=== PATIENT | female | born 1980 | race Caucasian/White ===

== ENCOUNTER 2023-02-06 20:19 | Emergency (ER) | payer MEDICAID, SELFPAY ==
[2023-02-06 20:34] VITALS: BP 132/88; PULSE 78; RESP 18; TEMP 36.8; O2SAT 100; BMI 31.8
[2023-02-06 21:02] LABS: Appearance Urine Clear (Clear); Bilirubin Urine Negative (Negative); Blood Urine Negative (Negative); Color Urine Yellow (Yellow); Glucose Urine Negative (Negative); Ketones Urine Negative (Negative); Leukocyte Esterase Urine Negative (Negative); Nitrite Urine Negative (Negative); Protein Urine Negative (Negative); Specific Gravity Urine >= 1.030 (1.000-1.030); Urobilinogen Urine 0.2 (0.2-1.0)
[2023-02-06] MEDS: KETOROLAC 30 MG/ML inj IVP (21:07)
[2023-02-06] MEDS: 0.9 % SODIUM CHLORIDE 1000 ml 1,000 ML IV (21:07)
[2023-02-06 21:22] LABS: Basophils Absolute Auto 0.02 K/uL (0.00-0.30); Basophils Percent Auto 0.3 % (0.0-3.0); Eosinophils Absolute Auto 0.07 K/uL (0.00-0.50); Hematocrit 40.2 % (33.0-51.0); Hemoglobin* 13.5 gm/dL (12.0-16.0); Immature Granulocytes Abs Auto 0.01 K/uL (0.00-0.30); Immature Granulocytes Pct Auto 0.1 %; Lymphocytes Absolute Auto 2.87 K/uL (0.90-2.90); Lymphocytes Percent Auto 42.6 % (20-44); Mean Corpuscular HGB Conc 34 gm/dL (32-36); Mean Corpuscular Hemoglobin 28 pg (26-34); Mean Corpuscular Volume 84 fL (80-100); Monocytes Percent Auto 6.8 % (0.0-11.0); Neutrophils Percent Auto 49.2 % (42.0-72.0); Platelet Count* 225 K/uL (140-440); RDW Coefficient of Variation % 12.6 % (11.5-15.5); Red Blood Count 4.78 m/uL (4.00-5.20); White Blood Count* 6.73 K/uL (4.50-11.00)
[2023-02-06 21:34] LABS: RBC Urine 0-2 (0-2); WBC Urine 0-2 (0-5)
[2023-02-06 21:37] LABS: Slide Review Reflex No
[2023-02-06 21:41] LABS: Albumin* 4.9 g/dL (3.3-5.0); Chloride* 104 mmol/L (96-114)
[2023-02-06 21:42] LABS: Potassium* 3.9 mmol/L (3.6-5.1); Sodium* 139 mmol/L (135-149)
[2023-02-06 21:44] LABS: Aspartate Amino Transferase* 22 U/L (12-35); Bilirubin Direct* 0.2 mg/dL (0.0-0.5); Bilirubin Total* 0.7 mg/dL (0.1-1.5); Carbon Dioxide* 26 mmol/L (20-32); Creatinine* 0.7 mg/dL (0.5-1.5); Est. Creatinine Clearance* 107.77; Estimated Glomerular Filt Rate 112 ml/min
[2023-02-06 21:45] LABS: Alanine Aminotransferase* 21 U/L (4-35); Alkaline Phosphatase* 46 U/L (40-150); Blood Urea Nitrogen* 17 mg/dL (5-24); Calcium* 9.6 mg/dL (8.4-10.6); Glucose* 91 mg/dL (60-115); Lipase* 204 U/L (23-300)
[2023-02-06 22:01] LABS: PCR FLU A Negative PCR FLU A (Negative); PCR FLU B Negative PCR FLU B (Negative)
[2023-02-06 22:13] LABS: C Reactive Protein* < 0.5 mg/dL (0.5-1.0)
[2023-02-06 22:15] LABS: SARS PCR* Negative SARS-CoV-2 (Negative)
--- NOTE | 2023-02-06 22:31 | ED.HA ---
HPI - Headache General Chief Complaint: Headache/Migraine Stated Complaint: Nausea, vomiting, Headache post CT scan Time Seen by Provider: 02/06/23 20:24 History of Present Illness HPI Narrative: 42-year-old woman presenting to the emergency department with complaint of mid forehead pain over the course of the day. No neck pain. No fever. Later endorses nausea that she thinks is more related to the degree of pain she was having. Contrasted chest CT exam last week and since has felt more bloated and some intermittent right abdominal pain. Headache started today. Recently took a dose of Victoza for insulin resistance she says. 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 She does have a history of nephrolithiasis including rather large stone retrieval it sounds like at one point at [place]. She notes also some gallbladder polyps. Does not typically get headaches. Is experiencing photophobia. She does have a history of ?cold sores? and later noted a an antiviral prescription is available. Few days ago though had eruption of lesion on her right lower lip. Ultimately she did [place] it of clear fluid. Did not have tingling prodrome or since consistent with typical cold sores. Has been experiencing pain radiating up through her right cheek area toward her ear. Denies TMJ pain or grinding her teeth. No sore throat. Related Data Home Medications Medication Instructions Recorded Confirmed liraglutide 0.6 mg/0.1 mL (18 mg/3 0.6 mg subcut DAILY 02/06/23 02/06/23 mL) subcutaneous pen injector (Victoza 2-Thomas) Allergies Allergy/AdvReac Type Severity Reaction Status Date / Time morphine Allergy Mild Rash Verified 02/06/23 20:39 Review of Systems Status of ROS: Reports: 10 or more systems reviewed and unremarkable except as noted in History and below [facility] Social History Smoking Status: Never smoker Do you use any of these nicotine containing products: None How often do you have a drink containing alcohol: never AUDIT-C Alcohol total score: 0 Non-prescribed substance use: denies use service: No Exam Narrative: Exam Narrative: Pleasant. Seems a little uncomfortable. More comfortable as I darken the room. Head looks to be atraumatic. No facial swelling or erythema. There is a 0.5 cm whitish plaque moist consistent with resolving blister like lesion without erythematous base on the right side lower lip. No surrounding inflammatory change of the lip otherwise. Neck is supple nontender. Speaking easily. No cervical lymphadenopathy. Does not have appear to have tenderness discretely over the parotids. Bilateral TMJ does shift with further opening of her mouth. Appears to be nontender. Cranial nerves 2-12 look to be intact. Pupils are equal and reactive to light accommodation. Heart is in regular rate. Is breathing easily. Abdomen is soft with mild discomfort to palpation in the right upper quadrant generally. No significant flank tenderness. Extremities are without edema. Const: Vital Signs, click to edit/add: Vital Signs - 24 hr 02/06/23 20:34 Temperature 98.3 F Pulse Rate [Right Pulse Oximeter] 78 Respiratory Rate 18 Blood Pressure [Ri ght Upper Arm] 132/88 Pulse Oximetry 100 Oxygen Delivery Me thod Room Air Documenting provider has reviewed patient's vital signs: yes Course Vital Signs Vital signs: Initial Vital Signs Temperature 98.3 F 02/06/23 20:34 Temperature Source Temporal Artery Scan 02/06/23 20:34 Pulse Rate 78 02/06/23 20:34 Respiratory Rate 18 02/06/23 20:34 Blood Pressure 132/88 02/06/23 20:34 Blood Pressure Mean 102 02/06/23 20:34 Blood Pressure Position Sitting 02/06/23 20:34 Pulse Oximetry 100 02/06/23 20:34 Oxygen Delivery Method 02/06/23 20:34 Vital Signs Temperature 98.3 F 02/06/23 20:34 Pulse Rate 78 02/06/23 20:34 Respiratory Rate 18 02/06/23 20:34 Blood Pressure 132/88 02/06/23 20:34 Pulse Oximetry 100 02/06/23 20:34 Oxygen Delivery Method 02/06/23 20:34 Temperature 98.3 F 02/06/23 20:34 Pulse Rate 78 02/06/23 20:34 Respiratory Rate 18 02/06/23 20:34 Blood Pressure 132/88 02/06/23 20:34 Pulse Oximetry 100 02/06/23 20:34 Oxygen Delivery Method 02/06/23 20:34 MDM - Headache MDM Narrative Medical decision making narrative: I wonder if this aphthous ulcer/cold sore/lesion in the right lip has cause some regional pain contributing to this headache. No lesions further on face/head/neck consistent with shingles or [place]. Offering treatment for headache resolution. Can certainly evaluate also renal function and urinalysis given her concern. Perhaps is indeed intolerant of Victoza. IV was established. Received a L of normal saline and ketorolac. Appears to be significantly more comfortable; notes that treatment is taken the edge off. Nausea has also improved. Laboratory evaluation is unremarkable with normal CRP and creatinine of 0.7 See patient discharge plan. Lab Data Attestation: I reviewed the patient's lab results. Labs: Lab Results 02/06/23 02/06/23 02/06/23 Range/Units 20:50 21:05 21:05 WBC 6.73 (4.50-11.00) K/uL RBC 4.78 (4.00-5.20) m/uL Hgb 13.5 (12.0-16.0) gm/dL Hct 40.2 (33.0-51.0) % MCV 84 (80-100) fL MCH 28 (26-34) pg MCHC 34 (32-36) gm/dL RDW Coeff of Epifanio 12.6 (11.5-15.5) % Plt Count 225 (140-440) K/uL Neut % (Auto) 49.2 (42.0-72.0) % Lymph % (Auto) 42.6 (20-44) % [place] % (Auto) 6.8 (0.0-11.0) % Eos % (Auto) 1.0 (0.0-7.0) % Baso % (Auto) 0.3 (0.0-3.0) % Neut # (Auto) 3.30 (1.7-7.0) K/uL Lymph # (Auto) 2.87 (0.90-2.90) K/uL [place] # (Auto) 0.50 (0.00-0.90) K/UL Eos # (Auto) 0.07 (0.00-0.50) K/uL Baso # (Auto) 0.02 (0.00-0.30) K/uL Sodium 139 (135-149) mmol/L Potassium 3.9 (3.6-5.1) mmol/L Chloride 104 (96-114) mmol/L Carbon Dioxide 26 (20-32) mmol/L BUN 17 (5-24) mg/dL Creatinine 0.7 (0.5-1.5) mg/dL Estimated Creat Clear 107.77 Estimated GFR 112 ml/min Glucose 91 (60-115) mg/dL Calcium 9.6 (8.4-10.6) mg/dL Total Bilirubin 0.7 (0.1-1.5) mg/dL Direct Bilirubin 0.2 (0.0-0.5) mg/dL AST 22 (12-35) U/L ALT 21 (4-35) U/L Alkaline Phosphatase 46 (40-150) U/L C-Reactive Protein < 0.5 L (0.5-1.0) mg/dL Total Protein 8.0 (6.0-8.3) g/dL Albumin 4.9 (3.3-5.0) g/dL Lipase 204 (23-300) U/L Urine Color Yellow (Yellow) Urine Appearance Clear (Clear) Urine pH 6.0 (5.0-8.5) Ur Specific [place] >= 1.030 (1.000-1.030) Urine Protein Negative (Negative) Urine Glucose (UA) Negative (Negative) Urine Ketones Negative (Negative) Urine Blood Negative (Negative) Urine Nitrite Negative (Negative) Urine Bilirubin Negative (Negative) Urine Urobilinogen 0.2 (0.2-1.0) Ur Leukocyte Esterase Negative (Negative) Urine RBC 0-2 (0-2) Urine WBC 0-2 (0-5) Ur Squamous Epith Cells None (None-Few) Urine Bacteria None (None) SARS-CoV-2 (PCR) (Negative) Influenza Type A (PCR) (Negative) Influenza Type B (PCR) (Negative) 02/06/23 02/06/23 Range/Units 21:05 21:05 WBC (4.50-11.00) K/uL RBC (4.00-5.20) m/uL Hgb (12.0-16.0) gm/dL Hct (33.0-51.0) % MCV (80-100) fL MCH (26-34) pg MCHC (32-36) gm/dL RDW Coeff of Epifanio (11.5-15.5) % Plt Count (140-440) K/uL Neut % (Auto) (42.0-72.0) % Lymph % (Auto) (20-44) % [place] % (Auto) (0.0-11.0) % Eos % (Auto) (0.0-7.0) % Baso % (Auto) (0.0-3.0) % Neut # (Auto) (1.7-7.0) K/uL Lymph # (Auto) (0.90-2.90) K/uL [place] # (Auto) (0.00-0.90) K/UL Eos # (Auto) (0.00-0.50) K/uL Baso # (Auto) (0.00-0.30) K/uL Sodium (135-149) mmol/L Potassium (3.6-5.1) mmol/L Chloride (96-114) mmol/L Carbon Dioxide (20-32) mmol/L BUN (5-24) mg/dL Creatinine (0.5-1.5) mg/dL Estimated Creat Clear Estimated GFR ml/min Glucose (60-115) mg/dL Calcium (8.4-10.6) mg/dL Total Bilirubin (0.1-1.5) mg/dL Direct Bilirubin (0.0-0.5) mg/dL AST (12-35) U/L ALT (4-35) U/L Alkaline Phosphatase (40-150) U/L C-Reactive Protein (0.5-1.0) mg/dL Total Protein (6.0-8.3) g/dL Albumin (3.3-5.0) g/dL Lipase Cancelled (23-300) U/L Urine Color (Yellow) Urine Appearance (Clear) Urine pH (5.0-8.5) Ur Specific [place] (1.000-1.030) Urine Protein (Negative) Urine Glucose (UA) (Negative) Urine Ketones (Negative) Urine Blood (Negative) Urine Nitrite (Negative) Urine Bilirubin (Negative) Urine Urobilinogen (0.2-1.0) Ur Leukocyte Esterase (Negative) Urine RBC (0-2) Urine WBC (0-5) Ur Squamous Epith Cells (None-Few) Urine Bacteria (None) SARS-CoV-2 (PCR) Negative SARS-CoV-2 (Negative) Influenza Type A (PCR) Negative PCR FLU A (Negative) Influenza Type B (PCR) Negative PCR FLU B (Negative) Discharge Plan Discharge Clinical Impression: Cold sore, Headache Patient Disposition: Home, Self-Care Condition: Improved Additional Instructions: Continue to focus on hydration with water. Rest. Return/be seen for recurrence of headache, marked increase in pain, repeated/intractable vomiting, fever particularly if associated with swelling redness on your face, outbreak of very other blistering or eroded skin. Prescriptions: No Action Victoza 2-Thomas 0.6 mg/0.1 mL (18 mg/3 mL) pen injector 0.6 mg subcut DAILY Follow Up/Referrals: Radha Cowan MD [Primary Care Provider] - Stand Alone Forms: [facility] Info Instructions
== END 2023-02-06 22:47 | disposition home or self-care (01) ==
PROVIDERS: Emergency Provider Family Medicine; PCP Family Medicine
DX: B00.1 Herpesviral vesicular dermatitis (principal); R51.9 Headache, unspecified
CPT/HCPCS: 36415; 80048; 80076; 81001; 83690; 85025; 86140; 87631; 96361; 96374; 99284; J1885; J7030

== ENCOUNTER 2024-07-19 18:49 | Emergency (ER) | payer BC, SELFPAY ==
[2024-07-19 18:51] VITALS: BP 131/78; PULSE 78; RESP 16; TEMP 36.8; O2SAT 99; BMI 30.9
--- NOTE | 2024-07-19 19:02 | ED_ITS ---
HPI - Abdominal Pain General Time Seen by Provider: 19:11 Date Seen: 07/19/24 Chief Complaint: Abdominal Pain Stated Complaint: Right side abdominal pain Time Seen by Provider: 07/19/24 19:02 Source: patient Mode of arrival: ambulatory Limitations: no limitations History of Present Illness HPI narrative: 44-year-old female who comes in today with right-sided abdominal pain. Pain started this afternoon, accompanied by nausea but no vomiting. No urinary symptoms, no diarrhea. Has a history of kidney stones but says this feels different. No prior abdominal surgeries. Took ibuprofen earlier. Related Data Home Medications ?Medication ?Instructions ?Recorded ?Confirmed tirzepatide 5 mg/0.5 mL 5 mg subcut QWEEK 07/19/24 07/19/24 subcutaneous pen injector (Mounjaro) Previous Rx's ?Medication ?Instructions ?Recorded tamsulosin 0.4 mg capsule (Flomax) 0.4 mg PO DAILY #7 caps 07/19/24 Allergies Allergy/AdvReac Type Severity Reaction Status Date / Time morphine Allergy Mild Rash Verified 07/19/24 19:40 [facility] Social History Smoking Status: Never smoker Do you use any of these nicotine containing products: None How often do you have a drink containing alcohol: never AUDIT-C Alcohol total score: 0 Non-prescribed substance use: denies use service: No Exam Narrative: Exam Narrative: General: Well-developed and well-nourished, no acute distress Head: Atraumatic and normocephalic Eyes: Pupils are equal reactive, extraocular motions intact, conjunctiva clear ENT: External nose and ears are normal, posterior pharynx without erythema or exudate Neck: No midline cervical tenderness, full spontaneous range of motion the neck, trachea midline, no adenopathy Heart: Regular rate and rhythm no murmurs or thrills Lungs: Clear to auscultation bilaterally without wheezes or crackles Abdomen: Soft, right lateral abdominal tenderness, no right lower quadrant or right upper quadrant tenderness, nondistended with active bowel sounds Musculoskeletal: No tenderness, deformity, or edema Neurologic: Awake, alert, and oriented x3, no gross focal neurologic deficits, cranial nerves intact as tested Psych: Mood and affect are appropriate Skin: No rashes Const: Vital Signs, click to edit/add: Vital Signs - 24 hr 07/19/24 18:51 Temperature 98.3 F Pulse Rate [Pulse Oximeter] 78 Respiratory Rate 16 Blood Pressure [Ri ght Upper Arm] 131/78 Pulse Oximetry 99 Oxygen Delivery Me thod Room Air Course Course ED Course: Reviewed prior primary care office visit from October 03 when patient was seen for follow-up of flank pain and concern for kidney stone. Patient was referred to the emergency department at that time but it does not appear she was seen in [place]. Patient seen in presents with right-sided abdominal pain. Vitally stable, no prior abdominal surgeries. Lateral abdominal tenderness, no right lower quadrant tenderness to suggest adnexal pathology or appendicitis, no right upper quadrant tenderness. This could represent a retrocecal appendicitis, also consider kidney stone. Labs ordered along with CT scan abdomen pelvis. Dilaudid and Zofran for symptom management. Reevaluation(s) Time of Reevaluation #1: 20:02 Reevaluation #1: CT abdomen and pelvis independently interpreted by me with decompressed gallbladder and no evidence for stones or iliac thickening, right-sided hydronephrosis with a 3 mm mid ureteral stone, no evidence for acute appendicitis. Plan for discharge with symptom management for stone and follow- up with urology. Time of Reevaluation #2: 20:31 Reevaluation #2: Urinalysis with blood but no evidence for infection, reviewed radiology interpretation of CT scan which agrees with my initial interpretation. Vital Signs Vital signs: Initial Vital Signs Temperature 98.3 F 07/19/24 18:51 Temperature Source Temporal Artery Scan 07/19/24 18:51 Pulse Rate 78 07/19/24 18:51 Respiratory Rate 16 07/19/24 18:51 Blood Pressure 131/78 07/19/24 18:51 Blood Pressure Mean 95 07/19/24 18:51 Blood Pressure Position Sitting 07/19/24 18:51 Pulse Oximetry 99 07/19/24 18:51 Oxygen Delivery Method Room Air 07/19/24 18:51 Vital Signs Temperature 98.3 F 07/19/24 18:51 Pulse Rate 78 07/19/24 18:51 Respiratory Rate 16 07/19/24 18:51 Blood Pressure 131/78 07/19/24 18:51 Pulse Oximetry 99 07/19/24 18:51 Oxygen Delivery Method Room Air 07/19/24 18:51 Temperature 98.3 F 07/19/24 18:51 Pulse Rate 78 07/19/24 18:51 Respiratory Rate 16 07/19/24 18:51 Blood Pressure 131/78 07/19/24 18:51 Pulse Oximetry 99 07/19/24 18:51 Oxygen Delivery Method Room Air 07/19/24 18:51 Medications Administered Medications: Discontinued Medications Generic Name Dose Route Start Last Admin Trade Name Freq PRN Reason Stop Dose Admin Ketorolac Tromethamine 15 mg 07/19/24 20:03 07/19/24 20:09 Ketorolac 15 Mg/Ml Inj IVP 07/19/24 20:04 15 mg ONCE ONE Administration Ondansetron HCl 4 mg 07/19/24 19:22 07/19/24 19:37 Ondansetron 2 Mg/Ml Inj IVP 07/19/24 19:23 4 mg ONCE ONE Administration MDM - Abdominal Pain Lab Data Labs: Lab Results 07/19/24 07/19/24 Range/Units 19:30 19:44 WBC 7.11 (4.50-11.00) K/uL RBC 4.36 (4.00-5.20) m/uL Hgb 12.2 (12.0-16.0) gm/dL Hct 36.4 (33.0-51.0) % MCV 84 (80-100) fL MCH 28 (26-34) pg MCHC 34 (32-36) gm/dL RDW Coeff of Epifanio 13.0 (11.5-15.5) % Plt Count 191 (140-440) K/uL Neut % (Auto) 48.9 (42.0-72.0) % Lymph % (Auto) 43.5 (20-44) % [place] % (Auto) 6.0 (0.0-11.0) % Eos % (Auto) 1.3 (0.0-7.0) % Baso % (Auto) 0.3 (0.0-3.0) % Neut # (Auto) 3.48 (1.7-7.0) K/uL Lymph # (Auto) 3.09 H (0.90-2.90) K/uL [place] # (Auto) 0.40 (0.00-0.90) K/UL Eos # (Auto) 0.09 (0.00-0.50) K/uL Baso # (Auto) 0.02 (0.00-0.30) K/uL Abs Immat Gran (auto) 0.00 (0.00-0.30) K/uL Imm/Tot Granulo (auto) 0.0 % Sodium 139 (135-149) mmol/L Potassium 4.2 (3.6-5.1) mmol/L Chloride 108 (96-114) mmol/L Carbon Dioxide 24 (20-32) mmol/L Anion Gap 7 (7-15) mEq/L BUN 18 (5-24) mg/dL Creatinine 1.0 (0.5-1.5) mg/dL Estimated Creat Clear 73.93 Estimated GFR 72 ml/min Glucose 89 (60-115) mg/dL Calcium 9.3 (8.4-10.6) mg/dL Total Bilirubin 0.6 (0.1-1.5) mg/dL Direct Bilirubin 0.2 (0.0-0.5) mg/dL AST 20 (12-35) U/L ALT 17 (4-35) U/L Alkaline Phosphatase 47 (40-150) U/L Total Protein 7.4 (6.0-8.3) g/dL Albumin 4.8 (3.3-5.0) g/dL Lipase 298 (23-300) U/L Urine Color Yellow (Yellow) Urine Appearance Cloudy A (Clear) Urine pH 6.5 (5.0-8.5) Ur Specific [place] 1.025 (1.000-1.030) Urine Protein 1+ A (Negative) Urine Glucose (UA) Negative (Negative) Urine Ketones Negative (Negative) Urine Blood 3+ A (Negative) Urine Nitrite Negative (Negative) Urine Bilirubin Negative (Negative) Urine Urobilinogen 0.2 (0.2-1.0) Ur Leukocyte Esterase Negative (Negative) Urine RBC >100 A (0-2) Urine WBC 0-2 (0-5) Ur Squamous Epith Cells Few (None-Few) Urine Bacteria Few A (None) Discharge Plan Discharge Clinical Impression: Right ureteral calculus Patient Disposition: Home, Self-Care Condition: Stable Instructions: Ureteral Stones (ED) Additional Instructions: Take Tylenol every 6 hours alternating with ibuprofen every 6 hours Call [facility] to see if you can get sooner follow-up for acute kidney stone Activity Level: Activity as Tolerated Discharge Diet: Regular Prescriptions: New tamsulosin [Flomax] 0.4 mg capsule 0.4 mg PO DAILY Qty: 7 0RF No Action Mounjaro 5 mg/0.5 mL pen injector 5 mg subcut QWEEK Follow Up/Referrals: Radha Cowan MD [Primary Care Provider] - Stand Alone Forms: [facility] Info Instructions
--- NOTE | 2024-07-19 19:22 | CRLHL7_ITS ---
For Patients: As a result of the Century Cures Act, medical imaging exams and procedure reports are released immediately into your electronic medical record. You may view this report before your referring provider. If you have questions, please contact your health care provider. Indication: Right-sided abdominal pain Technique: CT through the abdomen and pelvis following 99 mL Isovue 370 IV contrast Comparison: None Findings: Lower chest: No acute abnormality appreciated. Hepatobiliary: No significant parenchymal abnormality is appreciated. Spleen: Unremarkable. Pancreas: No acute abnormality appreciated. Adrenal glands: No acute abnormality appreciated. Kidneys: There is a 3 millimeter proximal right ureteral stone with mild hydronephrosis and delayed nephrogram ureter additional bilateral nonobstructing stones present. Bowel: No obstruction. No focal perienteric or pericolonic stranding is appreciated. The appendix is visualized and appears unremarkable. Vascular: No acute abnormality appreciated. Lymph nodes: No gross lymphadenopathy. Peritoneum: No free air. No free fluid. : No acute abnormality appreciated. Soft tissues: No acute abnormality appreciated. Bones: No acute fracture. No lytic or blastic lesion. Impression: 1. Obstructing 3 millimeter proximal right ureteral stone with mild hydronephrosis. 2. Additional bilateral nonobstructing stones present. Please note that all CT scans at this facility use dose modulation, iterative reconstruction, and/or weight-based dosing when appropriate to reduce radiation dose to as low as reasonably achievable. Dictated by Raudel Severino MD @ 07/19/2024 8:25:15 PM (Electronically Signed)
[2024-07-19 19:37] LABS: Basophils Absolute Auto 0.02 K/uL (0.00-0.30); Basophils Percent Auto 0.3 % (0.0-3.0); Eosinophils Absolute Auto 0.09 K/uL (0.00-0.50); Eosinophils Percent Auto 1.3 % (0.0-7.0); Hematocrit 36.4 % (33.0-51.0); Hemoglobin* 12.2 gm/dL (12.0-16.0); Lymphocytes Absolute Auto 3.09 K/uL (0.90-2.90); Lymphocytes Percent Auto 43.5 % (20-44); Mean Corpuscular HGB Conc 34 gm/dL (32-36); Mean Corpuscular Hemoglobin 28 pg (26-34); Mean Corpuscular Volume 84 fL (80-100); Neutrophils Absolute Auto 3.48 K/uL (1.7-7.0); Neutrophils Percent Auto 48.9 % (42.0-72.0); Platelet Count* 191 K/uL (140-440); Red Blood Count 4.36 m/uL (4.00-5.20); White Blood Count* 7.11 K/uL (4.50-11.00)
[2024-07-19] MEDS: ONDANSETRON 2 MG/ML inj 4 MG IVP (19:37)
[2024-07-19 19:38] LABS: Slide Review Reflex No
--- OUTSIDE RECORDS SUMMARY | 2024-07-19 19:57 | XMS_ITS | Clinical Summary ---
Author Organization [facility] Address [place], [place] [address] Care Team Providers Care Closing Manager Name Role Phone Yareli Oviedo MD Unavailable [phone] Radha Cowan MD Primary Care Provider Mira Coelho MD Unavailable Unavailable Juan Torres MD Unavailable [phone] Allergies Active Allergy Reactions Criticality Noted Date Comments Morphine Rash 04/19/2018 Medications Medication Sig Dispensed Refills Start Date End Date Status lisdexamfetamine (Vyvanse) 10 mg capsuleIndications :ADHD (attention deficit hyperactivity disorder), combined type Take 1 Capsule (10 mg) by mouth once daily. 30 Capsule 07/03/2024 4 Active lisdexamfetamine (Vyvanse) 10 mg capsuleIndications :ADHD (attention deficit hyperactivity disorder), combined type Take 1 Capsule (10 mg) by mouth once daily. 30 Capsule 08/02/2024 4 Active lisdexamfetamine (Vyvanse) 10 mg capsuleIndications :ADHD (attention deficit hyperactivity disorder), combined type Take 1 Capsule (10 mg) by mouth once daily. 30 Capsule 09/01/2024 Active semaglutide, weight loss, (Wegovy) 2.4 mg/0.75 mL penIndications:PCO S (polycystic ovarian syndrome),Insulin resistance,Obesity (BMI 30.0-34.9) Inject 2.4 mg subcutaneous once weekly. 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 02/14/2022 Encounters Date Type Department Care Team Description 07/03/2024 2:20 PM CDT Office Visit [facility] [address] [place] [address] Radha Cowan MD Medication Management (Switching medications) 07/03/2024 Travel 05/29/2024 Refill [facility] [address] [place] [address] Radha Cowan MD Refill Request; VALACYCLOVIR 05/01/2024 Refill [facility] [address] [place] [address] Radha Cowan MD Refill Request (Valtrex) from Last 3 Months Immunizations Name Administration Dates Next Due DTP 10/26/1987,12/28/1983,03/30/1983 ,1982 Influenza, IIV3 (Age 6-35 mos) 12/24/2012 Influenza, IIV4 12/24/2013 Influenza,CCIIV4 PRESERV FREE 08/27/2018 MMR 10/17/1983 Oral Polio Vaccine 10/26/1987,03/30/1983, 983 Tdap 12/24/2012 Family History Medical History Relation Name Comments Stroke Other ICH as complica tion of coumadin, per pt report Cancer-breast No Family History Cancer-colon No Family History Cancer-ovarian No Family History Cancer-pancreatic No Family History Cancer-prostate No Family History Melanoma No Family History Relation Name Status Comments Other Social History Tobacco Use Types Packs/Day Years Used Date Smoking Tobacco: Never Smokeless Tobacco: Never Tobacco Cessation:Counseling Given: Yes Alcohol Use Standard Drinks/Week Comments No 0 (1 standard drink = 0.6 oz pur e alcohol) PHQ-2 Answer Date Recorded PHQ-2 TOTAL SCORE 1 11/22/2023 Social Connections Answer Date Recorded Frequency of Communication with Friends and Fami ly 0 11/22/2023 Financial Resource Strain Answer Date R ecorded Difficulty of Paying Living Expenses 3 11/22/2023 Difficulty of Paying Living Expenses Not on file 11/22/2023 Food Insecurity Answer Date Recorded Worried About Running Out of Food in the Last Ye ar 1 11/22/2023 Transportation Needs Answer Date Record ed Lack of Transportation (Medical) 1 11/22/2023 Housing Stability Answer Date Recorded Unable to Pay for Housing in the Last Year 1 11/22/2023 Sex and Gender Information Value Date Recorded Sex Assigned at Not on file Gender Identity Not on file Sexual Orientation Not on file Obstetrics History Para Term AB IAB SAB Ectopic Multiple Livin g Live Births 5 4 0 0 1 0 1 0 Date Outcome GA Total Labor Labor/2nd/3rd Weight Sex Type Anes PTL Fatou A1 A5 Name Clin Para Para Para Para SAB Last Filed Vital Signs Vital Sign Reading Time Taken Comments Blood Pressure 104/73 07/03/2024 2:35 PM CDT Pulse 75 07/03/2024 2:35 PM CDT Temperature 36.9 ??C (98.5 ??F) 07/03/2024 2:35 PM CD T Respiratory Rate 16 11/01/2023 8:33 AM RUBBER MOLD MAKER Oxygen Saturation 97% 07/03/2024 2:35 PM CDT Inhaled Oxygen Concentration - - Weight 93.1 kg (205 lb 3.2 oz) 07/03/2024 2:35 P M CDT Height 171.5 cm (5' 7.5) 09/26/2023 11:02 AM CS T Body Mass Index 31.66 09/26/2023 11:02 AM RUBBER MOLD MAKER Plan of Treatment Health Maintenance Due Date Last Done Comments HIV for age 15-65 1997 Hepatitis C screening for age 18-79 2000 Pap test for age 21-65 2003 Tetanus booster 12/24/2022 12/24/2012, 02/2013 (Completed outside of [facility]) COVID-19 vaccine series (24 season) 2023 Influenza for age 9-49 07/21/2024 08/27/2018, 2013 BMI (ht and wt on same day) for age 18+ 09/21/2024 09/21/2023, 03/22/2023, 01/30/2023, Additional history exists Depression screening for age 12+ 11/22/2024 11/22/2023, 02/14/2022, 08/12/2021, Additional history exists Tdap Completed 12/24/2012, 02/2013 (Completed outside of [facility]) Pneumococcal series for age 6-64 Aged Out No longer eligible based on patient's age to complete this topic Medical Devices Implanted Type Area Repairer Device Identifier Shelf Expiration Date Model / Serial / Lot [id number] Boris Gray Md Perforated Implanted:Qty: 1 on 10/28/2020 by Juan Torres MD at [facility] Explanted:at [facility] (Quantity not on file) Left: Breast Acel[employer] LP Inc 06/19/2022 [id number] / [id number] / [id number] Boris Gray Md Perforated Implanted:Qty: 1 on 10/28/2020 by Juan Torres MD at [facility] Explanted:at [facility] (Quantity not on file) Right: Breast [employer]el[employer] Inc 06/19/2022 [id number] / [id number] / Breast 745cc Natrelle Inspira Soft Touch Ssf - [id number] Implanted:Qty: 1 on 11/08/2021 by Misbah Coelho MD at [facility] Right: Breast [employer] - [place] 09/08/2025 SSF-745 / [id number] / [id number] Breast 745cc Natrelle Inspira Soft Touch Ssf - [id number] Implanted:Qty: 1 on 11/08/2021 by Misbah Coelho MD at [facility] Breast [employer] - [employer] 06/23/2025 SSF-745 / [id number] / [id number] Explanted Type Area Repairer Device Identifier Shelf Expiration Date Model / Serial / Lot [id number] breastimplanttal [id number] 50cc Implanted:Qty: 1 on 10/28/2020 by Juan Torres MD at [facility] Explanted:at [facility] (Quantity not on file) Explanted:Qty: 1 on 11/08/2021 by Misbah Coelho MD at [facility] Left: Breast [employer] 06/20/2023 [id number] / [id number] Description:BREAST IMPLANT T ALL HEIGHT TE SMOOTH 450CC Explanted prior to encounter 11/09/21 [id number] breastimplanttal [id number] 50cc Implanted:Qty: 1 on 10/28/2020 by Juan Torres MD at [facility] Explanted:at [facility] (Quantity not on file) Explanted:Qty: 1 on 11/08/2021 by Misbah Coelho MD at [facility] Right: Breast [employer] 01/22/2024 [id number] / [id number] Description:BREAST IMPLANT T ALL HEIGHT TE SMOOTH 450CC Explanted prior to encounter 11/09/21 [place] [employer] Hpx 700 Cc Explanted:Qty: 2 on 11/08/2021 at [facility] Bilateral: Breast [employer]PLANT[employer] / [id number] / Additional Health Concerns Infection Onset Date Last Indicated COVID History Comment:COVID+ test result dates: 08/10/21 (90 days clearance ends 11/08/21) and 11/04/21 via PCR from [facility]. Patient met COVID clearance criteria on 08/20/21. For evaluation of subsequent COVID+ results, refer to the algorithm on the AKN: Isolation Precaution Recommendations for Patients with History of COVID-19 Infection. 11/05/2021 11/05/2021 Advance Directives * Full Code (Latest Code Status on File) Date Activated Date Inactivated Comments 09/26/2023 10:59 AM 09/26/2023 5:24 PM Question Answer Comments Code Status Discussion: Reviewed Preferences * Full Code Date Activated Date Inactivated Comments 11/08/2021 11:51 AM 11/08/2021 9:39 PM Question Answer Comments Code Status Discussion: Reviewed Preferences * Full Code Date Activated Date Inactivated Comments 10/28/2020 1:34 PM 10/30/2020 3:33 PM Question Answer Comments Code Status Discussion: Not Discussed * Full Code Date Activated Date Inactivated Comments 10/28/2020 1:34 PM 10/28/2020 1:34 PM Question Answer Comments Code Status Discussion: Not Discussed * Full Code Date Activated Date Inactivated Comments 04/07/2015 7:12 AM 04/07/2015 1:44 PM Care Teams Closing Manager Relationship Specialty Start Date End Date Radha Cowan MD [address] [place] [address] PCP - General Family Practice 10/03/19 Yareli Oviedo MD [address] [place] [id number] Obstetrics and Gynecology 04/19/18 Mira Coelho MD [address] [place] [address] Surgery - General 10/13/20 Juan Torres MD [address] [address] Plastic and Reconstructive Surgery 10/26/20
[2024-07-19 20:00] LABS: Albumin* 4.8 g/dL (3.3-5.0); Chloride* 108 mmol/L (96-114); Potassium* 4.2 mmol/L (3.6-5.1); Sodium* 139 mmol/L (135-149)
[2024-07-19 20:03] LABS: Alkaline Phosphatase* 47 U/L (40-150); Anion Gap 7 mEq/L (7-15); Aspartate Amino Transferase* 20 U/L (12-35); Bilirubin Direct* 0.2 mg/dL (0.0-0.5); Bilirubin Total* 0.6 mg/dL (0.1-1.5); Blood Urea Nitrogen* 18 mg/dL (5-24); Calcium* 9.3 mg/dL (8.4-10.6); Carbon Dioxide* 24 mmol/L (20-32); Est. Creatinine Clearance* 73.93; Estimated Glomerular Filt Rate 72 ml/min; Glucose* 89 mg/dL (60-115); Lipase* 298 U/L (23-300); Total Protein* 7.4 g/dL (6.0-8.3)
[2024-07-19 20:04] LABS: Alanine Aminotransferase* 17 U/L (4-35)
[2024-07-19 20:07] LABS: Appearance Urine Cloudy (Clear); Bilirubin Urine Negative (Negative); Blood Urine 3+ (Negative); Color Urine Yellow (Yellow); Glucose Urine Negative (Negative); Ketones Urine Negative (Negative); Leukocyte Esterase Urine Negative (Negative); Nitrite Urine Negative (Negative); Protein Urine 1+ (Negative); Specific Gravity Urine 1.025 (1.000-1.030); Urobilinogen Urine 0.2 (0.2-1.0); pH Urine 6.5 (5.0-8.5)
[2024-07-19] MEDS: KETOROLAC 15 MG/ML inj IVP (20:09)
[2024-07-19 20:22] LABS: RBC Urine >100 (0-2); WBC Urine 0-2 (0-5)
[2024-07-19 20:23] LABS: Bacteria Urine Few; Squamous Epithelial Cell Urine Few (None-Few)
[2024-07-19 20:38] VITALS: BP 124/71; PULSE 71; RESP 16
== END 2024-07-19 20:39 | disposition home or self-care (01) ==
PROVIDERS: Emergency Provider Family Medicine; PCP Family Medicine
DX: N20.1 Calculus of ureter (principal)
CPT/HCPCS: 36415; 74177; 80048; 80076; 81001; 83690; 85025; 87086; 96374; 96375; 99284; 99285; J1885; J2405; Q9967

== ENCOUNTER 2024-07-20 18:31 | Emergency (ER) | payer BC, SELFPAY ==
[2024-07-20 18:39] VITALS: BP 148/79; PULSE 96; RESP 20; TEMP 37.1; O2SAT 100
--- NOTE | 2024-07-20 18:42 | ED.ABDPAIN ---
HPI - Abdominal Pain General Time Seen by Provider: 18:42 Date Seen: 07/20/24 Chief Complaint: Abdominal Pain Stated Complaint: kidney stones;meds not working Time Seen by Provider: 07/20/24 18:40 Source: patient and RN notes reviewed Mode of arrival: ambulatory Limitations: no limitations History of Present Illness HPI narrative: Atiya is a 44-year-old female with history of kidney stones coming with known obstructive right kidney stone and pain uncontrolled. She has had no fevers. Toradol seemed to be working. She started having increasing pain this morning. 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 She did try going to a [facility] ER where she could be seen by Urology. They stated urology would not even look at her because her stone was so small. She was evaluated overnight here in our ER on found have a 3 mm proximal obstructing stone in the right ureter. There was mild hydronephrosis. There were additional bilateral nonobstructing stones. She notes no fevers. Her pain is just severe. She has had a rash with IV morphine. She states she does not tolerate oxycodone very well. She is not sure she has ever tried tramadol. Toradol typically will work with her. She did not get the tamsulosin, has stopped at the pharmacy 4 times today and they do not have a ready. Reviewed with her that we will give her a dose here today. She is having severe right flank pain which radiates and wraps around down her abdomen. There are no fevers. She has had an infected kidney stone before and understands the importance of this, she is not feeling like that. MD elicited complaint: abdominal pain and flank pain Pertinent past history: kidney stones Related Data Home Medications ?Medication ?Instructions ?Recorded ?Confirmed tirzepatide 5 mg/0.5 mL 5 mg subcut QWEEK 07/19/24 07/19/24 subcutaneous pen injector (Mounjaro) Previous Rx's ?Medication ?Instructions ?Recorded tamsulosin 0.4 mg capsule (Flomax) 0.4 mg PO DAILY #7 caps 07/19/24 Allergies Allergy/AdvReac Type Severity Reaction Status Date / Time morphine Allergy Mild Rash Verified 07/19/24 19:40 Review of Systems Status of ROS Reports: 6 or more systems reviewed and unremarkable except as noted in History and below [facility] Social History Smoking Status: Never smoker Do you use any of these nicotine containing products: None How often do you have a drink containing alcohol: never AUDIT-C Alcohol total score: 0 Non-prescribed substance use: denies use service: No Exam Const: Vital Signs, click to edit/add: Vital Signs - 24 hr 07/20/24 18:39 Temperature 98.8 F Pulse Rate [Pulse Oximeter] 96 Respiratory Rate 20 Blood Pressure [Ri ght Upper Arm] 148/79 H Pulse Oximetry 100 Oxygen Delivery Me thod Room Air Atiya is alert, interactive, lying on her right side on the ER bed in room 5, hanging onto an emesis bag. She is alert certainly but seems very uncomfortable. Sclera clear, conjugate gaze, able to speak in complete sentences. Lungs are clear, good air entry, no wheezing crackles. CV regular rate and rhythm, no murmur, normal S1-S2, no S3-S4. Abdomen is soft, nontender, nondistended, do not appreciate any masses. Patient was ambulatory into the ED of her own accord. Documenting provider has reviewed patient's vital signs: yes Course Course ED Course: Patient with known small 3 mm right kidney stone diagnosed about [address] an IV, checked some basic labs on her, give her L of lactated Ringer's, 4 mg IV Zofran, 15 mg IV Toradol, 25 mcg IV fentanyl. Will get her an oral dose of tamsulosin 0.4 mg. We will see how she response a medicines. Could potentially try tramadol to see if she tolerates that better than other oral narcotics. Reevaluation(s) Time of Reevaluation #1: 20:18 Reevaluation #1: Patient is improved. She is requesting injectable Toradol at home. She feels that she will be able to give this to herself. It is the only thing that is been working. She started Mounjaro and feels that this is significantly slowing her GI motility. She notes that 1 night she took a THC gummy for sleep, did not kick in for 12 hours. She suspects that she is not absorbing the oral medicines. She is not tolerating the oxycodone, will send her with some tramadol from [facility]. She will be given a prescription for Toradol injectable, understands that she cannot use both oral and injectable forms, it will be 1 or the other. She denies any history of seizures. The tramadol will be 50 mg, 1 tablet every 6 hours as needed, 15 prescribed. The prescription for Toradol was hand written, 30 mg vials, 1 injected every 8 hours as needed, 6 prescribed with no refills. Vital Signs Vital signs: Initial Vital Signs Temperature 98.8 F 07/20/24 18:39 Temperature Source Temporal Artery Scan 07/20/24 18:39 Pulse Rate 96 07/20/24 18:39 Respiratory Rate 20 07/20/24 18:39 Blood Pressure 148/79 H 07/20/24 18:39 Blood Pressure Mean 102 07/20/24 18:39 Blood Pressure Position Sitting 07/20/24 18:39 Pulse Oximetry 100 07/20/24 18:39 Oxygen Delivery Method Room Air 07/20/24 18:39 Vital Signs Temperature 98.8 F 07/20/24 18:39 Pulse Rate 96 07/20/24 18:39 Respiratory Rate 20 07/20/24 18:39 Blood Pressure 148/79 H 07/20/24 18:39 Pulse Oximetry 100 07/20/24 18:39 Oxygen Delivery Method Room Air 07/20/24 18:39 Temperature 98.8 F 07/20/24 18:39 Pulse Rate 96 07/20/24 18:39 Respiratory Rate 20 07/20/24 18:39 Blood Pressure 148/79 H 07/20/24 18:39 Pulse Oximetry 100 07/20/24 18:39 Oxygen Delivery Method Room Air 07/20/24 18:39 Medications Administered Medications: Generic Name Dose Route Start Last Admin Trade Name Freq PRN Reason Stop Dose Admin Lactated Ringer's 1,000 mls @ 1,000 mls/hr 07/20/24 19:35 07/20/24 19:50 Lactated Ringers 1000 Ml IV 07/20/24 20:34 1,000 mls/hr .Q1H ONE Administration Tamsulosin HCl 0.4 mg 07/20/24 18:51 07/20/24 19:20 Tamsulosin Hcl 0.4 Mg Capsule PO 0.4 mg DAILY KERI Administration Discontinued Medications Generic Name Dose Route Start Last Admin Trade Name Grace PRN Reason Stop Dose Admin Fentanyl 25 mcg 07/20/24 18:50 07/20/24 19:16 Fentanyl 100 Mcg/2 Ml Inj IVP 07/20/24 18:51 25 mcg ONCE ONE Administration Lactated Ringer's 1,000 mls @ 1,000 mls/hr 07/20/24 18:50 07/20/24 19:50 Lactated Ringers 1000 Ml IV 07/20/24 19:49 Infused .Q1H ONE Infusion Ketorolac Tromethamine 15 mg 07/20/24 18:50 07/20/24 19:13 Ketorolac 15 Mg/Ml Inj IVP 07/20/24 18:51 15 mg ONCE ONE Administration Ondansetron HCl 4 mg 07/20/24 18:50 07/20/24 19:13 Ondansetron 2 Mg/Ml Inj IVP 07/20/24 18:51 4 mg ONCE ONE Administration MDM - Abdominal Pain Lab Data Attestation: I reviewed the patient's lab results. Lab results narrative: White blood count stable lactate normal. Labs: Lab Results 07/20/24 Range/Units 18:55 WBC 8.06 (4.50-11.00) K/uL RBC 4.54 (4.00-5.20) m/uL Hgb 12.8 (12.0-16.0) gm/dL Hct 37.4 (33.0-51.0) % MCV 82 (80-100) fL MCH 28 (26-34) pg MCHC 34 (32-36) gm/dL RDW Coeff of Epifanio 12.6 (11.5-15.5) % Plt Count 190 (140-440) K/uL Neut % (Auto) 85.1 H (42.0-72.0) % Lymph % (Auto) 11.2 L (20-44) % [place] % (Auto) 3.5 (0.0-11.0) % Eos % (Auto) 0.0 (0.0-7.0) % Baso % (Auto) 0.0 (0.0-3.0) % Neut # (Auto) 6.90 (1.7-7.0) K/uL Lymph # (Auto) 0.90 (0.90-2.90) K/uL [place] # (Auto) 0.30 (0.00-0.90) K/UL Eos # (Auto) 0.00 (0.00-0.50) K/uL Baso # (Auto) 0.00 (0.00-0.30) K/uL Abs Immat Gran (auto) 0.02 (0.00-0.30) K/uL Imm/Tot Granulo (auto) 0.2 % Sodium 138 (135-149) mmol/L Potassium 4.5 (3.6-5.1) mmol/L Chloride 108 (96-114) mmol/L Carbon Dioxide 20 (20-32) mmol/L Anion Gap 10 (7-15) mEq/L BUN 23 (5-24) mg/dL Creatinine 1.4 (0.5-1.5) mg/dL Estimated GFR 48 ml/min Glucose 152 H (60-115) mg/dL Lactate 1.6 (0.5-1.9) mmol/L Calcium 9.9 (8.4-10.6) mg/dL Discharge Plan Discharge Clinical Impression: Right ureteral calculus Patient Disposition: Home, Self-Care Condition: Stable Instructions: Kidney Stones (ED), Renal Colic (ED) Additional Instructions: Try to get the Flomax from the pharmacy tomorrow, need to continue to take that daily until the stone passes. Baseline take Tylenol 1000 mg 3 times a day. Can use oral Toradol for less severe pain per prescription or if pain is severe use the injectable form instead. Do not take both the oral and the injectable at the same time. Have also written for tramadol for pain management as well. Use the Zofran that you have already been prescribed if needed for nausea control. If you develop fever, if this regimen is not treating your pain, need to be re-evaluated. Would recommend having kidney function rechecked within 3-5 days to ensure that it is not worsening from renal obstruction; specially recommend this if the stone is not passing. Activity Level: Activity as Tolerated Prescriptions: No Action Mounjaro 5 mg/0.5 mL pen injector 5 mg subcut QWEEK tamsulosin [Flomax] 0.4 mg capsule 0.4 mg PO DAILY Qty: 7 0RF Follow Up/Referrals: Radha Cowan MD [Primary Care Provider] - Stand Alone Forms: [employer] Info Instructions
[2024-07-20 19:04] LABS: Lactate* 1.6 mmol/L (0.5-1.9)
[2024-07-20 19:07] LABS: Hematocrit 37.4 % (33.0-51.0); Hemoglobin* 12.8 gm/dL (12.0-16.0); Immature Granulocytes Abs Auto 0.02 K/uL (0.00-0.30); Immature Granulocytes Pct Auto 0.2 %; Lymphocytes Percent Auto 11.2 % (20-44); Mean Corpuscular HGB Conc 34 gm/dL (32-36); Mean Corpuscular Hemoglobin 28 pg (26-34); Mean Corpuscular Volume 82 fL (80-100); Monocytes Percent Auto 3.5 % (0.0-11.0); Neutrophils Percent Auto 85.1 % (42.0-72.0); Platelet Count* 190 K/uL (140-440); RDW Coefficient of Variation % 12.6 % (11.5-15.5); Red Blood Count 4.54 m/uL (4.00-5.20); White Blood Count* 8.06 K/uL (4.50-11.00)
--- OUTSIDE RECORDS SUMMARY | 2024-07-20 19:07 | XMS_ITS | Clinical Summary ---
Author Organization [facility] Address [place], [place] [address] Care Team Providers Care Animal Care Technician Name Role Phone Yareli Oviedo MD Unavailable [phone] Radha Cowan MD Primary Care Provider Mira Coelho MD Unavailable Unavailable Juan Torres MD Unavailable [phone] Allergies Active Allergy Reactions Criticality Noted Date [...] Cancer Staging:Clinical:Stage IB(cT2, cN0, cM0, G2, ER+, PA+, HER2-) - Signed by Mira Coelho MD on 10/13/2020 Pathologic:Stage IA(pT2, pN0, cM0, G2, ER+, PA+, HER2-) - Signed by Mira Coelho MD on 10/29/2020 Kidney stones 04/19/2018 PCOS (polycystic ovarian syndrome) 04/19/2018 Resolved Problems Problem Noted Date Diagnosed Date Resolved Date 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 02/14/2022 Encounters Date Type Department Care Team Description 07/03/2024 2:20 PM CDT Office Visit [facility] [address] [place] [address] Radha Cowan MD Medication Management (Switching medications) 07/03/2024 Travel 05/29/2024 Refill [facility] [address] [place] [address] Radha Cowan MD Refill Request; VALACYCLOVIR 05/01/2024 Refill [facility] [address] [place] [address] Radha Cowan MD Refill Request (Valtrex) from [...] T Respiratory Rate 16 11/01/2023 8:33 AM PUBLIC POLICY ASSOCIATE Oxygen Saturation 97% 07/03/2024 2:35 PM CDT Inhaled Oxygen Concentration - - Weight 93.1 kg (205 lb 3.2 oz) 07/03/2024 2:35 P M CDT Height 171.5 cm (5' 7.5) 09/26/2023 11:02 AM CS T Body Mass Index 31.66 09/26/2023 11:02 AM PUBLIC POLICY ASSOCIATE Plan of Treatment Health Maintenance Due Date Last Done Comments HIV for age 15-65 1997 Hepatitis C screening for age 18-79 2000 Pap test for age 21-65 2003 Tetanus booster 12/24/2022 12/24/2012, 02/2013 (Completed outside of [facility]) COVID-19 vaccine series (24 season) 2023 Influenza for age 9-49 07/21/2024 08/27/2018, 2013 BMI (ht and wt on same day) for age 18+ 09/21/2024 09/21/2023, 03/22/2023, 01/30/2023, Additional history exists Depression screening for age 12+ 11/22/2024 11/22/2023, 02/14/2022, 08/12/2021, Additional history exists Tdap Completed 12/24/2012, 02/2013 (Completed outside of [facility]) Pneumococcal series for age 6-64 Aged Out No longer eligible based on patient's age to complete this topic Medical Devices Implanted Type Area Electronic Prepress Technician Device Identifier Shelf Expiration Date Model / Serial / Lot [id number] Boris Gray Md Perforated Implanted:Qty: 1 on 10/28/2020 by Juan Torres MD at [facility] Explanted:at [facility] (Quantity not on file) Left: Breast [employer] 06/19/2022 [id number] / [id number] / [id number] Boris Gray Md Perforated Implanted:Qty: 1 on 10/28/2020 by Juan Torres MD at [facility] Explanted:at [facility] (Quantity not on file) Right: Breast [employer] 06/19/2022 [id number] / [id number] / Breast 745cc Natrelle Inspira Soft Touch Ssf - [id number] Implanted:Qty: 1 on 11/08/2021 by Misbah Coelho MD at [facility] Right: Breast [employer] 09/08/2025 SSF-745 / [id number] / [id number] Breast 745cc Natrelle Inspira Soft Touch Ssf - [id number] Implanted:Qty: 1 on 11/08/2021 by Misbah Coelho MD at [facility] Breast [employer] - [employer] 06/23/2025 SSF-745 / [id number] / [id number] Explanted Type Area Electronic Prepress Technician Device Identifier Shelf Expiration Date Model / Serial / Lot [id number] breastimplanttal [id number] 50cc Implanted:Qty: 1 on 10/28/2020 by Juan Torres MD at [facility] Explanted:at [facility] (Quantity not on file) Explanted:Qty: 1 on 11/08/2021 by Misbah Coelho MD at [facility] Left: Breast [employer] 06/20/2023 [id number] / [id number] Description:BREAST IMPLANT T ALL HEIGHT TE SMOOTH 450CC Explanted prior to encounter 11/09/21 [id number] breastimplanttal [id number] 50cc Implanted:Qty: 1 on 10/28/2020 by Juan Torres MD at [facility] Explanted:at [facility] (Quantity not on file) Explanted:Qty: 1 on 11/08/2021 by Misbah Coelho MD at [facility] Right: Breast [employer] 01/22/2024 [id number] / [id number] Description:BREAST IMPLANT T ALL HEIGHT TE SMOOTH 450CC Explanted prior to encounter 11/09/21 [place] [employer] Hpx 700 Cc Explanted:Qty: 2 on 11/08/2021 at [facility] Bilateral: Breast [employer] / [id number] / Additional Health Concerns Infection Onset Date Last Indicated COVID History Comment:COVID+ test result dates: 08/10/21 (90 days clearance ends 11/08/21) and 11/04/21 via PCR from [facility]. Patient met COVID clearance criteria on 08/20/21. [...] 7:12 AM 04/07/2015 1:44 PM Care Teams Animal Care Technician Relationship Specialty Start Date End Date Radha Cowan MD [address] [place] [address] PCP - General Family Practice 10/03/19 Yareli Oviedo MD [address] [place] [id number] Obstetrics and Gynecology 04/19/18 Mira Coelho MD [address] [place] [address] Surgery - General 10/13/20 Juan Torres MD [address] [address] Plastic and Reconstructive Surgery 10/26/20
--- OUTSIDE RECORDS SUMMARY | 2024-07-20 19:07 | XMS_ITS | Clinical Summary ---
Author Organization [facility] Address [address] [place] [address] Care Team Providers Care Clasp Machine Operator Name Role Phone Radha Cowan MD Primary Care Provider [phone]- [phone] Allergies No known active allergies Medications Medication Sig Dispensed Refills Start Date End Date Status ketorolac (TORADOL) 10 MG tablet Take 1 tablet (10 mg) by mouth every 6 hours as needed for moderate pain. 20 tablet 07/20/2024 Active Encounters Date Type Department Care Team Description 07/20/2024 10:59 AM CDT - 07/20/2024 12:01 PM CDT Emergency [facility] Emergency Dept [address] [place] [phone] Sridhar Franz MD Ureteral colic Discharge Disposition: Home or Self Care 07/20/2024 Travel from Last 3 Months Social History Tobacco Use Types Packs/Day Years Used Date Smoking Tobacco: Never Assessed Sex and Gender Information Value Date Recorded Sex Assigned at Not on file Gender Identity Not on file Sexual Orientation Not on file Last Filed Vital Signs Vital Sign Reading Time Taken Comments Blood Pressure 116/74 07/20/2024 10:55 AM CDT Pulse 74 07/20/2024 10:55 AM CDT Temperature 36.6 ??C (97.9 ??F) 07/20/2024 10:55 AM C DT Respiratory Rate 18 07/20/2024 10:55 AM CDT Oxygen Saturation 99% 07/20/2024 10:55 AM CDT Inhaled Oxygen Concentration - - Weight 94 kg (207 lb 3.7 oz) 07/20/2024 10:55 AM CDT Height 172.7 cm (5' 8) 07/20/2024 10:55 AM CDT Body Mass Index 31.51 07/20/2024 10:55 AM CDT Plan of Treatment Health Maintenance Due Date Last Done Comments ADVANCE CARE PLANNING 1982 ANNUAL REVIEW OF HM ORDERS 1982 GLUCOSE 1982 YEARLY PREVENTIVE VISIT 1982 HIV SCREENING 1997 HEPATITIS C SCREENING 2000 HEPATITIS B IMMUNIZATION (1 of 3 - 19+ 3-dose series) 2001 PAP 2003 DTAP/TDAP/TD IMMUNIZATION (1 - Tdap) 2007 LIPID 2022 MAMMO SCREENING 09/10/2022 09/10/2020 COVID-19 Vaccine ( - 2022-2 4 season) 2023 PHQ-2 (once per calendar year) 2023 INFLUENZA VACCINE (#1) 2024 HPV IMMUNIZATION Aged Out No longer e ligible based on patient's age to complete this topic MENINGITIS IMMUNIZATION Aged Out No l onger eligible based on patient's age to complete this topic Pneumococcal Vaccine: Pediat rics (0 to 5 Years) and At-Risk Patients (6 to 64 Years) Aged Out No longer eligi ble based on patient's age to complete this topic RSV MONOCLONAL ANTIBODY Aged Out No l onger eligible based on patient's age to complete this topic Procedures Procedure Name Priority Date/Time Associated Diagnosis Comments ROUTINE UA WITH MICROSCOPIC REFLEX TO CULTURE STAT 07/20/2024 11:04 AM CDT from Last 3 Months Results * (ABNORMAL) UA with Microscopic reflex to Culture (07/20/2024 11:04 AM CDT) Color Urine Light Yellow Colorless, Straw, Light Yellow, Yellow 07/20/2024 11:50 AM CDT [facility] Appearance Urine Clear Clear 07/20/20 24 11:50 AM CDT [facility] Glucose Urine Negative Negative mg/dL 07/20/2024 11:50 AM CDT [facility] Bilirubin Urine Negative Negative 4 11:50 AM CDT [facility] Ketones Urine Negative Negative mg/dL 07/20/2024 11:50 AM CDT [facility] Specific [place] Urine 1.013 1.003 - 1.035 07/20/2024 11:50 AM CDT [facility] Blood Urine Moderate(A) Negative 07/20/2024 11:50 AM CDT [facility] pH Urine 7.0 5.0 - 7.0 07/20/2024 11:50 AM CDT [facility] Protein Albumin Urine Negative Negative mg/dL 07/20/2024 11:50 AM CDT [facility] Urobilinogen Urine Normal Normal, 2.0 mg/dL 07/20/2024 11:50 AM CDT [facility] Nitrite Urine Negative Negative 07/20/2024 11:50 AM CDT [facility] Leukocyte Esterase Urine Negative Negative 07/20/2024 11:50 AM CDT [facility] Mucus Urine Present(A) None Seen /LPF 07/20/2024 11:50 AM CDT [facility] RBC Urine 38(H) <=2 /HPF 07/20/2024 11:50 AM CDT [facility] WBC Urine 1 <=5 /HPF 07/20/2024 11:50 AM CDT [facility] Urine URINE SPECIMEN OBTAINED BY CLEAN CATCH PROCEDURE / Unknown Non-blood Collection / Unknown 07/20/2024 11:04 AM CDT 07/20/2024 11:17 AM CDT Narrative [facility] - 07/20/2024 11:50 AM CDT Urine Culture not indicated Sridhar Franz MD LAB - URINE ORDERABL ES LABORATORY [facility] Acute Care Lab [address] [facility] Lab (1st floor, no room number) [place] [address], [facility] from Last 3 Months Care Teams Clasp Machine Operator Relationship Specialty Start Date End Date Radha Cowan MD [address] [place], [place] [id number] PCP - General Family Medicine 07/20/24
--- OUTSIDE RECORDS SUMMARY | 2024-07-20 19:07 | XMS_ITS | Encounter Summary ---
Author Organization [facility] Address [address] [place] [address] Care Team Providers Care Microsoft Dynamics Ax Consultant Name Role Phone Radha Cowan MD Primary Care Provider [phone]- [phone] Reason for Visit * Reason Comments Flank Pain Encounter Details Date Type Department Care Team (Late st Contact Info) Description 07/20/2024 10:59 AM CDT - 07/20/2024 12:01 PM CDT Emergency [facility] Emergency Dept [address] [place] [phone] Sridhar Franz MD EMERGENCY PHYSICIAN PA [address] [facility] [address] [id number] Ureteral colic Discharge Disposition: Home or Self Care Social History Tobacco Use Types Packs/Day Years Used Date Smoking Tobacco: Never Assessed Sex and Gender Information Value Date Recorded Sex Assigned at Not on file Gender Identity Not on file Sexual Orientation Not on file documented as of this encounter Last Filed Vital Signs Vital Sign Reading [...] Mass Index 31.51 07/20/2024 10:55 AM CDT documented in this encounter Discharge Instructions * Attachments The following attachments cannot be sent through Care Everywhere. * Kidney Stone (French) documented in this encounter Medications at Time of Discharge Medication Sig Dispensed Refills Start Date End Date ketorolac (TORADOL) 10 MG tablet Take 1 tablet (10 mg) by mouth every 6 hours as needed for moderate pain. 20 tablet 07/20/2024 documented as of this encounter ED Notes * Sridhar Franz MD - 07/20/2024 11:09 AM CDT Emergency Department Note History of Present Illness Chief Complaint Flank Pain HPI Atiya Maria is a 44 year old female with a history of kidney stones and breast cancer who presents to the ER for right flank pain. Patient reports having a 3mm kidney stone in her right ureter that is stuck and is causing her intense pain starting 3 days ago. She was seen at the [facility] and had a CT scan. She states that she gets kidney stones often but has not had pain likethis previously. She recalls getting IV Toradol and Zofran that helped a lot and being prescribed oxycodone that has not been helping at all. Atiya endorses vomiting and blood in her urine but deniesother medical issues. History of 2 blocked stones that caused hydronephrosis and she was admitted. She works at a [employer] and the HOTEL OPERATION MANAGER there gave the patient 2 L of IV fluids and a dose of Toradol prior to arrival here this morning. Independent Historian None Review of External Notes None Past Medical History Medical History and Problem List Kidney stones Malignant neoplasm of right breast PCOS ADHD TBI Medications The patient is not currently taking any regular medications. Surgical History Cystoscopy Lithotripsy Uretal stents [place] teeth extraction Bilateral breast reconstruction Physical Exam Patient Vitals for the past 24 hrs: BP Temp Temp src Pulse Resp SpO2 Height Weight 07/20/24 1055 116/74 97.9 ??F (36.6 ??C) Temporal 74 18 99 % 1.727 m (5' 8) 94 kg (207 lb 3.7 oz) Physical Exam Vitals and nursing note reviewed. Constitutional: General: She is not in acute distress. Appearance: She is not ill-appearing. HENT: Head: Normocephalic and atraumatic. Right Ear: External ear normal. Left Ear: External ear normal. Nose: Nose normal. Mouth/Throat: Mouth: Mucous membranes are moist. Eyes: Extraocular Movements: Extraocular movements intact. Conjunctiva/sclera: Conjunctivae normal. Cardiovascular: Rate and Rhythm: Normal rate and regular rhythm. Heart sounds: No murmur heard. Pulmonary: Effort: Pulmonary effort is normal. No respiratory distress. Breath sounds: Normal breath sounds. No wheezing, rhonchi or rales. Abdominal: General: Abdomen is flat. Bowel sounds are normal. There is no distension. Palpations: Abdomen is soft. Tenderness: There is no abdominal tenderness. There is no right CVA tenderness, left CVA tenderness, guarding or rebound. Musculoskeletal: General: No deformity or signs of injury. Cervical back: Normal range of motion and neck supple. Skin: General: Skin is warm and dry. Findings: No rash. Neurological: Mental Status: She is alert and oriented to person, place, and time. Psychiatric: Behavior: Behavior normal. Diagnostics Lab Results Labs Ordered and Resulted from Time of ED Arrival to Time of ED Departure ROUTINE UA WITH MICROSCOPIC REFLEX TO CULTURE - Abnormal Result Value Color Urine Light Yellow Appearance Urine Clear Glucose Urine Negative Bilirubin Urine Negative Ketones Urine Negative Specific [place] Urine 1.013 Blood Urine Moderate (*) pH Urine 7.0 Protein Albumin Urine Negative Urobilinogen Urine Normal Nitrite Urine Negative Leukocyte Esterase Urine Negative Mucus Urine Present (*) RBC Urine 38 (*) WBC Urine 1 Imaging No orders to display Independent Interpretation None ED Course Medications Administered Medications - No data to display Discussion of Management None ED Course ED Course as of 07/20/24 1459 Sat Jul 20, 2024 1112 I obtained the history and examined the patient as noted above. 1156 I rechecked patient and explained findings and plan of care. Additional Documentation None Medical Decision Making / Diagnosis [facility] Diagnoses: None MIPS None [facility] Atiya Maria is a 44 year old female who presents with ongoing right flank pain after being diagnosed with a kidney stone yesterday at [place]. We attempted to obtain records from this visit to confirm the diagnosis but the patient did not want to wait. Her pain has improved since she was given IV fluids and Toradol at the [employer] that she works at. We rechecked a UA today and there is nosigns of an associated UTI. I suspect that the patient just needs additional pain management as shereports that her stone was only 3 mm, and I suspect that this should pass on its own. She already has oxycodone and Flomax as well as Zofran at home. She has not been taking NSAIDs. I will prescribe her oral Toradol which she can take every 6 hours and we discussed return precautions. Disposition The patient was discharged. Diagnosis ICD-10-CM 1. Ureteral colic N23 Discharge Medications Discharge Medication List as of 07/20/2024 11:57 AM START taking these medications Details ketorolac (TORADOL) 10 MG tablet Take 1 tablet (10 mg) by mouth every 6 hours as needed for moderate pain., Disp-20 tablet, R-0, E-Prescribe Scribe Disclosure: I, Jer Lovelace, am serving as a scribe at 11:11 AM on 07/20/2024 to document services personally performed by Sridhar Franz MD based on my observations and the provider's statements to me. Sridhar Franz MD 07/20/24 1502 * Aura Mistry, RN - 07/20/2024 10:56 AM CDT Pt here with unmanaged pain. States she was seen at [facility] ED yesterday and dx with R sided kidney stone. Pain not improving with oral oxy and zofran. Pt works at [employer] and had an HOTEL OPERATION MANAGER give her 2L IVF, toradol and decadron IV MARKETING INSTRUCTOR. Pt states this brought her pain to an 8 from 10. Denies abd pain or dysuria. ABC intact. A&Ox4. documented in this encounter Plan of Treatment Not on file documented as of this encounter Procedures Procedure Name Priority Date/Time Associated Diagnosis Comments ROUTINE UA WITH MICROSCOPIC REFLEX TO CULTURE STAT 07/20/2024 11:04 AM CDT documented in this encounter Results * (ABNORMAL) UA with Microscopic reflex to Culture (07/20/2024 11:04 AM CDT) Color Urine Light Yellow Colorless, Straw, Light Yellow, Yellow 07/20/2024 11:50 AM CDT LABORATORY Appearance Urine Clear Clear 07/20/20 11:50 AM CDT LABORATORY Glucose Urine Negative Negative mg/dL 07/20/2024 11:50 AM CDT LABORATORY Bilirubin Urine Negative Negative 11:50 AM CDT LABORATORY Ketones Urine Negative Negative mg/dL 07/20/2024 11:50 AM CDT LABORATORY Specific [place] Urine 1.013 1.003 - 1.035 07/20/2024 11:50 AM CDT LABORATORY Blood Urine Moderate(A) Negative 07/20/2024 11:50 AM CDT LABORATORY pH Urine 7.0 5.0 - 7.0 07/20/2024 11:50 AM CDT LABORATORY Protein Albumin Urine Negative Negative mg/dL 07/20/2024 11:50 AM CDT LABORATORY Urobilinogen Urine Normal Normal, 2.0 mg/dL 07/20/2024 11:50 AM CDT LABORATORY Nitrite Urine Negative Negative 07/20/2024 11:50 AM CDT LABORATORY Leukocyte Esterase Urine Negative Negative 07/20/2024 11:50 AM CDT LABORATORY Mucus Urine Present(A) None Seen /LPF 07/20/2024 11:50 AM CDT LABORATORY RBC Urine 38(H) <=2 /HPF 07/20/2024 11:50 AM CDT LABORATORY WBC Urine 1 <=5 /HPF 07/20/2024 11:50 AM CDT LABORATORY Urine URINE SPECIMEN OBTAINED BY CLEAN CATCH PROCEDURE / Unknown Non-blood Collection / Unknown 07/20/2024 11:04 AM CDT 07/20/2024 11:17 AM CDT Narrative LABORATORY - 07/20/2024 11:50 AM CDT Urine Culture not indicated Sridhar Franz MD LAB - URINE ORDERABL ES LABORATORY [facility] Acute Care Lab [address] [facility] Lab (1st floor, no room number) [place] [address], [facility] documented in this encounter Visit Diagnoses Diagnosis Ureteral colic Renal colic documented in this encounter Care Teams Microsoft Dynamics Ax Consultant Relationship Specialty Start Date End Date Radha Cowan MD [address] [place] [address] PCP - General Family Medicine 07/20/24 documented as of this encounter
--- OUTSIDE RECORDS SUMMARY | 2024-07-20 19:07 | XMS_ITS | Referral Summary ---
Author Organization [facility] Address [address] [place] [address] Care Team Providers Care Roll Tester Name Role Phone Radha Cowan MD Primary Care Provider Encounters Date Type Department Care Team Description 07/20/2024 Travel 07/20/2024 10:59 AM CDT - 07/20/2024 12:01 PM CDT Emergency [facility] Emergency Dept [address] [place] [address] Sridhar Franz MD Ureteral colic Discharge Disposition: Home or Self Care from Last 3 Months Allergies No known active allergies Medications Medication Sig Dispensed Refills Start Date End Date Status ketorolac (TORADOL) 10 MG tablet Take 1 tablet (10 mg) by mouth every 6 hours as needed for moderate pain. 20 tablet 07/20/2024 Active Social History Tobacco Use Types Packs/Day Years [...] 07/20/2024 10:55 AM CDT Plan of Treatment Not on file Procedures Procedure Name Priority Date/Time Associated Diagnosis [...] mg/dL 07/20/2024 11:50 AM CDT LABORATORY Specific [place] Urine 1.013 1.003 - 1.035 07/20/2024 11:50 [...] MD LAB - URINE ORDERABL ES LABORATORY [facility] Acute Care Lab [address] Lab (1st floor, no room number) [place] [address], [facility] from Last 3 Months Care Teams Roll Tester Relationship Specialty Start Date End Date Radha Cowan MD [address] [place] [address] PCP - General Family Medicine 07/20/24
--- OUTSIDE RECORDS SUMMARY | 2024-07-20 19:07 | XMS_ITS | Encounter Summary ---
Author Organization [place] Address [address] [place] [address] Care Team Providers Care Door Attendant Name Role Phone Radha Cowan MD Primary Care Provider [phone] Encounter Details Date Type Department Care Team (Latest Contact Info) Description 07/20/2024 Travel Social History Tobacco Use Types Packs/Day Years Used Date Smoking Tobacco: Never Assessed Sex and Gender Information Value Date Recorded Sex Assigned at Not on file Gender Identity Not on file Sexual Orientation Not on file documented as of this encounter Plan of Treatment Not on file documented as of this encounter Visit Diagnoses Not on filedocumented in this encounter Care Teams Door Attendant Relationship Specialty Start Date End Date Radha Cowan MD [address] [place] [address] PCP - General Family Medicine 07/20/24 documented as of this encounter
[2024-07-20 19:08] LABS: Slide Review Reflex No
[2024-07-20] MEDS: LACTATED RINGERS 1000 ML 1,000 ML IV ×2 (19:12→19:50)
[2024-07-20] MEDS: ONDANSETRON 2 MG/ML inj 4 MG IVP (19:13)
[2024-07-20] MEDS: KETOROLAC 15 MG/ML inj IVP (19:13)
[2024-07-20] MEDS: fentaNYL 100 MCG/2 ML inj 25 MCG IVP (19:16)
[2024-07-20] MEDS: TAMSULOSIN HCL 0.4 MG CAPSULE PO (19:20)
[2024-07-20 19:25] LABS: Chloride* 108 mmol/L (96-114); Sodium* 138 mmol/L (135-149)
[2024-07-20 19:26] LABS: Potassium* 4.5 mmol/L (3.6-5.1)
[2024-07-20 19:28] LABS: Anion Gap 10 mEq/L (7-15); Carbon Dioxide* 20 mmol/L (20-32); Creatinine* 1.4 mg/dL (0.5-1.5); Estimated Glomerular Filt Rate 48 ml/min
[2024-07-20 19:29] LABS: Blood Urea Nitrogen* 23 mg/dL (5-24); Calcium* 9.9 mg/dL (8.4-10.6); Glucose* 152 mg/dL (60-115)
== END 2024-07-20 20:45 | disposition home or self-care (01) ==
PROVIDERS: Emergency Provider Family Medicine; PCP Family Medicine
DX: N20.1 Calculus of ureter (principal)
CPT/HCPCS: 36415; 80048; 83605; 85025; 94761; 96374; 96375; 99284; A9270; J1885; J2405; J3010; J7120

== ENCOUNTER 2024-08-02 13:33 | Outpatient (CLI) | payer BC, SELFPAY ==
--- OUTSIDE RECORDS SUMMARY | 2024-08-06 23:19 | XMS_ITS | Encounter Summary ---
Author Organization [facility] Address [address], [place] [address] Care Team Providers Care Vmware Systems Administrator Name Role Phone Radha Cowan MD Primary Care Provider Reason for Visit * Auth/Cert (Routine) Specialty Diagnoses / Procedures Referred By Contac t Referred To Contact Diagnoses Kidney stone Kidney stone Referral ID Status Reason Start Date Expiration Date Visits Re quested Visits Authorized [id number] 1 1 Encounter Details Date Type Department Care Team (Late st Contact Info) Description 07/30/2024 3:55 PM CDT Anesthesia Event [facility] [address] [facility] [place] [address] Curt Gillette MD [address] [place] [address] Severo Jorge MD [address] [place] [address] Anesthesia Record Procedure Summary Procedure [...] the past 12 months has th e [employer], gas, oil, or water [employer] threatened to shut off services in your [...] time in the past 12 m [facility], were you homeless or living in a senior care (including now)? Patient declined 07/29/2024 Sex and Gender Information Value Date Recorded Sex Assigned at Not on file Gender Identity Not on file Sexual Orientation Not on file documented as of this encounter Miscellaneous Notes * Anesthesia Postprocedure Evaluation - Curt Gillette MD - 07/30/2024 5:35 PM CDT [facility] Anesthesia Post-op Note Patient: Atiya Maria Post-Op [...] Jorge MD - 07/30/2024 2:39 PM CDT [facility] Anesthesia Pre-op Evaluation Procedure: URETEROSCOPY WITH LASER [...] Intravenous Q6H PRN [Transfer Hold] nystatin (MYCOSTATIN) 166002 UNIT/GM topical powder Topical BID PRN [COMPLETED] ondansetron (ZOFRAN) injection 8 mg 8 mg Intravenous Once [Transfer Hold] polyethyl-propylene glycol (SYSTANE) 0.4-0.3 % ophthalmic solution 1 Drop 1 Drop Both Eyes Q1H PRN [Transfer Hold] sodium chloride (OCEAN) 0.65 % nasal solution 1 [place] 1 [place] Both Nostrils Q2H PRN [COMPLETED] sodium chloride [...] and allergic reaction The patient and/or their outbound telemarketing representative were notified about the potential risks [...] Info) Description 08/07/2024 11:00 AM CDT Appointment [facility] - Urology [address] [facility]. [place], [place] [phone] Emmy Hinojosa MBBS [address] [place], [place] [phone] 09/24/2024 10:00 AM BUTADIENE CONVERTER UTILITY OPERATOR Appointment Urology [address] [place], [place] [phone] Sakshi Garrido, MANAGER BAKERY, CONSULTANT EDUCATION [address] [place], [place] [phone] Scheduled Procedures Name Priority Associated Diagnoses Date/Ti [...] mg documented in this encounter Care Teams Vmware Systems Administrator Relationship Specialty Start Date End Date Radha Cowan MD [address] [place] [address] PCP - General Obstetrics Gynecology 07/26/24 documented as of this encounter
--- OUTSIDE RECORDS SUMMARY | 2024-08-06 23:19 | XMS_ITS | Clinical Summary ---
Author Organization [facility] Address [address] [place] [address] Care Team Providers Care Software Test Developer Name Role Phone Radha Cowan MD Primary Care Provider [phone] Source Comments You are receiving this document as you are listed as the primary care provider,follow-up provider, or the patient has been referred to you for consultation.This is in compliance with the Medicare andWilson Healthcaid EHR Incentive Program,which states Providers who transition their patient to another setting of careor provider of care or refers their patient to another provider of care shouldprovide summary care record for each transition of care or referral. [facility] Allergies Active Allergy Reactions Criticality Noted Date [...] Department Care Team Description 08/01/2024 Hospital Encounter [facility] [address] [place] [address]. [place] [address] Bashir Calles MD 07/30/2024 3:55 PM CDT Anesthesia Event [facility] [address] [place] [address]. [place] [address] Curt Gillette MD Gruner, David B, MD 07/30/2024 3:00 PM CDT - 07/30/2024 4:30 PM CDT Surgery [facility] [address] [place] [address]. [place] [address] Anthony Andrews, URETEROSCOPY WITH LASER LITHOTRIPSY AND URETERAL STENT PLACEMENT, RETROGRADE PYELOGRAM and interpretation, stone basket extraction 07/29/2024 7:31 PM CDT - 07/31/2024 2:30 PM CDT Emergency [facility] [address] [place] [address] Christian Quintana MD Gonzalez Bolanos, Maria T, MD Ross-Sonnesyn, Marit E, SHAAN Calculus of kidney (Primary Dx); Kidney stone; Intractable pain Discharge Disposition: Home 07/29/2024 Orders Only HIM DEPARTMENT Provider, MD Jamir 07/26/2024 7:55 PM CDT - 07/27/2024 12:04 AM CDT Emergency [facility] [address] [place] [address] Pita Jj MD Ureterolithiasis Discharge Disposition: Home 07/26/[address] [facility] - Urology [address] [place] [address] Keturah Freeman APRN, LINER INSERTER Follow-up, NOS (Called to f/u on plan [...] be done before surgery. ) 07/25/2024 Telephone [facility] [address] [address] [address] [place] [id number] Keturah Freeman, FRENCH POLISHER, LINER INSERTER Questions 07/24/2024 3:20 PM CDT Lab Visit [place] [address] [place] [address]. [place] [address] Calculus of kidney 07/24/2024 2:00 PM CDT Office Visit [facility] - Urology [address] [place] [address] Keturah Freeman APRN, LINER INSERTER Calculus of kidney (Primary Dx); Calculus of upper urinary tract; Nephrolithiasis; History of breast cancer 07/24/2024 1:25 PM CDT Ancillary Procedure [place] [address] [place] [address]. [place] [address] Keturah Freeman APRN, LINER INSERTER Kidney stone 07/24/[address] [facility] - Urology [address] [place] [address] Keturah Freeman APRN, CNP Request For Records 07/24/2024 Notes/Orders [facility] - Urology [address] [facility] [place] [address] Keturah Freeman APRN, CNP Kidney stone (Primary Dx) 07/19/2024 7:40 PM CDT Ancillary Procedure Radiology PACS [address] [place] [address] from Last 3 Months Social History Tobacco Use Types Packs/Day Years Used Date Smoking Tobacco: Never Assessed [facility] Utilities Answer Date Recorded In the [...] any time in the past 12 m [facility], were you homeless or living in a intermediate (including now)? Patient declined 07/29/2024 Sex and [...] AM CDT Appointment [facility] - Urology [address] [facility] [place], [place] [address] Emmy Hinojosa MBBS [address] [place] [address] 09/24/2024 10:00 AM DIRECTOR OF PATIENT CARE Appointment [facility] - Urology [address] [place], [place] [address] Sakshi Garrido APRN, LINER INSERTER [address] [place], [place] [address] Scheduled Procedures Name Priority Associated Diagnoses Date/Ti [...] this topic Medical Devices Implanted Type Area Utility Aircrewman Device Identifier Shelf Expiration Date Model / Serial / Lot Stent Uret Inlay 22-32cm 6fr - [id number] Implanted:Qty: 1 on 07/30/2024 by Anthony Andrews DO at [facility] DEVICE Right: URETER [employer] 01/17/2029 [id number] / [id number] / [id number] Procedures Procedure Name Priority Date/Time Associated Diagnosis [...] Composition See Note 08/01/2024 4:40 PM CDT [employer] Comment: Calculi composed primarily of calcium oxalate dihydrate. INTERPRETIVE INFORMATION: Calculi (Stone) analysis Calculi are the products of physiological processes that yield crystalline compounds in a matrix of biological compounds and blood. ??Matrix components are not reported. ??The clinically significant crystalline components identified in calculi specimens are reported. ??Gross description may not be consistent with composition determined by FTIR analysis. Performed By: [employer] [address] [place] [id number] Commercial Credit Lead: Delonte Ellison MD, PhD CLIA Number: [id number] Calculi Description See Note 08/01/2024 4:40 PM CDT [employer] Comment: Specimen consists of three brown and overton calculi fragments. The total weight is 14 mg. Calculi Mass 14 mg 08/01/2024 4:40 PM CDT [employer] Stone (Calculus) STRUCTURE OF RIGHT URETER / Unknown 07/30/2024 4:28 PM CDT 07/30/2024 4:44 PM CDT Anthony Andrews DO LAB_1 [facility] [employer] [address] [place], [place] [address] [place] [address] * (ABNORMAL) Basic Metabolic Panel (07/30/2024 7:27 AM CDT) Only the most recent of3 resultswithin the time period is included. Sodium 138 136 - 145 mmol/L 07/30/2024 8:10 AM CDT [facility] Potassium 3.8 3.5 - 5.1 mmol/L 07/30/2024 8:10 AM CDT [facility] Chloride 111(H) 98 - 109 mmol/L 07/30/2024 8:10 AM CDT [facility] CO2 23 20 - 29 mmol/L 07/30/2024 8:10 AM CDT [facility] Anion Gap 4(L) 6 - 16 mmol/L 07/30/2024 8:10 AM CDT [facility] Calcium 8.6 8.4 - 10.4 mg/dL 07/30/2024 8:10 AM CDT [facility] BUN 10 7 - 26 mg/dL 07/30/2024 8:10 AM CDT [facility] Creatinine 0.86 0.55 - 1.02 mg/dL 07/30/2024 8:10 AM CDT [facility] Glucose 95 70 - 100 mg/dL 07/30/2024 8:10 AM CDT [facility] Comment:The given reference range is for the fasting state. Non-fasting reference range for glucose is 70 - 180 mg/dL. GFR, Estimated >60 >60 mL/min/1.7 3m2 07/30/2024 8:10 AM CDT [facility] Blood Venipuncture / Unknown 07/30/2024 7:27 AM CDT 07/30/2024 7:32 AM CDT Tracee Barclay MD LAB_1 [facility] [address] * (ABNORMAL) Complete Blood Count-No Diff (07/30/2024 7:27 AM CDT) Pathologist [facility] WBC 4.8 3.5 - 10.5 x10(9)/L 07/30/2024 7:35 AM CDT [facility] RBC 3.92 3.90 - 5.03 x10(12)/L 07/30/2024 7:35 AM CDT [facility] Hemoglobin 11.2(L) 12.0 - 15.5 g/dL 07/30/2024 7:35 AM CDT [facility] HCT 33.1(L) 34.9 - 44.5 % 07/30/2024 7:35 AM CDT [facility] MCV 84.4 80.0 - 100.0 fL 07/30/2024 7:35 AM CDT [facility] MCH 28.6 27.6 - 33.3 pg 07/30/2024 7:35 AM CDT [facility] MCHC 33.8 31.5 - 35.2 g/dL 07/30/2024 7:35 AM CDT [facility] RDW 13.2 11.9 - 15.5 % 07/30/2024 7:35 AM CDT [facility] Platelets 187 150 - 450 x10(9)/L 07/30/2024 7:35 AM CDT [facility] Automated NRBC 0 <=0 /100 WBC 07/30/2024 7:35 AM CDT [facility] Blood Venipuncture / Unknown 07/30/2024 7:27 AM CDT 07/30/2024 7:32 AM CDT Tracee Barclay MD LAB_1 [facility] [address] * Extra Blue top tube (07/29/2024 8:09 PM CDT) Pathologist [facility] Extra Blue Top Drawn Specimen will be held for 24 hours 07/29/2024 10:01 PM CDT [facility] Blood Venipuncture / Unknown 07/29/2024 8:09 PM CDT 07/29/2024 8:17 PM CDT Christian Quintana MD LAB_1 [facility] [address] [place] [address] * (ABNORMAL) Complete Blood Count-W/Diff (07/29/2024 8:09 PM CDT) Only the most recent of2 resultswithin the time period is included. [facility] WBC 7.5 3.5 - 10.5 x10(9)/L 07/29/2024 8:21 PM CDT [facility] RBC 4.08 3.90 - 5.03 x10(12)/L 07/29/2024 8:21 PM CDT [facility] Hemoglobin 11.6(L) 12.0 - 15.5 g/dL 07/29/2024 8:21 PM CDT [facility] HCT 34.4(L) 34.9 - 44.5 % 07/29/2024 8:21 PM CDT [facility] MCV 84.3 80.0 - 100.0 fL 07/29/2024 8:21 PM CDT [facility] MCH 28.4 27.6 - 33.3 pg 07/29/2024 8:21 PM CDT [facility] MCHC 33.7 31.5 - 35.2 g/dL 07/29/2024 8:21 PM CDT [facility] RDW 13.1 11.9 - 15.5 % 07/29/2024 8:21 PM CDT [facility] Platelets 222 150 - 450 x10(9)/L 07/29/2024 8:21 PM CDT [facility] Automated NRBC 0 <=0 /100 WBC 07/29/2024 8:21 PM CDT [facility] Neutrophil Absolute 5.4 1.7 - 7.0 10(9)/L 07/29/2024 8:21 PM CDT [facility] Lymphocyte Absolute 1.5 1.0 - 4.8 10(9)/L 07/29/2024 8:21 PM CDT [facility] Monocyte Absolute 0.5 0.2 - 0.9 10(9)/L 07/29/2024 8:21 PM CDT [facility] Eosinophil Absolute 0.1 0.0 - 0.5 10(9)/L 07/29/2024 8:21 PM CDT [facility] Basophil Absolute 0.0 0.0 - 0.3 10(9)/L 07/29/2024 8:21 PM CDT [facility] Immature Granulocyte % 0.3 0.0 - 0.5 % 07/29/2024 8:21 PM CDT [facility] Blood Venipuncture / Unknown 07/29/2024 8:09 PM CDT 07/29/2024 8:17 PM CDT Christian Quintana MD LAB_1 Performing Organization Address City/State/[facility] Co de Phone Number [facility] [address] * (ABNORMAL) UA Conditional UC: Clean Catch (07/29/2024 7:42 PM CDT) Only the most recent of2 resultswithin the time period is included. Urine Culture Comment Urinalysis results do not meet criteria for urine culture reflex. 07/29/2024 8:19 PM CDT [facility] Urine Color Light-Yellow 07/29/2024 8:19 PM CDT [facility] Urine Clarity Clear Clear 07/29/2024 8:19 PM CDT [facility] Specific [place], Urine 1.013 <1.030 07/29/2024 8:19 PM CDT [facility] PH Urine 6.5 5.0 - 8.0 07/29/2024 8:19 PM CDT [facility] Protein, Urine Qual (mg/dL) Negative Negative, 10 , 20 07/29/2024 8:19 PM CDT [facility] Glucose Urine Qual (mg/dL) Normal (Negative) Normal (Negative), 30 , 50 07/29/2024 8:19 PM CDT [facility] Ketones, Urine (mg/dL) Negative Negative, Trace 07/29/2024 8:19 PM CDT [facility] Urobilinogen, Urine (EU/dL) Normal (Negative) Normal (Negative) 07/29/2024 8:19 PM CDT [facility] Bilirubin Urine (mg/dL) Negative Negative 07/29/2024 8:19 PM CDT [facility] Blood, Urine (mg/dL) 1.0 (Large)(A) Negative, 0.03 (Trace) 07/29/2024 8:19 PM CDT [facility] Nitrite Urine Negative Negative 07/29/2024 8:19 PM CDT [facility] Leukocyte Esterase, Urine (José Luis/uL) Negative Negative, 25 (Trace) 07/29/2024 8:19 PM CDT [facility] Red Blood Cells 149(H) 0 - 3 /HPF 07/29/2024 8:19 PM CDT [facility] White Blood Cells 4 0 - 5 /HPF 07/29/2024 8:19 PM CDT [facility] Bacteria Occasional(A) None Seen /HPF 07/29/2024 8:19 PM CDT [facility] Squamous Epithelial Cells Occasional None Seen, Occasional, Few /HPF 07/29/2024 8:19 PM CDT [facility] Mucus Present(A) None Seen /HPF 07/29/2024 8:19 PM CDT [facility] Urine Source Clean Catch 07/29/2024 8:19 PM CDT [facility] Urine URINE SPECIMEN COLLECTION, CLEAN CATCH / Unknown Non-blood Collection / Unknown 07/29/2024 7:42 PM CDT 07/29/2024 7:48 PM CDT Narrative [facility] - 07/29/2024 8:19 PM CDT The qualitative interpretive guidance provided (e.g., small, moderate, large) is intended to aid in quantitative result interpretation. It is not itself an FDA-cleared test result. Christian Quintana MD LAB_1 [facility] [address] * Test (Urine) (07/29/2024 7:42 PM CDT) Only the most recent of2 resultswithin the time period is included. HCG, Urine Negative Negative 07/29/2024 8:31 PM CDT [facility] Urine URINE SPECIMEN COLLECTION, CLEAN CATCH / Unknown Non-blood Collection / Unknown 07/29/2024 7:42 PM CDT 07/29/2024 7:48 PM CDT Christian Quintana MD LAB_1 [facility] [address] [place] [address] * EKG (07/29/2024) Interface Provider EKG [...] - 150 U/L 07/26/2024 9:02 PM CDT [facility] Bilirubin, Total 0.5 0.2 - 1.2 mg/dL 07/26/2024 9:02 PM CDT [facility] Bilirubin, Direct 0.2 0.0 - 0.5 mg/dL 07/26/2024 9:02 PM CDT [facility] AST (SGOT) 15 10 - 40 U/L 07/26/2024 9:02 PM CDT [facility] ALT (SGPT) 17 <=55 U/L 07/26/2024 9:02 PM CDT [facility] Protein, Total 6.8 6.4 - 8.3 g/dL 07/26/2024 9:02 PM CDT [facility] Albumin 4.0 3.5 - 5.0 g/dL 07/26/2024 9:02 PM CDT [facility] Blood Venipuncture / Unknown 07/26/2024 8:15 PM CDT 07/26/2024 8:19 PM CDT Pita Jj MD LAB_1 Performing Organization Address [facility] Phone Number [facility] [address] [place] [address] * (ABNORMAL) Lipase (07/26/2024 8:15 PM CDT) Lipase 97(H) 8 - 78 U/L 07/26/2024 9:02 PM CDT [facility] Blood Venipuncture / Unknown 07/26/2024 8:15 PM CDT 07/26/2024 8:19 PM CDT Pita Jj MD LAB_1 Performing Organization Address [facility] Phone Number [facility] [address] [place] [address] * Intact PTH (07/24/2024 3:16 PM CDT) Intact PTH 29 10 - 100 pg/mL 07/24/2024 6:23 PM CDT [facility] Blood Venipuncture / Unknown 07/24/2024 3:16 PM CDT 07/24/2024 3:16 PM CDT Keturah Freeman APRN, CNP LAB_1 Performing Organization Address [facility] Phone Number [facility] [address] [place] [address] * (ABNORMAL) Uric Acid (07/24/2024 3:16 PM CDT) Uric Acid 6.6(H) 2.6 - 6.0 mg/dL 07/24/2024 4:02 PM CDT [place] [address] [facility] Blood Venipuncture / Unknown 07/24/2024 3:16 PM CDT 07/24/2024 3:16 PM CDT Keturah Franco Lorenzojeannette BRANDO ZULUAGA LAB_1 [place] [address] [facility] [address] [place] [address] * (ABNORMAL) Automated Urinalysis Dipstick POCT (07/24/2024 2:10 PM CDT) Glucose Urine Qual (mg/dL) Negative Negative 07/26/2024 8:28 AM [place] [address] [facility] Bilirubin Urine Negative Negative 07/26/2024 8:28 AM [place] [address] [facility] Ketones, Urine (mg/dL) Negative Negative 07/26/2024 8:28 AM [place] [address] [facility] Specific [place], Urine 1.020 1.005 - 1.030 07/26/2024 8:28 AM [place] [address] [facility] Blood, Urine Moderate(A) Neg/Trace 07/26/2024 8:28 AM [place] [address] [facility] PH Urine 6.0 5.0 - 8.0 07/26/2024 8:28 AM [place] [address] [facility] Protein, Urine Qual (mg/dL) Negative Neg/Trace 07/26/2024 8:28 AM [place] [address] [facility] Urobilinogen, Urine (EU/dL) 0.2 <2.0 07/26/2024 8:28 AM [place] [address] [facility] Nitrite Urine Negative Negative 07/26/2024 8:28 AM [place] [address] [facility] Leukocyte Est. Negative Negative 07/26/2024 8:28 AM [place] [address] [facility] Urine Color Yellow 07/26/2024 8:28 AM [place] [address] [facility] Urine Clarity Clear Clear 07/26/2024 8:28 AM [place] [address] [facility] Performing Location [employer] DATA INTEGRATION ARCHITECT 07/26/2024 8:28 AM CDT [place] [facility] [facility] Urine 07/24/2024 2:10 PM CDT 07/26/2024 8:28 AM CDT Keturah Freeman APRN, CNP LAB_1 Performing Organization Address City/[facility] Co de Phone Number [facility] [address] [facility] [address] [place] [address], [facility] * XR Abd Flat/KUB 1 View [...] Provider RAD NON-REPORTAB LES Performing Organization Address City/[facility] Co de Phone Number EXTERNAL RESULTS from Last 3 Months Advance Directives * Full Code (Latest Code Status on File) Date Activated Date Inactivated Comments 07/29/2024 11:20 PM 07/31/2024 4:51 PM Care Teams Software Test Developer Relationship Specialty Start Date End Date Radha Cowan MD [address] [place] [address] PCP - General Obstetrics Gynecology 07/26/24
--- OUTSIDE RECORDS SUMMARY | 2024-08-06 23:19 | XMS_ITS ---
Author Organization [facility] Address [address] [place] [address] Care Team Providers Care [employer] Teacher Name Role Phone Radha Cowan MD Primary Care Provider [phone] Active Problems Problem Noted Date Diagnosed Date Malignant neoplasm of upper- outer quadrant of right breast in female, estrogen receptor positive 10/13/2020 PCOS (polycystic ovarian syndrome) 04/19/2018 Current Oncology Plans No current plan information found. Past Plans No past plan information found. Radiation Treatments * No radiation treatments are documented for this patient in [facility]. Treatments may have been administered in another [...]
--- OUTSIDE RECORDS SUMMARY | 2024-08-06 23:19 | XMS_ITS | Encounter Summary ---
Author Organization [facility] Address [address] [place] [address] Care Team Providers Care Lead Business Analyst Name Role Phone Radha Cowan MD Primary Care Provider [phone] Reason for Visit * Auth/Cert (Routine) Specialty Diagnoses / Procedures Referred By Dara t Referred To Contact Diagnoses Calculus of kidney Procedures URETEROSCOPY WITH LASER LITHOTRIPSY AND URETERAL STENT PLACEMENT with retrograde pyelogram Referral ID Status Reason Start Date Expiration Date Visits Re quested Visits Authorized [id number] 1 1 Encounter Details Date Type Department Care Team (Late st Contact Info) Description 08/01/2024 Hospital Encounter [facility] [address] [facility] [place] [address] Bashir Calles MD [address] [place] [address] Social History Tobacco Use Types Packs/Day Years Used Date Smoking Tobacco: Never Assessed [facility] Utilities Answer Date Recorded In the past 12 months has [employer] gas, oil, or water [employer] threatened to shut off services in your [...] any time in the past 12 m [facility], were you homeless or living in a usp (including now)? Patient declined 07/29/2024 Sex and Gender Information Value Date Recorded Sex Assigned at Not on file Gender Identity Not on file Sexual Orientation Not on file documented as of this encounter Plan of Treatment Upcoming Encounters Date Type Department Care Team (Late st Contact Info) Description 08/07/2024 11:00 AM CDT Appointment [facility] - Urology [address] [facility] [place] [address] Emmy Hinojosa MBBS [address] [place] [address] 09/24/2024 10:00 AM SKEIN WINDER Appointment [facility] - Urology [address] [facility] [place], [place] [address] Sakshi Garrido, PEDIATRIC SPEECH THERAPIST, POPCORN MACHINE OPERATOR [address] [place], [place] [address] Scheduled Procedures Name Priority Associated Diagnoses Date/Ti me CYSTOSCOPY,RETROGRADE PYELOGRAM,URETEROSCOPY,HOLMIUM LASER LITHOTRIPSY OF STONE,URETERAL STENT PLACEMENT Kidney stone Intractable pain documented as of this encounter Visit Diagnoses Not on filedocumented in this encounter Admitting Diagnoses Diagnosis Calculus of kidney documented in this encounter Care Teams Lead Business Analyst Relationship Specialty Start Date End Date Radha Cowan MD [address] [place] [address] PCP - General Obstetrics Gynecology 07/26/24 documented as of this encounter
--- OUTSIDE RECORDS SUMMARY | 2024-08-06 23:19 | XMS_ITS | Encounter Summary ---
Author Organization [facility] Address [address], [place] [address] Care Team Providers Care Chronic Condition Nurse Name Role Phone Radha Cowan MD Primary Care Provider [phone] Reason for Referral * (Routine) - New Request Specialty Diagnoses / Procedures Referred By Contac t Referred To Contact Procedures Physical Therapy Eval and Treat Isabel Mccall MD [address] [place] [address] Referral ID Status Reason Start Date Expiration Date V isits Requested Visits Authorized [id number] New Request 07/31/2024 10/30/2025 1 1 * Procedure/Equipment (Routine) - Incomplete Specialty Diagnoses / Procedures Referred By Contac t Referred To Contact Diagnoses Kidney stone Intractable pain Procedures Case Request OR - Urology Surgery: URETEROSCOPY WITH LASER LITHOTRIPSY AND URETERAL STENT PLACEMENT, retrograde pyelogram with interpretation Gonzalo Anderws DO [address] [place] [address] Referral ID Status Reason Start Date Expiration Date V isits Requested Visits Authorized [id number] Incomplete 07/30/2024 10/29/2025 1 1 * Procedure/Equipment (Routine) - Incomplete Specialty Diagnoses / Procedures Referred By Contac t Referred To Contact Procedures Foreign Image(S) CT Abdomen/Pelvis Provider, Foreign Images [address] [phone] Referral ID Status Reason Start Date Expiration Date V isits Requested Visits Authorized [id number] Incomplete 07/30/2024 10/29/2025 1 1 * Procedure/Equipment (Routine) - Incomplete Specialty Diagnoses / Procedures Referred By Contac t Referred To Contact Procedures FL Retrograde Pyelogram Gonzalo Andrews DO [address] [place] [address] Referral ID Status Reason Start Date Expiration Date V isits Requested Visits Authorized [id number] Incomplete 07/30/2024 10/29/2025 1 1 * Procedure/Equipment (Routine) - Incomplete Specialty Diagnoses / Procedures Referred By Contac t Referred To Contact Diagnoses Kidney stone Calculus of kidney Procedures Case Request OR - Urology Surgery: URETEROSCOPY WITH LASER LITHOTRIPSY AND URETERAL STENT PLACEMENT, RETROGRADE PYELOGRAM Darius Zhao PA-C [address] [place] [address] Referral ID Status Reason Start Date Expiration Date V isits Requested Visits Authorized [id number] Incomplete 07/30/2024 10/29/2025 1 1 Reason for Visit * Auth/Cert (Routine) Specialty Diagnoses / Procedures Referred By Contac t Referred To Contact Diagnoses Kidney stone Kidney stone Referral ID Status Reason Start Date Expiration Date Visits Re quested Visits Authorized [id number] 1 1 Encounter Details Date Type Department Care Team (Late st Contact Info) Description 07/29/2024 7:31 PM CDT - 07/31/2024 2:30 PM CDT Emergency [facility] [address] [place] [address] Christian Quintana MD [address] [place] [address] Tracee Garvin MD [address] [place] [address] Ewa Adame PA-C [address] [place] [address] Calculus of kidney (Primary Dx); Kidney stone; Intractable pain Discharge Disposition: Home Social History Tobacco Use Types Packs/Day Years Used Date Smoking Tobacco: Never Assessed [facility] Utilities Answer Date Recorded In the [...] time in the past [address] [facility], were you homeless or living in a [...] Adame PA-C - 07/31/2024 8:17 AM CDT [facility] Medicine Discharge Summary Patient ID: Mateo Martini [id number] 44 y.o. 1980 Admit date: 07/29/2024 Discharge [...] 11:15 AM INPT, METH PT GYM 7 [facility] METH 08/08/2024 10:45 AM Linda Madrid MD [facility] [address] [place] [id number] 09/24/2024 10:00 AM Sakshi Garrido APRN, SIMPLEX PRINTER INSTALLER [facility] - Urology PN SL 5401 Significant Diagnostic Studies (imaging, labs, micro, etc), see EMR for full details: CT Abd/Pelvis (07/26/24): IMPRESSION: 1. 4 mm obstructing calculus in the proximal right ureter, causing mild right hydronephrosis. 2. Additional bilateral nonobstructing nephrolithiasis as described. Billing based on time: Total time for the visit was >30 minutes including, but not limited to, ibf-[id number]-ax-face time spent reviewing records, counseling, and coordination of care. Ewa Adame PA-C documented in this encounter Discharge Instructions * Attachments The following attachments cannot be sent through Care Everywhere. * Hydromorphone Oral Tablet (HYDROMORPHONE - ORAL) (S[place]) * Sennosides - Shelter Oral Tablet (SENNOSIDES - ORAL) ([place]) documented in this encounter Medications at Time [...] patient. Written medication education material provided on [place], meclazine and senna including possible side effects. Prescriptions filled by [facility] pharmacy. Belongings checklist reviewed with patient and [...] supervision # of steps: 3 up/down Pattern: [id number] Transfers: Supine to Sit: independent Sit to [...] Protein, Urine Qual (mg/dL) Negative 07/29/2024 Specific [place], Urine 1.013 07/29/2024 Urobilinogen, Urine (EU/dL) Normal [...] from the original note were not included. [facility] Medicine Progress Note Patient Name: Mateo [...] Status/Goals of Care: Full Ewa Adame PA-C, [facility] Medicine Pager: [phone] [facility], [facility] documented in this encounter Procedure Notes * Gonzalo Andrews DO - 07/30/2024 4:47 PM CDT [facility] Brief Operative Progress Note Surgery Date: 07/30/2024 Surgeons and Role: * Gonzalo Andrews DO - Primary Visitor: Silk Screen Repairer - Christian Pre-op Diagnosis: * Kidney stone [...] CALCULI STONE ANALYSIS Gonzalo Andrews DO 07/30/2024 8171 Complications / Findings: she had a right mid-ureteral stone that was found and fully treated. * Gonzalo Andrews DO - 07/30/2024 12:00 AM CDT NAME: MATEO MARTINI CSN: [id number] OPERATIVE REPORT DATE OF SURGERY: 07/30/2024 : [...] metabolic stone workup at that time. GONZALO ANDREWS DO MJB/AQS /[id number] documented in this encounter Consult Notes * [...] several stone procedures in the past in [place]. -She has not tolerated stents well in [...] Grossly normal Labs and Imaging reviewed in [facility] and pertinent positives are as follows: Imaging: [...] but not limited to risks of PE, [place], stroke. Discussed risks of the procedure including [...] from the original note were not included. [facility] Medicine History and Physical Date of Service: [...] HEENT: Sclera anicteric, no conjunctival injection. EOMI. AVLORIE. MMM, OP clear w/o exudates. Lungs: clear [...] Abd Pelvis WO IV Cont Stone Order: [id number] Status: Final result Visible to patient: No (inaccessible in MyChart) Next appt: Today at 11:00 AM in Family Medicine (Hilda Min PA-C) 1 Patient Communication Details Reading Physician Reading Date Result Priority Sivakumar Aburto MD [phone] 07/26/2024 STAT Narrative & Impression IMPRESSION COMPARISON: [...] patient usually receives her care from the [facility]. Her chart was updated through Care Everywhere, but may be somewhat limited. 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 [...] induced abortn by d&c Lithotripsy Ureteral stents [place] teeth extraction Mastectomy Bilateral revision stage breast [...] Color Light-Yellow Urine Clarity Clear Clear Specific [place], Urine 1.013 <1.030 PH Urine 6.5 5.0 [...] chloride (OCEAN) 0.65 % nasal solution 1 [place] (has no administration in time range) polyethyl-propylene glycol (SYSTANE) 0.4-0.3 % ophthalmic solution 1 Drop (has no administration intime range) nystatin (MYCOSTATIN) 210169 UNIT/GM topical powder (has no administration in [...] Medical Decision Making / Diagnosis MIPS None [facility] Mateo Martini is a 44 y.o. [...] and the provider's statements to me. 07/29/2024 [facility] Portions of this medical record were completed by a scribe. UPON MY REVIEW AND AUTHENTICATION BY ELECTRONIC SIGNATURE, this confirms (a) I performed the applicable clinical services, and (b) the record is accurate. Christian Quintana MD 07/30/24 0016 documented in this encounter Plan of Treatment Upcoming Encounters Date Type Department Care Team (Late st Contact Info) Description 08/07/2024 11:[address] [facility] - Urology [address] [facility] [place] [address] Emmy Hinojosa MBBS [address] [place] [address] 09/24/2024 10:00 AM AUTOMATION DEVELOPER Appointment [facility] - Urology [address] [place] [address] Sakshi Garrido, PERSONAL DEVELOPMENT MENTOR, SIMPLEX PRINTER INSTALLER [address] [place], [place] [id number] Scheduled Procedures Name Priority Associated Diagnoses Date/Ti [...] Composition See Note 08/01/2024 4:40 PM CDT [facility] Comment: Calculi composed primarily of calcium oxalate dihydrate. INTERPRETIVE INFORMATION: Calculi (Stone) analysis Calculi are the products of physiological processes that yield crystalline compounds in a matrix of biological compounds and blood. ??Matrix components are not reported. ??The clinically significant crystalline components identified in calculi specimens are reported. ??Gross description may not be consistent with composition determined by FTIR analysis. Performed By: [facility] [address] [place] [address] Film And Video Editor: Delonte Ellison MD, PhD CLIA Number: [id number] Calculi Description See Note 08/01/2024 4:40 PM CDT [facility] Comment: Specimen consists of three brown and overton calculi fragments. The total weight is 14 mg. Calculi Mass 14 mg 08/01/2024 4:40 PM CDT [facility] Stone (Calculus) STRUCTURE OF RIGHT URETER / Unknown 07/30/2024 4:28 PM CDT 07/30/2024 4:44 PM CDT Gonzalo Andrews DO LAB_[address] [address] [place] [address] * (ABNORMAL) Complete Blood Count-No Diff (07/30/2024 7:27 AM CDT) WBC 4.8 3.5 - 10.5 x10(9)/L 07/30/2024 7:35 AM CDT [facility] RBC 3.92 3.90 - 5.03 x10(12)/L 07/30/2024 7:35 AM CDT [facility] Hemoglobin 11.2(L) 12.0 - 15.5 g/dL 07/30/2024 7:35 AM CDT [facility] HCT 33.1(L) 34.9 - 44.5 % 07/30/2024 7:35 AM CDT [facility] MCV 84.4 80.0 - 100.0 fL 07/30/2024 7:35 AM CDT [facility] MCH 28.6 27.6 - 33.3 pg 07/30/2024 7:35 AM CDT [facility] MCHC 33.8 31.5 - 35.2 g/dL 07/30/2024 7:35 AM CDT [facility] RDW 13.2 11.9 - 15.5 % 07/30/2024 7:35 AM CDT [facility] Platelets 187 150 - 450 x10(9)/L 07/30/2024 7:35 AM CDT [facility] Automated NRBC 0 <=0 /100 WBC 07/30/2024 7:35 AM CDT [facility] Blood Venipuncture / Unknown 07/30/2024 7:27 AM CDT 07/30/2024 7:32 AM CDT Tracee Barclay MD LAB_1 [facility] [address] * (ABNORMAL) Basic Metabolic Panel (07/30/2024 7:27 AM CDT) Sodium 138 136 - 145 mmol/L 07/30/2024 8:10 AM CDT [facility] Potassium 3.8 3.5 - 5.1 mmol/L 07/30/2024 8:10 AM CDT [facility] Chloride 111(H) 98 - 109 mmol/L 07/30/2024 8:10 AM CDT [facility] CO2 23 20 - 29 mmol/L 07/30/2024 8:10 AM CDT [facility] Anion Gap 4(L) 6 - 16 mmol/L 07/30/2024 8:10 AM CDT [facility] Calcium 8.6 8.4 - 10.4 mg/dL 07/30/2024 8:10 AM CDT [facility] BUN 10 7 - 26 mg/dL 07/30/2024 8:10 AM CDT [facility] Creatinine 0.86 0.55 - 1.02 mg/dL 07/30/2024 8:10 AM CDT [facility] Glucose 95 70 - 100 mg/dL 07/30/2024 8:10 AM CDT [facility] Comment:The given reference range is for the fasting state. Non-fasting reference range for glucose is 70 - 180 mg/dL. GFR, Estimated >60 >60 mL/min/1.7 3m2 07/30/2024 8:10 AM CDT [facility] Blood Venipuncture / Unknown 07/30/2024 7:27 AM CDT 07/30/2024 7:32 AM CDT Tracee Barclay MD LAB_1 Performing Organization Address [facility]/ZIP Co de Phone Number [facility] [address] * Extra Blue top tube (07/29/2024 8:09 PM CDT) Pathologist [facility] Extra Blue Top Drawn Specimen will be held for 24 hours 07/29/2024 10:01 PM CDT [facility] Blood Venipuncture / Unknown 07/29/2024 8:09 PM CDT 07/29/2024 8:17 PM CDT Christian Quintana MD LAB_1 Performing Organization Address [facility] de Phone Number [facility] [address] * (ABNORMAL) Complete Blood Count-W/Diff (07/29/2024 8:09 PM CDT) Pathologist [facility] WBC 7.5 3.5 - 10.5 x10(9)/L 07/29/2024 8:21 PM CDT [facility] RBC 4.08 3.90 - 5.03 x10(12)/L 07/29/2024 8:21 PM CDT [facility] Hemoglobin 11.6(L) 12.0 - 15.5 g/dL 07/29/2024 8:21 PM CDT [facility] HCT 34.4(L) 34.9 - 44.5 % 07/29/2024 8:21 PM CDT [facility] MCV 84.3 80.0 - 100.0 fL 07/29/2024 8:21 PM CDT [facility] MCH 28.4 27.6 - 33.3 pg 07/29/2024 8:21 PM CDT [facility] MCHC 33.7 31.5 - 35.2 g/dL 07/29/2024 8:21 PM CDT [facility] RDW 13.1 11.9 - 15.5 % 07/29/2024 8:21 PM CDT [facility] Platelets 222 150 - 450 x10(9)/L 07/29/2024 8:21 PM CDT [facility] Automated NRBC 0 <=0 /100 WBC 07/29/2024 8:21 PM CDT [facility] Neutrophil Absolute 5.4 1.7 - 7.0 10(9)/L 07/29/2024 8:21 PM CDT [facility] Lymphocyte Absolute 1.5 1.0 - 4.8 10(9)/L 07/29/2024 8:21 PM CDT [facility] Monocyte Absolute 0.5 0.2 - 0.9 10(9)/L 07/29/2024 8:21 PM CDT [facility] Eosinophil Absolute 0.1 0.0 - 0.5 10(9)/L 07/29/2024 8:21 PM CDT [facility] Basophil Absolute 0.0 0.0 - 0.3 10(9)/L 07/29/2024 8:21 PM CDT [facility] Immature Granulocyte % 0.3 0.0 - 0.5 % 07/29/2024 8:21 PM CDT [facility] Blood Venipuncture / Unknown 07/29/2024 8:09 PM CDT 07/29/2024 8:17 PM CDT Christian Quintana MD LAB_1 [facility] [address] [place] [address], [facility] * (ABNORMAL) Basic Metabolic Panel (07/29/2024 8:09 PM CDT) Sodium 138 136 - 145 mmol/L 07/29/2024 8:44 PM CDT [facility] Potassium 3.7 3.5 - 5.1 mmol/L 07/29/2024 8:44 PM CDT [facility] Chloride 109 98 - 109 mmol/L 07/29/2024 8:44 PM CDT [facility] CO2 22 20 - 29 mmol/L 07/29/2024 8:44 PM CDT [facility] Anion Gap 7 6 - 16 mmol/L 07/29/2024 8:44 PM CDT [facility] Calcium 9.3 8.4 - 10.4 mg/dL 07/29/2024 8:44 PM CDT [facility] BUN 15 7 - 26 mg/dL 07/29/2024 8:44 PM CDT [facility] Creatinine 0.92 0.55 - 1.02 mg/dL 07/29/2024 8:44 PM CDT [facility] Glucose 105(H) 70 - 100 mg/dL 07/29/2024 8:44 PM CDT [facility] Comment:The given reference range is for the fasting state. Non-fasting reference range for glucose is 70 - 180 mg/dL. GFR, Estimated >60 >60 mL/min/1.7 3m2 07/29/2024 8:44 PM CDT [facility] Blood Venipuncture / Unknown 07/29/2024 8:09 PM CDT 07/29/2024 8:17 PM CDT Christian Quintana MD LAB_1 Performing Organization Address City/[facility] Co de Phone Number [facility] [address] [place] [address] * Test (Urine) (07/29/2024 7:42 PM CDT) HCG, Urine Negative Negative 07/29/2024 8:31 PM CDT [facility] Urine URINE SPECIMEN COLLECTION, CLEAN CATCH / Unknown Non-blood Collection / Unknown 07/29/2024 7:42 PM CDT 07/29/2024 7:48 PM CDT Christian Quintana MD LAB_1 Performing Organization Address [facility]/ZIP Co de Phone Number [facility] [address] [place] [address] * (ABNORMAL) UA Conditional UC: Clean Catch (07/29/2024 7:42 PM CDT) Urine Culture Comment Urinalysis results do not meet criteria for urine culture reflex. 07/29/2024 8:19 PM CDT [facility] Urine Color Light-Yellow 07/29/2024 8:19 PM CDT [facility] Urine Clarity Clear Clear 07/29/2024 8:19 PM CDT [facility] Specific [place], Urine 1.013 <1.030 07/29/2024 8:19 PM CDT [facility] PH Urine 6.5 5.0 - 8.0 07/29/2024 8:19 PM CDT [facility] Protein, Urine Qual (mg/dL) Negative Negative, 10 , 20 07/29/2024 8:19 PM CDT [facility] Glucose Urine Qual (mg/dL) Normal (Negative) Normal (Negative), 30 , 50 07/29/2024 8:19 PM CDT [facility] Ketones, Urine (mg/dL) Negative Negative, Trace 07/29/2024 8:19 PM CDT [facility] Urobilinogen, Urine (EU/dL) Normal (Negative) Normal (Negative) 07/29/2024 8:19 PM CDT [facility] Bilirubin Urine (mg/dL) Negative Negative 07/29/2024 8:19 PM CDT [facility] Blood, Urine (mg/dL) 1.0 (Large)(A) Negative, 0.03 (Trace) 07/29/2024 8:19 PM CDT [facility] Nitrite Urine Negative Negative 07/29/2024 8:19 PM CDT [facility] Leukocyte Esterase, Urine (José Luis/uL) Negative Negative, 25 (Trace) 07/29/2024 8:19 PM CDT [facility] Red Blood Cells 149(H) 0 - 3 /HPF 07/29/2024 8:19 PM CDT [facility] White Blood Cells 4 0 - 5 /HPF 07/29/2024 8:19 PM CDT [facility] Bacteria Occasional(A) None Seen /HPF 07/29/2024 8:19 PM CDT [facility] Squamous Epithelial Cells Occasional None Seen, Occasional, Few /HPF 07/29/2024 8:19 PM CDT [facility] Mucus Present(A) None Seen /HPF 07/29/2024 8:19 PM CDT [facility] Urine Source Clean Catch 07/29/2024 8:19 PM CDT [facility] Urine URINE SPECIMEN COLLECTION, CLEAN CATCH / Unknown Non-blood Collection / Unknown 07/29/2024 7:42 PM CDT 07/29/2024 7:48 PM CDT Narrative [facility] - 07/29/2024 8:19 PM CDT The qualitative interpretive guidance provided (e.g., small, moderate, large) is intended to aid in quantitative result interpretation. It is not itself an FDA-cleared test result. Christian Quintana MD LAB_1 [facility] [address] [place] [address] * Foreign Image(S) CT Abdomen/Pelvis (07/19/2024 [...] house to avoid falling. Does report to telegraphic typewriter installer at start of this shift around 2300 when came to visit earlier in the evening that she almost fell r/t symptoms in her roombut he caught her. Around 0300, as patient was returning to room from bathroom, telegraphic typewriter installer noted that patient lost balance swaying to [...] via cart from EC to bed # 2W26/1V12-65. D: Patient is alert and oriented x [...] pharmacy.)160 (Given - Provider: Cameron Mcnamara APRN, CHASSIS DRIVER) metoclopramide (REGLAN) injection 10 mg (COMPLETED) 10 [...] - Reason: Contraindication - Comment: pt NPO)1416 ([facility] Hold - Provider: Automatichold - Reason: Other (Enter Reason in Comment Area))173 ([facility] Unhold - Provider: Automatichold) 0751 (Not [...] (Anesthesia Fluid - Provider: Cameron Mcnamara APRN, CHASSIS DRIVER) PRN Medication Order 07/29/2024 07/30/2024 07/31/2024 acetaminophen [...] tablet provides 200 mg elemental calcium 1416 ([facility] Hold - Provider: Automatichold - Reason: Other (Enter Reason in Comment Area))173 ([facility] Unhold - Provider: Automatichold) guaiFENesin (ROBITUSSIN) oral liquid 10 mL 10 mL, Oral, Q4H PRN, Cough, Starting on Mon07/29/24 at 2319, Until Mon07/31/24 at 1646 1416 ([facility] Hold - Provider: Automatichold - Reason: Other (Enter Reason in Comment Area))173 ([facility] Unhold - Provider: Automatichold) HYDROmorphone (DILAUDID) injection 0.3 mg 0.3 mg, Intravenous, Q30MIN PRN, Pain, Severe Pain (pain score 8-10), Starting on Mon07/29/24 at 2003, Until Mon07/31/24 at 1646, For 3 doses 2023 (Given - Provider: Gustavo Paredes RN) 1416 ([facility] Hold - Provider: Automatichold - Reason: Other (Enter Reason in Comment Area))173 ([facility] Unhold - Provider: Automatichold) HYDROmorphone (DILAUDID) [...] give if RR less than 8. 1416 ([facility] Hold - Provider: Automatichold - Reason: Other (Enter Reason in Comment Area))173 ([facility] Unhold - Provider: Automatichold) HYDROmorphone (DILAUDID) [...] give if RR less than 8. 1416 ([facility] Hold - Provider: Automatichold - Reason: Other (Enter Reason in Comment Area))1732 ([facility] Unhold - Provider: Automatichold) iohexol (OMNIPAQUE [...] 0944 (Given - Provider: Ashwin Gregory RN)1416 ([facility] Hold - Provider: Automatichold - Reason: Other (Enter Reason in Comment Area))173 ([facility] Unhold - Provider: Automatichold) 0316 (Given [...] at 2319, Until Mon07/31/24 at 1646 1416 ([facility] Hold - Provider: Automatichold - Reason: Other (Enter Reason in Comment Area))1732 ([facility] Unhold - Provider: Automatichold) metoclopramide (REGLAN) [...] 0900 (Given - Provider: Ashwin Gregory, PHIL)1416 ([facility] Hold - Provider: Automatichold - Reason: Other (Enter Reason in Comment Area))1732 ([facility] Unhold - Provider: Automatichold) 0316 (Given - Provider: Pita Lizarraga, PHIL)1216 (Given - Provider: Linda Parry RN - Comment: per pt request) nystatin (MYCOSTATIN) [id number] UNIT/GM topical powder Topical, BID PRN, Other, for rash due to yeast, Starting on Mon07/29/24 at 2319, Apply topically to affected area. Hazardous waste disposal required. 1416 ([facility] Hold - Provider: Automatichold - Reason: Other (Enter Reason in Comment Area))1732 ([facility] Unhold - Provider: Automatichold) ondansetron (ZOFRAN) [...] 2nd line: prochlorperazine 3rd line: metoclopramide 1416 ([facility] Hold - Provider: Automatichold - Reason: Other (Enter Reason in Comment Area))173 ([facility] Unhold - Provider: Automatichold) ondansetron (ZOFRAN-ODT) [...] 2nd line: prochlorperazine 3rd line: metoclopramide 1416 ([facility] Hold - Provider: Automatichold - Reason: Other (Enter Reason in Comment Area))173 ([facility] Unhold - Provider: Automatichold) polyethyl-propylene glycol (SYSTANE) 0.4-0.3 % ophthalmic solution 1 Drop 1 Drop, Both Eyes, Q1H PRN, Dry Eyes, Itchy Eyes, Starting on Mon07/29/24 at 2319, Until Mon07/31/24 at 1646 1416 ([facility] Hold - Provider: Automatichold - Reason: Other (Enter Reason in Comment Area))1732 ([facility] Unhold - Provider: Automatichold) polyethylene glycol [...] chloride (OCEAN) 0.65 % nasal solution 1 [place] 1 [place], Both Nostrils, Q2H PRN, Dry Nose, Starting [...] Reason: Other (Enter Reason in Comment Area))173 ([facility] Unhold - Provider: Automatichold)2324 (Given - Provider: Pita Lizarraga, PHIL) Linked Groups Order Group 1: senna (SENOKOT) [...] metoclopramide documented in this encounter Care Teams Chronic Condition Nurse Relationship Specialty Start Date End Date Radha Cowan MD [address] [place] [address] PCP - General Obstetrics Gynecology 07/26/24 documented as of this encounter
--- OUTSIDE RECORDS SUMMARY | 2024-08-06 23:20 | XMS_ITS | Encounter Summary ---
Author Organization [facility] Address [address] [place] [address] Care Team Providers Care Elementary [employer] Teacher'S Aide Name Role Phone Radha Cowan MD Primary Care Provider [phone] Reason for Visit * Auth/Cert (Routine) Specialty Diagnoses / Procedures Referred By Contac t Referred To Contact Diagnoses Kidney stone Kidney stone Referral ID Status Reason Start Date Expiration Date Visits Re quested Visits Authorized [id number] 1 1 Encounter Details Date Type Department Care Team (Late st Contact Info) Description 07/30/2024 3:00 PM CDT - 07/30/2024 4:30 PM CDT Surgery [facility] [address] [facility] [place] [address] Gonzalo Andrews, DO [address] [place] [address] URETEROSCOPY WITH LASER LITHOTRIPSY AND URETERAL STENT PLACEMENT, RETROGRADE PYELOGRAM and interpretation, stone basket extraction Social History Tobacco Use Types Packs/Day Years Used Date Smoking Tobacco: Never Assessed [facility] Utilities Answer Date Recorded In the past 12 months has [employer], gas, oil, or water [employer] threatened to shut off services in your [...] any time in the past 12 [facility], were you homeless or living in a long term (including now)? Patient declined 07/29/2024 Sex and [...] Adame PA-C - 07/31/2024 8:17 AM CDT [facility] Medicine Discharge Summary Patient ID: Mateo Martini [id number] 44 y.o. 1980 Admit date: 07/29/2024 Discharge [...] 11:15 AM INPT, METH PT GYM 7 [facility] PN METH 08/08/2024 10:45 AM Linda Madrid MD [facility] [address] [place] [address] 09/24/2024 10:00 AM Sakshi Garrido APRN, APPLICATIONS INSTRUCTOR [facility] - Urology PN SL 0447 Significant Diagnostic Studies (imaging, labs, micro, etc), see EMR for full details: CT Abd/Pelvis (07/26/24): IMPRESSION: 1. 4 mm obstructing calculus in the proximal right ureter, causing mild right hydronephrosis. 2. Additional bilateral nonobstructing nephrolithiasis as described. Billing based on time: Total time for the visit was >30 minutes including, but not limited to, pek-vgyf-rw-face time spent reviewing records, counseling, and coordination of care. Ewa Adame PA-C documented in this encounter Discharge Instructions * Attachments The following attachments cannot be sent through Care Everywhere. * Hydromorphone Oral Tablet (HYDROMORPHONE - ORAL) (Sinhala) * Sennosides - [facility] Oral Tablet (SENNOSIDES - ORAL) (Sinhala) documented in this encounter Medications at Time [...] patient. Written medication education material provided on [place], meclazine and senna including possible side effects. Prescriptions filled by [facility] pharmacy. Belongings checklist reviewed with patient [...] supervision # of steps: 3 up/down Pattern: [id number] Transfers: Supine to Sit: independent Sit to [...] Protein, Urine Qual (mg/dL) Negative 07/29/2024 Specific [place], Urine 1.013 07/29/2024 Urobilinogen, Urine (EU/dL) Normal [...] as outpatient Gonzalo Andrews DO * Ashwin Gregroy RN - 07/30/2024 5:41 PM CDT POST-OP O: Patient will have a stable post-op period. D: Pt arrived to room 2W26/9R76-26, at 1741 (time). Patient is oriented to: [...] from the original note were not included. [facility] Medicine Progress Note Patient Name: [...] Status/Goals of Care: Full Ewa Adame PA-C, [facility] Medicine Pager: [phone] [facility] documented in this encounter Procedure Notes * Gonzalo Andrews DO - 07/30/2024 4:47 PM CDT [facility] Brief Operative Progress Note Surgery Date: 07/30/2024 Surgeons and Role: * Gonzalo Andrews DO - Primary Visitor: Machine Fancy Stitcher - Christian Pre-op Diagnosis: * Kidney stone [...] 12:00 AM CDT NAME: MATEO MARTINI CSN: [id number] OPERATIVE REPORT DATE OF SURGERY: 07/30/2024 : [...] workup at that time. DO ARMANDO CAPUTO/BJ /[id number] documented in this encounter Consult Notes * [...] several stone procedures in the past in [place]. -She has not tolerated stents well in the past, getting an infection with her previous stent. Review of Systems Pertinent positives and negatives stated in HPI otherwise ROS negative The following were reviewed in [facility]: active problem list, medication list, allergies, family [...] but not limited to risks of PE, MS, stroke. Discussed risks of the procedure including [...] from the original note were not included. [facility] Medicine History and Physical Date of Service: [...] Abd Pelvis WO IV Cont Stone Order: [id number] Status: Final result Visible to patient: No (inaccessible in MyChart) Next appt: Today at 11:00 AM in Family Medicine (Hilda Min PA-C) 1 Patient Communication Details Reading Physician Reading Date Result Priority Sivakumar Aburto MD [phone] 07/26/2024 STAT Narrative & Impression IMPRESSION COMPARISON: [...] patient usually receives her care from the [facility]. Her chart was updated through Care Everywhere, but may be somewhat limited. Medical History and Problem List ADHD (attention deficit hyperactivity disorder) [place]'s disease Malignant neoplasm of upper-outer quadrant of [...] induced abortn by d&c Lithotripsy Ureteral stents [place] teeth extraction Mastectomy Bilateral revision stage breast [...] Color Light-Yellow Urine Clarity Clear Clear Specific [place], Urine 1.013 <1.030 PH Urine 6.5 5.0 [...] chloride (OCEAN) 0.65 % nasal solution 1 Frederick (has no administration in time range) polyethyl-propylene glycol (SYSTANE) 0.4-0.3 % ophthalmic solution 1 Drop (has no administration intime range) nystatin (MYCOSTATIN) [id number] UNIT/GM topical powder (has no administration in [...] Medical Decision Making / Diagnosis MIPS None [facility] Mateo Martini is a 44 y.o. [...] and the provider's statements to me. 07/29/2024 [facility] Portions of this medical record [...] Description 08/07/2024 11:00 AM CDT Appointment [facility] - Urology [address] [place] [address] Emmy Hinojosa MBBS [address] [place] [address] 09/24/2024 10:00 AM NEW CAR GET READY MECHANIC Appointment [facility] - Urology [address] [facility] [place] [address] Sakshi Garrido, INTERACTIVE DESIGNER, APPLICATIONS INSTRUCTOR [address] [place], [place] [address] Scheduled Procedures Name Priority Associated Diagnoses Date/Ti [...] Composition See Note 08/01/2024 4:40 PM CDT [facility] Comment: Calculi composed primarily of calcium oxalate dihydrate. INTERPRETIVE INFORMATION: Calculi (Stone) analysis Calculi are the products of physiological processes that yield crystalline compounds in a matrix of biological compounds and blood. ??Matrix components are not reported. ??The clinically significant crystalline components identified in calculi specimens are reported. ??Gross description may not be consistent with composition determined by FTIR analysis. Performed By: [facility] [address] [place] [id number] Track Supervisor: Delonte Ellison MD, PhD CLIA Number: [id number] Calculi Description See Note 08/01/2024 4:40 PM CDT [facility] Comment: Specimen consists of three brown and overton calculi fragments. The total weight is 14 mg. Calculi Mass 14 mg 08/01/2024 4:40 PM CDT [facility] Stone (Calculus) STRUCTURE OF RIGHT URETER / Unknown 07/30/2024 4:28 PM CDT 07/30/2024 4:44 PM CDT Gonzalo Andrews DO LAB_1 [facility] [address] [place], [place] [address] [place] [address] * (ABNORMAL) Complete Blood Count-No Diff (07/30/2024 7:27 AM CDT) WBC 4.8 3.5 - 10.5 x10(9)/L 07/30/2024 7:35 AM CDT [facility] RBC 3.92 3.90 - 5.03 x10(12)/L 07/30/2024 7:35 AM CDT [facility] Hemoglobin 11.2(L) 12.0 - 15.5 g/dL 07/30/2024 7:35 AM CDT [facility] HCT 33.1(L) 34.9 - 44.5 % 07/30/2024 7:35 AM CDT [facility] MCV 84.4 80.0 - 100.0 fL 07/30/2024 7:35 AM CDT [facility] MCH 28.6 27.6 - 33.3 pg 07/30/2024 7:35 AM CDT [facility] MCHC 33.8 31.5 - 35.2 g/dL 07/30/2024 7:35 AM CDT [facility] RDW 13.2 11.9 - 15.5 % 07/30/2024 7:35 AM CDT [facility] Platelets 187 150 - 450 x10(9)/L 07/30/2024 7:35 AM CDT [facility] Automated NRBC 0 <=0 /100 WBC 07/30/2024 7:35 AM CDT [facility] Blood Venipuncture / Unknown 07/30/2024 7:27 AM CDT 07/30/2024 7:32 AM CDT Tracee Barclay MD LAB_1 [facility] [address] * (ABNORMAL) Basic Metabolic Panel (07/30/2024 7:27 AM CDT) Sodium 138 136 - 145 mmol/L 07/30/2024 8:10 AM CDT [facility] Potassium 3.8 3.5 - 5.1 mmol/L 07/30/2024 8:10 AM CDT [facility] Chloride 111(H) 98 - 109 mmol/L 07/30/2024 8:10 AM CDT [facility] CO2 23 20 - 29 mmol/L 07/30/2024 8:10 AM CDT [facility] Anion Gap 4(L) 6 - 16 mmol/L 07/30/2024 8:10 AM CDT [facility] Calcium 8.6 8.4 - 10.4 mg/dL 07/30/2024 8:10 AM CDT [facility] BUN 10 7 - 26 mg/dL 07/30/2024 8:10 AM CDT [facility] Creatinine 0.86 0.55 - 1.02 mg/dL 07/30/2024 8:10 AM CDT [facility] Glucose 95 70 - 100 mg/dL 07/30/2024 8:10 AM CDT [facility] Comment:The given reference range is for the fasting state. Non-fasting reference range for glucose is 70 - 180 mg/dL. GFR, Estimated >60 >60 mL/min/1.7 3m2 07/30/2024 8:10 AM CDT [facility] Blood Venipuncture / Unknown 07/30/2024 7:27 AM CDT 07/30/2024 7:32 AM CDT Tracee Barclay MD LAB_1 Performing Organization Address City/[facility]/ZIP Co de Phone Number [facility] [address] * Extra Blue top tube (07/29/2024 8:09 PM CDT) Extra Blue Top Drawn Specimen will be held for 24 hours 07/29/2024 10:01 PM CDT [facility] Blood Venipuncture / Unknown 07/29/2024 8:09 PM CDT 07/29/2024 8:17 PM CDT Christian Quintana MD LAB_1 [facility] [address] [place] [address], [facility] * (ABNORMAL) Complete Blood Count-W/Diff (07/29/2024 8:09 PM CDT) WBC 7.5 3.5 - 10.5 x10(9)/L 07/29/2024 8:21 PM CDT [facility] RBC 4.08 3.90 - 5.03 x10(12)/L 07/29/2024 8:21 PM CDT [facility] Hemoglobin 11.6(L) 12.0 - 15.5 g/dL 07/29/2024 8:21 PM CDT [facility] HCT 34.4(L) 34.9 - 44.5 % 07/29/2024 8:21 PM CDT [facility] MCV 84.3 80.0 - 100.0 fL 07/29/2024 8:21 PM CDT [facility] MCH 28.4 27.6 - 33.3 pg 07/29/2024 8:21 PM CDT [facility] MCHC 33.7 31.5 - 35.2 g/dL 07/29/2024 8:21 PM CDT [facility] RDW 13.1 11.9 - 15.5 % 07/29/2024 8:21 PM CDT [facility] Platelets 222 150 - 450 x10(9)/L 07/29/2024 8:21 PM CDT [facility] Automated NRBC 0 <=0 /100 WBC 07/29/2024 8:21 PM CDT [facility] Neutrophil Absolute 5.4 1.7 - 7.0 10(9)/L 07/29/2024 8:21 PM CDT [facility] Lymphocyte Absolute 1.5 1.0 - 4.8 10(9)/L 07/29/2024 8:21 PM CDT [facility] Monocyte Absolute 0.5 0.2 - 0.9 10(9)/L 07/29/2024 8:21 PM CDT [facility] Eosinophil Absolute 0.1 0.0 - 0.5 10(9)/L 07/29/2024 8:21 PM CDT [facility] Basophil Absolute 0.0 0.0 - 0.3 10(9)/L 07/29/2024 8:21 PM CDT [facility] Immature Granulocyte % 0.3 0.0 - 0.5 % 07/29/2024 8:21 PM CDT [facility] Blood Venipuncture / Unknown 07/29/2024 8:09 PM CDT 07/29/2024 8:17 PM CDT Christian Quintana MD LAB_1 [facility] [address] [employer] [address] * (ABNORMAL) Basic Metabolic Panel (07/29/2024 8:09 PM CDT) Sodium 138 136 - 145 mmol/L 07/29/2024 8:44 PM CDT [facility] Potassium 3.7 3.5 - 5.1 mmol/L 07/29/2024 8:44 PM CDT [facility] Chloride 109 98 - 109 mmol/L 07/29/2024 8:44 PM CDT [facility] CO2 22 20 - 29 mmol/L 07/29/2024 8:44 PM CDT [facility] Anion Gap 7 6 - 16 mmol/L 07/29/2024 8:44 PM CDT [facility] Calcium 9.3 8.4 - 10.4 mg/dL 07/29/2024 8:44 PM CDT [facility] BUN 15 7 - 26 mg/dL 07/29/2024 8:44 PM CDT [facility] Creatinine 0.92 0.55 - 1.02 mg/dL 07/29/2024 8:44 PM CDT [facility] Glucose 105(H) 70 - 100 mg/dL 07/29/2024 8:44 PM CDT [facility] Comment:The given reference range is for the fasting state. Non-fasting reference range for glucose is 70 - 180 mg/dL. GFR, Estimated >60 >60 mL/min/1.7 3m2 07/29/2024 8:44 PM CDT [facility] Blood Venipuncture / Unknown 07/29/2024 8:09 PM CDT 07/29/2024 8:17 PM CDT Christian Orozco Lilian LOW LAB_1 Performing Organization Address [facility] Co de Phone Number [facility] [address] * Test (Urine) (07/29/2024 7:42 PM CDT) Pathologist [facility] HCG, Urine Negative Negative 07/29/2024 8:31 PM CDT [facility] Urine URINE SPECIMEN COLLECTION, CLEAN CATCH / Unknown Non-blood Collection / Unknown 07/29/2024 7:42 PM CDT 07/29/2024 7:48 PM CDT Christian Pam Quintana MD LAB_1 Performing Organization Address [facility] de Phone Number [facility] [address] * (ABNORMAL) UA Conditional UC: Clean Catch (07/29/2024 7:42 PM CDT) [facility] Urine Culture Comment Urinalysis results do not meet criteria for urine culture reflex. 07/29/2024 8:19 PM CDT [facility] Urine Color Light-Yellow 07/29/2024 8:19 PM CDT [facility] Urine Clarity Clear Clear 07/29/2024 8:19 PM CDT [facility] Specific [place], Urine 1.013 <1.030 07/29/2024 8:19 PM CDT [facility] PH Urine 6.5 5.0 - 8.0 07/29/2024 8:19 PM CDT [facility] Protein, Urine Qual (mg/dL) Negative Negative, 10 , 20 07/29/2024 8:19 PM CDT [facility] Glucose Urine Qual (mg/dL) Normal (Negative) Normal (Negative), 30 , 50 07/29/2024 8:19 PM CDT [facility] Ketones, Urine (mg/dL) Negative Negative, Trace 07/29/2024 8:19 PM CDT [facility] Urobilinogen, Urine (EU/dL) Normal (Negative) Normal (Negative) 07/29/2024 8:19 PM CDT [facility] Bilirubin Urine (mg/dL) Negative Negative 07/29/2024 8:19 PM CDT [facility] Blood, Urine (mg/dL) 1.0 (Large)(A) Negative, 0.03 (Trace) 07/29/2024 8:19 PM CDT [facility] Nitrite Urine Negative Negative 07/29/2024 8:19 PM CDT [facility] Leukocyte Esterase, Urine (José Luis/uL) Negative Negative, 25 (Trace) 07/29/2024 8:19 PM CDT [facility] Red Blood Cells 149(H) 0 - 3 /HPF 07/29/2024 8:19 PM CDT [facility] White Blood Cells 4 0 - 5 /HPF 07/29/2024 8:19 PM CDT [facility] Bacteria Occasional(A) None Seen /HPF 07/29/2024 8:19 PM CDT [facility] Squamous Epithelial Cells Occasional None Seen, Occasional, Few /HPF 07/29/2024 8:19 PM CDT [facility] Mucus Present(A) None Seen /HPF 07/29/2024 8:19 PM CDT [facility] Urine Source Clean Catch 07/29/2024 8:19 PM CDT [facility] Urine URINE SPECIMEN COLLECTION, CLEAN CATCH / Unknown Non-blood Collection / Unknown 07/29/2024 7:42 PM CDT 07/29/2024 7:48 PM CDT Narrative [facility] - 07/29/2024 8:19 PM CDT The qualitative interpretive guidance provided (e.g., small, moderate, large) is intended to aid in quantitative result interpretation. It is not itself an FDA-cleared test result. Christian Quintana MD LAB_1 [facility] [address] [employer] [address] * Foreign Image(S) CT Abdomen/Pelvis (07/19/2024 [...] house to avoid falling. Does report to machine sign writer at start of this shift around 2300 when came to visit earlier in the evening that she almost fell r/t symptoms in her roombut he caught her. Around 0300, as patient was returning to room from bathroom, machine sign writer noted that patient lost balance swaying [...] via cart from EC to bed # 2W26/3K08-51. D: Patient is alert and oriented x [...] pharmacy.)160 (Given - Provider: Cameron Mcnamara APRN, PET CREMATORY WORKER) metoclopramide (REGLAN) injection 10 mg (COMPLETED) 10 [...] at 2319, Until Mon07/31/24 at 1646 1416 ([facility] Hold - Provider: Automatichold - Reason: Other (Enter Reason in Comment Area))1732 ([facility] Unhold - Provider: Automatichold)2224 (Given - Provider: [...] count is 50 k/cmm or less. 1416 ([facility] Hold - Provider: Automatichold - Reason: Other (Enter Reason in Comment Area))173 ([facility] Unhold - Provider: Automatichold) calcium carbonate (TUMS) chewable tablet 500 mg 500 mg, Oral, Q4H PRN, Heartburn, Upset Stomach, Starting on Mon07/29/24 at 2319, Until Mon07/31/24 at 1646, Each tablet provides 200 mg elemental calcium 1416 ([facility] Hold - Provider: Automatichold - Reason: Other (Enter Reason in Comment Area))173 ([facility] Unhold - Provider: Automatichold) guaiFENesin (ROBITUSSIN) oral liquid 10 mL 10 mL, Oral, Q4H PRN, Cough, Starting on Mon07/29/24 at 2319, Until Mon07/31/24 at 1646 1416 ([facility] Hold - Provider: Automatichold - Reason: Other (Enter Reason in Comment Area))173 ([facility] Unhold - Provider: Automatichold) HYDROmorphone (DILAUDID) injection 0.3 mg 0.3 mg, Intravenous, Q30MIN PRN, Pain, Severe Pain (pain score 8-10), Starting on Mon07/29/24 at 2003, Until Mon07/31/24 at 1646, For 3 doses 2023 (Given - Provider: Gustavo Paredes RN) 1416 ([facility] Hold - Provider: Automatichold - Reason: Other (Enter Reason in Comment Area))173 ([facility] Unhold - Provider: Automatichold) HYDROmorphone (DILAUDID) injection [...] give if RR less than 8. 1416 ([facility] Hold - Provider: Automatichold - Reason: Other (Enter Reason in Comment Area))173 ([facility] Unhold - Provider: Automatichold) HYDROmorphone (DILAUDID) tablet [...] give if RR less than 8. 1416 ([facility] Hold - Provider: Automatichold - Reason: Other (Enter Reason in Comment Area))173 ([facility] Unhold - Provider: Automatichold) iohexol (OMNIPAQUE 300) [...] at 2319, Until Mon07/31/24 at 1646 1416 ([facility] Hold - Provider: Automatichold - Reason: Other (Enter Reason in Comment Area))1732 ([facility] Unhold - Provider: Automatichold) metoclopramide (REGLAN) injection [...] 0900 (Given - Provider: Ashwin Gregory, RN)1416 ([facility] Hold - Provider: Automatichold - Reason: Other (Enter Reason in Comment Area))1732 ([facility] Unhold - Provider: Automatichold) 0316 (Given - Provider: Pita Lizarraga, PHIL)1216 (Given - Provider: Linda Parry RN - Comment: per pt request) nystatin (MYCOSTATIN) [id number] UNIT/GM topical powder Topical, BID PRN, Other, for rash due to yeast, Starting on Mon07/29/24 at 2319, Apply topically to affected area. Hazardous waste disposal required. 1416 ([facility] Hold - Provider: Automatichold - Reason: Other (Enter Reason in Comment Area))1732 ([facility] Unhold - Provider: Automatichold) ondansetron (ZOFRAN) injection [...] 2nd line: prochlorperazine 3rd line: metoclopramide 1416 ([facility] Hold - Provider: Automatichold - Reason: Other (Enter Reason in Comment Area))1732 ([facility] Unhold - Provider: Automatichold) ondansetron (ZOFRAN-ODT) disintegrating [...] 2nd line: prochlorperazine 3rd line: metoclopramide 141 ([facility] Hold - Provider: Automatichold - Reason: Other (Enter Reason in Comment Area))173 ([facility] Unhold - Provider: Automatichold) polyethyl-propylene glycol (SYSTANE) 0.4-0.3 % ophthalmic solution 1 Drop 1 Drop, Both Eyes, Q1H PRN, Dry Eyes, Itchy Eyes, Starting on Mon07/29/24 at 2319, Until Mon07/31/24 at 1646 141 ([facility] Hold - Provider: Automatichold - Reason: Other (Enter Reason in Comment Area))173 ([facility] Unhold - Provider: Automatichold) polyethylene glycol (MIRALAX) [...] begin regimen again until patient stools. 1416 ([facility] Hold - Provider: Automatichold - Reason: Other (Enter Reason in Comment Area))173 ([facility] Unhold - Provider: Automatichold) prochlorperazine (COMPAZINE) injection [...] chloride (OCEAN) 0.65 % nasal solution 1 Frederick 1 Frederick, Both Nostrils, Q2H PRN, Dry Nose, Starting [...] metoclopramide documented in this encounter Care Teams Elementary [employer] Teacher'S Aide Relationship Specialty Start Date End Date Radha Cowan MD [address] [place] [address] PCP - General Obstetrics Gynecology 07/26/24 documented as of this encounter
--- OUTSIDE RECORDS SUMMARY | 2024-08-06 23:20 | XMS_ITS | Encounter Summary ---
Author Organization [facility] Address [address] [place] [address] Phone Care Team Providers Care Log Brander Name Role Phone Unavailable Primary Care Provider [...]
--- OUTSIDE RECORDS SUMMARY | 2024-08-06 23:20 | XMS_ITS | Encounter Summary ---
Author Organization [facility] Address [address] [place] [address] Care Team Providers Care Manager Mall Name Role Phone Radha Cowan MD Primary Care Provider Encounter Details Date Type Department Care Team (Latest Contact Info) Description 07/29/2024 Orders Only HIM DEPARTMENT Provider, [place] [address] Social History Tobacco Use Types Packs/Day Years Used Date Smoking Tobacco: Never Assessed [facility] Utilities Answer Date Recorded In the past 12 months has e [employer], gas, oil, or water [employer] threatened to shut off services in your [...] [facility] - Urology [address] [place], [place] [id number] Emmy Hinojosa MBBS [address] [place], [place] [id number] 09/24/2024 10:00 AM BANK SALES AND SERVICE MANAGER Appointment [facility] - Urology [address] [place], [place] [address] Sakshi Garrido, TALENT ACQUISITION PROGRAM MANAGER, [employer] [address] [place], [place] [id number] Scheduled Procedures Name Priority Associated Diagnoses Date/Ti me CYSTOSCOPY,RETROGRADE PYELOGRAM,URETEROSCOPY,HOLMIUM LASER LITHOTRIPSY OF STONE,URETERAL STENT PLACEMENT Kidney stone Intractable pain documented as of this encounter Procedures Procedure Name Priority Date/Time Associated Diagnosis Comments EKG 07/29/2024 documented in this encounter Results * EKG (07/29/2024) Interface Provider MD EKG documented in this encounter Visit Diagnoses Not on filedocumented in this encounter Care Teams Manager Mall Relationship Specialty Start Date End Date Radha Cowan MD [address] [place] [address] PCP - General Obstetrics Gynecology 07/26/24 documented as of this encounter
--- OUTSIDE RECORDS SUMMARY | 2024-08-06 23:20 | XMS_ITS | Encounter Summary ---
Author Organization [facility] Address [address] [place] [address] Phone Care Team Providers Care Antenna Machine Operator Name Role Phone Unavailable Primary Care Provider Unavailabl e Reason for Visit * Reason Comments Flank Pain Encounter Details Date Type Department Care Team (Late st Contact Info) Description 07/25/2024 8:42 PM CDT - 07/25/2024 10:08 PM CDT Emergency [facility] [address] [facility] [address] [place], [place] [id number] Reshma Larkin MD [address] [facility] [address] [place] [address] Discharge Disposition: Discharged to home or self [...] (07/25/2024 10:00 PM CDT) Color YELLOW YELLOW [facility] Appearance CLEAR CLEAR [facility] Urine Glucose NEGATIVE NEGATIVE mg/dL [facility] Bili UA NEGATIVE NEGATIVE [facility] Ketones NEGATIVE NEGATIVE [facility] Specific [place] 1.021 1.003 - 1.030 [facility] Blood Ur MODERATE(A) Neg-Trace [facility] PH Urine 5.5 5.0 - 7.0 [facility] Protein Ur TRACE Neg-Trace [facility] Urobilinogen NORMAL NORMAL EU/dL [facility] Nitrite Ur NEGATIVE NEGATIVE [facility] Leuk Est TRACE Neg-Trace [facility] WBC Ur 6-10(A) 0 - 5 perHPF [facility] RBC Ur >20(A) 0 - 3 perHPF [facility] SQ EPITH 0-5 0 - 5 perHPF [facility] Mucus 1+ perLPF [facility] Bacteria UA PRESENT [facility] Comment:Presence of bacteria does not necessarily indicate a UTI. The presence of bacteria can indicate a non-clean catch urine specimen. Bacteria should be used in conjunction with other UA results and clinical presentation to assist in diagnosing an infection. Urinalysis Performed at: [facility] Urine 07/25/2024 10:0 0 PM CDT 07/25/2024 10:06 PM CDT Reshma Larkin MD LABORATORY [facility] [address] [address] documented in this encounter Visit Diagnoses Not on filedocumented in this encounter
--- OUTSIDE RECORDS SUMMARY | 2024-08-06 23:20 | XMS_ITS | Encounter Summary ---
[facility] Address [address], [place] [address] Care Team Providers Care Labor Relations Worker Name Role Phone Found, No Pcp MD Primary Care Provider Unavailab le Reason for Visit * Procedure/Equipment (Routine) - Incomplete Specialty Diagnoses / Procedures Referred By Dara t Referred To Contact Diagnoses Kidney stone Procedures XR Abd Flat/KUB 1 View Keturah Freeman APRN, DETECTIVE [address] [place] [address] Referral ID Status Reason Start Date Expiration Date V isits Requested Visits Authorized [id number] Incomplete 07/24/2024 10/23/2025 1 1 Encounter Details Date Type Department Care Team (Late Contact Info) Description 07/24/2024 1:25 PM CDT Ancillary Procedure [facility] [address] Rad[address] [facility]. [place], [place] [id number] Keturah Freeman APRN, DETECTIVE [address] [place] [address] Kidney stone Social History Tobacco [...] Info) Description 08/07/2024 11:00 AM CDT Appointment [facility] - Urology [address] [facility]. [place], [place] [phone] Emmy Hinojosa MBBS [address] [place], [place] [phone] 09/24/2024 10:00 AM WOODEN SHADE HARDWARE INSTALLER Appointment [facility] - Urology [address] [facility]. [place], [place] [phone] Sakshi Garrido POLICE LIEUTENANT, DETECTIVE [address] [place], [place] [phone] Scheduled Procedures Name Priority Associated Diagnoses Date/Ti [...] are no abnormal air-fluid levels. Keturah Freeman POLICE LIEUTENANT, DETECTIVE RAD GD documented in this encounter Visit Diagnoses Diagnosis Kidney stone Calculus of kidney documented in this encounter Care Teams Labor Relations Worker Relationship Specialty Start Date End Date Found, No Pcp, [address] [place] [address] PCP - General 04/10/20 9 4 documented as of this encounter
--- OUTSIDE RECORDS SUMMARY | 2024-08-06 23:20 | XMS_ITS | Referral Summary ---
Author Organization [facility] Address [address] [place] [address] Phone Care Team Providers Care Meat And Seafood Clerk Name Role Phone Unavailable Primary Care Provider Unavailabl e Source Comments [employer] is fully rolled out on [employer]. Last update 04/24/09.[facility] [place] Encounters Date Type Department Care Team Description 07/25/2024 Travel 07/25/2024 8:42 PM CDT - 07/25/2024 10:08 PM CDT Emergency [facility] Emergency Department [address] [facility] [address] [place] [address] Reshma Larkin MD Discharge Disposition: Discharged to [...] (07/25/2024 10:00 PM CDT) Color YELLOW YELLOW [facility] Appearance CLEAR CLEAR [facility] Urine Glucose NEGATIVE NEGATIVE mg/dL [facility] Bili UA NEGATIVE NEGATIVE [facility] Ketones NEGATIVE NEGATIVE [facility] Specific [place] 1.021 1.003 - 1.030 [facility] Blood Ur MODERATE(A) Neg-Trace [facility] PH Urine 5.5 5.0 - 7.0 [facility] Protein Ur TRACE Neg-Trace [facility] Urobilinogen NORMAL NORMAL EU/dL [facility] Nitrite Ur NEGATIVE NEGATIVE [facility] Leuk Est TRACE Neg-Trace [facility] WBC Ur 6-10(A) 0 - 5 perHPF [facility] RBC Ur >20(A) 0 - 3 perHPF [facility] SQ EPITH 0-5 0 - 5 perHPF [facility] Mucus 1+ perLPF [facility] Bacteria UA PRESENT [facility] Comment:Presence of bacteria does not necessarily indicate a UTI. The presence of bacteria can indicate a non-clean catch urine specimen. Bacteria should be used in conjunction with other UA results and clinical presentation to assist in diagnosing an infection. Urinalysis Performed at: [facility] Urine 07/25/2024 10:0 0 PM CDT 07/25/2024 10:06 PM CDT Reshma Larkin MD LABORATORY [facility] [address] [place] [address] from Last 3 Months
--- OUTSIDE RECORDS SUMMARY | 2024-08-06 23:20 | XMS_ITS | Referral Summary ---
Author Organization [facility] Address [address] [place] [address] Care Team Providers Care Evaporative Cooler Installer Name Role Phone Radha Cowan MD Primary Care Provider Encounters Date Type Department Care Team Description 07/20/2024 Travel 07/20/2024 10:59 AM CDT - 07/20/2024 12:01 PM CDT Emergency [facility] Emergency Dept [address] [place] [address] Sridhar Franz MD Ureteral colic Discharge Disposition: [...] mg/dL 07/20/2024 11:50 AM CDT LABORATORY Specific [place] Urine 1.013 1.003 - 1.035 07/20/2024 11:50 [...] MD LAB - URINE ORDERABL ES LABORATORY [facility] Acute [facility] Lab [address] [facility] (1st floor, no room number) [place] [address], [facility] from Last 3 Months Care Teams Evaporative Cooler Installer Relationship Specialty Start Date End Date Radha Cowan MD [address] [place] [address] PCP - General Family Medicine 07/20/24
--- OUTSIDE RECORDS SUMMARY | 2024-08-06 23:20 | XMS_ITS | Encounter Summary ---
Author Organization [facility] Address [address] [place] [address] Care Team Providers Care Special Education Case Manager Name Role Phone Radha Cowan MD Primary Care Provider [phone] Reason for Referral * Procedure/Equipment (Routine) - Incomplete Specialty Diagnoses / Procedures Referred By Contac t Referred To Contact Procedures CT Abd Pelvis WO IV Cont Stone Pita Jj MD [address] [place] [address] Referral ID Status Reason Start Date Expiration Date V isits Requested Visits Authorized [id number] Incomplete 07/26/2024 10/25/2025 1 1 Encounter Details Date Type Department Care Team (Late st Contact Info) Description 07/26/2024 7:55 PM CDT - 07/27/2024 12:04 AM CDT Emergency [facility] [address] [place] [address]. [place], [place] [phone] Pita Jj MD [address] [place] [address] Ureterolithiasis Discharge Disposition: Home Social History Tobacco [...] sent through Care Everywhere. * Kidney Stone (Botswanan) documented in this encounter Medications at Time [...] 07/26/2024 11:58 PM CDT Patient alerted this com writer that she removed her IV and was [...] and lower abdominal pain. Patient presented to [facility] ED on 07/19/24 with concerns for right flank pain and underwent CT imaging that revealed a nonobstructive 3 mm stone in the right distal ureter. Since then, she has been following in [facility] as an outpatient. She has been trying [...] urology today. Reviewed office visit yesterday at [facility]. Reviewed 07/24/24 urology note. Past Medical History [...] Patient's medical chart/information was supplemented through the [employer] Everywhere system, however information may still be [...] Color Yellow Urine Clarity Clear Clear Specific [place], Urine 1.028 <1.030 PH Urine 5.5 5.0 [...] [RR] ED Course User Index [OO] Luma Brut [RR] Pita Jj MD Clinical Impressions as [...] and the provider's statements to me. 07/26/2024 [facility] Portions of this medical record were completed by a scribe. UPON MY REVIEW AND AUTHENTICATION BY ELECTRONIC SIGNATURE, this confirms (a) I performed the applicable clinical services, and (b) the record is accurate. Pita Jj MD 07/26/24 1733 documented in this encounter Plan of Treatment Upcoming Encounters Date Type Department Care Team (Late st Contact Info) Description 08/07/2024 11:00 AM CDT Appointment [facility] - Urology [address] [facility]. [place], [place] [phone] Emmy Hinojosa MBBS [address] [place], [place] [phone] 09/24/2024 10:00 AM ACCOUNTANT SUPERVISOR Appointment [facility] - Urology [address] [place], [place] [phone] Sakshi Garrido, SEAMLESS HOSIERY KNITTER, STOPE MINER [address] [place], [place] [phone] Scheduled Procedures Name Priority Associated Diagnoses Date/Ti [...] urine culture reflex. 07/26/2024 8:59 PM CDT [facility] Urine Color Yellow 07/26/2024 8:59 PM CDT [facility] Urine Clarity Clear Clear 07/26/2024 8:59 PM CDT [facility] Specific [place], Urine 1.028 <1.030 07/26/2024 8:59 PM CDT [facility] PH Urine 5.5 5.0 - 8.0 07/26/2024 8:59 PM CDT [facility] Protein, Urine Qual (mg/dL) 20 Negative, 10 , 20 07/26/2024 8:59 PM CDT [facility] Glucose Urine Qual (mg/dL) Normal (Negative) Normal (Negative), 30 , 50 07/26/2024 8:59 PM CDT [facility] Ketones, Urine (mg/dL) Negative Negative, Trace 07/26/2024 8:59 PM CDT [facility] Urobilinogen, Urine (EU/dL) 2.0(A) Normal (Negative) 07/26/2024 8:59 PM CDT [facility] Bilirubin Urine (mg/dL) Negative Negative 07/26/2024 8:59 PM CDT [facility] Blood, Urine (mg/dL) 0.20 (Moderate)(A) Negative, 0.03 (Trace) 07/26/2024 8:59 PM CDT [facility] Nitrite Urine Negative Negative 07/26/2024 8:59 PM CDT [facility] Leukocyte Esterase, Urine (José Luis/uL) Negative Negative, 25 (Trace) 07/26/2024 8:59 PM CDT [facility] Red Blood Cells 77(H) 0 - 3 /HPF 07/26/2024 8:59 PM CDT [facility] White Blood Cells 3 0 - 5 /HPF 07/26/2024 8:59 PM CDT [facility] Bacteria Occasional(A) None Seen /HPF 07/26/2024 8:59 PM CDT [facility] Squamous Epithelial Cells Occasional None Seen, Occasional, Few /HPF 07/26/2024 8:59 PM CDT [facility] Mucus Present(A) None Seen /HPF 07/26/2024 8:59 PM CDT [facility] Urine Source Clean Catch 07/26/2024 8:59 PM CDT [facility] Urine URINE SPECIMEN COLLECTION, CLEAN CATCH / Unknown Non-blood Collection / Unknown 07/26/2024 8:28 PM CDT 07/26/2024 8:32 PM CDT Narrative [facility] - 07/26/2024 8:59 PM CDT The qualitative interpretive guidance provided (e.g., small, moderate, large) is intended to aid in quantitative result interpretation. It is not itself an FDA-cleared test result. Pita Jj MD LAB_1 [facility] [address] * UPT (07/26/2024 8:28 PM CDT) HCG, Urine Negative Negative 07/26/2024 8:43 PM CDT [facility] Urine Non-blood Collection / Unknown 07/26/2024 8:28 PM CDT 07/26/2024 8:32 PM CDT Pita Jj MD LAB_1 Performing Organization Address City/[facility]/ZIP Co de Phone Number [facility] [address] * (ABNORMAL) Lipase (07/26/2024 8:15 PM CDT) Lipase 97(H) 8 - 78 U/L 07/26/2024 9:02 PM CDT [facility] Blood Venipuncture / Unknown 07/26/2024 8:15 PM CDT 07/26/2024 8:19 PM CDT Pita Jj MD LAB_1 Performing Organization Address [facility] de Phone Number [facility] [address] [place] [address] * (ABNORMAL) Liver Panel (Hepatic Function Panel) (07/26/2024 8:15 PM CDT) Alkaline Phosphatase 33(L) 40 - 150 U/L 07/26/2024 9:02 PM CDT [facility] Bilirubin, Total 0.5 0.2 - 1.2 mg/dL 07/26/2024 9:02 PM CDT [facility] Bilirubin, Direct 0.2 0.0 - 0.5 mg/dL 07/26/2024 9:02 PM CDT [facility] AST (SGOT) 15 10 - 40 U/L 07/26/2024 9:02 PM CDT [facility] ALT (SGPT) 17 <=55 U/L 07/26/2024 9:02 PM CDT [facility] Protein, Total 6.8 6.4 - 8.3 g/dL 07/26/2024 9:02 PM CDT [facility] Albumin 4.0 3.5 - 5.0 g/dL 07/26/2024 9:02 PM CDT [facility] Blood Venipuncture / Unknown 07/26/2024 8:15 PM CDT 07/26/2024 8:19 PM CDT Pita Jj MD LAB_1 [facility] [address] [place] [address], [facility] * (ABNORMAL) Complete Blood Count-W/Diff (07/26/2024 8:15 PM CDT) WBC 7.9 3.5 - 10.5 x10(9)/L 07/26/2024 8:25 PM CDT [facility] RBC 3.98 3.90 - 5.03 x10(12)/L 07/26/2024 8:25 PM CDT [facility] Hemoglobin 11.3(L) 12.0 - 15.5 g/dL 07/26/2024 8:25 PM CDT [facility] HCT 33.5(L) 34.9 - 44.5 % 07/26/2024 8:25 PM CDT [facility] MCV 84.2 80.0 - 100.0 fL 07/26/2024 8:25 PM CDT [facility] MCH 28.4 27.6 - 33.3 pg 07/26/2024 8:25 PM CDT [facility] MCHC 33.7 31.5 - 35.2 g/dL 07/26/2024 8:25 PM CDT [facility] RDW 13.2 11.9 - 15.5 % 07/26/2024 8:25 PM CDT [facility] Platelets 197 150 - 450 x10(9)/L 07/26/2024 8:25 PM CDT [facility] Automated NRBC 0 <=0 /100 WBC 07/26/2024 8:25 PM CDT [facility] Neutrophil Absolute 4.3 1.7 - 7.0 10(9)/L 07/26/2024 8:25 PM CDT [facility] Lymphocyte Absolute 2.9 1.0 - 4.8 10(9)/L 07/26/2024 8:25 PM CDT [facility] Monocyte Absolute 0.5 0.2 - 0.9 10(9)/L 07/26/2024 8:25 PM CDT [facility] Eosinophil Absolute 0.1 0.0 - 0.5 10(9)/L 07/26/2024 8:25 PM CDT [facility] Basophil Absolute 0.0 0.0 - 0.3 10(9)/L 07/26/2024 8:25 PM CDT [facility] Immature Granulocyte % 0.3 0.0 - 0.5 % 07/26/2024 8:25 PM CDT [facility] Blood Venipuncture / Unknown 07/26/2024 8:15 PM CDT 07/26/2024 8:19 PM CDT Pita Jj MD LAB_1 [facility] [address] [place] [address], [facility] * (ABNORMAL) Basic Metabolic Panel (07/26/2024 8:15 PM CDT) Sodium 140 136 - 145 mmol/L 07/26/2024 9:02 PM CDT [facility] Potassium 3.7 3.5 - 5.1 mmol/L 07/26/2024 9:02 PM CDT [facility] Chloride 109 98 - 109 mmol/L 07/26/2024 9:02 PM CDT [facility] CO2 22 20 - 29 mmol/L 07/26/2024 9:02 PM CDT [facility] Anion Gap 9 6 - 16 mmol/L 07/26/2024 9:02 PM CDT [facility] Calcium 9.2 8.4 - 10.4 mg/dL 07/26/2024 9:02 PM CDT [facility] BUN 23 7 - 26 mg/dL 07/26/2024 9:02 PM CDT [facility] Creatinine 1.23(H) 0.55 - 1.02 mg/dL 07/26/2024 9:02 PM CDT [facility] Glucose 103(H) 70 - 100 mg/dL 07/26/2024 9:02 PM CDT [facility] Comment:The given reference range is for the fasting state. Non-fasting reference range for glucose is 70 - 180 mg/dL. GFR, Estimated 56(L) >60 mL/min/1.7 3m2 07/26/2024 9:02 PM CDT [facility] Blood Venipuncture / Unknown 07/26/2024 8:15 PM CDT 07/26/2024 8:19 PM CDT Narrative [facility] - 07/26/2024 9:02 PM CDT The National Kidney Disease Education Program suggests measuring Cystatin C in patients with eGFRcrea of 45 to 59 ml/min/1.73^2 who do not have other markers of kidney damage (i.e. elevated urine Albumin/Creatinine Ratio or a prior Cystatin C confirming the presence of chronic kidney disease). Pita Jj MD LAB_1 [facility] [address] documented in this encounter Visit Diagnoses [...] RN) documented in this encounter Care Teams Special Education Case Manager Relationship Specialty Start Date End Date Radha Cowan MD [address] [place] [address] PCP - General Obstetrics Gynecology 07/26/24 documented as of this encounter
--- OUTSIDE RECORDS SUMMARY | 2024-08-06 23:20 | XMS_ITS | Encounter Summary ---
Author Organization [facility] Address [address], [place] [address] Care Team Providers Care Registered Pharmacist Name Role Phone Found, No Pcp MD Primary Care Provider Unavailab le Reason for Referral * Procedure/Equipment (Routine) - Incomplete Specialty Diagnoses / Procedures Referred By Dara t Referred To Contact Diagnoses Kidney stone Procedures XR Abd Flat/KUB 1 View Keturah Freeman APRN, CNP [address] [place] [address] Referral ID Status Reason Start Date Expiration Date V isits Requested Visits Authorized [id number] Incomplete 07/24/2024 10/23/2025 1 1 Encounter Details Date Type Department Care Team (Late Contact Info) Description 07/24/2024 Notes/Orders [facility] - Urology [address] [place] [address] Keturah Freeman APRN, CNP [address] [place] [address] Kidney stone (Primary Dx) Social [facility] [address] [place] [address] Emmy Hinojosa MBBS [address] [place] [address] 09/24/2024 10:00 AM SCHOOL AGE TEACHER Appointment [facility] - Urology [address] [facility] [place], [place] [address] Sakshi Garrido APRN, SHANK TAPPER [address] [place], [place] [phone] Scheduled Procedures Name Priority Associated Diagnoses Date/Ti [...] are no abnormal air-fluid levels. Keturah Freeman CISCO ENGINEER, SHANK TAPPER RAD GD documented in this encounter Visit Diagnoses Diagnosis Kidney stone- Primary Calculus of kidney Kidney stone Calculus of kidney documented in this encounter Care Teams Registered Pharmacist Relationship Specialty Start Date End Date Found, No Pcp, [address] [place] [address] PCP - General 04/10/20 4 documented as of this encounter
--- OUTSIDE RECORDS SUMMARY | 2024-08-06 23:20 | XMS_ITS | Encounter Summary ---
Author Organization [email or web address] Address [address], [place] [address] Care Team Providers Care Auxiliary Plant Operator Name Role Phone Found, No Pcp MD Primary Care Provider Unavailab le Reason for Referral * Procedure/Equipment (Routine) - Incomplete Specialty Diagnoses / Procedures Referred By Dara geller Referred To Contact Diagnoses Calculus of kidney Procedures CT Abd Pelvis WO IV Cont Low Dose Stone Keturah Freeman APRN, CNP [address] [place] [address] Referral ID Status Reason Start Date Expiration Date V isits Requested Visits Authorized [id number] Incomplete 07/24/2024 10/23/2025 1 1 * Procedure/Equipment (Routine) - Incomplete Specialty Diagnoses / Procedures Referred By Dara geller Referred To Contact Diagnoses Calculus of kidney Procedures Case Request OR - Urology Surgery: URETEROSCOPY WITH LASER LITHOTRIPSY AND URETERAL STENT PLACEMENT with retrograde pyelogram Keturah Freeman APRN, CNP [address] [place] [address] Referral ID Status Reason Start Date Expiration Date V isits Requested Visits Authorized [id number] Incomplete 07/24/2024 10/23/2025 1 1 Reason for Visit * Reason Comments Follow-up, NOS Encounter Details Date Type Department Care Team (Late st Contact Info) Description 07/24/2024 2:00 PM CDT Office Visit [facility] - Urology [address] [facility] [place] [address] Keturah Freeman APRN, CNP [address] [place] [phone] Calculus of kidney (Primary Dx); Calculus of [...] CDT [facility] HPI: Atiya Mraia is a 44 y.o. female with history [...] the past a couple oftimes done in [place]. She most recently went to [facility] room 07/19 with complaints of right flank pain. She was found to have a nonobstructive 3 mm stone in the right distal ureter and was sent home with Flomax. She subsequently went back and forth into the emergency room 2 more times with pain and was told to continue with medical expulsion therapy. 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 She is hopeful that [...] AM CDT Appointment [facility] - Urology [address] [place] [address] Emmy Hinojosa MBBS [address] [place] [address] 09/24/2024 10:00 AM SOLDER CREAM MAKER Appointment [facility] - Urology [address] [facility] [place] [address] Sakshi Garrido APRN, TUBE CLOSING MACHINE OPERATOR [address] [place] [address] Scheduled Orders Name Type Priority [...] - 100 pg/mL 07/24/2024 6:23 PM CDT [facility] Blood Venipuncture / Unknown 07/24/2024 3:16 PM CDT 07/24/2024 3:16 PM CDT Keturah Freeman APRN, TUBE CLOSING MACHINE OPERATOR LAB_1 [facility] [address] [place] [address], [facility] * (ABNORMAL) Uric Acid (07/24/2024 3:16 PM CDT) Uric Acid 6.6(H) 2.6 - 6.0 mg/dL 07/24/2024 4:02 PM CDT [facility] [address] [facility] Blood Venipuncture / Unknown 07/24/2024 3:16 PM CDT 07/24/2024 3:16 PM CDT Keturah Freeman APRN, CNP LAB_1 [place] [address] [facility] [address] [place] [address], [facility] * (ABNORMAL) Automated Urinalysis Dipstick POCT (07/24/2024 2:10 PM CDT) [facility] Glucose Urine Qual (mg/dL) Negative Negative 07/26/2024 8:28 AM [place] [address] [facility] Bilirubin Urine Negative Negative 07/26/2024 8:28 AM [place] [address] [facility] Ketones, Urine (mg/dL) Negative Negative 07/26/2024 8:28 AM [place] [address] [facility] Specific [place], Urine 1.020 1.005 - 1.030 07/26/2024 8:28 AM [place] [address] [facility] Blood, Urine Moderate(A) Neg/Trace 07/26/2024 8:28 AM [place] [address] [facility] PH Urine 6.0 5.0 - 8.0 07/26/2024 8:28 AM [place] [address] [facility] Protein, Urine Qual (mg/dL) Negative Neg/Trace 07/26/2024 8:28 AM [place] [address] [facility] Urobilinogen, Urine (EU/dL) 0.2 <2.0 07/26/2024 8:28 AM [place] [address] [facility] Nitrite Urine Negative Negative 07/26/2024 8:28 AM [place] [address] [facility] Leukocyte Est. Negative Negative 07/26/2024 8:28 AM [place] [address] [facility] Urine Color Yellow 07/26/2024 8:28 AM CDT [facility] LAB[facility]ATORY Urine Clarity Clear Clear 07/26/2024 8:28 AM CDT [facility] [address]50 LABORATORY Performing Location URO PATTERN GRADER CUTTER 07/26/2024 8:28 AM CDT [facility] 3850 LABORATORY Urine 07/24/2024 2:10 PM CDT 07/26/2024 8:28 AM CDT Keturah Freeman APRN, CNP LAB_1 Performing Organization Address City/State/[facility] Co de Phone Number [place] [address] [facility] [address] [place] [address] documented in this encounter Visit Diagnoses Diagnosis Calculus of kidney- Primary Calculus of upper urinary tract Nephrolithiasis Calculus of kidney History of breast cancer Personal history of malignant neoplasm of breast documented in this encounter Care Teams Auxiliary Plant Operator Relationship Specialty Start Date End Date Found, No Pcp, [address] [place] [address] PCP - General 04/10/20 9 4 documented as of this encounter
--- OUTSIDE RECORDS SUMMARY | 2024-08-06 23:20 | XMS_ITS | Encounter Summary ---
Author Organization [facility] Address [address], [place] [address] Care Team Providers Care Customer Business Manager Name Role Phone Found, No Pcp MD Primary Care Provider Unavailab le Encounter Details Date Type Department Care Team (Late st Contact Info) Description 07/24/2024 3:20 PM CDT Lab Visit [facility] [address] Laboratory [address] [facility] [place], [place] [phone] Calculus of kidney Social History Tobacco Use [...] Appointment [facility] - Urology [address] [facility] [place] [address] Emmy Hinojosa MBBS [address] [place] [address] 09/24/2024 10:00 AM DYNO TECHNICIAN Appointment [facility] - Urology [address] [facility] [place] [address] Sakshi Garrido, ANTIQUE FURNITURE RESTORER, INDIVIDUALIZED EDUCATION PLAN AIDE [address] [place] [address] Scheduled Procedures Name Priority Associated Diagnoses Date/Ti [...] - 100 pg/mL 07/24/2024 6:23 PM CDT [facility] Blood Venipuncture / Unknown 07/24/2024 3:16 PM CDT 07/24/2024 3:16 PM CDT Keturah Freeman APRN, CNP LAB_1 Performing Organization Address [facility] Co de Phone Number [facility] [address] [place] [address], [facility] * (ABNORMAL) Uric Acid (07/24/2024 3:16 PM CDT) Uric Acid 6.6(H) 2.6 - 6.0 mg/dL 07/24/2024 4:02 PM CDT [facility] 3850 LABORATORY Blood Venipuncture / Unknown 07/24/2024 3:16 PM CDT 07/24/2024 3:16 PM CDT Keturah Freeman APRN, CNP LAB_1 Performing Organization Address City/[facility] de Phone Number [facility] [address] LABORAT[address] [facility] [place] [address], [facility] documented in this encounter Visit Diagnoses Diagnosis Calculus of kidney documented in this encounter Care Teams Customer Business Manager Relationship Specialty Start Date End Date Found, No Pcp, [address] [place] [address] PCP - General 04/10/20 9//2 4 documented as of this encounter
--- OUTSIDE RECORDS SUMMARY | 2024-08-06 23:20 | XMS_ITS | Clinical Summary ---
Author Organization [facility] Address [address] [place] [address] Phone Care Team Providers Care Music Librarian Name Role Phone Unavailable Primary Care Provider Unavailabl e Source Comments [employer] is fully rolled out on [employer]. Last update 04/24/09.[employer] Allergies Active Allergy Reactions Criticality Noted Date Comments Morphine Rash 07/25/2024 Encounters Date Type Department Care Team Description 07/25/2024 8:42 PM CDT - 07/25/2024 10:08 PM CDT Emergency [facility] Emergency Department [address] [place] [address] Reshma Larkin MD Discharge Disposition: Discharged to [...] (07/25/2024 10:00 PM CDT) Color YELLOW YELLOW [facility] Appearance CLEAR CLEAR [facility] Urine Glucose NEGATIVE NEGATIVE mg/dL [facility] Bili UA NEGATIVE NEGATIVE [facility] Ketones NEGATIVE NEGATIVE [facility] Specific [place] 1.021 1.003 - 1.030 [facility] Blood Ur MODERATE(A) Neg-Trace [facility] PH Urine 5.5 5.0 - 7.0 [facility] Protein Ur TRACE Neg-Trace [facility] Urobilinogen NORMAL NORMAL EU/dL [facility] Nitrite Ur NEGATIVE NEGATIVE [facility] Leuk Est TRACE Neg-Trace [facility] WBC Ur 6-10(A) 0 - 5 perHPF [facility] RBC Ur >20(A) 0 - 3 perHPF [facility] SQ EPITH 0-5 0 - 5 perHPF [facility] Mucus 1+ perLPF [facility] Bacteria UA PRESENT [facility] Comment:Presence of bacteria does not necessarily indicate a UTI. The presence of bacteria can indicate a non-clean catch urine specimen. Bacteria should be used in conjunction with other UA results and clinical presentation to assist in diagnosing an infection. Urinalysis Performed at: [facility] Urine 07/25/2024 10:0 0 PM CDT 07/25/2024 10:06 PM CDT Reshma Larkin MD LABORATORY [facility] [address] [place] [address] from Last 3 Months
--- OUTSIDE RECORDS SUMMARY | 2024-08-06 23:20 | XMS_ITS | Encounter Summary ---
Author Organization [facility] Address [address] [address] Care Team Providers Care Tobacco Grader Name Role Phone Radha Cowan MD Primary Care Provider [phone] Reason for Referral * Procedure/Equipment (Routine) - Incomplete Specialty Diagnoses / Procedures Referred By Contac t Referred To Contact Diagnoses Kidney stone Procedures CT Abd Pelvis WO IV Cont Stone Keturah Freeman APRN, CNP [address] [place] [address] Referral ID Status Reason Start Date Expiration Date V isits Requested Visits Authorized [id number] Incomplete 07/26/2024 10/25/2025 1 1 Reason for [...] (Late st Contact Info) Description 07/26/2024 Telephone [facility] - Urology [address] [place] [address] Keturah Freeman APRN, CNP [address] [place] [phone] Follow-up, NOS (Called to f/u on plan [...] Years Used Date Smoking Tobacco: Never Assessed [facility] Utilities Answer Date Recorded In the past 12 months has th e [employer], gas, oil, or water [employer] threatened to shut off services in your [...] any time in the past 12 m [facility] [place], were you homeless or living in a nursing home (including now)? Patient declined 07/29/2024 Sex [...] Description 08/07/2024 11:00 AM CDT Appointment [facility] - Urology [address] [facility] [place] [address] Emmy Hinojosa MBBS [address] [place], [place] [address] 09/24/2024 10:00 AM SUPERVISOR BACKFILLING Appointment [facility] - Urology [address] [facility] [place] [address] Sakshi Garrido, CLAMP FORKLIFT OPERATOR, TAXI DRIVER [address] [place] [address] Scheduled Orders Name Type Priority Associated Diagnoses [...] kidney documented in this encounter Care Teams Tobacco Grader Relationship Specialty Start Date End Date Radha Cowan MD [address] [place] [address] PCP - General Obstetrics Gynecology 07/26/24 documented as of this encounter
--- OUTSIDE RECORDS SUMMARY | 2024-08-06 23:20 | XMS_ITS | Encounter Summary ---
Author Organization [facility] Address [address], [place] [address] Care Team Providers Care Senior Production Manager Name Role Phone Found, No Pcp MD Primary Care Provider Unavailab le Reason for Visit * Procedure/Equipment (Routine) - Incomplete Specialty Diagnoses / Procedures Referred By Contac t Referred To Contact Procedures Foreign Image(S) CT Abdomen/Pelvis Provider, Foreign Images [address] [place] [address] Referral ID Status Reason Start Date Expiration Date V isits Requested Visits Authorized [id number] Incomplete 07/30/2024 10/29/2025 1 1 Encounter Details Date Type Department Care Team (Late st Contact Info) Description 07/19/2024 7:40 PM CDT Ancillary Procedure Radiology PACS [address] [place] [address] Social History Tobacco Use Types Packs/Day Years [...] [facility] - Urology [address] [facility] [place] [address] Emmy Hinojosa MBBS [address] [place] [address] 09/24/2024 10:00 AM GLASS SCULLION Appointment [facility] - Urology [address] [facility] [place] [address] Sakshi Garrido, FLOOR RENOVATOR, PHARMACY SALES ASSISTANT [address] [place] [address] Scheduled Procedures Name Priority Associated Diagnoses Date/Ti [...] on filedocumented in this encounter Care Teams Senior Production Manager Relationship Specialty Start Date End Date Found, No Pcp, [address] [place] [address] PCP - General 04/10/20 9 4 documented as of this encounter
--- OUTSIDE RECORDS SUMMARY | 2024-08-06 23:20 | XMS_ITS | Encounter Summary ---
Author Organization [facility] Address [address], [place] [address] Care Team Providers Care Category Specialist Name Role Phone Radha Cowan MD Primary Care Provider [phone] Reason for Visit * Reason Comments Request For Records Encounter Details Date Type Department Care Team (Late st Contact Info) Description 07/24/2024 Telephone [facility] - Urology [address] [place] [address] Keturah Freeman, CALENDER ROLL OPERATOR, CLAY WORKER [address] [place] [address] Request For Records Social History Tobacco Use Types Packs/Day Years Used Date Smoking Tobacco: Never Assessed [facility] Utilities Answer Date Recorded In the past 12 months has [facility], gas, oil, or water [employer] threatened to shut off services in your [...] have requested the CT ABD/Pelvis images from [facility]. Images mailed over on a CD, may [...] Info) Description 08/07/2024 11:00 AM CDT Appointment [facility] - Urology [address] [facility]. [place], [place] [address] Emmy Hinojosa MBBS [address] [place], [place] [address] 09/24/2024 10:00 AM FURNITURE STAINER Appointment [facility] - Urology [address] [facility]. [place], [place] [address] Sakshi Garrido, CALENDER ROLL OPERATOR, CLAY WORKER [address] [place], [place] [address] Scheduled Procedures Name Priority Associated Diagnoses Date/Ti me CYSTOSCOPY,RETROGRADE PYELOGRAM,URETEROSCOPY,HOLMIUM LASER LITHOTRIPSY OF STONE,URETERAL STENT PLACEMENT Kidney stone Intractable pain documented as of this encounter Visit Diagnoses Not on filedocumented in this encounter Care Teams Category Specialist Relationship Specialty Start Date End Date Radha Cowan MD [address] [place], [place] [address] PCP - General Obstetrics Gynecology 07/26/24 documented as of this encounter
--- OUTSIDE RECORDS SUMMARY | 2024-08-06 23:20 | XMS_ITS | Clinical Summary ---
Author Organization [facility] Address [address] [place] [address] Care Team Providers Care Industrial Sociologist Name Role Phone Radha Cowan MD Primary Care Provider [phone] Allergies No known active allergies Medications Medication Sig Dispensed Refills Start Date End Date Status ketorolac (TORADOL) 10 MG tablet Take 1 tablet (10 mg) by mouth every 6 hours as needed for moderate pain. 20 tablet 07/20/2024 Active Encounters Date Type Department Care Team Description 07/20/2024 10:59 AM CDT - 07/20/2024 12:01 PM CDT Emergency [facility] Emergency Dept [address] [place] [phone] Sridhar Franz MD Ureteral colic Discharge Disposition: [...] 07/20/2024 11:50 AM CDT [facility] Specific [place] Urine 1.013 1.003 - 1.035 07/20/2024 11:50 [...] MD LAB - URINE ORDERABL ES LABORATORY [facility] Lab [address] Lab (1st floor, no room number) [place] [address], [facility] from Last 3 Months Care Teams Industrial Sociologist Relationship Specialty Start Date End Date Radha Cowan MD [address] [place] [address] PCP - General Family Medicine 07/20/24
--- OUTSIDE RECORDS SUMMARY | 2024-08-06 23:20 | XMS_ITS | Encounter Summary ---
Author Organization [facility] Address [address] [place] [address] Care Team Providers Care Director Mobile Media Solutions Name Role Phone Radha Cowan MD Primary Care Provider [phone] Encounter Details Date Type Department Care Team [...] on filedocumented in this encounter Care Teams Director [employer] Relationship Specialty Start Date End Date Radha Coawn MD [address] [place] [address] PCP - General Family Medicine 07/20/24 documented as of this encounter
--- OUTSIDE RECORDS SUMMARY | 2024-08-06 23:20 | XMS_ITS | Encounter Summary ---
Author Organization [employer] Address [address], [place] [address] Care Team Providers Care Oil Field Pipeline Supervisor Name Role Phone Found, No Pcp MD Primary Care Provider Unavailab le Reason for Visit * Reason Comments Questions Encounter Details Date Type Department Care Team (Late st Contact Info) Description 07/25/2024 Telephone [facility] [address] Urology [address] [place] [address] Keturah Freeman, CLOSET ORGANIZER, PATTERNMAKER METAL [address] [place] [address] Questions Social History Tobacco Use [...] Pt verbalized understanding [facility] documented in this encounter Plan of Treatment Upcoming Encounters Date Type Department Care Team (Late st Contact Info) Description 08/07/2024 11:00 AM CDT Appointment [facility] - Urology [address] [facility] [place], [place] [address] Emmy Hinojosa MBBS [address] [place], [place] [address] 09/24/2024 10:00 AM BINDER CUTTER HAND Appointment [facility] - Urology [address] [facility] [place], [place] [address] Sakshi Garrido, CLOSET ORGANIZER, PATTERNMAKER METAL [address] [place], [place] [id number] Scheduled Procedures Name Priority Associated Diagnoses Date/Ti me CYSTOSCOPY,RETROGRADE PYELOGRAM,URETEROSCOPY,HOLMIUM LASER LITHOTRIPSY OF STONE,URETERAL STENT PLACEMENT Kidney stone Intractable pain documented as of this encounter Visit Diagnoses Not on filedocumented in this encounter Care Teams Oil Field Pipeline Supervisor Relationship Specialty Start Date End Date Found, No Pcp, [address] [place] [address] PCP - General 04/10/20 9 4 documented as of this encounter
--- OUTSIDE RECORDS SUMMARY | 2024-08-06 23:21 | XMS_ITS | Clinical Summary ---
Author Organization [facility] Address [place], [place] [address] Care Team Providers Care Us Marketing Director Name Role Phone Yareli Oviedo MD Unavailable [phone] Radha Cowan MD Primary Care Provider Mira Coelho MD Unavailable Unavailable Juan Torres MD Unavailable [phone] Allergies Active Allergy Reactions Criticality Noted [...] Cancer Staging:Clinical:Stage IB(cT2, cN0, cM0, G2, ER+, IL+, HER2-) - Signed by Mira Coelho MD on 10/13/2020 Pathologic:Stage IA(pT2, pN0, cM0, G2, ER+, IL+, HER2-) - Signed by Mira Coelho MD on 10/29/2020 Kidney stones 04/19/2018 PCOS (polycystic ovarian syndrome) 04/19/2018 Resolved Problems Problem Noted Date Diagnosed Date Resolved Date 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 Encounters Date Type Department Care Team Description 07/25/2024 2:05 PM CDT Office Visit [facility] [address] [place] [address] Ana Sosa PA Pre-Op Exam (DOS-08/01/2024) 07/25/2024 Travel 07/23/2024 Telephone [facility] [address] [place] [address] Radha Cowan MD Referral (Urology) 07/19/2024 Orders Only [facility] Scanner 1 scan: (1-Ord) [facility], CT ABDOMEN AND PELVIS W CON, 07/19/2024 07/03/2024 2:20 PM CDT Office Visit [facility] [address] [place] [address] Radha Cowan MD Medication Management (Switching medications) 07/03/2024 Travel 05/29/2024 Refill [facility] [address] [place] [address] Radha Cowan MD Refill Request; VALACYCLOVIR from [...] T Respiratory Rate 16 11/01/2023 8:33 AM [employer] SETTER Oxygen Saturation 98% 07/25/2024 2:09 PM CDT [...] booster 12/24/2022 12/24/2012, 02/2013 (Completed outside of [email or web address]) COVID-19 vaccine series (2022- season) 2024 Influenza for age 9-49 07/21/2024 08/27/2018, 2013 Depression screening for age 12+ 11/22/2024 11/22/2023, 02/14/2022, 08/12/2021, Additional history exists BMI (ht and wt on same day) for age 18+ 07/25/2025 07/25/2024, 09/21/2023, 03/22/2023, Additional history exists Tdap Completed 12/24/2012, 02/2013 (Completed outside of [facility]) Pneumococcal series for age 6-64 Aged Out No longer eligible based on patient's age to complete this topic Medical Devices Implanted Type Area Uranium Processing Supervisor Device Identifier Shelf Expiration Date Model / Serial / Lot [id number] Boris Gray Md Perforated Implanted:Qty: 1 on 10/28/2020 by Juan Torres MD at [facility] Explanted:at [facility] (Quantity not on file) Left: Breast [employer] 06/19/2022 [id number] / [id number] / [id number] Boris Gray Md Perforated Implanted:Qty: 1 on 10/28/2020 by Juan Torres MD at [facility] Explanted:at [facility] (Quantity not on file) Right: Breast [employer] 06/19/2022 [id number] / [id number] / Breast 745cc Natrelle Inspira Soft Touch Ssf - [id number] Implanted:Qty: 1 on 11/08/2021 by Misbah Coelho MD at Right: Breast [employer] - [place] 09/08/2025 SSF-745 / [id number] / [id number] Breast 745cc Natrelle Inspira Soft Touch Ssf - [id number] Implanted:Qty: 1 on 11/08/2021 by Misbah Coelho MD at Breast [employer] - [employer] 06/23/2025 [facility] / [id number] / [id number] Explanted Type Area Uranium Processing Supervisor Device Identifier Shelf Expiration Date Model / Serial / Lot [id number] breastimplanttal [id number] 50cc Implanted:Qty: 1 on 10/28/2020 by Juan Torres MD at [facility] Explanted:at [facility] (Quantity not on file) Explanted:Qty: 1 on 11/08/2021 by Misbah Coelho MD at Left: Breast [employer] 06/20/2023 [id number] / [id number] / [id number] Description:BREAST IMPLANT T ALL HEIGHT TE SMOOTH 450CC Explanted prior to encounter 11/09/21 [id number] breastimplanttal [id number] 50cc Implanted:Qty: 1 on 10/28/2020 by Juan Torres MD at [facility] Explanted:at [facility] (Quantity not on file) Explanted:Qty: 1 on 11/08/2021 by Misbah Coelho MD at Right: Breast [employer] 01/22/2024 [id number] / [id number] Description:BREAST IMPLANT T ALL HEIGHT TE SMOOTH 450CC Explanted prior to encounter 11/09/21 [employer] Hpx 700 Cc Explanted:Qty: 2 on 11/08/2021 at Bilateral: Breast [employer] / [id number] / Procedures Procedure Name Priority Date/Time Associated Diagnosis Comments CREATININE,ISTAT Routine 07/25/2024 2:39 PM CDT Pre-op exam SCAN-CT INTERPRETATION 12:00 AM CDT from Last 3 Months Results * (ABNORMAL) CREATININE,ISTAT (07/25/2024 2:39 PM CDT) CREATININE, POCT 1.00 0.57 - 1.11 mg/dL 07/25/2024 2:41 PM CDT [facility] Comment:Caution: Patients ta bijal Hydroxyurea have falsely increased iStat Creatinine results. Verify creatinine results ordering a Creatinine (83916.2) eGFR 72(L) >90 mL/min/1.7 3m2 07/25/2024 2:41 PM CDT [facility] Comment:As of 2022, eG FR is calculated by the CKD-EPI creatinine equation without race adjustment. eGFR can be influenced by muscle mass, exercise, and diet. The reported eGFR is an estimation only and is only applicable if the renal function is stable. Blood BLOOD SPECIMEN / Unknown 07/25/2024 2:39 PM CDT 07/25/2024 2:41 PM CDT Ana GAY CHEMISTRY [facility] [address] [place] [address], * SCAN-CT INTERPRETATION (07/19/2024 12:00 AM CDT) Anatomical Region Laterality Modality Other Scanner OTHER from Last 3 Months Additional Health Concerns Infection Onset Date Last Indicated COVID History Comment:COVID+ test result dates: 08/10/21 (90 days clearance ends 11/08/21) and 11/04/21 via PCR from . Patient met COVID clearance criteria on 08/20/21. [...] 7:12 AM 04/07/2015 1:44 PM Care Teams Us Marketing Director Relationship Specialty Start Date End Date Radha Cowan MD [address] [place] [address] PCP - General Family Practice 10/03/19 Yareli Oviedo MD [address] [place] [address] Obstetrics and Gynecology 04/19/18 Mira Coelho MD [address] [place] [address] Surgery - General 10/13/20 Juan Torres MD [address] [address] Plastic and Reconstructive Surgery 10/26/20
--- OUTSIDE RECORDS SUMMARY | 2024-08-06 23:21 | XMS_ITS | Encounter Summary ---
Author Organization [facility] Address [address] [place] [address] Care Team Providers Care Interventionist Name Role Phone Radha Cowan MD Primary Care Provider [phone] Reason for Visit * Reason Comments Flank Pain Encounter Details Date Type Department Care Team (Late st Contact Info) Description 07/20/2024 10:59 AM CDT - 07/20/2024 12:01 PM CDT Emergency [facility] Emergency Dept [address] [place] [id number] Sridhar Franz MD EMERGENCY PHYSICIAN PA [address] [facility] [address] [address] Ureteral colic Discharge Disposition: Home or Self [...] sent through Care Everywhere. * Kidney Stone ([place]) documented in this encounter Medications at Time [...] ago. She was seen at the [facility] and had a CT scan. She [...] she was admitted. She works at a [employer] and the ANGIOGRAPHER there gave the patient 2 L of IV fluids and a dose of Toradol prior to arrival here this morning. Independent Historian None Review of External Notes None Past Medical History Medical History and Problem List Kidney stones Malignant neoplasm of right breast PCOS ADHD TBI Medications The patient is not currently taking any regular medications. Surgical History Cystoscopy Lithotripsy Uretal stents [place] teeth extraction Bilateral breast reconstruction Physical Exam [...] Bilirubin Urine Negative Ketones Urine Negative Specific Harlan Urine 1.013 Blood Urine Moderate (*) pH [...] Documentation None Medical Decision Making / Diagnosis [facility] Diagnoses: None MIPS None [facility] Atiya Maria is a 44 year old female who presents with ongoing right flank pain after being diagnosed with a kidney stone yesterday at [place]. We attempted to obtain records from this visit to confirm the diagnosis but the patient did not want to wait. Her pain has improved since she was given IV fluids and Toradol at the [employer] that she works at. We rechecked a [...] oral oxy and zofran. Pt works at [employer] and had an ANGIOGRAPHER give her 2L IVF, toradol and decadron IV [employer]. Pt states this brought her pain to [...] mg/dL 07/20/2024 11:50 AM CDT LABORATORY Specific [place]lan Urine 1.013 1.003 - 1.035 07/20/2024 11:50 [...] MD LAB - URINE ORDERABL ES LABORATORY [facility] Acute Care Lab [address] [facility] Lab (1st floor, no room number) [place] [address], [facility] documented in this encounter Visit Diagnoses Diagnosis Ureteral colic Renal colic documented in this encounter Care Teams Interventionist Relationship Specialty Start Date End Date Radha Cowan MD [address] [place] [address] PCP - General Family Medicine 07/20/24 documented as of this encounter
== END 2024-08-02 13:34 | disposition home or self-care (01) ==
LOC: NFLDREF 08-06 23:17
PROVIDERS: PCP Family Medicine; Referring Provider Family Medicine; Visit Provider Physician Assistant
DX: N39.0 Urinary tract infection, site not specified (principal)
CPT/HCPCS: 87086

== ENCOUNTER 2024-08-03 21:22 | Emergency (ER) | payer BC, SELFPAY ==
[2024-08-03 21:26] VITALS: BP 120/84; PULSE 75; RESP 16; TEMP 36.8; O2SAT 97; BMI 31.8
--- NOTE | 2024-08-03 21:45 | ED_ITS ---
HPI - General Adult General Chief complaint: Flank Pain Stated complaint: stent is infected/feels loopy Time Seen by Provider: 08/03/24 21:34 History of Present Illness HPI narrative: Ongoing R kidney problems for 3 weeks, caused by stone , had lithotripsy and stent placed at [facility] this last Monday. Last stent Pt developed infection. Pt presents tonight feeling weak sweaty shaky nauseated and 'loopy', fever 101 at home did take tylenol. Started macrobid yesterday for UTI. 44-year-old woman presenting to the emergency department with concern of right and left area flank pain. Yesterday evaluated in urgent care clinic and initiated on Macrobid. Review of records reveals a small proximal right ureteral stone for which she had lithotripsy and stent placement about 5 days ago. She recalls a history of infection with last stent placement and requested antibiotics with latest intervention but this was deferred/declined. Measured a fever today to 101. She has been feeling shaky and sweaty and some nausea and generally ?loopy? describing some dizziness. Increased pressure in the left abdomen/side as well which she attributes to small remaining intrarenal stones. No cough or cold symptoms. Prior to intervention as above she does note that had some compromised renal function. On 07/20 at least here I see a creatinine of 1.4 Related Data Home Medications ?Medication ?Instructions ?Recorded ?Confirmed acetaminophen 08/03/24 Previous Rx's ?Medication ?Instructions ?Recorded nitrofurantoin 100 mg PO Q12H 5 days #10 caps 08/02/24 monohydrate/macrocrystals 100 mg capsule (Macrobid) Allergies Allergy/AdvReac Type Severity Reaction Status Date / Time morphine Allergy Mild Rash Verified 08/03/24 21:32 Review of Systems Status of ROS: Reports: 6 or more systems reviewed and unremarkable except as noted in History and below PFSH PFS Social History Smoking Status: Never smoker Do you use any of these nicotine containing products: None How often do you have a drink containing alcohol: never AUDIT-C Alcohol total score: 0 Non-prescribed substance use: denies use service: No Exam Narrative: Exam Narrative: Pleasant. Easily conversant. Does appear fatigued and uncomfortable generally. Breathing easily. Lungs are clear. Heart in regular rate and rhythm. Abdomen is soft. She is quite tender to palpation in the flanks. Extremities are well perfused without notable edema. Const: Vital Signs, click to edit/add: Vital Signs - 24 hr 08/03/24 21:26 Temperature 98.2 F Pulse Rate [Right Pulse Oximeter] 75 Respiratory Rate 16 Blood Pressure [Ri ght Upper Arm] 120/84 Pulse Oximetry 97 Documenting provider has reviewed patient's vital signs: yes Course Vital Signs Vital signs: Initial Vital Signs Temperature 98.2 F 08/03/24 21:26 Temperature Source Oral 08/03/24 21:26 Pulse Rate 75 08/03/24 21:26 Respiratory Rate 16 08/03/24 21:26 Blood Pressure 120/84 08/03/24 21:26 Blood Pressure Mean 96 08/03/24 21:26 Blood Pressure Position Sitting 08/03/24 21:26 Pulse Oximetry 97 08/03/24 21:26 Vital Signs Temperature 98.2 F 08/03/24 21:26 Pulse Rate 75 08/03/24 21:26 Respiratory Rate 16 08/03/24 21:26 Blood Pressure 120/84 08/03/24 21:26 Pulse Oximetry 97 08/03/24 21:26 Temperature 98.2 F 08/03/24 21:26 Pulse Rate 72 08/03/24 23:32 Respiratory Rate 16 08/03/24 23:32 Blood Pressure 116/88 08/03/24 23:32 Pulse Oximetry 99 08/03/24 23:32 Medications Administered Medications: Discontinued Medications Generic Name Dose Route Start Last Admin Trade Name Freq PRN Reason Stop Dose Admin Hyoscyamine 0.25 mg 08/03/24 21:55 08/03/24 22:27 Hyoscyamine Sulfate 0.125 Mg Tab SUBLINGUAL 08/03/24 21:56 0.25 mg ONCE ONE Administration Sodium Chloride 1,000 mls @ 1,000 mls/hr 08/03/24 21:55 08/03/24 23:25 0.9 % Sodium Chloride 1000 Ml IV 08/03/24 22:54 Infused .Q1H ONE Infusion Sodium Chloride 1,000 mls @ 1,000 mls/hr 08/03/24 23:26 08/04/24 00:29 0.9 % Sodium Chloride 1000 Ml IV 08/04/24 00:25 Infused .Q1H ONE Infusion Medical Decision Making MDM Narrative Medical decision making narrative: IV be established. Will be receiving normal saline hydration. Check for other source of infection other than urine. Check renal function. No cardiac history/dysrhythmia. IV placed. Apparently has been intolerant of Flomax before. Given hyoscyamine. On reassessment is markedly improved. Did receive 2 L normal saline in the end. Generally reassuring labs. Renal function improved with creatinine at 0.7. I am not convinced that findings in urine today nor prior represent infection. May simply be inflammatory change. I suppose looks a little better today than yesterday. While Macrobid/nitrofurantoin bacteriostatic, too soon to be clearly antibiotic failure either. Infection would certainly be very problematic in this case. I understand Ms. Maria's concerns and would offer ciprofloxacin in the meantime as prophylaxis. She notes of this was necessary for treatment in the past probably last dosed about 10 years ago. Urine culture pending. Yesterday's has not yet shown growth. See patient discharge plan for further discussion Medical Records Medical records reviewed: Yes I reviewed the patient's medical records Lab Data Lab results reviewed: Yes I reviewed the patient's lab results Labs: Lab Results 08/03/24 Range/Units 22:15 WBC 7.05 (4.50-11.00) K/uL RBC 4.34 (4.00-5.20) m/uL Hgb 12.1 (12.0-16.0) gm/dL Hct 36.1 (33.0-51.0) % MCV 83 (80-100) fL MCH 28 (26-34) pg MCHC 34 (32-36) gm/dL RDW Coeff of Epifanio 12.8 (11.5-15.5) % Plt Count 243 (140-440) K/uL Neut % (Auto) 41.1 L (42.0-72.0) % Lymph % (Auto) 49.9 H (20-44) % [place] % (Auto) 6.4 (0.0-11.0) % Eos % (Auto) 2.4 (0.0-7.0) % Baso % (Auto) 0.1 (0.0-3.0) % Neut # (Auto) 2.90 (1.7-7.0) K/uL Lymph # (Auto) 3.50 H (0.90-2.90) K/uL [place] # (Auto) 0.50 (0.00-0.90) K/UL Eos # (Auto) 0.17 (0.00-0.50) K/uL Baso # (Auto) 0.01 (0.00-0.30) K/uL Abs Immat Gran (auto) 0.01 (0.00-0.30) K/uL Imm/Tot Granulo (auto) 0.1 % Sodium 139 (135-149) mmol/L Potassium 4.0 (3.6-5.1) mmol/L Chloride 106 (96-114) mmol/L Carbon Dioxide 26 (20-32) mmol/L Anion Gap 7 (7-15) mEq/L BUN 18 (5-24) mg/dL Creatinine 0.7 (0.5-1.5) mg/dL Estimated Creat Clear 101.81 Estimated GFR 111 ml/min Glucose 103 (60-115) mg/dL Lactate 1.3 (0.5-1.9) mmol/L Calcium 9.5 (8.4-10.6) mg/dL C-Reactive Protein 0.8 (0.5-1.0) mg/dL Urine Color Yellow (Yellow) Urine Appearance Clear (Clear) Urine pH 6.0 (5.0-8.5) Ur Specific [place] >= 1.030 (1.000-1.030) Urine Protein 2+ A (Negative) Urine Glucose (UA) Negative (Negative) Urine Ketones Negative (Negative) Urine Blood 3+ A (Negative) Urine Nitrite Negative (Negative) Urine Bilirubin Negative (Negative) Urine Urobilinogen 0.2 (0.2-1.0) Ur Leukocyte Esterase 1+ A (Negative) Urine RBC >100 A (0-2) Urine WBC 5-10 A (0-5) Ur Squamous Epith Cells Few (None-Few) Urine Bacteria Few A (None) Discharge Plan Discharge Clinical Impression: Malaise, Dehydration Patient Disposition: Home, Self-Care Condition: Improved Additional Instructions: Happy you are feeling better. Continue to focus on hydration. Urine cultures are of course pending. As we settled on, stop nitrofurantoin and begin ciprofloxacin. Ciprofloxacin from [facility]. Return for marked increase in pain, repeated vomiting, persistent fever. Prescriptions: No Action nitrofurantoin monohyd/m-cryst [Macrobid] 100 mg capsule 100 mg PO Q12H 5 Days Qty: 10 0RF Rx Instructions: must administer with a meal/food acetaminophen Follow Up/Referrals: Radha Cowan MD [Primary Care Provider] - Stand Alone Forms: MyHealth Info Instructions
--- OUTSIDE RECORDS SUMMARY | 2024-08-03 22:06 | XMS_ITS | Clinical Summary ---
[facility] Address [address] [place] [address] Care Team Providers Care Tractor Trailer Operator Name Role Phone Radha Cowan MD Primary Care Provider [phone] Source Comments You are receiving this document as you are listed as the primary care provider,follow-up provider, or the patient has been referred to you for consultation.This is in compliance with the Medicare andThe [facility] EHR Incentive Program,which states Providers who transition their patient to another setting of careor provider of care or refers their patient to another provider of care shouldprovide summary care record for each transition of care or referral. [facility] Allergies Active Allergy Reactions Criticality Noted Date Comments Morphine Rash 04/10/2020 Medications Medication Sig Dispensed Refills Start Date End Date Status ondansetron (ZOFRAN-ODT) 4 MG disintegrating tablet Take 1 Tablet by mouth every 8 hours as needed for Nausea. 10 Tablet 0 Active HYDROcodone-acetam inophen (NORCO) 5-325 MG tablet Take 1 Tablet by mouth every 6 hours as needed for Pain. Maximum acetaminophen dose is 4000 mg in 24 hours. 15 Tablet 4 Active senna (SENNA LAXATIVE) 8.6 MG tablet Take 1 Tablet by mouth two times daily as needed for Constipation. 30 Tablet 4 Active meclizine (ANTIVERT) 25 MG tablet Take 1 Tablet (25 mg) by mouth three times a day as needed for Dizziness/Vertigo . 30 Tablet 4 Active oxyCODONE (ROXICODONE) 5 MG immediate release tablet Take 1 Tablet by mouth every 6 hours as needed (severe pain). 8 Tablet 0 024 Discontinued tamsulosin (FLOMAX) 0.4 MG CAPS capsule Take 1 Capsule (0.4 mg) by mouth daily for 30 days. 30 Capsule 4 024 Discontinued ketorolac (TORADOL) 10 MG tablet Take 1 Tablet (10 mg) by mouth every 6 hours as needed for Pain. 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 [place] [address] Bashir Calles MD 07/30/2024 3:55 PM CDT Anesthesia Event [facility] [address] [place] [address]. [place] [address] Curt Gillette MD Gruner, David B, MD 07/30/2024 3:00 PM CDT - 07/30/2024 4:30 PM CDT Surgery [facility] [address] [place] [address]. [place] [address] Anthony Andrews, URETEROSCOPY WITH LASER LITHOTRIPSY AND URETERAL STENT PLACEMENT, RETROGRADE PYELOGRAM and interpretation, stone basket extraction 07/29/2024 7:31 PM CDT - 07/31/2024 2:30 PM CDT Emergency [facility] [address] [place] [address] Christian Quintana MD Gonzalez Bolanos, Maria T, MD Ross-Sonnesyn, Marit E, SHAAN Calculus of kidney (Primary Dx); Kidney stone; Intractable pain Discharge Disposition: Home 07/29/2024 Orders Only HIM DEPARTMENT Provider, MD Jamir 07/26/2024 7:55 PM CDT - 07/27/2024 12:04 AM CDT Emergency [facility] [address] [facility] [place] [address] Pita Jj MD Ureterolithiasis Discharge Disposition: Home 07/26/[address] [facility] [address] [place] [address] Keturah Freeman APRN, [employer] Follow-up, NOS (Called to f/u on plan for CT scan. No answer so LVM. Advised that she is scheduled with Dr. Calles next week and he agrees that she should have a CT scan due to most recent Xray not showing 3 mm ureteral stone. Request has been sent for outside CT scan to be pulled through, however they are mailing a CD with images. Plan on CT scan with stone protocol to be done before surgery. ) 07/25/2024 Telephone [facility] [address] [address] [address] [place] [phone] Keturah Freeman, SPINNING MULE TENDER, [employer] Questions 07/24/2024 3:20 PM CDT Lab Visit [place] [address] [place] [address]. [place] [address] Calculus of kidney 07/24/2024 2:00 PM CDT Office Visit [facility] [address] [facility] [address] Keturah Freeman APRN, [employer] Calculus of kidney (Primary Dx); Calculus of upper urinary tract; Nephrolithiasis; History of breast cancer 07/24/2024 1:25 PM CDT Ancillary Procedure [place] [address] [place] [address]. [place] [address] Keturah Freeman APRN, [employer] Kidney stone 07/24/[address] [facility] [address] [facility] [address] Keturah Freeman APRN, CNP Request For Records 07/24/2024 Notes/Orders [facility] [address] [facility] [place] [address] Keturah Freeman APRN, CNP Kidney stone (Primary Dx) 07/19/2024 7:40 PM CDT Ancillary Procedure Radiology [facility] [address] [place] [address] from Last 3 Months Social History Tobacco Use Types Packs/Day Years Used Date Smoking Tobacco: Never Assessed [facility] Utilities Answer Date Recorded In the past 12 months has th e electric, gas, oil, or water company threatened to shut off services in your home? Patient declined 07/29/2024 Humiliation, Afraid, Rape, and Kick questionnair e Answer Date Recorded Fear of Current or Ex-Partner Not on file Within the last year, have y ou been humiliated or emotionally abused in other ways by your partner or ex-partner? Patient declined 07/29/2024 Within the last year, have y ou been kicked, hit, slapped, or otherwise physically hurt by your partner or ex-partner? Patient declined 07/29/2024 Within the last year, have y ou been raped or forced to have any kind of sexual activity by your partner or ex-partner? Patient declined 07/29/2024 Hunger Vital Sign Answer Date Recorded Within the past 12 months, y ou worried that your food would run out before you got the money to buy more. Patient declined Within the past 12 months, t he food you bought just didn't last and you didn't have money to get more. Patient declined 07/2024 PRAPARE - Transportation Answer Date Re corded In the past 12 months, has l ack of transportation kept you from medical appointments or from getting medications? Patient declined 07/29/2024 In the past 12 months, has l ack of transportation kept you from meetings, work, or from getting things needed for daily living? Patient declined 07/29/2024 Housing Stability Vital Sign Answer Onel e Recorded In the last 12 months, was t here a time when you were not able to pay the mortgage or rent on time? Patient declined 07/29/20 24 Number of Times Moved in the Last Year Not on fi le 07/29/2024 At any time in the past 12 m the rehabilitation institute, were you homeless or living in a jail (including now)? Patient declined 07/29/2024 Sex and Gender Information Value Date Recorded Sex Assigned at Not on file Gender Identity Not on file Sexual Orientation Not on file Last Filed Vital Signs Vital Sign Reading Time Taken Comments Blood Pressure 115/68 07/31/2024 10:33 AM CDT Pulse 59 07/31/2024 10:33 AM CDT Temperature 36.7 ??C (98.1 ??F) 07/31/2024 10:33 AM C DT Respiratory Rate 16 07/31/2024 10:33 AM CDT Oxygen Saturation 97% 07/31/2024 10:33 AM CDT Inhaled Oxygen Concentration - - Weight 92.1 kg (203 lb) 07/24/2024 3:18 PM CDT Height 170.2 cm (5' 7) 07/24/2024 3:18 PM CDT Body Mass Index 31.79 07/24/2024 3:18 PM CDT Plan of Treatment Upcoming Encounters Date Type Department Care Team (Late st Contact Info) Description 08/07/2024 11:[address] [facility] [address] [facility]. [place], [place] [address] Emmy Hinojosa MBBS [address] [place] [address] 09/24/2024 10:00 AM HOME HEALTH AID Appointment [facility] [address] [facility]. [place], [place] [address] Sakshi Garrido APRN, [employer] [address] [place], [place] [phone] Scheduled Procedures Name Priority Associated Diagnoses Date/Ti me CYSTOSCOPY,RETROGRADE PYELOGRAM,URETEROSCOPY,HOLMIUM LASER LITHOTRIPSY OF STONE,URETERAL STENT PLACEMENT Kidney stone Intractable pain Health Maintenance Due Date Last Done Comments Cervical Cancer Screening Due 1982 Hep C Screening (Preventive Services) 1982 MTM Covered 1982 HIV Screening (Preventive Services) 1998 Adult Preventive Visit 2000 HepB (1) 2001 Mammogram 09/10/2021 09/10/2020, 09/10/2020 DTaP/Tdap/Td (6 - Tdap) 12/24/2022 12/24/19 13, 10/26/1987, 12/28/1983, Additional history exists COVID-19 Vaccine (2023- season) 2024 Influenza (#1) 2024 08/27/2018, 02/2014, 12/24/2012 Diabetes Screening- (based on age and BMI) 11/22/2026 11/22/2023 Zoster/Shingles (1 of 2) 2032 IPV (Polio) Completed 10/26/1987, 03/20, 1982 HPV Vaccine Aged Out No longer eligi ble based on patient's age to complete this topic HepA Aged Out No longer eligi ble based on patient's age to complete this topic Hib Aged Out No longer eligi ble based on patient's age to complete this topic MCV4 Aged Out No longer eligi ble based on patient's age to complete this topic Pneumococcal Aged Out No longer eligi ble based on patient's age to complete this topic Medical Devices Implanted Type Area Fingernail Former Device Identifier Shelf Expiration Date Model / Serial / Lot Stent Uret Inlay 22-32cm 6fr - [id number] Implanted:Qty: 1 on 07/30/2024 by Anthony Andrews DO at [facility] DEVICE Right: U[employer] 01/17/2029 [id number] / 22-32 / [id number] Procedures Procedure Name Priority Date/Time Associated Diagnosis Comments FL RETROGRADE PYELOGRAM Routine 07/30/2024 5:05 PM CDT CALCULI STONE ANALYSIS Routine 07/30/2024 4:28 PM CDT Kidney stone Calculus of kidney CYSTOSCOPY,RETROGRAD E PYELOGRAM,URETEROSCO PY,HOLMIUM LASER LITHOTRIPSY OF STONE,URETERAL STENT PLACEMENT 07/30/2024 3:38 PM CDT Kidney stone Calculus of kidney COMPLETE BLOOD COUNT-NO DIFF Routine 07/30/2024 7:27 AM CDT BASIC METABOLIC PANEL Routine 07/30/2024 7:27 AM CDT EXTRA BLUE TOP TUBE Routine 07/29/2024 8 :09 PM CDT COMPLETE BLOOD COUNT-W/DIFF STAT 07/29/2024 8:09 PM CDT CBC AND DIFFERENTIAL PANEL STAT 07/29/2024 8:09 PM CDT BASIC METABOLIC PANEL STAT 07/29/2024 8:09 PM CDT TEST (URINE) STAT Add-On 07/29/2024 7:42 PM CDT UA CONDITIONAL UC STAT 07/29/2024 7:4 2 PM CDT EKG 07/29/2024 CT ABD PELVIS WO IV CONT STONE STAT 07/26/2024 8:56 PM CDT UA CONDITIONAL UC STAT 07/26/2024 8:2 8 PM CDT TEST (URINE) STAT 07/26/2024 8:28 PM CDT LIPASE STAT Add-On 07/26/2024 8:15 PM CDT LIVER PANEL(HEPATIC FUNCTION PANEL) STAT Add-On 07/26/2024 8:15 PM CDT COMPLETE BLOOD COUNT-W/DIFF STAT 07/26/2024 8:15 PM CDT CBC AND DIFFERENTIAL PANEL STAT 07/26/2024 8:15 PM CDT BASIC METABOLIC PANEL STAT 07/26/2024 8:15 PM CDT INTACT PTH Routine 07/24/2024 3:16 PM CDT Calculus of kidney URIC ACID Routine 07/24/2024 3:16 PM CDT Calculus of kidney AUTOMATED URINALYSIS DIPSTICK POCT Routine 07/24/2024 2:10 PM CDT XR ABD FLAT/KUB 1 VIEW Routine 07/24/2024 1:33 PM CDT Kidney stone FOREIGN IMAGE(S) CT ABDOMEN/PELVIS Routine 07/19/2024 7:40 PM CDT from Last 3 Months Results * FL Retrograde Pyelogram (07/30/2024 5:05 PM CDT) Anatomical Region Laterality Modality Abdomen, Pelvis Radio Fluoroscop y Narrative 07/30/2024 6:03 PM CDT Images obtained during surgical procedure. Anthony Andrews DO RAD [place] * Calculi Stone Analysis (07/30/2024 4:28 PM CDT) Calculi Composition See Note 08/01/2024 4:40 PM CDT [facility] Comment: Calculi composed primarily of calcium oxalate dihydrate. INTERPRETIVE INFORMATION: Calculi (Stone) analysis Calculi are the products of physiological processes that yield crystalline compounds in a matrix of biological compounds and blood. ??Matrix components are not reported. ??The clinically significant crystalline components identified in calculi specimens are reported. ??Gross description may not be consistent with composition determined by FTIR analysis. Performed By: [employer] [address] [place] [id number] Urban Anthropologist: Delonte Ellison MD, PhD CLIA Number: [id number] Calculi Description See Note 08/01/2024 4:40 PM CDT [facility] Comment: Specimen consists of three brown and overton calculi fragments. The total weight is 14 mg. Calculi Mass 14 mg 08/01/2024 4:40 PM CDT [facility] Stone (Calculus) STRUCTURE OF RIGHT URETER / Unknown 07/30/2024 4:28 PM CDT 07/30/2024 4:44 PM CDT Anthony Andrews DO LAB_1 [facility] [employer] [address] [place] [address] [place] [address] * (ABNORMAL) Basic Metabolic Panel (07/30/2024 7:27 AM CDT) Only the most recent of3 resultswithin the time period is included. Sodium 138 136 - 145 mmol/L 07/30/2024 8:10 AM CDT [facility] Potassium 3.8 3.5 - 5.1 mmol/L 07/30/2024 8:10 AM CDT [facility] Chloride 111(H) 98 - 109 mmol/L 07/30/2024 8:10 AM CDT [facility] CO2 23 20 - 29 mmol/L 07/30/2024 8:10 AM CDT [facility] Anion Gap 4(L) 6 - 16 mmol/L 07/30/2024 8:10 AM CDT [facility] Calcium 8.6 8.4 - 10.4 mg/dL 07/30/2024 8:10 AM CDT [facility] BUN 10 7 - 26 mg/dL 07/30/2024 8:10 AM CDT [facility] Creatinine 0.86 0.55 - 1.02 mg/dL 07/30/2024 8:10 AM CDT [facility] Glucose 95 70 - 100 mg/dL 07/30/2024 8:10 AM CDT [facility] Comment:The given reference range is for the fasting state. Non-fasting reference range for glucose is 70 - 180 mg/dL. GFR, Estimated >60 >60 mL/min/1.7 3m2 07/30/2024 8:10 AM CDT [facility] Blood Venipuncture / Unknown 07/30/2024 7:27 AM CDT 07/30/2024 7:32 AM CDT Tracee Barclay MD LAB_1 [facility] [address] * (ABNORMAL) Complete Blood Count-No Diff (07/30/2024 7:27 AM CDT) Pathologist [facility] WBC 4.8 3.5 - 10.5 x10(9)/L 07/30/2024 7:35 AM CDT [facility] RBC 3.92 3.90 - 5.03 x10(12)/L 07/30/2024 7:35 AM CDT [facility] Hemoglobin 11.2(L) 12.0 - 15.5 g/dL 07/30/2024 7:35 AM CDT [facility] HCT 33.1(L) 34.9 - 44.5 % 07/30/2024 7:35 AM CDT [facility] MCV 84.4 80.0 - 100.0 fL 07/30/2024 7:35 AM CDT [facility] MCH 28.6 27.6 - 33.3 pg 07/30/2024 7:35 AM CDT [facility] MCHC 33.8 31.5 - 35.2 g/dL 07/30/2024 7:35 AM CDT [facility] RDW 13.2 11.9 - 15.5 % 07/30/2024 7:35 AM CDT [facility] Platelets 187 150 - 450 x10(9)/L 07/30/2024 7:35 AM CDT [facility] Automated NRBC 0 <=0 /100 WBC 07/30/2024 7:35 AM CDT [facility] Blood Venipuncture / Unknown 07/30/2024 7:27 AM CDT 07/30/2024 7:32 AM CDT Tracee Barclay MD LAB_1 [facility] [address] * Extra Blue top tube (07/29/2024 8:09 PM CDT) Pathologist [facility] Extra Blue Top Drawn Specimen will be held for 24 hours 07/29/2024 10:01 PM CDT [facility] Blood Venipuncture / Unknown 07/29/2024 8:09 PM CDT 07/29/2024 8:17 PM CDT Christian Quintana MD LAB_1 [facility] [address] * (ABNORMAL) Complete Blood Count-W/Diff (07/29/2024 8:09 PM CDT) Only the most recent of2 resultswithin the time period is included. [facility] WBC 7.5 3.5 - 10.5 x10(9)/L 07/29/2024 8:21 PM CDT [facility] RBC 4.08 3.90 - 5.03 x10(12)/L 07/29/2024 8:21 PM CDT [facility] Hemoglobin 11.6(L) 12.0 - 15.5 g/dL 07/29/2024 8:21 PM CDT [facility] HCT 34.4(L) 34.9 - 44.5 % 07/29/2024 8:21 PM CDT [facility] MCV 84.3 80.0 - 100.0 fL 07/29/2024 8:21 PM CDT [facility] MCH 28.4 27.6 - 33.3 pg 07/29/2024 8:21 PM CDT [facility] MCHC 33.7 31.5 - 35.2 g/dL 07/29/2024 8:21 PM CDT [facility] RDW 13.1 11.9 - 15.5 % 07/29/2024 8:21 PM CDT [facility] Platelets 222 150 - 450 x10(9)/L 07/29/2024 8:21 PM CDT [facility] Automated NRBC 0 <=0 /100 WBC 07/29/2024 8:21 PM CDT [facility] Neutrophil Absolute 5.4 1.7 - 7.0 10(9)/L 07/29/2024 8:21 PM CDT [facility] Lymphocyte Absolute 1.5 1.0 - 4.8 10(9)/L 07/29/2024 8:21 PM CDT [facility] Monocyte Absolute 0.5 0.2 - 0.9 10(9)/L 07/29/2024 8:21 PM CDT [facility] Eosinophil Absolute 0.1 0.0 - 0.5 10(9)/L 07/29/2024 8:21 PM CDT [facility] Basophil Absolute 0.0 0.0 - 0.3 10(9)/L 07/29/2024 8:21 PM CDT [facility] Immature Granulocyte % 0.3 0.0 - 0.5 % 07/29/2024 8:21 PM CDT [facility] Blood Venipuncture / Unknown 07/29/2024 8:09 PM CDT 07/29/2024 8:17 PM CDT Christian Quintana MD LAB_1 Performing Organization Address City/State/[facility] Co de Phone Number [facility] [address] * (ABNORMAL) UA Conditional UC: Clean Catch (07/29/2024 7:42 PM CDT) Only the most recent of2 resultswithin the time period is included. Urine Culture Comment Urinalysis results do not meet criteria for urine culture reflex. 07/29/2024 8:19 PM CDT [facility] Urine Color Light-Yellow 07/29/2024 8:19 PM CDT [facility] Urine Clarity Clear Clear 07/29/2024 8:19 PM CDT [facility] Specific [place], Urine 1.013 <1.030 07/29/2024 8:19 PM CDT [facility] PH Urine 6.5 5.0 - 8.0 07/29/2024 8:19 PM CDT [facility] Protein, Urine Qual (mg/dL) Negative Negative, 10 , 20 07/29/2024 8:19 PM CDT [facility] Glucose Urine Qual (mg/dL) Normal (Negative) Normal (Negative), 30 , 50 07/29/2024 8:19 PM CDT [facility] Ketones, Urine (mg/dL) Negative Negative, Trace 07/29/2024 8:19 PM CDT [facility] Urobilinogen, Urine (EU/dL) Normal (Negative) Normal (Negative) 07/29/2024 8:19 PM CDT [facility] Bilirubin Urine (mg/dL) Negative Negative 07/29/2024 8:19 PM CDT [facility] Blood, Urine (mg/dL) 1.0 (Large)(A) Negative, 0.03 (Trace) 07/29/2024 8:19 PM CDT [facility] Nitrite Urine Negative Negative 07/29/2024 8:19 PM CDT [facility] Leukocyte Esterase, Urine (José Luis/uL) Negative Negative, 25 (Trace) 07/29/2024 8:19 PM CDT [facility] Red Blood Cells 149(H) 0 - 3 /HPF 07/29/2024 8:19 PM CDT [facility] White Blood Cells 4 0 - 5 /HPF 07/29/2024 8:19 PM CDT [facility] Bacteria Occasional(A) None Seen /HPF 07/29/2024 8:19 PM CDT [facility] Squamous Epithelial Cells Occasional None Seen, Occasional, Few /HPF 07/29/2024 8:19 PM CDT [facility] Mucus Present(A) None Seen /HPF 07/29/2024 8:19 PM CDT [facility] Urine Source Clean Catch 07/29/2024 8:19 PM CDT [facility] Urine URINE SPECIMEN COLLECTION, CLEAN CATCH / Unknown Non-blood Collection / Unknown 07/29/2024 7:42 PM CDT 07/29/2024 7:48 PM CDT Narrative [facility] - 07/29/2024 8:19 PM CDT The qualitative interpretive guidance provided (e.g., small, moderate, large) is intended to aid in quantitative result interpretation. It is not itself an FDA-cleared test result. Christian Quintana MD LAB_1 [facility] [address] * Test (Urine) (07/29/2024 7:42 PM CDT) Only the most recent of2 resultswithin the time period is included. HCG, Urine Negative Negative 07/29/2024 8:31 PM CDT [facility] Urine URINE SPECIMEN COLLECTION, CLEAN CATCH / Unknown Non-blood Collection / Unknown 07/29/2024 7:42 PM CDT 07/29/2024 7:48 PM CDT Christian Quintana MD LAB_1 [facility] [address] * EKG (07/29/2024) Interface Provider EKG * CT Abd Pelvis WO IV Cont Stone (07/26/2024 8:56 PM CDT) Anatomical Region Laterality Modality Abdomen, Pelvis Computed Tomogra phy 07/26/2024 8:48 PM CDT Impressions 07/26/2024 9:21 PM CDT COMPARISON: None. TECHNIQUE: Stone protocol CT of the abdomen and pelvis without intravenous contrast. Multiplanar reconstructions. FINDINGS: LOWER CHEST: Lung bases clear. Small hiatal hernia. ABDOMEN/PELVIS: Urinary tracts: 4 mm obstructing calculus proximal right ureter image 81 series 2, causing mild upstream right hydronephrosis. Additional 1 mm nonobstructing right renal calculus image 68 series 2. There are 2 nonobstructing left renal calculi measuring 2 and 3 mm respectively. No left hydronephrosis or hydroureter. Multiple small calcifications in the pelvis likely represent phleboliths. Peritoneal cavity and retroperitoneum: No free air or significant free fluid. Liver: Borderline hepatic steatosis. Gallbladder and biliary tree: Grossly unremarkable. Pancreas: Grossly unremarkable. Spleen: Grossly unremarkable. Adrenal glands: Grossly unremarkable. Pelvic organs: Grossly unremarkable. Stomach and bowel: No bowel obstruction or significant inflammation. Normal appendix. Lymph nodes: No overt lymphadenopathy. Vasculature: No abdominal aortic aneurysm. Abdominal wall: Grossly unremarkable. MUSCULOSKELETAL: No aggressive appearing bone lesion. IMPRESSION: ?? 1. 4 mm obstructing calculus in the proximal right ureter, causing mild right hydronephrosis. 2. Additional bilateral nonobstructing nephrolithiasis as described. Narrative Procedure Note Sivakumar Aburto MD - 07/26/2024 IMPRESSION COMPARISON: None. TECHNIQUE: Stone protocol CT of the abdomen and pelvis without intravenouscontrast. Multiplanar reconstructions. FINDINGS: LOWER CHEST: Lung bases clear. Small hiatal hernia. ABDOMEN/PELVIS: Urinary tracts: 4 mm obstructing calculus proximal right ureter image 81series 2, causing mild upstream right hydronephrosis. Additional 1 mmnonobstructing right renal calculus image 68 series 2. There are 2nonobstructing left renal calculi measuring 2 and 3 mm respectively. Noleft hydronephrosis or hydroureter. Multiple small calcifications in thepelvis likely represent phleboliths. Peritoneal cavity and retroperitoneum: No free air or significant freefluid. Liver: Borderline hepatic steatosis. Gallbladder and biliary tree: Grossly unremarkable. Pancreas: Grossly unremarkable. Spleen: Grossly unremarkable. Adrenal glands: Grossly unremarkable. Pelvic organs: Grossly unremarkable. Stomach and bowel: No bowel obstruction or significant inflammation.Normal appendix. Lymph nodes: No overt lymphadenopathy. Vasculature: No abdominal aortic aneurysm. Abdominal wall: Grossly unremarkable. MUSCULOSKELETAL: No aggressive appearing bone lesion. IMPRESSION: 1. 4 mm obstructing calculus in the proximal right ureter, causing mildright hydronephrosis. 2. Additional bilateral nonobstructing nephrolithiasis as described. Pita Jj MD RAD CT * (ABNORMAL) Liver Panel (Hepatic Function Panel) (07/26/2024 8:15 PM CDT) Alkaline Phosphatase 33(L) 40 - 150 U/L 07/26/2024 9:02 PM CDT [facility] Bilirubin, Total 0.5 0.2 - 1.2 mg/dL 07/26/2024 9:02 PM CDT [facility] Bilirubin, Direct 0.2 0.0 - 0.5 mg/dL 07/26/2024 9:02 PM CDT [facility] AST (SGOT) 15 10 - 40 U/L 07/26/2024 9:02 PM CDT [facility] ALT (SGPT) 17 <=55 U/L 07/26/2024 9:02 PM CDT [facility] Protein, Total 6.8 6.4 - 8.3 g/dL 07/26/2024 9:02 PM CDT [facility] Albumin 4.0 3.5 - 5.0 g/dL 07/26/2024 9:02 PM CDT [facility] Blood Venipuncture / Unknown 07/26/2024 8:15 PM CDT 07/26/2024 8:19 PM CDT Pita Jj MD LAB_1 Performing Organization Address [facility] Phone Number [facility] [address] [place] [address] * (ABNORMAL) Lipase (07/26/2024 8:15 PM CDT) Lipase 97(H) 8 - 78 U/L 07/26/2024 9:02 PM CDT [facility] Blood Venipuncture / Unknown 07/26/2024 8:15 PM CDT 07/26/2024 8:19 PM CDT Pita Jj MD LAB_1 Performing Organization Address [facility] Phone Number [facility] [address] [place] [address] * Intact PTH (07/24/2024 3:16 PM CDT) Intact PTH 29 10 - 100 pg/mL 07/24/2024 6:23 PM CDT [facility] Blood Venipuncture / Unknown 07/24/2024 3:16 PM CDT 07/24/2024 3:16 PM CDT Keturah Freeman APRN, CNP LAB_1 Performing Organization Address [facility] Phone Number [facility] [address] [place] [address] * (ABNORMAL) Uric Acid (07/24/2024 3:16 PM CDT) Uric Acid 6.6(H) 2.6 - 6.0 mg/dL 07/24/2024 4:02 PM CDT [place] [address] [facility] Blood Venipuncture / Unknown 07/24/2024 3:16 PM CDT 07/24/2024 3:16 PM CDT Keturah Franco Lorenzojeannette [facility] [place] [address] [facility] [address] [place] [address] [[email or web address] * (ABNORMAL) Automated Urinalysis Dipstick POCT (07/24/2024 2:10 PM CDT) Glucose Urine Qual (mg/dL) Negative Negative 07/26/2024 8:28 AM [place] [address] [facility] Bilirubin Urine Negative Negative 07/26/2024 8:28 AM [place] [address] [facility] Ketones, Urine (mg/dL) Negative Negative 07/26/2024 8:28 AM [place] [address] [facility] Specific [place], Urine 1.020 1.005 - 1.030 07/26/2024 8:28 AM [place] [address] [facility] Blood, Urine Moderate(A) Neg/Trace 07/26/2024 8:28 AM [place] [address] [facility] PH Urine 6.0 5.0 - 8.0 07/26/2024 8:28 AM [place] [address] [facility] Protein, Urine Qual (mg/dL) Negative Neg/Trace 07/26/2024 8:28 AM [place] [address] [facility] Urobilinogen, Urine (EU/dL) 0.2 <2.0 07/26/2024 8:28 AM [place] [address] [facility] Nitrite Urine Negative Negative 07/26/2024 8:28 AM [place] [address] [facility] Leukocyte Est. Negative Negative 07/26/2024 8:28 AM [place] [address] [facility] Urine Color Yellow 07/26/2024 8:28 AM [place] [address] [facility] Urine Clarity Clear Clear 07/26/2024 8:28 AM [place] [address] [facility] Performing Location [employer] 07/26/2024 8:28 AM CDT [place] [facility] Urine 07/24/2024 2:10 PM CDT 07/26/2024 8:28 AM CDT Keturah Freeman APRN, CNP LAB_1 Performing Organization Address City/[facility] Co de Phone Number [facility] [facility] [address] [place] [address], [facility] * XR Abd Flat/KUB 1 View (07/24/2024 1:33 PM CDT) Anatomical Region Laterality Modality Abdomen Digital Radiogra phy 07/24/2024 1:25 PM CDT Impressions 07/24/2024 2:28 PM CDT COMPARISON: ??None. FINDINGS: ??2 views. Abdominal gas pattern is unremarkable. ??No suspicious calcifications are identified. ??No gross free intraperitoneal gas is seen. There are no abnormal air-fluid levels. Keturah Freeman APRN, CNP RAD GD * Foreign Image(S) CT Abdomen/Pelvis (07/19/2024 7:40 PM CDT) Narrative EXTERNAL RESULTS - 07/30/2024 11:38 AM CDT These outside images have been uploaded into PACS. If the results were provided, they will be located in the patient's chart under the Media or Imaging tab. Foreign Images Provider RAD NON-REPORTAB LES Performing Organization Address City/[facility] Co de Phone Number EXTERNAL RESULTS from Last 3 Months Advance Directives * Full Code (Latest Code Status on File) Date Activated Date Inactivated Comments 07/29/2024 11:20 PM 07/31/2024 4:51 PM Care Teams Tractor Trailer Operator Relationship Specialty Start Date End Date Radha Cowan MD [address] [place] [address] PCP - General Obstetrics Gynecology 07/26/24
--- OUTSIDE RECORDS SUMMARY | 2024-08-03 22:06 | XMS_ITS | Encounter Summary ---
Author Organization [facility] Address [address] [place] [address] Care Team Providers Care Cardiac Monitor Technician Name Role Phone Radha Cowan MD Primary Care Provider [phone] Reason for Visit * Auth/Cert (Routine) Specialty Diagnoses / Procedures Referred By Contac t Referred To Contact Diagnoses Kidney stone Kidney stone Referral ID Status Reason Start Date Expiration Date Visits Re quested Visits Authorized [id number] 1 1 Encounter Details Date Type Department Care Team (Late st Contact Info) Description 07/30/2024 3:00 PM CDT - 07/30/2024 4:30 PM CDT Surgery [facility] Operating Room [address] [facility] [place] [address] Gonzalo Andrews, DO [address] [place] [address] URETEROSCOPY WITH LASER LITHOTRIPSY AND URETERAL STENT PLACEMENT, RETROGRADE PYELOGRAM and interpretation, stone basket extraction Social History Tobacco Use Types Packs/Day Years Used Date Smoking Tobacco: Never Assessed [facility] Utilities Answer Date Recorded In the past 12 months has Belly, gas, oil, or water [employer] threatened to shut off services in your [...] any time in the past 12 m [facility], were you homeless or living in a usp (including now)? Patient declined 07/29/2024 Sex and Gender Information Value Date Recorded Sex Assigned at Not on file Gender Identity Not on file Sexual Orientation Not on file documented as of this encounter Last Filed Vital Signs Vital Sign Reading Time Taken Comments Blood Pressure 107/64 07/30/2024 5:52 AM CDT Pulse 77 07/30/2024 2:33 PM CDT Temperature 36.3 ??C (97.3 ??F) 07/30/2024 2:33 PM CD T Respiratory Rate 16 07/30/2024 2:33 PM CDT Oxygen Saturation 100% 07/30/2024 2:33 PM CDT Inhaled Oxygen Concentration - - Weight - - Height - - Body Mass Index - - documented in this encounter Discharge Summaries * Ewa Adame PA-C - 07/31/2024 8:[address] [facility] Medicine Discharge Summary Patient ID: Mateo Martini [id number] 44 y.o. 1980 Admit date: 07/29/2024 Discharge date: 07/31/2024 Final Discharge Diagnoses: Primary problem: Calculus of kidney Malignant neoplasm of upper-outer quadrant of right breast in female, estrogen receptor positive (HRC) PCOS (polycystic ovarian syndrome) (HRC) Kidney stone Intractable pain Renal colic on right side Brief HPI Summary: From H&P: Patient with history of kidney stones for which she has had multiple procedures and treatment. Has been having right flank pain for last 3 weeks, seen at the emergency department on 07/19/[address] imaging with notice of thick 3 mm stone in right distal ureter. Pain has not resolved. Seen in the emergency department 3 days ago due to the same issue where she was recommended admission, however due to work constraints patient decided to be discharged from the emergency department. Coming again today due to ongoing pain. Has not able to control pain with tramadol (causing gastritis), has history nausea with opioid medication oral. Will in the ED, kidney function within normal limits, WBC within normal limits. Admission for further pain management as well as for evaluation by Urology. Please see the admission history and physical for full details. Hospital Course, by problem: Nephrolithiasis Urology consulted; patient underwent ureterscope with lithotripsy and stent placement on 07/30. Paincontrolled with toradol. Had dizziness and nausea post- op, which patient reported as being similar to when she's had anesthesia in the past. Resolved with meclizine and time. Endorsed some discomfortwith urination but no fevers or chills. UA unremarkable, received IV abx intra-operatively, and perop report, no signs of infection. She was instructed on return precautions. Will have follow-up with Urology for outpatient stent removal next week. - Pending Labs: Pending Labs Order Current Status Calculi Stone Analysis In process Discharge Medications: Done while pt is already discharged Current Discharge Medication List START taking these medications Details HYDROcodone-acetaminophen (NORCO) 5-325 MG tablet Take 1 Tablet by mouth every 6 hours as needed for Pain. Maximum acetaminophen dose is 4000 mg in 24 hours. Qty: 15 Tablet, Refills: 0 meclizine (ANTIVERT) 25 MG tablet Take 1 Tablet (25 mg) by mouth three times a day as needed for Dizziness/Vertigo. Qty: 30 Tablet, Refills: 0 senna (SENNA LAXATIVE) 8.6 MG tablet Take 1 Tablet by mouth two times daily as needed for Constipation. Qty: 30 Tablet, Refills: 0 CONTINUE these medications which have NOT CHANGED Details ondansetron (ZOFRAN-ODT) 4 MG disintegrating tablet Take 1 Tablet by mouth every 8 hours as needed for Nausea. Qty: 10 Tablet, Refills: 0 STOP taking these medications ketorolac (TORADOL) 10 MG tablet Comments: Reason for Stopping: oxyCODONE (ROXICODONE) 5 MG immediate release tablet Comments: Reason for Stopping: tamsulosin (FLOMAX) 0.4 MG CAPS capsule Comments: Reason for Stopping: - Consults: urology - Procedures and Surgeries: ureterscope with lithotripsy and stent placement 07/30/24 Discharge Exam: BP 115/68 Pulse (!) 59 Temp 36.7 ??C (98.1 ??F) (Oral) Resp 16 LMP 07/29/2024 (Exact Date) SpO2 97% Constitutional: Awake, alert, no apparent distress HEENT: NC/AT. Sclera anicteric, no conjunctival injection. MMM. CV: Regular rhythm. Normal rate. No murmur appreciated. Skin: Warm and dry. Neuro: Alert & oriented x 3. Psych: Appropriate mood and affect. Disposition: home Code Status: Full Code Follow up: Referrals (From admission, onward) None Future Appointments Provider Department Center 07/31/2024 11:15 AM INPT, [facility] 08/08/2024 10:45 AM [facility] [place] [facility] [id number] [place] [id number] 09/24/2024 10:00 AM Sakshi Garrido APRN, [employer] [facility] - Urology [id number] Significant Diagnostic Studies (imaging, labs, micro, etc), see EMR for full details: CT Abd/Pelvis (07/26/24): IMPRESSION: 1. 4 mm obstructing calculus in the proximal right ureter, causing mild right hydronephrosis. 2. Additional bilateral nonobstructing nephrolithiasis as described. Billing based on time: Total time for the visit was >30 minutes including, but not limited to, [id number] time spent reviewing records, counseling, and coordination of care. Ewa Adame PA-C documented in this encounter Discharge Instructions * Attachments The following attachments cannot be sent through Care Everywhere. * Hydromorphone Oral Tablet (HYDROMORPHONE - ORAL) (Turkish) * Sennosides - Alf Oral Tablet (SENNOSIDES - ORAL) (Turkish) documented in this encounter Medications at Time of Discharge Medication Sig Dispensed Refills Start Date End Date HYDROcodone-acetaminoph en (NORCO) 5-325 MG tablet Take 1 Tablet by mouth every 6 hours as needed for Pain. Maximum acetaminophen dose is 4000 mg in 24 hours. 15 Tablet 07/30/2024 meclizine (ANTIVERT) 25 MG tablet Take 1 Tablet (25 mg) by mouth three times a day as needed for Dizziness/Vertigo. 30 Tablet 07/31/2024 ondansetron (ZOFRAN-ODT) 4 MG disintegrating tablet Take 1 Tablet by mouth every 8 hours as needed for Nausea. 10 Tablet 04/10/2020 senna (SENNA LAXATIVE) 8.6 MG tablet Take 1 Tablet by mouth two times daily as needed for Constipation. 30 Tablet 07/30/2024 documented as of this encounter Progress Notes * Linda Parry RN - 07/31/2024 2:09 PM CDT DISCHARGE O: Patient safely discharged to home. D: Patient is alert and oriented x 4. Pt up independently . Discharge criteria met. Vaccines addressed prior to discharge. A: Discharge instructions and medications reviewed and given to patient. Written medication education material provided on [place], meclazine and senna including possible side effects. Prescriptions filled by [facility] pharmacy. Belongings checklist reviewed with patient and belongings sent. Care plan issues addressed and education record updated. R: Patient verbalizes understanding and teaches back discharge instructions. Patient discharged by:wheelchair with family. * Debbie Mercado, PT - 07/31/2024 12:44 PM CDT Physical Therapy Inpatient Vestibular Evaluation Date of Admit: 07/29/2024 Reason for Admit/Therapy Consult: Kidney stone Intractable pain Post surgery dizziness Pertinent imaging related to vestibular episode: none Rehab Diagnosis: Decreased balance Past Medical History: No past medical history on file. MD Order: Eval and Treat: Vertigo SUBJECTIVE Patient reports: she had many ear infections as a child which were never treated with any antibiotics. She reports hx of motion sickness. History of current episode: after surgery she has nausea, light headed or floor shifting dizziness resulting in a few episodes of unsteadiness, slight LOB Symptoms: disequilibrium (unsteady), lightheaded, and nausea Ear Symptoms: none Increases Symptoms: quick head turns Decreases Symptoms: pause until symptoms pass Past vestibular episodes and treatment: she has had dizziness after other surgeries/ post anesthesia Mood: pleasant and alert, slow moving at times Pain: R flank, not rated. Nausea Patient PT Goals: Get rid of dizziness and nausea, return home Living Arrangements (select all that apply): Dependent children Prior Equipment (Mobility): None Home Accessibility: stairs to enter home Number of Stairs, Entrance: three Stair Railings, Entrance: one railing Number of Stairs, Within Home: none History of Falls: none Equipment patient owns: no assistive device OBJECTIVE Treatment Location: PT Department Special Equipment: None Precautions: falls risk Orientation: Oriented x 3 Cooperation: full Objective: -- Strength: Normal in bilateral lower extremities -- Sensation: intact to light touch bilateral lower extremities -- Endurance: adequate for household mobility and adequate for short community mobility -- Balance: -- sitting balance: good -- standing balance: good (-) -- Vitals: BP: 125/66 HR 65 in supine BP: 108/67 HR 66 in sitting -- a little light headed BP: 107/67 HR 70 sitting after 1-2 min BP: 112/68 HR 63 standing Gait: Equipment: no assistive device Assistance: standby assist Distance: 300 feet Gait Pattern: reciprocal Dynamic Gait Index: Gait level surface: 3/3 Change in gait speed: 3/3 Gait with horizontal head turns: 3/3 Gait with vertical head turns: 3/3 Gait and pivot turn: 3/3 Step over obstacle: 3/3 Step around obstacle: 3/3 Steps: 3/3 No LOB during these activities but pt does move cautiously with all activity and has sense of unsteadiness. Stairs: Equipment: no railing Assistance: supervision # of steps: 3 up/down Pattern: [id number] Transfers: Supine to Sit: independent Sit to Supine: independent Sit to/from Stand: standby assist VESTIBULAR SCREEN Oculomotor Examination: Spontaneous Nystagmus: Normal Eye Movement Range: Normal Smooth Pursuit Eye Movement: normal Saccadic Eye Movement: Normal Function HINTS: (3/3 positive; + LR 6.19) Not tested Head Impulse/Thrust Test: normal Gaze Holding Nystagmus: Normal Test of Skew: Not Tested Vestibular ocular reflex (VOR) Cancellation: Not tested Vestibular ocular reflex (VOR) Observed: unable to keep eyes on focus point, dizziness, and nausea provoked Cervical Artery Screen: Seated, Modified Vertebral Artery Test: N/A Cervical ROM: Within normal limits throughout Test Performed with Fixation Blocked: Spontaneous Nystagmus: Normal Gaze holding Nystagmus: Normal Head shaking Nystagmus (3-4 hz x 10 seconds, head tilt > 30 degrees, >3 beats = positive): Normal Positional Tests: Test performed with fixation blocked (frenzel goggles on): Right hallpike: negative for dizziness and negative nystagmus Left hallpike: negative for dizziness and negative nystagmus Right roll test: negative for dizziness and negative nystagmus Left roll test: negative for dizziness and negative nystagmus Treatment: VOR x 1 x 3 bouts 2 different times during therapy session Home instruction provided for follow through on VOR/ gaze stabilization exercises. Education/Handouts: Discharge recommendations, Educated on hypofunction presentation, and Educated on the 3 systems our brain uses for balance (vision, vestibular, proprioception) Under stress (surgery, anaesthesia) an old/ underlying hypofunction can become decompensated and need re-training/ stimulation to return brain to recognize normal for patient. Multidisciplinary Communication: RN Patient History: High Complexity: 3 or more personal factors and/or comorbidities that impact plan of care: cares for 4 kids and 50 animals, recent surgery/ kidney stones, stairs to enter home Clinical Examination: High Complexity: Addressed 4 or more elements from body structures and functions (see above), and/or functional limitations as noted below. PT Clinical Presentation: Moderate Complexity: Evolving Clinical Presentation with changing clinical characteristics Clinical Decision Making: Moderate Complexity Eval Timed codes: Neuromuscular re-education x 10 minutes Total timed minutes: 10 Total treatment time: 50 Prior Level of Function Details: [place] Has 50 animals and 4 kids (9- teens) that she takescare of AM-PAC Mobility AM-PAC Functional Task Assist Needed Prior to Admission Assist Needed Current Turning in bed 4-->None (independent) 4-->None (independent) Lying to Sitting at edge of bed 4-->None (independent) 4-->None (independent) Bed to chair transfer 4-->None (independent) 4-->None (independent) Standing up from chair 4-->None (independent) 4-->None (independent) Walk in hospital room 4-->None (independent) 3-->A little (sup/min A) Distance walked (ft) Community ambulator (>1200 ft) 300 Climbing 3-5 stair with railing 4-->None (independent) 3-->A little (sup/min A) Assistive Device used None gait belt, none Raw Score (6-24, higher is more independent) 24 22 Percent Impaired 0.00% impaired 25.02% impaired ASSESSMENT Patient presents with signs and symptoms consistent with decompensated long standing hypofunction. Likely to clear with gaze stabilization exercises and increased activity. Mild BP drop supine to sit-- pt cautioned to sit and allow BP to adjust prior to standing. Discharge Recommendations: (PT) Discharge Recommendations: Anticipate patient will be safe to return to their prior living situation within the anticipated length of stay (PT) Discharge Readiness: No need to wait for therapy if medically ready for discharge (PT) Rehab Potential: Good potential, to return to independence with mobility (PT) Post-Acute Care Therapy Recommendations: No anticipated therapy needed after discharge (PT) Anticipated Equipment Needs at Discharge: None (PT) Discharge Recommendations Discussion: Discussed with, patient, patient agrees with recommendations Patient's impairments are: Decreased balance Functional limitations: Increased risk of falls with quick head turns Goals/Functional Outcomes: Patient will be safe for indep mobility in 3 days. Patient will be independent with home exercise program in 1 days. -- GOAL MET Barriers to Learning and Goal Achievement: None apparent Rehab Potential: Good PLAN Planned intervention/education: Evaluation and Neuromuscular re-education Frequency: One time Duration: 1 day Goals and Plan of Care discussed with patient/family; patient consents to treatment. Yes Plan for Next Treatment: Patient discharging home today. Home VOR x 1 exercise provided. NOTE: The clinician's signature certifies medical necessity for the treatment plan above. * Gonzalo Andrews, - 07/31/2024 8:13 AM CDT DAILY PROGRESS NOTE Admit Date: 07/29/2024 I was consulted this for kidney stone SUBJECTIVE: Mateo Martini is here for kidney stone - she is s/p Ureteroscopy Laser Lithotripsy for small stone on the right on 07/30/2024 - she tolerated this well - she ahs some dizziness which she gets after general surgery she tells me - she has some degree of dysuria which I suspect is stent related pain in geneal OBJECTIVE: Vitals: BP 116/72 (BP Cuff Size: Regular) Pulse 76 Temp 36.8 ??C (98.3 ??F) (Oral) Resp 17 LMP 07/29/2024 (Exact Date) SpO2 96% I/O last 3 completed shifts: In: 580 [Oral:180; IV:400] Out: 802 [Urine:800] General appearance: alert, cooperative, no distress, appears stated age Abdomen: soft, non-tender; no masses, no organomegaly Extremities: extremities normal, atraumatic, no cyanosis or edema Neurologic: Grossly normal Labs: See below Lab Results Component Value Date Creatinine 0.86 07/30/2024 Creatinine 0.92 07/29/2024 Creatinine 1.23 (H) 07/26/2024 Lab Results Component Value Date WBC 4.8 07/30/2024 WBC 7.5 07/29/2024 WBC 7.9 07/26/2024 Lab Results Component Value Date Hemoglobin 11.2 (L) 07/30/2024 Hemoglobin 11.6 (L) 07/29/2024 Hemoglobin 11.3 (L) 07/26/2024 No results found for: CORONAV Lab Status: No results found for: INR, PROTIME Lab Results Component Value Date Urine Clarity Clear 07/29/2024 Bilirubin Urine (mg/dL) Negative 07/29/2024 Blood, Urine (mg/dL) 1.0 (Large) (A) 07/29/2024 Glucose Urine Qual (mg/dL) Normal (Negative) 07/29/2024 Ketones, Urine (mg/dL) Negative 07/29/2024 Leukocyte Esterase, Urine (José Luis/uL) Negative 07/29/2024 PH Urine 6.5 07/29/2024 Protein, Urine Qual (mg/dL) Negative 07/29/2024 Specific [place], Urine 1.013 07/29/2024 Urobilinogen, Urine (EU/dL) Normal (Negative) 07/29/2024 White Blood Cells 4 07/29/2024 Bacteria Occasional (A) 07/29/2024 Mucus Present (A) 07/29/2024 Imaging:none ASSESSMENT/PLAN: Active problems: 1. Ureteral stone - she is s/p Ureteroscopy Laser Lithotripsy on the right on 07/30/2024 - we will arrange outpatient stent removal next week 2. Hx of kidney stone - we can get a metabolic stone work-up as an outpatient 3. Dizziness - Per primary team - I suspect this is more general surgery anesthesia related and will get better with times 4. Dysuria - She was given antibiotics pre-operatively - I don't suspect she has a Urinary Tract Infection - she could have some macrobid given until seen in the clinic for 7 days 100mg BID, but I'm sure itis needed Follow-up as outpatient Gonzalo Andrews DO * Ashwin Gregory RN - 07/30/2024 5:41 PM CDT POST-OP O: Patient will have a stable post-op period. D: Pt arrived to room 2W26/6E02-14, at 1741 (time). Patient is oriented to: person, place, and event and lethargic/drowsy. Initial Vital Signs: Temp: 36.2 ??C (97.2 ??F) (07/30/24 173) Pulse: 60 (07/30/241729) Resp: (!) 23 (07/30/241729) BP: 104/67 (07/30/241729) SpO2: 100 % (07/30/241729) Pain rated at: 0. See Assessment and Doc Flowsheets for equipment and lines/drains. A: Monitor vital signs and assess patient per protocol. Patient oriented to bed controls and call lights. Discussed plan of care with patient. See Education Record. R: Patient settled to room. Will continue to monitor. * Ashwin Gregory RN - 07/30/2024 2:28 PM CDT GOING TO PROCEDURE / SURGERY O: Patient will go to Surgery for URETEROSCOPY WITH LASER LITHOTRIPSY AND URETERAL STENT PLACEMENT,RETROGRADE PYELOGRAM D: Patient is alert and oriented x 4. Last recorded vitals: Temp: 37.6 ??C (99.6 ??F) (07/30/24551) Pulse: 92 (07/30/24551) Resp: 17 (07/30/24551) BP: 107/64 (07/30/24551) SpO2: 96 % (07/30/24551) A: Pre-procedure check list completed. Consent on chart, signed: Yes R: Awaiting transport. * Ewa Adame PA-C - 07/30/2024 7:58 AM CDT Images from the original note were not included. [facility] Medicine Progress Note Patient Name: Mateo Martini Attending: Ewa Adame PA-C Admit Date: 07/29/2024 7:31 PM Date of Service: 07/30/2024 Primary Diagnosis: nephrolithiasis Subjective: Tordal was most helpful for her pain last night in the ED. Dilaudid makes her feel sick to there stomach. Denies fevers, chills, vomiting, dysuria or hematuria. Objective: Most Recent Vital Signs: Min and Max Vital Signs (24 hours): Temp: 37.6 ??C (99.6 ??F) BP: 107/64 Pulse: 92 Resp: 17 SpO2: 96 % Temp Min: 37.4 ??C (99.4 ??F) Max: 37.7 ??C (99.9 ??F) BP Min: 107/64 Max: 154/84 Pulse Min: 84 Max: 92 Resp Min: 16 Max: 17 SpO2 Min: 96 % Max: 100 % Objective: Physical exam: VS: BP 107/64 (BP Cuff Size: Regular) Pulse 92 Temp 37.6 ??C (99.6 ??F) (Oral) Resp 17 LMP 07/29/2024 (Exact Date) SpO2 96% Constitutional: Awake, alert, no apparent distress HEENT: NC/AT. Sclera anicteric, no conjunctival injection. MMM. CV: Regular rhythm. Normal rate. No murmur appreciated. Skin: Warm and dry. Neuro: Alert & oriented x 3. Psych: Appropriate mood and affect. Labs and Imaging reviewed. Recent Labs 07/29/24200807/30/24 0727 WBC 7.5 4.8 HGB 11.6* 11.2* HCT 34.4* 33.1* PLTS 222 187 SODIUM 138 -- K 3.7 -- BUN 15 -- CREATININE 0.92 -- ANIONGAP 7 -- Reviewed microbiology and other non-ID related laboratory tests. Imaging: CT Abd/Pelvis (07/26/24): IMPRESSION: 1. 4 mm obstructing calculus in the proximal right ureter, causing mild right hydronephrosis. 2. Additional bilateral nonobstructing nephrolithiasis as described. Assessment and Plan: Mateo Martini 44 y.o. female with PMHx significant for nephrolithiasis, breast cancer, PCOS. Admitted for pain associated to kidney stone Nephrolithiasis - pain medication with toradol - history of side effects with anesthesia in the past - Urology consulted -> ureterscope with lithotripsy and stent placement today FEN: NPO, resume diet as tolerated post op Prophylaxis: low risk Disposition: inpatient pending pain control Code Status/Goals of Care: Full Ewa Adame PA-C, [facility] Medicine Pager: [phone] [facility] documented in this encounter Procedure Notes * Gonzalo Andrews DO - 07/30/2024 4:47 PM CDT [facility] Brief Operative Progress Note Surgery Date: 07/30/2024 Surgeons and Role: * Gonzalo Andrews DO - Primary Visitor: Disposal Man - Christian Pre-op Diagnosis: * Kidney stone [N20.0] * Calculus of kidney [N20.0] Post-op Diagnosis: * Kidney stone [N20.0] * Calculus of kidney [N20.0] Procedures with associated lateralities: Procedure(s) (LRB): URETEROSCOPY WITH LASER LITHOTRIPSY AND URETERAL STENT PLACEMENT, RETROGRADE PYELOGRAM and interpretation, stone basket extraction (Right) EBL: 2 mL Specimens: ID Type Source Tests Collected by Time Destination A : Stone (Calculus) Ureter, right CALCULI STONE ANALYSIS Gonzalo Andrews DO 07/30/2024 1628 Complications / Findings: she had a right mid-ureteral stone that was found and fully treated. * Gonzalo Andrews DO - 07/30/2024 12:00 AM CDT NAME: MATEO MARTINI CSN: [id number] OPERATIVE REPORT DATE OF SURGERY: 07/30/2024 : 1980 SURGEON: GONZALO ANDREWS DO PREOPERATIVE DIAGNOSIS: Right ureteral stone with intractable pain. POSTOPERATIVE DIAGNOSIS: Right ureteral stone with intractable pain. PROCEDURES: 1.Cystoscopy. 2.Right ureteroscopy. 3.Laser lithotripsy. 4.Retrograde pyelogram with interpretation and stent placement. ESTIMATED BLOOD LOSS: 2 mL. SPECIMEN REMOVED: Stone fragments from the right ureter. COMPLICATIONS: None apparent. FINDINGS: She had a right mid ureteral stone that was found and fully treated. DISPOSITION: Patient will be discharged home. SHORT HISTORY OF PRESENT ILLNESS: This is a 44-year-old female with a history of multiple kidney stones in the past. Last stone was about 10 years ago. She presents today for similar renal colic typeof a picture. She was scheduled for surgery in a couple days, but she has had intractable pain, wasadmitted to the hospital. At this point, she is presenting and talked about the risks and benefits of procedure and she wanted to proceed with ureteroscopy today. She had no signs of infection. No fevers or chills. No white count. Kidney function was good, stable. Consent was then signed. PROCEDURE IN DETAIL: The patient was brought back to OR, placed in dorsal lithotomy position, prepped and draped in sterile fashion. Administered general anesthesia and Ancef IV. Time-out was called and procedure was initiated. Cystoscope was inserted transurethrally, which demonstrated no significant abnormalities within thebladder. The right ureteral orifice was identified and a dual lumen catheter was intubated through the opening and over a wire in and wire was placed up to the level of the kidney and retrograde pyelogram was performed, which showed a clear defect. At this point, a Glidewire was placed adjacent to the Sensor wire and then the dual lumen was removed. A short rigid ureteroscope was then inserted and ureteroscopy was performed on the right and in themid ureter, stone was encountered. A 200 micron laser fiber was called for and laser lithotripsy was performed on the stone. Stone basket was used to pull out all the pieces of the stone back all theway into the proximal ureter and there were no other stone fragments that were seen after we had basketed several stone fragments. At this point, a retrograde pyelogram was again performed and showedno filling defects or extravasation of contrast. We left the Sensor wire in place and the cystoscope was then reinserted over top of the wire. A 6 multi-length double-J ureteral stent was deployed with a curl in the renal pelvis and a curl in the bladder itself. The bladder was drained. Xylocaine jelly was instilled in the urethra. FOLLOWUP: Patient will follow up in the clinic in about a week for stent removal and we can do a metabolic stone workup at that time. DO ARMANDO CAPUTO/BJ /[id number] documented in this encounter Consult Notes * Gonzalo Andrews DO - 07/30/2024 9:02 AM CDT HOSPITAL CONSULTATION Referring Provider: Dr. Barclay HPI: Mateo Martini is a 44 y.o. female seen in consultation for a 4mm R ureteral stone. -She has been seen in the ER for this several times, initially diagnosed on 07/19/2024 -She is set for ureteroscopy on 08/[address] Calles for this -Pain became much worse last night, unable to sit/stand, unable to tolerate solid foods -No fevers or chills. -CT with stone still in similar position, hydronephrosis. -UA without signs of infection -She has had several stone procedures in the past in [place]. -She has not tolerated stents well in the past, getting an infection with her previous stent. Review of Systems Pertinent positives and negatives stated in HPI otherwise ROS negative The following were reviewed in [facility]: active problem list, medication list, allergies, family history, social history, health maintenance, lab results, medical and surgical history Objective: BP 107/64 (BP Cuff Size: Regular) Pulse 92 Temp 37.6 ??C (99.6 ??F) (Oral) Resp 17 LMP 07/29/2024 (Exact Date) SpO2 96% General appearance: alert, cooperative, no distress, appears stated age Lungs: Normal effort, no audible wheezes Abdomen: soft, R CVA tender; no masses, no organomegaly Extremities: extremities normal, atraumatic, no cyanosis or edema Skin: Skin color, texture, turgor normal. No rashes or lesions Neurologic: Grossly normal Labs and Imaging reviewed in Epic and pertinent positives are as follows: Imaging: CT IMPRESSION: 1. 4 mm obstructing calculus in the proximal right ureter, causing mild right hydronephrosis. 2. Additional bilateral nonobstructing nephrolithiasis as described Labs: Last BMP: Recent Labs 07/30/24 0727 CREATININE 0.86 GLUCOSE 95 BICARB 23 CHLORIDE 111* K 3.8 SODIUM 138 BUN 10 CA 8.6 GFR >60 Last CBC: Recent Labs 07/30/24 0727 WBC 4.8 RBC 3.92 HGB 11.2* HCT 33.1* MCV 84.4 RDW 13.2 PLTS 187 Last UA: Recent Labs 07/29/241941 URAP Clear LEUKU Negative UWBC 4 UBACT Occasional* UMUC Present* ASSESSMENT -R ureteral stone PLAN: -Discussed and staffed with Dr. Andrews -Given multiple ER trips and pain, will proceed with R Ureteroscopy with laser lithotripsy and stent placement today -Discussed with patient -We discussed the procedure in detail. We discussed risks of anesthesia including but not limited to risks of PE, OR, stroke. Discussed risks of the procedure including but not limited to risks of infection, risks of tissue damage to urethra, ureter, bladder, kidney, and all other surrounding struct ures, discussed risks of bleeding. Discussed stent placement in detail including expectaions and risks such as infection, bleeding, dysuria. -After discussion she did wish to proceed -To OR later this afternoon. Darius Zhao PA-C Thank you for involving me in the care of your patient, Mateo Martini. If you have any questions regarding these recommendations, please feel free to contact me at any time. I agree with assessment and plan of Terry Zhao PA-C . I have reviewed the chart, labs, imaging and previous records of this patient. . Castro Findings on Physical Exam and Data: - some flak pain Data: Assessment and Plan: 1. Right ureteral stone - she has had intractable pain and was scheduled for surgery in a few days but is not able to tolerate this - there is no signs of infection - I spoke with her about risks and benefits of surgery and she wanted to proceed with Ureteroscopy Laser Lithotripsy on the R with Retrograde Pyelogram and stent - - There is a risk with any type of surgery from anesthesia, bleeding, infection, damage to surrounding structures, the need for more surgery, to disability or even . These are general risks. - The risk of ureteroscopy stone surgery could be bleeding, infection, damage to surrounding structures (such as ureteral strictures/injury, urethral bleeding, etc.), need for more surgery, and stentrelated pain and discomfort. I explained that ureteral stents are temporary and can not stay in fora long period of time (such as over 3 months typically). If I suspect infection during the surgery I will just place a stent. If I can not get up the ureter, a nephrostomy tube may be needed which would be done by interventional radiology. - Stents can cause urinary frequency, urgency, blood in the urine and abdominal and back discomfort. - After a complete discussion with the patient and reviewing the risks and benefits of surgery along with the alternatives and all questions were answered; we jointly decided on a treatment. - The patient will proceed with ureteroscopy, laser lithotripsy, possible stone basket extraction, retrograde pyelogram, and possible stent on the RIGHT ureter. - she has a very small stone on the left side which does not need treatment and I reviewed the images and chart. Gonzalo Andrews DO documented in this encounter OR Notes * H&P - Tracee Garvin MD - 07/29/2024 9:30 PM CDT Images from the original note were not included. [facility] Medicine History and Physical Date of Service: 07/29/2024 PCP: Radha Cowan MD HPI: Mateo Martini is a 44 y.o. female with PMH of nephrolithiasis, breast cancer, PCOS. Admittedfor pain associated to kidney stone Patient with history of kidney stones for which she has had multiple procedures and treatment. Has been having right flank pain for last 3 weeks, seen at the emergency department on 07/19/[address] imaging with notice of thick 3 mm stone in right distal ureter. Pain has not resolved. Seen inthe emergency department 3 days ago due to the same issue where she was recommended admission, however due to work constraints patient decided to be discharged from the emergency department. Coming again today due to ongoing pain. Has not able to control pain with tramadol (causing gastritis), has history nausea with opioid medication oral. Will in the ED, kidney function within normal limits, WBC within normal limits. Admission for further pain management as well as for evaluation by Urology. Past Medical Hx, Social Hx and Family Hx have been reviewed in chart. Pertinent for this hospitalization is documented above. Current outpatient medications: Outpatient Medications as of 07/30/2024 Medication Sig ketorolac (TORADOL) 10 MG tablet Take 1 Tablet (10 mg) by mouth every 6 hours as needed for Pain. ondansetron (ZOFRAN-ODT) 4 MG disintegrating tablet Take 1 Tablet by mouth every 8 hours as needed for Nausea. oxyCODONE (ROXICODONE) 5 MG immediate release tablet Take 1 Tablet by mouth every 6 hours as needed(severe pain). tamsulosin (FLOMAX) 0.4 MG CAPS capsule Take 1 Capsule (0.4 mg) by mouth daily for 30 days. Allergies: Morphine Review of Systems Pertinent items are noted in HPI. Objective: BP 135/81 Pulse 84 Temp 37.7 ??C (99.9 ??F) (Oral) Resp 16 SpO2 99% Weight: 07/24/24 : 92.1 kg (203 lb) General appearance: alert, cooperative, standing in room due to pain, moderate distress, appears stated age HEENT: Sclera anicteric, no conjunctival injection. EOMI. VALORIE. MMM, OP clear w/o exudates. Lungs: clear to auscultation bilaterally Heart: regular rate and rhythm, S1, S2 normal, no murmur, click, rub or gallop Abdomen: soft, non-tender; bowel sounds normal; no masses, no organomegaly (limited exam due to patient's position) Extremities: extremities normal, atraumatic, no cyanosis or edema Pulses: 2+ and symmetric Skin: Skin color, texture, turgor normal. No rashes or lesions Neurologic: Grossly normal Results reviewed in Epic and pertinent results are as follows: Labs: Last BMP: Recent Labs 07/29/242008 CREATININE 0.92 GLUCOSE 105* BICARB 22 CHLORIDE 109 K 3.7 SODIUM 138 BUN 15 CA 9.3 GFR >60 Last CBC: Recent Labs 07/29/242008 WBC 7.5 RBC 4.08 HGB 11.6* HCT 34.4* MCV 84.3 RDW 13.1 PLTS 222 Last UA: Recent Labs 07/29/241941 URAP Clear LEUKU Negative UWBC 4 UBACT Occasional* UMUC Present* Lab Results Component Value Date HCG, Urine Negative 07/29/2024 Imaging: Per radiologist's reading CT Abd Pelvis WO IV Cont Stone Order: [id number] Status: Final result Visible to patient: No (inaccessible in MyChart) Next appt: Today at 11:00 AM in Family Medicine (Hilda Min PA-C) 1 Patient Communication Details Reading Physician Reading Date Result Priority Sivakumar Aburto MD [phone] 07/26/2024 STAT Narrative & Impression IMPRESSION COMPARISON: None. TECHNIQUE: Stone protocol CT [...] hydronephrosis. 2. Additional bilateral nonobstructing nephrolithiasis as described ECG: None ASSESSMENT/PLAN: Mateo Martini is a 44 y.o. female with PMH of nephrolithiasis, breast cancer, PCOS. Admitted for pain associated to kidney stone Principal Problem: Calculus of kidney Active Problems: Malignant neoplasm of upper-outer quadrant of right breast in female, estrogen receptor positive (HRC) PCOS (polycystic ovarian syndrome) (HRC) Nephrolithiasis - pain medication with IV dilaudid - history of side effects with anesthesia in the past\ - CBC in am - Urology consulted, voicemail left Social Determinants of Health adding to complexity of care: None Consults/Care Discussions: Clinicians: ED and Care Team: nurse Notes Reviewed: ED clinician Diet: Orders Placed This Encounter NPO IVF: None DVT Prophylaxis: Low risk Code Status: Full Code Code Status Information Source: Discussed with patient/family Med Rec Status: Fully completed by me personally at bedside I anticipate that the patient's hospitalization will span at least the next two midnights, and theyshould be admitted as an inpatient because of a higher risk of an adverse outcome due to nephrolithiasis. I estimate the length of stay to be 1-2 nights. Billing based on: Complexity Complexity: MDM Level: Moderate Dania Alexis Barclay, MD documented in this encounter ED Notes * Christian Quintana MD - 07/29/2024 7:43 PM CDT Emergency Center Note History of Present Illness Chief Complaint Back Pain and Flank Pain HPI Mateo Martini is a 44 y.o. female with a history of breast cancer and nephrolithiasis who presents to the emergency department for ongoing right-sided low back pain and right-sided flank pain. She reports being seen at the emergency department 3 days ago for similar symptoms, diagnosed with rightureter obstructing kidney stone and denied admission due to work obligations. Since then, her pain has persisted. She has taken Tramadol, Toradol, and Zofran, which she states has caused abdominal pain and has not alleviated her symptoms. Does not tolerate oxycodone or Dilaudid well. Tylenol did not alleviate symptoms. Last dose of Toradol was yesterday, Aleve taken this morning, and ibuprofen at 1300 today (about 7 hours ago). This morning, the patient states she felt okay but as the day progressed, her pain became debilitating, unable to stand up straight, and endorses shakiness and fatigue, prompting her to visit the emergency department. Upon her arrival to the emergency department, shedenies any dysuria or fevers. Of note, she has a surgery scheduled with urology on 08/01/2024. Independent Historian None Review of External Notes None Past Medical History The patient usually receives her care from [facility]. Her chart was updated through Care Everywhere, but may be somewhat limited. 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, estrogen receptor positive Nephrolithiasis PCOS (polycystic ovarian syndrome) Stillbirth Traumatic brain injury Medications ketorolac (TORADOL) 10 MG tablet lisdexamfetamine (Vyvanse) 10 mg capsule ondansetron (ZOFRAN-ODT) 4 MG disintegrating tablet oxyCODONE (ROXICODONE) 5 MG immediate release tablet semaglutide, weight loss, (Wegovy) 2.4 mg/0.75 mL pen tamsulosin (FLOMAX) 0.4 MG CAPS capsule Surgical History Cystoscopy Pr unlisted procedure vestibule mouth (ia) pr induced abortn by d&c Lithotripsy Ureteral stents [place] teeth extraction Mastectomy Bilateral revision stage breast reconstruction with major skin tailoring, fat grafting to bilateralbreasts, donor site abdomen; implant exchange - bilateral Bilateral revision breast reconstruction, skin tailoring, scar revision, nipple areolar reconstruction- bilateral Physical Exam Triage Vitals Temp 07/29/24 1931 37.7 ??C (99.9 ??F) Temp src 07/29/241930 Oral Pulse 07/29/241930 92 Resp 07/29/241952 16 BP 07/29/241930 (!) 154/84 SpO2 07/29/241930 98 % Physical Exam GENERAL: Alert. HENT: Head and face atraumatic. EYES: Conjunctiva clear. NECK: Supple. Full ROM. CARDIOVASCULAR: Regular rate and rhythm. LUNGS: Symmetric breath sounds, no wheezes, no crackles, no rhonchi. ABDOMEN: Soft. Non-tender. Non-distended. No rebound or guarding. EXT: Extremities without deformities. SKIN: No rashes, diaphoresis or erythema. NEURO: Alert, moving all extremities. BACK: No CVA tenderness. Vitals Trending Patient Vitals for the past 24 hrs: BP Temp Temp src Pulse Resp SpO2 07/29/24 2300 112/51 37.4 ??C (99.4 ??F) Oral 91 16 100 % 07/29/241952 -- -- -- -- 16 -- 07/29/241944 135/81 -- -- 84 -- 99 % 07/29/241930 (!) 154/84 37.7 ??C (99.9 ??F) Oral 92 -- 98 % Diagnostics Lab Results Results for orders placed or performed during the hospital encounter of 07/29/24 UA Conditional UC: Clean Catch Specimen: Clean Catch; Urine Result Value Ref Range Urine Culture Comment Urinalysis results do not meet criteria for urine culture reflex. Urine Color Light-Yellow Urine Clarity Clear Clear Specific [place], Urine 1.013 <1.030 PH Urine 6.5 5.0 - 8.0 Protein, Urine Qual (mg/dL) Negative Negative, 10 , 20 Glucose Urine Qual (mg/dL) Normal (Negative) Normal (Negative), 30 , 50 Ketones, Urine (mg/dL) Negative Negative, Trace Urobilinogen, Urine (EU/dL) Normal (Negative) Normal (Negative) Bilirubin Urine (mg/dL) Negative Negative Blood, Urine (mg/dL) 1.0 (Large) (A) Negative, 0.03 (Trace) Nitrite Urine Negative Negative Leukocyte Esterase, Urine (José Luis/uL) Negative Negative, 25 (Trace) Red Blood Cells 149 (H) 0 - 3 /HPF White Blood Cells 4 0 - 5 /HPF Bacteria Occasional (A) None Seen /HPF Squamous Epithelial Cells Occasional None Seen, Occasional, Few /HPF Mucus Present (A) None Seen /HPF Urine Source Clean Catch Basic Metabolic Panel Result Value Ref Range Sodium 138 136 - 145 mmol/L Potassium 3.7 3.5 - 5.1 mmol/L Chloride 109 98 - 109 mmol/L CO2 22 20 - 29 mmol/L Anion Gap 7 6 - 16 mmol/L Calcium 9.3 8.4 - 10.4 mg/dL BUN 15 7 - 26 mg/dL Creatinine 0.92 0.55 - 1.02 mg/dL Glucose 105 (H) 70 - 100 mg/dL GFR, Estimated >60 >60 mL/min/1.73m2 Complete Blood Count-W/Diff Result Value Ref Range WBC 7.5 3.5 - 10.5 x10(9)/L RBC 4.08 3.90 - 5.03 x10(12)/L Hemoglobin 11.6 (L) 12.0 - 15.5 g/dL HCT 34.4 (L) 34.9 - 44.5 % MCV 84.3 80.0 - 100.0 fL MCH 28.4 27.6 - 33.3 pg MCHC 33.7 31.5 - 35.2 g/dL RDW 13.1 11.9 - 15.5 % Platelets 222 150 - 450 x10(9)/L Automated NRBC 0 <=0 /100 WBC Neutrophil Absolute 5.4 1.7 - 7.0 10(9)/L Lymphocyte Absolute 1.5 1.0 - 4.8 10(9)/L Monocyte Absolute 0.5 0.2 - 0.9 10(9)/L Eosinophil Absolute 0.1 0.0 - 0.5 10(9)/L Basophil Absolute 0.0 0.0 - 0.3 10(9)/L Immature Granulocyte % 0.3 0.0 - 0.5 % Extra Blue top tube Result Value Ref Range Extra Blue Top Drawn Specimen will be held for 24 hours Test (Urine) Result Value Ref Range HCG, Urine Negative Negative Imaging No orders to display EKG ECG Results None Independent Interpretation None ED Course Medications Administered Medications HYDROmorphone (DILAUDID) injection 0.3 mg (0.3 mg Intravenous Given 07/29/242023) tamsulosin (FLOMAX) capsule 0.4 mg (has no administration in time range) melatonin tablet 3 mg (has no administration in time range) acetaminophen (TYLENOL) tablet 650 mg (has no administration in time range) senna (SENOKOT) tablet 2 Tablet (has no administration in time range) And polyethylene glycol (MIRALAX) oral powder 17 g (has no administration in time range) And bisacodyl (DULCOLAX) rectal suppository 10 mg (has no administration in time range) calcium carbonate (TUMS) chewable tablet 500 mg (has no administration in time range) benzocaine-menthol (Chloraseptic) lozenge 1 Lozenge (has no administration in time range) guaiFENesin (ROBITUSSIN) oral liquid 10 mL (has no administration in time range) sodium chloride (OCEAN) 0.65 % nasal solution 1 [place] (has no administration in time range) polyethyl-propylene glycol (SYSTANE) 0.4-0.3 % ophthalmic solution 1 Drop (has no administration intime range) nystatin (MYCOSTATIN) 219018 UNIT/GM topical powder (has no administration in time range) ondansetron (ZOFRAN-ODT) disintegrating tablet 4 mg (has no administration in time range) And ondansetron (ZOFRAN) injection 4 mg (has no administration in time range) And prochlorperazine (COMPAZINE) injection 5 mg (has no administration in time range) And metoclopramide (REGLAN) injection 5 mg (has no administration in time range) HYDROmorphone (DILAUDID) injection 0.3-0.5 mg (has no administration in time range) HYDROmorphone (DILAUDID) tablet 2-4 mg (has no administration in time range) sodium chloride 0.9% bolus 1,000 mL (0 mL Intravenous Infused 07/29/242132) ondansetron (ZOFRAN) injection 8 mg (8 mg Intravenous Given 07/29/242023) ketorolac (TORADOL) injection 15 mg (15 mg Intravenous Given 07/29/242149) metoclopramide (REGLAN) injection 10 mg (10 mg Intravenous Given 07/29/242148) Procedures None Discussion of Management Admitting Hospitalist ED Course Clinical Impressions as of 07/30/2414 Kidney stone Additional Documentation None Medical Decision Making / Diagnosis MIPS None [facility] Mateo Martini is a 44 y.o. female presenting with ongoing severe pain to the right flank from an obstructing ureteral calculus. She does not have UTI or NAOMI. Her situation is complicated by the fact that she does not tolerate opioid medications well due to severe nausea and vomiting and has been trying to get by at home on Toradol and tramadol. Unfortunately the Toradol seems to be causing gastritis and she was now having epigastric pain in the tramadol does not seem to be sufficient for painmanagement. We tried pain control with IV Dilaudid but she had severe nausea and vomiting in spite of receiving 8 mg of IV Zofran so she was also given a dose of IV Reglan for treatment. Plan will befor admission for pain control and further evaluation and management. Sign-out was getting been to the admitting hospitalist Dr. Alexis Barclay. Disposition Admitted to hospitalist. Diagnosis Final diagnoses: [N20.0] Kidney stone ILudivina, am serving as a scribe to document services personally performed by Christian Quintana MD, based on my observations and the provider's statements to me. 07/29/2024 [facility] Portions of this medical record were completed by a scribe. UPON MY REVIEW AND AUTHENTICATION BY ELECTRONIC SIGNATURE, this confirms (a) I performed the applicable clinical services, and (b) the record is accurate. Christian Quintana MD 07/30/2415 documented in this encounter Plan of Treatment Upcoming Encounters Date Type Department Care Team (Late st Contact Info) Description 08/07/2024 11:00 AM CDT Appointment [facility] - Urology [address] [place] [address] Emmy Hinojosa MBBS [address] [place] [address] 09/24/2024 10:00 AM FLARE MAN Appointment [facility] - Urology [address] [facility] [place] [address] Sakshi Garrido, REMOTE SENSING PROGRAM MANAGER, [employer] [address] [place], [place] [id number] Scheduled Procedures Name Priority Associated Diagnoses Date/Ti me CYSTOSCOPY,RETROGRADE PYELOGRAM,URETEROSCOPY,HOLMIUM LASER LITHOTRIPSY OF STONE,URETERAL STENT PLACEMENT Kidney stone Intractable pain documented as of this encounter Procedures Procedure Name Priority Date/Time Associated Diagnosis Comments FL RETROGRADE PYELOGRAM Routine 07/30/2024 5:05 PM CDT CALCULI STONE ANALYSIS Routine 07/30/2024 4:28 PM CDT Kidney stone Calculus of kidney CYSTOSCOPY,RETROGRAD E PYELOGRAM,URETEROSCO PY,HOLMIUM LASER LITHOTRIPSY OF STONE,URETERAL STENT PLACEMENT 07/30/2024 3:38 PM CDT Kidney stone Calculus of kidney BASIC METABOLIC PANEL Routine 07/30/2024 7:27 AM CDT COMPLETE BLOOD COUNT-NO DIFF Routine 07/30/2024 7:27 AM CDT EXTRA BLUE TOP TUBE Routine 07/29/2024 8 :09 PM CDT CBC AND DIFFERENTIAL PANEL STAT 07/29/2024 8:09 PM CDT COMPLETE BLOOD COUNT-W/DIFF STAT 07/29/2024 8:09 PM CDT BASIC METABOLIC PANEL STAT 07/29/2024 8:09 PM CDT UA CONDITIONAL UC STAT 07/29/2024 7:4 2 PM CDT TEST (URINE) STAT Add-On 07/29/2024 7:42 PM CDT FOREIGN IMAGE(S) CT ABDOMEN/PELVIS Routine 07/19/2024 7:40 PM CDT documented in this encounter Results * FL Retrograde Pyelogram (07/30/2024 5:05 PM CDT) Anatomical Region Laterality Modality Abdomen, Pelvis Radio Fluoroscop y Narrative 07/30/2024 6:03 PM CDT Images obtained during surgical procedure. Gonzalo Andrews DO RAD [place] * Calculi Stone Analysis (07/30/2024 4:28 PM CDT) Calculi Composition See Note 08/01/2024 4:40 PM CDT [facility] Comment: Calculi composed primarily of calcium oxalate dihydrate. INTERPRETIVE INFORMATION: Calculi (Stone) analysis Calculi are the products of physiological processes that yield crystalline compounds in a matrix of biological compounds and blood. ??Matrix components are not reported. ??The clinically significant crystalline components identified in calculi specimens are reported. ??Gross description may not be consistent with composition determined by FTIR analysis. Performed By: [facility] [address] [place] [id number] Maintenance Mgr: Delonte Ellison MD, PhD CLIA Number: [id number] Calculi Description See Note 08/01/2024 4:40 PM CDT [facility] Comment: Specimen consists of three brown and overton calculi fragments. The total weight is 14 mg. Calculi Mass 14 mg 08/01/2024 4:40 PM CDT [facility] Stone (Calculus) STRUCTURE OF RIGHT URETER / Unknown 07/30/2024 4:28 PM CDT 07/30/2024 4:44 PM CDT Gonzalo Andrews DO [facility] [address], [place] [address] [place] [address] * (ABNORMAL) Complete Blood Count-No Diff (07/30/2024 7:27 AM CDT) WBC 4.8 3.5 - 10.5 x10(9)/L 07/30/2024 7:35 AM CDT [facility] RBC 3.92 3.90 - 5.03 x10(12)/L 07/30/2024 7:35 AM CDT [facility] Hemoglobin 11.2(L) 12.0 - 15.5 g/dL 07/30/2024 7:35 AM CDT [facility] HCT 33.1(L) 34.9 - 44.5 % 07/30/2024 7:35 AM CDT [facility] MCV 84.4 80.0 - 100.0 fL 07/30/2024 7:35 AM CDT [facility] MCH 28.6 27.6 - 33.3 pg 07/30/2024 7:35 AM CDT [facility] MCHC 33.8 31.5 - 35.2 g/dL 07/30/2024 7:35 AM CDT [facility] RDW 13.2 11.9 - 15.5 % 07/30/2024 7:35 AM CDT [facility] Platelets 187 150 - 450 x10(9)/L 07/30/2024 7:35 AM CDT [facility] Automated NRBC 0 <=0 /100 WBC 07/30/2024 7:35 AM CDT [facility] Blood Venipuncture / Unknown 07/30/2024 7:27 AM CDT 07/30/2024 7:32 AM CDT Tracee Barclay MD [facility] [address] * (ABNORMAL) Basic Metabolic Panel (07/30/2024 7:27 AM CDT) Sodium 138 136 - 145 mmol/L 07/30/2024 8:10 AM CDT [facility] Potassium 3.8 3.5 - 5.1 mmol/L 07/30/2024 8:10 AM CDT [facility] Chloride 111(H) 98 - 109 mmol/L 07/30/2024 8:10 AM CDT [facility] CO2 23 20 - 29 mmol/L 07/30/2024 8:10 AM CDT [facility] Anion Gap 4(L) 6 - 16 mmol/L 07/30/2024 8:10 AM CDT [facility] Calcium 8.6 8.4 - 10.4 mg/dL 07/30/2024 8:10 AM CDT [facility] BUN 10 7 - 26 mg/dL 07/30/2024 8:10 AM CDT [facility] Creatinine 0.86 0.55 - 1.02 mg/dL 07/30/2024 8:10 AM CDT [facility] Glucose 95 70 - 100 mg/dL 07/30/2024 8:10 AM CDT [facility] Comment:The given reference range is for the fasting state. Non-fasting reference range for glucose is 70 - 180 mg/dL. GFR, Estimated >60 >60 mL/min/1.7 3m2 07/30/2024 8:10 AM CDT [facility] Blood Venipuncture / Unknown 07/30/2024 7:27 AM CDT 07/30/2024 7:32 AM CDT Tracee Barclay MD LAB_1 Performing Organization Address City/[facility]/ZIP Co de Phone Number [facility] [address] * Extra Blue top tube (07/29/2024 8:09 PM CDT) Extra Blue Top Drawn Specimen will be held for 24 hours 07/29/2024 10:01 PM CDT [facility] Blood Venipuncture / Unknown 07/29/2024 8:09 PM CDT 07/29/2024 8:17 PM CDT Christian Quintana MD LAB_1 [facility] [address] [place] [address], [facility] * (ABNORMAL) Complete Blood Count-W/Diff (07/29/2024 8:09 PM CDT) WBC 7.5 3.5 - 10.5 x10(9)/L 07/29/2024 8:21 PM CDT [facility] RBC 4.08 3.90 - 5.03 x10(12)/L 07/29/2024 8:21 PM CDT [facility] Hemoglobin 11.6(L) 12.0 - 15.5 g/dL 07/29/2024 8:21 PM CDT [facility] HCT 34.4(L) 34.9 - 44.5 % 07/29/2024 8:21 PM CDT [facility] MCV 84.3 80.0 - 100.0 fL 07/29/2024 8:21 PM CDT [facility] MCH 28.4 27.6 - 33.3 pg 07/29/2024 8:21 PM CDT [facility] MCHC 33.7 31.5 - 35.2 g/dL 07/29/2024 8:21 PM CDT [facility] RDW 13.1 11.9 - 15.5 % 07/29/2024 8:21 PM CDT [facility] Platelets 222 150 - 450 x10(9)/L 07/29/2024 8:21 PM CDT [facility] Automated NRBC 0 <=0 /100 WBC 07/29/2024 8:21 PM CDT [facility] Neutrophil Absolute 5.4 1.7 - 7.0 10(9)/L 07/29/2024 8:21 PM CDT [facility] Lymphocyte Absolute 1.5 1.0 - 4.8 10(9)/L 07/29/2024 8:21 PM CDT [facility] Monocyte Absolute 0.5 0.2 - 0.9 10(9)/L 07/29/2024 8:21 PM CDT [facility] Eosinophil Absolute 0.1 0.0 - 0.5 10(9)/L 07/29/2024 8:21 PM CDT [facility] Basophil Absolute 0.0 0.0 - 0.3 10(9)/L 07/29/2024 8:21 PM CDT [facility] Immature Granulocyte % 0.3 0.0 - 0.5 % 07/29/2024 8:21 PM CDT [facility] Blood Venipuncture / Unknown 07/29/2024 8:09 PM CDT 07/29/2024 8:17 PM CDT Christian Quintana MD LAB_1 [facility] [address] [facility] [address] * (ABNORMAL) Basic Metabolic Panel (07/29/2024 8:09 PM CDT) Sodium 138 136 - 145 mmol/L 07/29/2024 8:44 PM CDT [facility] Potassium 3.7 3.5 - 5.1 mmol/L 07/29/2024 8:44 PM CDT [facility] Chloride 109 98 - 109 mmol/L 07/29/2024 8:44 PM CDT [facility] CO2 22 20 - 29 mmol/L 07/29/2024 8:44 PM CDT [facility] Anion Gap 7 6 - 16 mmol/L 07/29/2024 8:44 PM CDT [facility] Calcium 9.3 8.4 - 10.4 mg/dL 07/29/2024 8:44 PM CDT [facility] BUN 15 7 - 26 mg/dL 07/29/2024 8:44 PM CDT [facility] Creatinine 0.92 0.55 - 1.02 mg/dL 07/29/2024 8:44 PM CDT [facility] Glucose 105(H) 70 - 100 mg/dL 07/29/2024 8:44 PM CDT [facility] Comment:The given reference range is for the fasting state. Non-fasting reference range for glucose is 70 - 180 mg/dL. GFR, Estimated >60 >60 mL/min/1.7 3m2 07/29/2024 8:44 PM CDT [facility] Blood Venipuncture / Unknown 07/29/2024 8:09 PM CDT 07/29/2024 8:17 PM CDT Christian Orozco Lilian LOW LAB_1 Performing Organization Address [facility] Co de Phone Number [facility] [address] * Test (Urine) (07/29/2024 7:42 PM CDT) Pathologist [facility] HCG, Urine Negative Negative 07/29/2024 8:31 PM CDT [facility] Urine URINE SPECIMEN COLLECTION, CLEAN CATCH / Unknown Non-blood Collection / Unknown 07/29/2024 7:42 PM CDT 07/29/2024 7:48 PM CDT Christian aPm Quintana MD LAB_1 Performing Organization Address [facility] de Phone Number [facility] [address] * (ABNORMAL) UA Conditional UC: Clean Catch (07/29/2024 7:42 PM CDT) [facility] Urine Culture Comment Urinalysis results do not meet criteria for urine culture reflex. 07/29/2024 8:19 PM CDT [facility] Urine Color Light-Yellow 07/29/2024 8:19 PM CDT [facility] Urine Clarity Clear Clear 07/29/2024 8:19 PM CDT [facility] Specific [place], Urine 1.013 <1.030 07/29/2024 8:19 PM CDT [facility] PH Urine 6.5 5.0 - 8.0 07/29/2024 8:19 PM CDT [facility] Protein, Urine Qual (mg/dL) Negative Negative, 10 , 20 07/29/2024 8:19 PM CDT [facility] Glucose Urine Qual (mg/dL) Normal (Negative) Normal (Negative), 30 , 50 07/29/2024 8:19 PM CDT [facility] Ketones, Urine (mg/dL) Negative Negative, Trace 07/29/2024 8:19 PM CDT [facility] Urobilinogen, Urine (EU/dL) Normal (Negative) Normal (Negative) 07/29/2024 8:19 PM CDT [facility] Bilirubin Urine (mg/dL) Negative Negative 07/29/2024 8:19 PM CDT [facility] Blood, Urine (mg/dL) 1.0 (Large)(A) Negative, 0.03 (Trace) 07/29/2024 8:19 PM CDT [facility] Nitrite Urine Negative Negative 07/29/2024 8:19 PM CDT [facility] Leukocyte Esterase, Urine (José Luis/uL) Negative Negative, 25 (Trace) 07/29/2024 8:19 PM CDT [facility] Red Blood Cells 149(H) 0 - 3 /HPF 07/29/2024 8:19 PM CDT [facility] White Blood Cells 4 0 - 5 /HPF 07/29/2024 8:19 PM CDT [facility] Bacteria Occasional(A) None Seen /HPF 07/29/2024 8:19 PM CDT [facility] Squamous Epithelial Cells Occasional None Seen, Occasional, Few /HPF 07/29/2024 8:19 PM CDT [facility] Mucus Present(A) None Seen /HPF 07/29/2024 8:19 PM CDT [facility] Urine Source Clean Catch 07/29/2024 8:19 PM CDT [facility] Urine URINE SPECIMEN COLLECTION, CLEAN CATCH / Unknown Non-blood Collection / Unknown 07/29/2024 7:42 PM CDT 07/29/2024 7:48 PM CDT Narrative [facility] - 07/29/2024 8:19 PM CDT The qualitative interpretive guidance provided (e.g., small, moderate, large) is intended to aid in quantitative result interpretation. It is not itself an FDA-cleared test result. Christian Quintana MD LAB_1 [facility] [address] [employer] [address] * Foreign Image(S) CT Abdomen/Pelvis (07/19/2024 7:40 PM CDT) Narrative EXTERNAL RESULTS - 07/30/2024 11:38 AM CDT These outside images have been uploaded into PACS. If the results were provided, they will be located in the patient's chart under the Media or Imaging tab. Foreign Images Provider RAD NON-REPORTAB LES EXTERNAL RESULTS documented in this encounter Visit Diagnoses Diagnosis Calculus of kidney- Primary Kidney stone Calculus of kidney Calculus of kidney Intractable pain Other chronic pain Malignant neoplasm of upper-outer quadrant of right breast in female, estrogen receptor positive (HRC) PCOS (polycystic ovarian syndrome) (HRC) Polycystic ovaries Kidney stone Calculus of kidney Intractable pain Other chronic pain Renal colic on right side Renal colic Kidney stone Calculus of kidney Calculus of kidney * Plan of Care - Pita Lizarraga RN - 07/31/2024 6:34 AM CDT Shift update: A/O. Abdominal/flank pain intermittent, worsens with activity. Toradol effective. Urine output cloud/y and pink. Menstrual cycle present. Nausea continues, reglan and compazine provides relief of symptoms temporary. Rest is also helpful. Reports some constipation and abdominal fullness. Reports small BM 07/29 otherwise has been awhile, not sure of exact date. Abdomen noted to be distended. Senna prn given per order at HS. Passing flatus. Encouraged fluid intake and ambulation, however difficulty in ambulating r/t dizziness/vertigo present. Reports having sore throat, lozenges helpful. Patient states has had dizziness/ vertigo describing as everything is moving around constantly since procedure. Reports having a history of these symptoms post anesthesia that last for around 1 week stating when at home with previous recoveries had to hold onto kaur and would sway back and forth when walking through her house to avoid falling. Does report to writer producer at start of this shift around 2300 when came to visit earlier in the evening that she almost fell r/t symptoms in her roombut he caught her. Around 0300, as patient was returning to room from bathroom, writer producer noted that patient lost balance swaying to one side when walking with patient. Patient did NOT fall. Education provided to not get out of bed or ambulate without assistance for patient safety, patient verbalizes an understanding and agreement. Page sent to , meclizine ordered prn along with PT eval and treat for vertigo. Plan to do orthostatics after patient rested as just up moving around now and doesn't think can tolerate at this time. Supine: BP: 109/68 Vitals: 07/31/24 0630 BP: Pulse: 64 Resp: 18 Temp: 36.8 ??C (98.3 ??F) Sitting: Vitals: 07/31/24 0633 BP: 118/72 Pulse: 68 Resp: 17 Temp: Patient will continue to progress towards symptom improvement and patient safety. Questions encouraged and answered. Call light within reach. Will report off to oncoming RN and continue to monitor inthe meantime. * Plan of Care - Pita Lizarraga RN - 07/30/2024 5:54 AM CDT Shift update: Ambulating. Voiding adequate amounts, straining urine w/o sediment noted. Pain presents with activity or movement reports tolerable. Abdominal cramping noted, however patient verbalizes not sure if from kidney stone or from menstrual cycle just starting. Aqua k pack provided and reports very helpful. NPO since 0000. Denies nausea, dizziness. Vitals: 07/30/24 0552 BP: 107/64 Pulse: 92 Resp: 17 Temp: 37.6 ??C (99.6 ??F) Questions encouraged and answered. Call light within reach. Will report off to oncoming RN and continue to monitor in the meantime. * Plan of Care - Pita Lizarraga RN - 07/29/2024 11:21 PM CDT ADMIT O: Admitted patient via cart from EC to bed # [id number]. D: Patient is alert and oriented x 4; family NOT present. See Admission Assessments. A: Discussed plan of care. See education record for admission education. Oriented to room. Call light in reach. Bed alarm: off R: Patient status: stable. Will monitor. * Triage Assessment Note - Herb Donald RN - 07/29/2024 7:28 PM CDT Pt presents in triage with a diagnosed obstructing kidney stone on right ureter with severe ongoingright flank pain. Of note, Pt was seen here in a few days ago, was diagnosed with kidney stone, recommended admission at that time but Pt declined due to work obligations. documented in this encounter Admitting Diagnoses Diagnosis Kidney stone Calculus of kidney documented in this encounter Administered Medications Inactive Administered Medications - up to 3 most recent administrations Medication Order MAR Action Action Date Dose Rate Site aprepitant (EMEND) capsule 40 mg 40 mg, Oral, ONCE, On Mon07/30/24 at 1500, For 1 dose, Tablet/Capsule should be swallowed whole., Pre-op Given 07/30/2024 2:48 PM CDT 40 mg benzocaine-menthol (Chloraseptic) lozenge 1 Lozenge 1 Lozenge, Oral, Q2H PRN, Throat Pain, Starting on Mon07/29/24 at 2319, Until Mon07/31/24 at 1646 Given 07/31/2024 7:42 AM CDT 1 Lozenge Given 07/31/2024 3:08 AM CDT 1 Lozenge Given 07/30/2024 10:24 PM CDT 1 Lozenge bisacodyl (DULCOLAX) rectal suppository 10 mg 10 mg, Rectal, DAILY PRN, Constipation, No stool in the last 3 days, Starting on Mon07/29/24 at 2319, Until Mon07/31/24 at 1646, Cumulative bowel medication orders. Administer based on medications available on JAN. If no stool in last day start Senna BID PRN no stool, if no stool in last 2 days add Miralax DAILY PRN no stool, if no stool in last 3 days add bisacodyl suppository DAILY PRN until patient stools. When patient stools, stop giving PRN meds and continue monitoring for bowel activity. When no stools X 1 day, begin regimen again until patient stools. Do not give if Absolute Neutrophil Count (ANC) is 1 k/cmm or less OR platelet count is 50 k/cmm or less. HYDROmorphone (DILAUDID) injection 0.3 mg 0.3 mg, Intravenous, Q30MIN PRN, Pain, Severe Pain (pain score 8-10), Starting on Mon07/29/24 at 2002, Until Mon07/31/24 at 1646, For 3 doses Given 07/29/2024 8:24 PM CDT 0.3 mg iohexol (OMNIPAQUE 300) 300 MG/ML injection ONCE PRN, Starting on Mon07/30/24 at 1656, Until Mon07/30/24 at 1732, Intra-op Given 07/30/2024 4:56 PM CDT 15 mL ketorolac (TORADOL) injection 15 mg 15 mg, Intravenous, ONCE PRN, Pain, Starting on Mon07/29/24 at 2003, Until Mon07/29/24 at 2150, For 1 dose Given 07/29/2024 9:50 PM CDT 15 mg ketorolac (TORADOL) injection 15 mg 15 mg, Intravenous, Q6H PRN, Pain, Moderate Pain (pain score 5-7), Starting on Mon07/30/24 at 0906, Until Mon07/31/24 at 1646, For 48 hours Given 07/31/2024 3:16 AM CDT 15 mg Given 07/30/2024 9:44 AM CDT 15 mg lactated ringers infusion 25 mL/hr, Intravenous, CONTINUOUS, Starting on Mon07/30/24 at 1445, Administer on all preop surgery patients, ages 12 and older, unless specified differently in the Protocol for Preop Initiation of IV fluids Order Set., Pre-op Restarted 07/30/2024 3:55 PM CDT Started 07/30/2024 2:50 PM CDT 25 mL/hr 25 mL/hr lidocaine (UROJET) 2 % gel prefilled syringe ONCE PRN, Starting on Mon07/30/24 at 1656, Intra-op Given 07/30/2024 4:56 PM CDT 10 mL meclizine (ANTIVERT) tablet 25 mg 25 mg, Oral, TID PRN, Dizziness/Vertigo, Starting on Mon07/31/24 at 0421, Until Mon07/31/24 at 1646 Given 07/31/2024 6:39 AM CDT 25 mg metoclopramide (REGLAN) 5 MG/ML injection - ADS Override Pull Starting on Mon07/29/24 at 2138, Until Mon07/29/24 at 2149, For 1 dose, Kev Fine: cabinet override metoclopramide (REGLAN) injection 10 mg 10 mg, Intravenous, ONCE, On Mon07/29/24 at 2200, For 1 dose, Risk of tardive dyskinesia increases with higher doses or long durations of metoclopramide therapy. Given 07/29/2024 9:49 PM CDT 10 mg metoclopramide (REGLAN) injection 5 mg 5 mg, Intravenous, Q6H PRN, Nausea, Vomiting, Starting on Mon07/29/24 at 2319, Until Mon07/31/24 at 1646, Give 1st line medications, then 2nd line, then 3rd line. Progress to next line if medication is ineffective after 15 minutes, or has been previously ineffective, or if a medication for a line is not ordered. May use medication from any line if patient preference indicates. If 3rd line agent is ineffective, call Practitioner. If unable to give IV medications contact Practitioner. Aromatherapy may be used at any time as adjunct therapy. 1st Line - ondansetron (give ondansetron ODT (oral) if able to take oral, otherwise give IV) 2nd Line -prochlorperazine 3rd Line - metoclopramide Given 07/31/2024 12:16 PM CDT 5 mg Given 07/31/2024 3:16 AM CDT 5 mg Given 07/30/2024 9:00 AM CDT 5 mg ondansetron (ZOFRAN) injection 4 mg 4 mg, Intravenous, Q6H PRN, Nausea, Vomiting, Other, If unable to take ODT ondansetron, Starting on Mon07/29/24 at 2319, Until Mon07/31/24 at 1646, Give 1st line medications, then 2nd line, then 3rd line. Progress to next line if medication is ineffective after 15 minutes, or has been previously ineffective, or if a medication for a line is not ordered. May use medication from any line if patient preference indicates. If 3rd line agent is ineffective, call Practitioner. If unable to give IV medications contact Practitioner. Aromatherapy may be used at any time as adjunct therapy. 1st line: ondansetron (give ondansetron ODT (oral) if able to take oral, otherwise give IV) 2nd line: prochlorperazine 3rd line: metoclopramide ondansetron (ZOFRAN) injection 8 mg 8 mg, Intravenous, ONCE, On Mon07/29/24 at 2030, For 1 dose, For nausea or vomiting Given 07/29/2024 8:24 PM CDT 8 mg ondansetron (ZOFRAN-ODT) disintegrating tablet 4 mg 4 mg, Oral, Q6H PRN, Vomiting, Nausea, Starting on Mon07/29/24 at 2319, Until Mon07/31/24 at 1646, Give 1st line medications, then 2nd line, then 3rd line. Progress to next line if medication is ineffective after 15 minutes, or has been previously ineffective, or if a medication for a line is not ordered. May use medication from any line if patient preference indicates. If 3rd line agent is ineffective, call Practitioner. If unable to give IV medications contact Practitioner. Aromatherapy may be used at any time as adjunct therapy. 1st line: ondansetron (give ondansetron ODT (oral) if able to take oral, otherwise give IV) 2nd line: prochlorperazine 3rd line: metoclopramide polyethylene glycol (MIRALAX) oral powder 17 g 17 g, Oral, DAILY PRN, Constipation, No stool in the last 2 days, Starting on Mon07/29/24 at 2319, Until Mon07/31/24 at 1646, Cumulative bowel medication orders. Administer based on medications available on JAN. If no stool in last day start Senna BID PRN no stool, if no stool in last 2 days add Miralax DAILY PRN no stool, if no stool in last 3 days add bisacodyl suppository DAILY PRN until patient stools. When patient stools, stop giving PRN meds and continue monitoring for bowel activity. When no stools X 1 day, begin regimen again until patient stools. prochlorperazine (COMPAZINE) injection 5 mg 5 mg, Intravenous, Q6H PRN, Nausea, Vomiting, Starting on Mon07/29/24 at 2319, Until Mon07/31/24 at 1646, Give 1st line medications, then 2nd line, then 3rd line. Progress to next line if medication is ineffective after 15 minutes, or has been previously ineffective, or if a medication for a line is not ordered. May use medication from any line if patient preference indicates. If 3rd line agent is ineffective, call Practitioner. If unable to give IV medications contact Practitioner. Aromatherapy may be used at any time as adjunct therapy. 1st Line - ondansetron (give ondansetron ODT (oral) if able to take oral, otherwise give IV) 2nd Line -prochlorperazine 3rd Line - metoclopramide Given 07/30/2024 11:23 PM CDT 5 mg scopolamine (TRANSDERM-SCOP) 1 mg/72 hours 1 Patch 1 Patch, Transdermal, Q72H, First dose on Mon07/30/24 at 1500, Until Discontinued, Apply behind the ear. 1.5 mg patch delivers 1 mg scopolamine over 3 days., Pre-op Patch Applied 07/30/2024 2:47 PM CDT 1 Patch Left Ear senna (SENOKOT) tablet 2 Tablet 2 Tablet, Oral, BID PRN, Constipation, No stool in the last day, Starting on Mon07/29/24 at 2319, Until Mon07/31/24 at 1646, Cumulative bowel medication orders. Administer based on medications available on JAN. If no stool in last day start Senna BID PRN no stool, if no stool in last 2 days add Miralax DAILY PRN no stool, if no stool in last 3 days add bisacodyl suppository DAILY PRN until patient stools. When patient stools, stop giving PRN meds and continue monitoring for bowel activity. When no stools X 1 day, begin regimen again until patient stools. Given 07/31/2024 7:49 AM CDT 2 Tablets Given 07/30/2024 11:23 PM CDT 2 Tablets sodium chloride 0.9% bolus 1,000 mL 1,000 mL, Intravenous, Administer over 0.6 Hours, ONCE, On Mon07/29/24 at 2030, For 1 dose Started 07/29/2024 8:25 PM CDT 1,000 mL sodium chloride 0.9% injection 10-60 mL 10-60 mL, Intravenous, BID, First dose on Mon07/30/24 at 0800, Until Discontinued, For an INT flush, flush with at least 10 mL. For PICC (including Power Injectable PICC), flush with 10 mL. For Port-a-Cath, flush with a minimum of 10mL. For Villar, flush with a minimum of 10 mL. For jugular, subclavian, femoral central lines, flush with a minimum 10 mL. For additional information about flushing processes, reference the Vascular Access Device Users Guide. Given 07/31/2024 7:43 AM CDT 10 mL Given 07/30/2024 8:20 PM CDT 10 mL Given 07/30/2024 8:25 AM CDT 10 mL sodium chloride 0.9% injection 10-60 mL 10-60 mL, Intravenous, PRN, Line Patency, Line Care, Starting on Mon07/30/24 at 0023, Until Mon07/31/24 at 1646, For an INT flush, flush with at least 10 mL. For PICC (including Power Injectable PICC), flush with 10 mL. For Port-a-Cath, flush with a minimum of 10mL. For Villar, flush with a minimum of 10 mL. For jugular, subclavian, femoral central lines, flush with a minimum 10 mL. For additional information about flushing processes, reference the Vascular Access Device Users Guide. Given 07/30/2024 11:24 PM CDT 10 mL documented in this encounter Active and Recently Administered Medications Times are shown in CDT. Scheduled Medication Order 07/29/2024 07/30/2024 07/31/2024 aprepitant (EMEND) capsule 40 mg (COMPLETED) 40 mg, Oral, ONCE, On Mon07/30/24 at 1500, For 1 dose, Tablet/Capsule should be swallowed whole., Pre-op 1448 (Given - Provider: Meaghan Kirk RN) ceFAZolin (ANCEF) 2 g in dextrose 100 mL premade IVPB (COMPLETED) 2 g, Intravenous, Administer over 30 Minutes, ONCE, On Mon07/30/24 at 0800, For 1 dose, Infuse within 60 minutes prior to incision. Re-dose 1g IV every 4 hours after initial dose until incision closed. Re-dose if more than 1.5 L of blood loss. Pharmacy may adjust for renal insufficiency., Pre-op 0921 (Not Given - Provider: Ashwin Gregory RN - Reason: Medication not available - Comment: surgery not due yet, per OR pharmacy.)160 (Given - Provider: Cameron Mcnamara APRN, PHARMACY ANALYST) metoclopramide (REGLAN) injection 10 mg (COMPLETED) 10 mg, Intravenous, ONCE, On Mon07/29/24 at 2200, For 1 dose, Risk of tardive dyskinesia increases with higher doses or long durations of metoclopramide therapy. 2148 (Given - Provider: Kev Fine) ondansetron (ZOFRAN) injection 8 mg (COMPLETED) 8 mg, Intravenous, ONCE, On Mon07/29/24 at 2030, For 1 dose, For nausea or vomiting 2023 (Given - Provider: Gustavo Paredes, PHIL) scopolamine (TRANSDERM-SCOP) 1 mg/72 hours 1 Patch (CANCELED) 1 Patch, Transdermal, Q72H, First dose on Mon07/30/24 at 1500, Until Discontinued, Apply behind the ear. 1.5 mg patch delivers 1 mg scopolamine over 3 days., Pre-op 144 (Patch Applied - Provider: Meaghan Kirk RN) sodium chloride 0.9% bolus 1,000 mL (COMPLETED) 1,000 mL, Intravenous, Administer over 0.6 Hours, ONCE, On Mon07/29/24 at 2030, For 1 dose 2024 (Started - Provider: Gustavo Paredes RN)2132 (Infused - Provider: Kev Fine) sodium chloride 0.9% injection 10-60 mL 10-60 mL, Intravenous, BID, First dose on Mon07/30/24 at 0800, Until Discontinued, For an INT flush, flush with at least 10 mL. For PICC (including Power Injectable PICC), flush with 10 mL. For Port-a-Cath, flush with a minimum of 10mL. For Villar, flush with a minimum of 10 mL. For jugular, subclavian, femoral central lines, flush with a minimum 10 mL. For additional information about flushing processes, reference the Vascular Access Device Users Guide. 0825 (Given - Provider: Ashwin Gregory, PHIL)1416 (MAR Hold - Provider: Automat[employer] - Reason: Other (Enter Reason in Comment Area))173 (MAR Unhold - Provider: [employer]omatichold)2020 (Given - Provider: Ashwin Gregory RN) 0743 (Given - Provider: Linda Parry, PHIL) tamsulosin (FLOMAX) capsule 0.4 mg 0.4 mg, Oral, DAILY, First dose on Mon07/30/24 at 0800, Until Discontinued, Swallow whole. Do not chew, crush, or dissolve the granules inside of the capsule. 0822 (Not Given - Provider: Ashwin Gregory RN - Reason: Contraindication - Comment: pt NPO)1416 (JAN Hold - Provider: Automatichold - Reason: Other (Enter Reason in Comment Area))1732 (JAN Unhold - Provider: Automatichold) 0751 (Not Given - Provider: Linda Parry, PHIL - Reason: Other (Enter Reason in Comment Area) - Comment: pt was given to help pass her stone, now has stent placed. Per pt med makes her vomit) Continuous Medication Order 07/29/2024 07/30/2024 07/31/2024 lactated ringers infusion (CANCELED) 25 mL/hr, Intravenous, CONTINUOUS, Starting on Mon07/30/24 at 1445, Administer on all preop surgery patients, ages 12 and older, unless specified differently in the Protocol for Preop Initiation of IV fluids Order Set., Pre-op 1450 (Started - Provider: Meaghan Kirk RN)1554 (Stopped - Provider: Irma Guajardo APRN, GOKUL - Comment: Switch to gravity)1555 (Restarted - Provider: Irma Guajardo APRN, GOKUL)1637 (Anesthesia Fluid - Provider: Cameron Mcnamara APRN, GOKUL) PRN Medication Order 07/29/2024 07/30/2024 07/31/2024 acetaminophen (TYLENOL) tablet 650 mg 650 mg, Oral, Q6H PRN, Pain/Fever, fever greater than 101 F, Starting on Mon07/29/24 at 2319, Until Mon07/31/24 at 1646, Give for mild pain (pain score 1-4) or if patient prefers acetaminophen over other options for pain (all pain scores). benzocaine-menthol (Chloraseptic) lozenge 1 Lozenge 1 Lozenge, Oral, Q2H PRN, Throat Pain, Starting on Mon07/29/24 at 2319, Until Mon07/31/24 at 1646 1416 ([facility] Hold - Provider: Automatichold - Reason: Other (Enter Reason in Comment Area))1732 ([facility] Unhold - Provider: Automatichold)2224 (Given - Provider: Ashwin Gregory, RN) 0308 (Given - Provider: Pita Lizarraga, RN)0742 (Given - Provider: Linda Parry RN) bisacodyl (DULCOLAX) rectal suppository 10 mg(Linked Group 1) 10 mg, Rectal, DAILY PRN, Constipation, No stool in the last 3 days, Starting on Mon07/29/24 at 2319, Until Mon07/31/24 at 1646, Cumulative bowel medication orders. Administer based on medications available on JAN. If no stool in last day start Senna BID PRN no stool, if no stool in last 2 days add Miralax DAILY PRN no stool, if no stool in last 3 days add bisacodyl suppository DAILY PRN until patient stools. When patient stools, stop giving PRN meds and continue monitoring for bowel activity. When no stools X 1 day, begin regimen again until patient stools. Do not give if Absolute Neutrophil Count (ANC) is 1 k/cmm or less OR platelet count is 50 k/cmm or less. 1416 ([facility] Hold - Provider: Automatichold - Reason: Other (Enter Reason in Comment Area))173 ([facility] Unhold - Provider: Automatichold) calcium carbonate (TUMS) chewable tablet 500 mg 500 mg, Oral, Q4H PRN, Heartburn, Upset Stomach, Starting on Mon07/29/24 at 2319, Until Mon07/31/24 at 1646, Each tablet provides 200 mg elemental calcium 1416 ([facility] Hold - Provider: Automatichold - Reason: Other (Enter Reason in Comment Area))173 ([facility] Unhold - Provider: Automatichold) guaiFENesin (ROBITUSSIN) oral liquid 10 mL 10 mL, Oral, Q4H PRN, Cough, Starting on Mon07/29/24 at 2319, Until Mon07/31/24 at 1646 1416 ([facility] Hold - Provider: Automatichold - Reason: Other (Enter Reason in Comment Area))173 ([facility] Unhold - Provider: Automatichold) HYDROmorphone (DILAUDID) injection 0.3 mg 0.3 mg, Intravenous, Q30MIN PRN, Pain, Severe Pain (pain score 8-10), Starting on Mon07/29/24 at 2003, Until Mon07/31/24 at 1646, For 3 doses 2023 (Given - Provider: Gustavo Paredes RN) 1416 ([facility] Hold - Provider: Automatichold - Reason: Other (Enter Reason in Comment Area))173 ([facility] Unhold - Provider: Automatichold) HYDROmorphone (DILAUDID) injection 0.3-0.5 mg 0.3-0.5 mg, Intravenous, Q2H PRN, Other, Moderate Pain (pain score 5-7) or Severe Pain (pain score 8-10), Starting on Mon07/29/24 at 2319, Until Mon07/31/24 at 1646, For moderate or severe pain not controlled by oral opioids or if patient is unable to take PO. Do NOT administer at the same time as PO opioids. May administer 2 hours after PO opioid administration if needed. Do not give if RR less than 8. 1416 ([facility] Hold - Provider: Automatichold - Reason: Other (Enter Reason in Comment Area))173 ([facility] Unhold - Provider: Automatichold) HYDROmorphone (DILAUDID) tablet 2-4 mg 2-4 mg, Oral, Q4H PRN, Other, Moderate Pain (pain score 5-7) or Severe Pain (pain score 8-10), Starting on Mon07/29/24 at 2319, Until Mon07/31/24 at 1646, For moderate or severe pain. Do NOT administer at the same time as IV opioids. May administer 2 hours after IV opioid administration. Do not give if RR less than 8. 1416 ([facility] Hold - Provider: Automatichold - Reason: Other (Enter Reason in Comment Area))173 ([facility] Unhold - Provider: Automatichold) iohexol (OMNIPAQUE 300) 300 MG/ML injection (CANCELED) ONCE PRN, Starting on Mon07/30/24 at 1656, Until Mon07/30/24 at 1732, Intra-op 1655 (Given - Provider: Gonzalo Andrews DO) ketorolac (TORADOL) injection 15 mg (COMPLETED) 15 mg, Intravenous, ONCE PRN, Pain, Starting on Mon07/29/24 at 2003, Until Mon07/29/24 at 2150, For 1 dose 2150 (Given - Provider: Kev Fine) ketorolac (TORADOL) injection 15 mg 15 mg, Intravenous, Q6H PRN, Pain, Moderate Pain (pain score 5-7), Starting on Mon07/30/24 at 0906, Until Mon07/31/24 at 1646, For 48 hours 0944 (Given - Provider: Ashwin Gregory, PHIL)1416 ([facility] Hold - Provider: Automatichold - Reason: Other (Enter Reason in Comment Area))1732 ([facility] Unhold - Provider: Automatichold) 0316 (Given - Provider: Pita Lizarraga, PHIL) lidocaine (UROJET) 2 % gel prefilled syringe (CANCELED) ONCE PRN, Starting on Mon07/30/24 at 1656, Intra-op 1656 (Given - Provider: Gonzalo Andrews DO) meclizine (ANTIVERT) tablet 25 mg 25 mg, Oral, TID PRN, Dizziness/Vertigo, Starting on Mon07/31/24 at 0421, Until Mon07/31/24 at 1646 0639 (Given - Provider: Pita Lizarraga, PHIL) melatonin tablet 3 mg 3 mg, Oral, HS PRN, Other, Mild insomnia, Starting on Mon07/29/24 at 2319, Until Mon07/31/24 at 1646 1416 ([facility] Hold - Provider: Automatichold - Reason: Other (Enter Reason in Comment Area))1732 ([facility] Unhold - Provider: Automatichold) metoclopramide (REGLAN) injection 5 mg(Linked Group 2) 5 mg, Intravenous, Q6H PRN, Nausea, Vomiting, Starting on Mon07/29/24 at 2319, Until Mon07/31/24 at 1646, Give 1st line medications, then 2nd line, then 3rd line. Progress to next line if medication is ineffective after 15 minutes, or has been previously ineffective, or if a medication for a line is not ordered. May use medication from any line if patient preference indicates. If 3rd line agent is ineffective, call Practitioner. If unable to give IV medications contact Practitioner. Aromatherapy may be used at any time as adjunct therapy. 1st Line - ondansetron (give ondansetron ODT (oral) if able to take oral, otherwise give IV) 2nd Line -prochlorperazine 3rd Line - metoclopramide 0900 (Given - Provider: Ashwin Gregory, RN)1416 ([facility] Hold - Provider: Automatichold - Reason: Other (Enter Reason in Comment Area))1732 ([facility] Unhold - Provider: Automatichold) 0316 (Given - Provider: Pita Lizarraga, PHIL)1216 (Given - Provider: Linda Parry RN - Comment: per pt request) nystatin (MYCOSTATIN) [id number] UNIT/GM topical powder Topical, BID PRN, Other, for rash due to yeast, Starting on Mon07/29/24 at 2319, Apply topically to affected area. Hazardous waste disposal required. 1416 ([facility] Hold - Provider: Automatichold - Reason: Other (Enter Reason in Comment Area))1732 ([facility] Unhold - Provider: Automatichold) ondansetron (ZOFRAN) injection 4 mg(Linked Group 2) 4 mg, Intravenous, Q6H PRN, Nausea, Vomiting, Other, If unable to take ODT ondansetron, Starting on Mon07/29/24 at 2319, Until Mon07/31/24 at 1646, Give 1st line medications, then 2nd line, then 3rd line. Progress to next line if medication is ineffective after 15 minutes, or has been previously ineffective, or if a medication for a line is not ordered. May use medication from any line if patient preference indicates. If 3rd line agent is ineffective, call Practitioner. If unable to give IV medications contact Practitioner. Aromatherapy may be used at any time as adjunct therapy. 1st line: ondansetron (give ondansetron ODT (oral) if able to take oral, otherwise give IV) 2nd line: prochlorperazine 3rd line: metoclopramide 1416 ([facility] Hold - Provider: Automatichold - Reason: Other (Enter Reason in Comment Area))1732 ([facility] Unhold - Provider: Automatichold) ondansetron (ZOFRAN-ODT) disintegrating tablet 4 mg(Linked Group 2) 4 mg, Oral, Q6H PRN, Vomiting, Nausea, Starting on Mon07/29/24 at 2319, Until Mon07/31/24 at 1646, Give 1st line medications, then 2nd line, then 3rd line. Progress to next line if medication is ineffective after 15 minutes, or has been previously ineffective, or if a medication for a line is not ordered. May use medication from any line if patient preference indicates. If 3rd line agent is ineffective, call Practitioner. If unable to give IV medications contact Practitioner. Aromatherapy may be used at any time as adjunct therapy. 1st line: ondansetron (give ondansetron ODT (oral) if able to take oral, otherwise give IV) 2nd line: prochlorperazine 3rd line: metoclopramide 141 ([facility] Hold - Provider: Automatichold - Reason: Other (Enter Reason in Comment Area))173 ([facility] Unhold - Provider: Automatichold) polyethyl-propylene glycol (SYSTANE) 0.4-0.3 % ophthalmic solution 1 Drop 1 Drop, Both Eyes, Q1H PRN, Dry Eyes, Itchy Eyes, Starting on Mon07/29/24 at 2319, Until Mon07/31/24 at 1646 141 ([facility] Hold - Provider: Automatichold - Reason: Other (Enter Reason in Comment Area))173 ([facility] Unhold - Provider: Automatichold) polyethylene glycol (MIRALAX) oral powder 17 g(Linked Group 1) 17 g, Oral, DAILY PRN, Constipation, No stool in the last 2 days, Starting on Mon07/29/24 at 2319, Until Mon07/31/24 at 1646, Cumulative bowel medication orders. Administer based on medications available on JAN. If no stool in last day start Senna BID PRN no stool, if no stool in last 2 days add Miralax DAILY PRN no stool, if no stool in last 3 days add bisacodyl suppository DAILY PRN until patient stools. When patient stools, stop giving PRN meds and continue monitoring for bowel activity. When no stools X 1 day, begin regimen again until patient stools. 1416 ([facility] Hold - Provider: Automatichold - Reason: Other (Enter Reason in Comment Area))173 ([facility] Unhold - Provider: Automatichold) prochlorperazine (COMPAZINE) injection 5 mg(Linked Group 2) 5 mg, Intravenous, Q6H PRN, Nausea, Vomiting, Starting on Mon07/29/24 at 2319, Until Mon07/31/24 at 1646, Give 1st line medications, then 2nd line, then 3rd line. Progress to next line if medication is ineffective after 15 minutes, or has been previously ineffective, or if a medication for a line is not ordered. May use medication from any line if patient preference indicates. If 3rd line agent is ineffective, call Practitioner. If unable to give IV medications contact Practitioner. Aromatherapy may be used at any time as adjunct therapy. 1st Line - ondansetron (give ondansetron ODT (oral) if able to take oral, otherwise give IV) 2nd Line -prochlorperazine 3rd Line - metoclopramide 1416 ([facility] Hold - Provider: Automatichold - Reason: Other (Enter Reason in Comment Area))173 ([facility] Unhold - Provider: Automatichold)232 (Given - Provider: Pita Lizarraga, PHIL) senna (SENOKOT) tablet 2 Tablet(Linked Group 1) 2 Tablet, Oral, BID PRN, Constipation, No stool in the last day, Starting on Mon07/29/24 at 2319, Until Mon07/31/24 at 1646, Cumulative bowel medication orders. Administer based on medications available on JAN. If no stool in last day start Senna BID PRN no stool, if no stool in last 2 days add Miralax DAILY PRN no stool, if no stool in last 3 days add bisacodyl suppository DAILY PRN until patient stools. When patient stools, stop giving PRN meds and continue monitoring for bowel activity. When no stools X 1 day, begin regimen again until patient stools. 1416 ([facility] Hold - Provider: Automatichold - Reason: Other (Enter Reason in Comment Area))173 ([facility] - Provider: Automatichold)2323 (Given - Provider: Pita Lizarraga RN) 0749 (Given - Provider: Linda Parry RN) sodium chloride (OCEAN) 0.65 % nasal solution 1 [place] 1 [place], Both Nostrils, Q2H PRN, Dry Nose, Starting on Mon07/29/24 at 2319, Until Mon07/31/24 at 1646 1416 ([facility] Hold - Provider: Automatichold - Reason: Other (Enter Reason in Comment Area))173 ([facility] Unhold - Provider: Automatichold) sodium chloride 0.9% injection 10-60 mL 10-60 mL, Intravenous, PRN, Line Patency, Line Care, Starting on Mon07/30/24 at 0023, Until Mon07/31/24 at 1646, For an INT flush, flush with at least 10 mL. For PICC (including Power Injectable PICC), flush with 10 mL. For Port-a-Cath, flush with a minimum of 10mL. For Villar, flush with a minimum of 10 mL. For jugular, subclavian, femoral central lines, flush with a minimum 10 mL. For additional information about flushing processes, reference the Vascular Access Device Users Guide. 1416 ([facility] Hold - Provider: Automatichold - Reason: Other (Enter Reason in Comment Area))1732 ([facility] Unhold - Provider: Automatichold)2324 (Given - Provider: Pita Lizarraga RN) Linked Groups Order Group 1: senna (SENOKOT) tablet 2 TabletJump to med 2 Tablet, Oral, BID PRN, Constipation, No stool in the last day, Starting on Mon07/29/24 at 2319, Until Mon07/31/24 at 1646, Cumulative bowel medication orders. Administer based on medications available on JAN. If no stool in last day start Senna BID PRN no stool, if no stool in last 2 days add Miralax DAILY PRN no stool, if no stool in last 3 days add bisacodyl suppository DAILY PRN until patient stools. When patient stools, stop giving PRN meds and continue monitoring for bowel activity. When no stools X 1 day, begin regimen again until patient stools. And polyethylene glycol (MIRALAX) oral powder 17 gJump to med 17 g, Oral, DAILY PRN, Constipation, No stool in the last 2 days, Starting on Mon07/29/24 at 2319, Until Mon07/31/24 at 1646, Cumulative bowel medication orders. Administer based on medications available on JAN. If no stool in last day start Senna BID PRN no stool, if no stool in last 2 days add Miralax DAILY PRN no stool, if no stool in last 3 days add bisacodyl suppository DAILY PRN until patient stools. When patient stools, stop giving PRN meds and continue monitoring for bowel activity. When no stools X 1 day, begin regimen again until patient stools. And bisacodyl (DULCOLAX) rectal suppository 10 mgJump to med 10 mg, Rectal, DAILY PRN, Constipation, No stool in the last 3 days, Starting on Mon07/29/24 at 2319, Until Mon07/31/24 at 1646, Cumulative bowel medication orders. Administer based on medications available on JAN. If no stool in last day start Senna BID PRN no stool, if no stool in last 2 days add Miralax DAILY PRN no stool, if no stool in last 3 days add bisacodyl suppository DAILY PRN until patient stools. When patient stools, stop giving PRN meds and continue monitoring for bowel activity. When no stools X 1 day, begin regimen again until patient stools. Do not give if Absolute Neutrophil Count (ANC) is 1 k/cmm or less OR platelet count is 50 k/cmm or less. Group 2: ondansetron (ZOFRAN-ODT) disintegrating tablet 4 mgJump to med 4 mg, Oral, Q6H PRN, Vomiting, Nausea, Starting on Mon07/29/24 at 2319, Until Mon07/31/24 at 1646, Give 1st line medications, then 2nd line, then 3rd line. Progress to next line if medication is ineffective after 15 minutes, or has been previously ineffective, or if a medication for a line is not ordered. May use medication from any line if patient preference indicates. If 3rd line agent is ineffective, call Practitioner. If unable to give IV medications contact Practitioner. Aromatherapy may be used at any time as adjunct therapy. 1st line: ondansetron (give ondansetron ODT (oral) if able to take oral, otherwise give IV) 2nd line: prochlorperazine 3rd line: metoclopramide And ondansetron (ZOFRAN) injection 4 mgJump to med 4 mg, Intravenous, Q6H PRN, Nausea, Vomiting, Other, If unable to take ODT ondansetron, Starting on Mon07/29/24 at 2319, Until Mon07/31/24 at 1646, Give 1st line medications, then 2nd line, then 3rd line. Progress to next line if medication is ineffective after 15 minutes, or has been previously ineffective, or if a medication for a line is not ordered. May use medication from any line if patient preference indicates. If 3rd line agent is ineffective, call Practitioner. If unable to give IV medications contact Practitioner. Aromatherapy may be used at any time as adjunct therapy. 1st line: ondansetron (give ondansetron ODT (oral) if able to take oral, otherwise give IV) 2nd line: prochlorperazine 3rd line: metoclopramide And prochlorperazine (COMPAZINE) injection 5 mgJump to med 5 mg, Intravenous, Q6H PRN, Nausea, Vomiting, Starting on Mon07/29/24 at 2319, Until Mon07/31/24 at 1646, Give 1st line medications, then 2nd line, then 3rd line. Progress to next line if medication is ineffective after 15 minutes, or has been previously ineffective, or if a medication for a line is not ordered. May use medication from any line if patient preference indicates. If 3rd line agent is ineffective, call Practitioner. If unable to give IV medications contact Practitioner. Aromatherapy may be used at any time as adjunct therapy. 1st Line - ondansetron (give ondansetron ODT (oral) if able to take oral, otherwise give IV) 2nd Line -prochlorperazine 3rd Line - metoclopramide And metoclopramide (REGLAN) injection 5 mgJump to med 5 mg, Intravenous, Q6H PRN, Nausea, Vomiting, Starting on Mon07/29/24 at 2319, Until Mon07/31/24 at 1646, Give 1st line medications, then 2nd line, then 3rd line. Progress to next line if medication is ineffective after 15 minutes, or has been previously ineffective, or if a medication for a line is not ordered. May use medication from any line if patient preference indicates. If 3rd line agent is ineffective, call Practitioner. If unable to give IV medications contact Practitioner. Aromatherapy may be used at any time as adjunct therapy. 1st Line - ondansetron (give ondansetron ODT (oral) if able to take oral, otherwise give IV) 2nd Line -prochlorperazine 3rd Line - metoclopramide documented in this encounter Care Teams Cardiac Monitor Technician Relationship Specialty Start Date End Date Radha Cowan MD [address] [place] [address] PCP - General Obstetrics Gynecology 07/26/24 documented as of this encounter
--- OUTSIDE RECORDS SUMMARY | 2024-08-03 22:06 | XMS_ITS | Encounter Summary ---
Author Organization [facility] Address [address], [place] [address] Care Team Providers Care Casting Room Operator Name Role Phone Radha Cowan MD Primary Care Provider [phone] Reason for Referral * (Routine) - New Request Specialty Diagnoses / Procedures Referred By Contac t Referred To Contact Procedures Physical Therapy Eval and Treat Isabel Mccall MD [address] [place] [address] Referral ID Status Reason Start Date Expiration Date V isits Requested Visits Authorized [id number] New Request 07/31/2024 10/30/2025 1 1 * Procedure/Equipment (Routine) - Incomplete Specialty Diagnoses / Procedures Referred By Contac t Referred To Contact Diagnoses Kidney stone Intractable pain Procedures Case Request OR - Urology Surgery: URETEROSCOPY WITH LASER LITHOTRIPSY AND URETERAL STENT PLACEMENT, retrograde pyelogram with interpretation Gonzalo Andrews DO [address] [place] [address] Referral ID Status Reason Start Date Expiration Date V isits Requested Visits Authorized [id number] Incomplete 07/30/2024 10/29/2025 1 1 * Procedure/Equipment (Routine) - Incomplete Specialty Diagnoses / Procedures Referred By Contac t Referred To Contact Procedures Foreign Image(S) CT Abdomen/Pelvis Provider, Foreign Images [address] [phone] Referral ID Status Reason Start Date Expiration Date V isits Requested Visits Authorized [id number] Incomplete 07/30/2024 10/29/2025 1 1 * Procedure/Equipment (Routine) - Incomplete Specialty Diagnoses / Procedures Referred By Contac t Referred To Contact Procedures [place] Retrograde Pyelogram Gonzalo Andrews DO [address] [place] [address] Referral ID Status Reason Start Date Expiration Date V isits Requested Visits Authorized [id number] Incomplete 07/30/2024 10/29/2025 1 1 * Procedure/Equipment (Routine) - Incomplete Specialty Diagnoses / Procedures Referred By Contac t Referred To Contact Diagnoses Kidney stone Calculus of kidney Procedures Case Request OR - Urology Surgery: URETEROSCOPY WITH LASER LITHOTRIPSY AND URETERAL STENT PLACEMENT, RETROGRADE PYELOGRAM Darius Zhao PA-C [address] [place] [address] Referral ID Status Reason Start Date Expiration Date V isits Requested Visits Authorized [id number] Incomplete 07/30/2024 10/29/2025 1 1 Reason for Visit * Auth/Cert (Routine) Specialty Diagnoses / Procedures Referred By Contac t Referred To Contact Diagnoses Kidney stone Kidney stone Referral ID Status Reason Start Date Expiration Date Visits Re quested Visits Authorized [id number] 1 1 Encounter Details Date Type Department Care Team (Late st Contact Info) Description 07/29/2024 7:31 PM CDT - 07/31/2024 2:30 PM CDT Emergency [facility] [address] [place] [address] Christian Quintana MD [address] [place] [address] Tracee Garvin MD [address] [place] [address] Ewa Adame PA-C [address] [place] [address] Calculus of kidney (Primary Dx); Kidney stone; Intractable pain Discharge Disposition: Home Social History Tobacco Use Types Packs/Day Years Used Date Smoking Tobacco: Never Assessed [facility] Utilities Answer Date Recorded In the [...] any time in the past 12 m [facility], were you homeless or living in a custodial (including now)? Patient declined 07/29/2024 Sex and [...] Adame PA-C - 07/31/2024 8:17 AM CDT [facility] Medicine Discharge Summary Patient ID: Mateo Martini [id number] 44 y.o. 1980 Admit date: 07/29/2024 Discharge [...] 11:15 AM INPT, METH PT GYM 7 [facility] PN METH 08/08/2024 10:45 AM Linda Madrid MD [facility] [address] [place] [id number] 09/24/2024 10:00 AM Sakshi Garrido APRN, COMMERCIAL LINES ACCOUNT MANAGER [facility] - Urology [address] Significant Diagnostic Studies (imaging, labs, micro, etc), see EMR for full details: CT Abd/Pelvis (07/26/24): IMPRESSION: 1. 4 mm obstructing calculus in the proximal right ureter, causing mild right hydronephrosis. 2. Additional bilateral nonobstructing nephrolithiasis as described. Billing based on time: Total time for the visit was >30 minutes including, but not limited to, [id number] time spent reviewing records, counseling, and coordination of care. Ewa Adame PA-C documented in this encounter Discharge Instructions * Attachments The following attachments cannot be sent through Care Everywhere. * Hydromorphone Oral Tablet (HYDROMORPHONE - ORAL) (Panamanian) * Sennosides - Correction Oral Tablet (SENNOSIDES - ORAL) (Panamanian) documented in this encounter Medications at Time [...] patient. Written medication education material provided on [place], meclazine and senna including possible side effects. Prescriptions filled by [facility] pharmacy. Belongings checklist reviewed with patient [...] supervision # of steps: 3 up/down Pattern: [id number] Transfers: Supine to Sit: independent Sit to [...] for the treatment plan above. * Gonzalo Andrews DO - 07/31/2024 8:13 AM CDT DAILY PROGRESS [...] Protein, Urine Qual (mg/dL) Negative 07/29/2024 Specific [place], Urine 1.013 07/29/2024 Urobilinogen, Urine (EU/dL) Normal [...] post-op period. D: Pt arrived to room W/, at 1741 (time). Patient is oriented to: person, place, and event and lethargic/drowsy. Initial Vital Signs: Temp: 36.2 ??C (97.2 ??F) (07/30/241729) Pulse: 60 (07/30/241729) Resp: (!) 23 (07/30/241729) [...] 92 (07/30/24551) Resp: 17 (07/30/24551) BP: 107/64 (07/30/2452) SpO2: 96 % (07/30/24551) A: Pre-procedure check list completed. Consent on chart, signed: Yes R: Awaiting transport. * Ewa Adame PA-C - 07/30/2024 7:58 AM CDT Images from the original note were not included. [facility] Medicine Progress Note Patient Name: Mateo Martini [...] affect. Labs and Imaging reviewed. Recent Labs 07/29/24200807/30/24726 WBC 7.5 4.8 HGB 11.6* 11.2* HCT [...] Status/Goals of Care: Full Ewa Adame PA-C, [facility] Medicine Pager: [phone] [facility], [facility] documented in this encounter Procedure Notes * Gonzalo Andrews DO - 07/30/2024 4:47 PM CDT [facility] Brief Operative Progress Note Surgery Date: 07/30/2024 Surgeons and Role: * Gonzalo Andrews DO - Primary Visitor: Bank Manager - Christian Pre-op Diagnosis: * Kidney stone [...] CALCULI STONE ANALYSIS Gonzalo Andrews DO 07/30/2024 6475 Complications / Findings: she had a right mid-ureteral stone that was found and fully treated. * Gonzalo Andrews DO - 07/30/2024 12:00 AM CDT NAME: MATEO MARTINI CSN: [id number] OPERATIVE REPORT DATE OF SURGERY: 07/30/2024 : [...] a metabolic stone workup at that time. GONZALO ANRDEWS DO MJB/AQS /[id number] documented in this encounter Consult Notes * [...] several stone procedures in the past in [place]. -She has not tolerated stents well in the past, getting an infection with her previous stent. Review of Systems Pertinent positives and negatives stated in HPI otherwise ROS negative The following were reviewed in Epic: active problem list, medication list, allergies, family [...] Grossly normal Labs and Imaging reviewed in [facility] and pertinent positives are as follows: Imaging: [...] but not limited to risks of PE, [place], stroke. Discussed risks of the procedure including [...] from the original note were not included. [facility] Medicine History and Physical Date of Service: [...] Abd Pelvis WO IV Cont Stone Order: [id number] Status: Final result Visible to patient: No (inaccessible in MyChart) Next appt: Today at 11:00 AM in Family Medicine (Hilda Min PA-C) 1 Patient Communication Details Reading Physician Reading Date Result Priority Sivakumar Aburto MD [phone] 07/26/2024 STAT Narrative & Impression IMPRESSION COMPARISON: [...] based on: Complexity Complexity: MDM Level: Moderate Tracee Barclay MD documented in this encounter ED Notes [...] patient usually receives her care from the [facility]. Her chart was updated through Care Everywhere, but may be somewhat limited. 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 [...] induced abortn by d&c Lithotripsy Ureteral stents [place] teeth extraction Mastectomy Bilateral revision stage breast reconstruction with major skin tailoring, fat grafting to bilateralbreasts, donor site abdomen; implant exchange - bilateral Bilateral revision breast reconstruction, skin tailoring, scar revision, nipple areolar reconstruction- bilateral Physical Exam Triage Vitals Temp 07/29/241930 37.7 ??C (99.9 ??F) Temp src 07/29/241930 [...] 135/81 -- -- 84 -- 99 % 07/29/24 193 (!) 154/84 37.7 ??C (99.9 ??F) Oral 92 -- 98 % Diagnostics Lab Results Results for orders placed or performed during the hospital encounter of 07/29/24 UA Conditional UC: Clean Catch Specimen: Clean Catch; Urine Result Value Ref Range Urine Culture Comment Urinalysis results do not meet criteria for urine culture reflex. Urine Color Light-Yellow Urine Clarity Clear Clear Specific [place], Urine 1.013 <1.030 PH Urine 6.5 5.0 [...] chloride (OCEAN) 0.65 % nasal solution 1 [place] (has no administration in time range) polyethyl-propylene glycol (SYSTANE) 0.4-0.3 % ophthalmic solution 1 Drop (has no administration intime range) nystatin (MYCOSTATIN) [id number] UNIT/GM topical powder (has no administration in [...] Hospitalist ED Course Clinical Impressions as of 07/30/24 0015 Kidney stone Additional Documentation None Medical Decision Making / Diagnosis MIPS None [facility] Mateo Martini is a 44 y.o. female [...] been to the admitting hospitalist Dr. Alexis Barlcay. Disposition Admitted to hospitalist. Diagnosis Final diagnoses: [N20.0] Kidney stone I, Ludivina Ortiz, am serving as a scribe to document services personally performed by Christian Quintana MD, based on my observations and the provider's statements to me. 07/29/2024 [facility] Portions of this medical record were completed by a scribe. UPON MY REVIEW AND AUTHENTICATION BY ELECTRONIC SIGNATURE, this confirms (a) I performed the applicable clinical services, and (b) the record is accurate. Christian Quintana MD 07/30/24 0016 documented in this encounter Plan of Treatment Upcoming Encounters Date Type Department Care Team (Late st Contact Info) Description 08/07/2024 11:00 AM CDT Appointment [facility] - Urology [address] [facility] [place] [address] Emmy Hinojosa MBBS [address] [place] [address] 09/24/2024 10:00 AM RADIAL ROUTER OPERATOR Appointment [facility] - Urology [address] [place] [address] Sakshi Garrido, TERMITE CONTROL TECHNICIAN, COMMERCIAL LINES ACCOUNT MANAGER [address] [place], [place] [address] Scheduled Procedures Name Priority Associated Diagnoses Date/Ti [...] Composition See Note 08/01/2024 4:40 PM CDT [facility] Comment: Calculi composed primarily of calcium oxalate dihydrate. INTERPRETIVE INFORMATION: Calculi (Stone) analysis Calculi are the products of physiological processes that yield crystalline compounds in a matrix of biological compounds and blood. ??Matrix components are not reported. ??The clinically significant crystalline components identified in calculi specimens are reported. ??Gross description may not be consistent with composition determined by FTIR analysis. Performed By: [facility] [address] [place] [address] Stunt Woman: Delonte Ellison MD, PhD CLIA Number: [id number] Calculi Description See Note 08/01/2024 4:40 PM CDT [facility] Comment: Specimen consists of three brown and overton calculi fragments. The total weight is 14 mg. Calculi Mass 14 mg 08/01/2024 4:40 PM CDT [facility] Stone (Calculus) STRUCTURE OF RIGHT URETER / Unknown 07/30/2024 4:28 PM CDT 07/30/2024 4:44 PM CDT Gonzalo Andrews DO LAB_[address] [address] [place] [address] * (ABNORMAL) Complete Blood Count-No Diff (07/30/2024 7:27 AM CDT) WBC 4.8 3.5 - 10.5 x10(9)/L 07/30/2024 7:35 AM CDT [facility] RBC 3.92 3.90 - 5.03 x10(12)/L 07/30/2024 7:35 AM CDT [facility] Hemoglobin 11.2(L) 12.0 - 15.5 g/dL 07/30/2024 7:35 AM CDT [facility] HCT 33.1(L) 34.9 - 44.5 % 07/30/2024 7:35 AM CDT [facility] MCV 84.4 80.0 - 100.0 fL 07/30/2024 7:35 AM CDT [facility] MCH 28.6 27.6 - 33.3 pg 07/30/2024 7:35 AM CDT [facility] MCHC 33.8 31.5 - 35.2 g/dL 07/30/2024 7:35 AM CDT [facility] RDW 13.2 11.9 - 15.5 % 07/30/2024 7:35 AM CDT [facility] Platelets 187 150 - 450 x10(9)/L 07/30/2024 7:35 AM CDT [facility] Automated NRBC 0 <=0 /100 WBC 07/30/2024 7:35 AM CDT [facility] Blood Venipuncture / Unknown 07/30/2024 7:27 AM CDT 07/30/2024 7:32 AM CDT Tracee Barclay MD LAB_1 [facility] [address] * (ABNORMAL) Basic Metabolic Panel (07/30/2024 7:27 AM CDT) Sodium 138 136 - 145 mmol/L 07/30/2024 8:10 AM CDT [facility] Potassium 3.8 3.5 - 5.1 mmol/L 07/30/2024 8:10 AM CDT [facility] Chloride 111(H) 98 - 109 mmol/L 07/30/2024 8:10 AM CDT [facility] CO2 23 20 - 29 mmol/L 07/30/2024 8:10 AM CDT [facility] Anion Gap 4(L) 6 - 16 mmol/L 07/30/2024 8:10 AM CDT [facility] Calcium 8.6 8.4 - 10.4 mg/dL 07/30/2024 8:10 AM CDT [facility] BUN 10 7 - 26 mg/dL 07/30/2024 8:10 AM CDT [facility] Creatinine 0.86 0.55 - 1.02 mg/dL 07/30/2024 8:10 AM CDT [facility] Glucose 95 70 - 100 mg/dL 07/30/2024 8:10 AM CDT [facility] Comment:The given reference range is for the fasting state. Non-fasting reference range for glucose is 70 - 180 mg/dL. GFR, Estimated >60 >60 mL/min/1.7 3m2 07/30/2024 8:10 AM CDT [facility] Blood Venipuncture / Unknown 07/30/2024 7:27 AM CDT 07/30/2024 7:32 AM CDT Tracee Barclay MD LAB_1 Performing Organization Address [facility]/ZIP Co de Phone Number [facility] [address] * Extra Blue top tube (07/29/2024 8:09 PM CDT) Pathologist [facility] Extra Blue Top Drawn Specimen will be held for 24 hours 07/29/2024 10:01 PM CDT [facility] Blood Venipuncture / Unknown 07/29/2024 8:09 PM CDT 07/29/2024 8:17 PM CDT Christian Quintana MD LAB_1 Performing Organization Address [facility] de Phone Number [facility] [address] * (ABNORMAL) Complete Blood Count-W/Diff (07/29/2024 8:09 PM CDT) Pathologist [facility] WBC 7.5 3.5 - 10.5 x10(9)/L 07/29/2024 8:21 PM CDT [facility] RBC 4.08 3.90 - 5.03 x10(12)/L 07/29/2024 8:21 PM CDT [facility] Hemoglobin 11.6(L) 12.0 - 15.5 g/dL 07/29/2024 8:21 PM CDT [facility] HCT 34.4(L) 34.9 - 44.5 % 07/29/2024 8:21 PM CDT [facility] MCV 84.3 80.0 - 100.0 fL 07/29/2024 8:21 PM CDT [facility] MCH 28.4 27.6 - 33.3 pg 07/29/2024 8:21 PM CDT [facility] MCHC 33.7 31.5 - 35.2 g/dL 07/29/2024 8:21 PM CDT [facility] RDW 13.1 11.9 - 15.5 % 07/29/2024 8:21 PM CDT [facility] Platelets 222 150 - 450 x10(9)/L 07/29/2024 8:21 PM CDT [facility] Automated NRBC 0 <=0 /100 WBC 07/29/2024 8:21 PM CDT [facility] Neutrophil Absolute 5.4 1.7 - 7.0 10(9)/L 07/29/2024 8:21 PM CDT [facility] Lymphocyte Absolute 1.5 1.0 - 4.8 10(9)/L 07/29/2024 8:21 PM CDT [facility] Monocyte Absolute 0.5 0.2 - 0.9 10(9)/L 07/29/2024 8:21 PM CDT [facility] Eosinophil Absolute 0.1 0.0 - 0.5 10(9)/L 07/29/2024 8:21 PM CDT [facility] Basophil Absolute 0.0 0.0 - 0.3 10(9)/L 07/29/2024 8:21 PM CDT [facility] Immature Granulocyte % 0.3 0.0 - 0.5 % 07/29/2024 8:21 PM CDT [facility] Blood Venipuncture / Unknown 07/29/2024 8:09 PM CDT 07/29/2024 8:17 PM CDT Christian Quintana MD LAB_1 [facility] [address] [place] [address], [facility] * (ABNORMAL) Basic Metabolic Panel (07/29/2024 8:09 PM CDT) Sodium 138 136 - 145 mmol/L 07/29/2024 8:44 PM CDT [facility] Potassium 3.7 3.5 - 5.1 mmol/L 07/29/2024 8:44 PM CDT [facility] Chloride 109 98 - 109 mmol/L 07/29/2024 8:44 PM CDT [facility] CO2 22 20 - 29 mmol/L 07/29/2024 8:44 PM CDT [facility] Anion Gap 7 6 - 16 mmol/L 07/29/2024 8:44 PM CDT [facility] Calcium 9.3 8.4 - 10.4 mg/dL 07/29/2024 8:44 PM CDT [facility] BUN 15 7 - 26 mg/dL 07/29/2024 8:44 PM CDT [facility] Creatinine 0.92 0.55 - 1.02 mg/dL 07/29/2024 8:44 PM CDT [facility] Glucose 105(H) 70 - 100 mg/dL 07/29/2024 8:44 PM CDT [facility] Comment:The given reference range is for the fasting state. Non-fasting reference range for glucose is 70 - 180 mg/dL. GFR, Estimated >60 >60 mL/min/1.7 3m2 07/29/2024 8:44 PM CDT [facility] Blood Venipuncture / Unknown 07/29/2024 8:09 PM CDT 07/29/2024 8:17 PM CDT Christian Quintana MD LAB_1 Performing Organization Address City/[facility] Co de Phone Number [facility] [address] [place] [address] * Test (Urine) (07/29/2024 7:42 PM CDT) HCG, Urine Negative Negative 07/29/2024 8:31 PM CDT [facility] Urine URINE SPECIMEN COLLECTION, CLEAN CATCH / Unknown Non-blood Collection / Unknown 07/29/2024 7:42 PM CDT 07/29/2024 7:48 PM CDT Christian Quintana MD LAB_1 Performing Organization Address [facility]/ZIP Co de Phone Number [facility] [address] [place] [address] * (ABNORMAL) UA Conditional UC: Clean Catch (07/29/2024 7:42 PM CDT) Urine Culture Comment Urinalysis results do not meet criteria for urine culture reflex. 07/29/2024 8:19 PM CDT [facility] Urine Color Light-Yellow 07/29/2024 8:19 PM CDT [facility] Urine Clarity Clear Clear 07/29/2024 8:19 PM CDT [facility] Specific [place], Urine 1.013 <1.030 07/29/2024 8:19 PM CDT [facility] PH Urine 6.5 5.0 - 8.0 07/29/2024 8:19 PM CDT [facility] Protein, Urine Qual (mg/dL) Negative Negative, 10 , 20 07/29/2024 8:19 PM CDT [facility] Glucose Urine Qual (mg/dL) Normal (Negative) Normal (Negative), 30 , 50 07/29/2024 8:19 PM CDT [facility] Ketones, Urine (mg/dL) Negative Negative, Trace 07/29/2024 8:19 PM CDT [facility] Urobilinogen, Urine (EU/dL) Normal (Negative) Normal (Negative) 07/29/2024 8:19 PM CDT [facility] Bilirubin Urine (mg/dL) Negative Negative 07/29/2024 8:19 PM CDT [facility] Blood, Urine (mg/dL) 1.0 (Large)(A) Negative, 0.03 (Trace) 07/29/2024 8:19 PM CDT [facility] Nitrite Urine Negative Negative 07/29/2024 8:19 PM CDT [facility] Leukocyte Esterase, Urine (José Luis/uL) Negative Negative, 25 (Trace) 07/29/2024 8:19 PM CDT [facility] Red Blood Cells 149(H) 0 - 3 /HPF 07/29/2024 8:19 PM CDT [facility] White Blood Cells 4 0 - 5 /HPF 07/29/2024 8:19 PM CDT [facility] Bacteria Occasional(A) None Seen /HPF 07/29/2024 8:19 PM CDT [facility] Squamous Epithelial Cells Occasional None Seen, Occasional, Few /HPF 07/29/2024 8:19 PM CDT [facility] Mucus Present(A) None Seen /HPF 07/29/2024 8:19 PM CDT [facility] Urine Source Clean Catch 07/29/2024 8:19 PM CDT [facility] Urine URINE SPECIMEN COLLECTION, CLEAN CATCH / Unknown Non-blood Collection / Unknown 07/29/2024 7:42 PM CDT 07/29/2024 7:48 PM CDT Narrative [facility] - 07/29/2024 8:19 PM CDT The qualitative interpretive guidance provided (e.g., small, moderate, large) is intended to aid in quantitative result interpretation. It is not itself an FDA-cleared test result. Christian Quintana MD LAB_1 [facility] [address] [employer] [address] * Foreign Image(S) CT Abdomen/Pelvis (07/19/2024 [...] Renal colic on right side Renal colic * Plan of Care - Pita Lizarraga [...] house to avoid falling. Does report to short story writer at start of this shift around 2300 when came to visit earlier in the evening that she almost fell r/t symptoms in her roombut he caught her. Around 0300, as patient was returning to room from bathroom, short story writer noted that patient lost balance swaying to [...] via cart from EC to bed # 2W26/9K18-60. D: Patient is alert and oriented x [...] Given 07/29/2024 8:24 PM CDT 0.3 mg ketorolac (TORADOL) injection 15 mg 15 mg, Intravenous, ONCE PRN, Pain, Starting on Mon07/29/24 at 2002, Until Mon07/29/24 at 2150, For 1 dose [...] 2:50 PM CDT 25 mL/hr 25 mL/hr meclizine (ANTIVERT) tablet 25 mg 25 mg, Oral, TID PRN, Dizziness/Vertigo, Starting on Mon07/31/24 at 0421, Until Mon07/31/24 at 1646 Given 07/31/2024 6:39 AM CDT 25 mg metoclopramide (REGLAN) 5 MG/ML injection - ADS Override Pull Starting on Mon07/29/24 at 2138, Until Mon07/29/24 at 2149, For 1 dose, Kev Fine: kevinet override metoclopramide (REGLAN) injection 10 mg 10 [...] whole., Pre-op 1448 (Given - Provider: Meaghan Kirk, PHIL) ceFAZolin (ANCEF) 2 g in dextrose 100 mL premade IVPB (COMPLETED) 2 g, Intravenous, Administer over 30 Minutes, ONCE, On Mon07/30/24 at 0800, For 1 dose, Infuse within 60 minutes prior to incision. Re-dose 1g IV every 4 hours after initial dose until incision closed. Re-dose if more than 1.5 L of blood loss. Pharmacy may adjust for renal insufficiency., Pre-op 920 (Not Given - Provider: Ashwin Gregory RN - Reason: Medication not available - Comment: surgery not due yet, per OR pharmacy.)160 (Given - Provider: Cameron Mcnamara APRN, CHILDCARE DIRECTOR) metoclopramide (REGLAN) injection 10 mg (COMPLETED) 10 mg, Intravenous, ONCE, On Mon07/29/24 at 2200, For 1 dose, Risk of tardive dyskinesia increases with higher doses or long durations of metoclopramide therapy. 2148 (Given - Provider: Kev Fine) ondansetron (ZOFRAN) injection 8 mg (COMPLETED) 8 mg, Intravenous, ONCE, On Mon07/29/24 at 2030, For 1 dose, For nausea or vomiting 2023 (Given - Provider: Gustavo Paredes RN) scopolamine (TRANSDERM-SCOP) 1 mg/72 hours 1 Patch (CANCELED) 1 Patch, Transdermal, Q72H, First dose on Mon07/30/24 at 1500, Until Discontinued, Apply behind the ear. 1.5 mg patch delivers 1 mg scopolamine over 3 days., Pre-op 144 (Patch Applied - Provider: Meaghan Kirk, PHIL) sodium chloride 0.9% bolus 1,000 mL (COMPLETED) [...] Users Guide. 0825 (Given - Provider: Ashwin Gregory RN)1416 (MAR Hold - Provider: Automatichold - Reason: Other (Enter Reason in Comment Area))1732 (MAR Unhold - Provider: Automatichold)2019 (Given - Provider: Ashwin Gregory RN) 0743 (Given - Provider: Linda Parry RN) tamsulosin (FLOMAX) capsule 0.4 mg 0.4 mg, Oral, DAILY, First dose on Mon07/30/24 at 0800, Until Discontinued, Swallow whole. Do not chew, crush, or dissolve the granules inside of the capsule. 0822 (Not Given - Provider: Ashwin Gregory RN - Reason: Contraindication - Comment: pt NPO)1416 ([facility] Hold - Provider: Automatichold - Reason: Other (Enter Reason in Comment Area))173 ([facility] Unhold - Provider: Automatichold) 0751 (Not Given - Provider: Linda Parry RN - Reason: Other (Enter Reason in Comment [...] (Anesthesia Fluid - Provider: Cameron Mcnamara APRN, CHILDCARE DIRECTOR) PRN Medication Order 07/29/2024 07/30/2024 07/31/2024 acetaminophen [...] in Comment Area))1732 (JAN Unhold - Provider: Automatichold)2224 (Given - Provider: Ashwin Gregory, RN) 0308 (Given - Provider: Pita Lizarraga, PHIL)0742 (Given - Provider: Linda Parry RN) bisacodyl [...] count is 50 k/cmm or less. 1416 (JAN Hold - Provider: Automatichold - Reason: Other (Enter Reason in Comment Area))1732 (JAN Unhold - Provider: Automatichold) calcium carbonate (TUMS) chewable tablet 500 mg 500 mg, Oral, Q4H PRN, Heartburn, Upset Stomach, Starting on Mon07/29/24 at 2319, Until Mon07/31/24 at 1646, Each tablet provides 200 mg elemental calcium 1416 ([facility] Hold - Provider: Automatichold - Reason: Other (Enter Reason in Comment Area))173 ([facility] [facility] Un[facility] - Provider: Automatichold) guaiFENesin (ROBITUSSIN) oral liquid 10 mL 10 mL, Oral, Q4H PRN, Cough, Starting on Mon07/29/24 at 2319, Until Mon07/31/24 at 1646 1416 ([facility] Hold - Provider: Automatichold - Reason: Other (Enter Reason in Comment Area))173 ([facility] Unhold - Provider: Automatichold) HYDROmorphone (DILAUDID) injection 0.3 mg 0.3 mg, Intravenous, Q30MIN PRN, Pain, Severe Pain (pain score 8-10), Starting on Mon07/29/24 at 2003, Until Mon07/31/24 at 1646, For 3 doses 2023 (Given - Provider: Gustavo Paredes RN) 1416 ([facility] Hold - Provider: Automatichold - Reason: Other (Enter Reason in Comment Area))173 ([facility] Unhold - Provider: Automatichold) HYDROmorphone (DILAUDID) [...] give if RR less than 8. 1416 ([facility] Hold - Provider: Automatichold - Reason: Other (Enter Reason in Comment Area))173 ([facility] Unhold - Provider: Automatichold) HYDROmorphone (DILAUDID) [...] give if RR less than 8. 1416 ([facility] Hold - Provider: Automatichold - Reason: Other (Enter Reason in Comment Area))1732 ([facility] Unhold - Provider: Automatichold) iohexol (OMNIPAQUE 300) 300 MG/ML injection (CANCELED) ONCE PRN, Starting on Mon07/30/24 at 1656, Until Mon07/30/24 at 1732, Intra-op 1656 (Given - Provider: Gonzalo Andrews DO) ketorolac [...] 48 hours 0944 (Given - Provider: Ashwin Gregory RN)1416 ([facility] Hold - Provider: Automatichold - Reason: Other (Enter Reason in Comment Area))173 ([facility] Unhold - Provider: Automatichold) 0316 (Given - Provider: Pita Lizarraga RN) lidocaine (UROJET) 2 % gel prefilled syringe [...] at 2319, Until Mon07/31/24 at 1646 1416 ([facility] Hold - Provider: Automatichold - Reason: Other (Enter Reason in Comment Area))1732 ([facility] Unhold - Provider: Automatichold) metoclopramide (REGLAN) [...] metoclopramide 0900 (Given - Provider: Ashwin Gregory, PHIL)1416 ([facility] Hold - Provider: Automatichold - Reason: Other (Enter Reason in Comment Area))1732 ([facility] Unhold - Provider: Automatichold) 0316 (Given - Provider: Pita Lizarraga, PHIL)1216 (Given - Provider: Linda Parry RN - Comment: per pt request) nystatin (MYCOSTATIN) 420664 UNIT/GM topical powder Topical, BID PRN, Other, for rash due to yeast, Starting on Mon07/29/24 at 2319, Apply topically to affected area. Hazardous waste disposal required. 1416 ([facility] Hold - Provider: Automatichold - Reason: Other (Enter Reason in Comment Area))1732 ([facility] Unhold - Provider: Automatichold) ondansetron (ZOFRAN) [...] 2nd line: prochlorperazine 3rd line: metoclopramide 1416 ([facility] Hold - Provider: Automatichold - Reason: Other (Enter Reason in Comment Area))173 ([facility] Unhold - Provider: Automatichold) ondansetron (ZOFRAN-ODT) [...] 2nd line: prochlorperazine 3rd line: metoclopramide 1416 ([facility] Hold - Provider: Automatichold - Reason: Other (Enter Reason in Comment Area))173 ([facility] Unhold - Provider: Automatichold) polyethyl-propylene glycol (SYSTANE) 0.4-0.3 % ophthalmic solution 1 Drop 1 Drop, Both Eyes, Q1H PRN, Dry Eyes, Itchy Eyes, Starting on Mon07/29/24 at 2319, Until Mon07/31/24 at 1646 1416 ([facility] Hold - Provider: Automatichold - Reason: Other (Enter Reason in Comment Area))1732 ([facility] Unhold - Provider: Automatichold) polyethylene glycol [...] Comment Area))173 ([facility] Unhold - Provider: Automatichold) prochlorperazine (COMPAZINE) injection [...] 2nd Line -prochlorperazine 3rd Line - metoclopramide 141 ([facility] Hold - Provider: Automatichold - Reason: Other (Enter Reason in Comment Area))173 ([facility] Unhold - Provider: Automatichold)2323 (Given - Provider: Pita Lizarraga RN) senna (SENOKOT) tablet 2 Tablet(Linked Group 1) [...] in Comment Area))1732 ([facility] Unhold - Provider: Automatichold)2323 (Given - Provider: Pita Lizarraga RN) 0749 (Given - Provider: Linda Parry RN) sodium chloride (OCEAN) 0.65 % nasal solution 1 [place] 1 [place], Both Nostrils, Q2H PRN, Dry Nose, Starting [...] Reason: Other (Enter Reason in Comment Area))173 ([facility] Unhold - Provider: Automatichold)2324 (Given - Provider: Pita Lizarraga, PHLI) Linked Groups Order Group 1: senna (SENOKOT) [...] metoclopramide documented in this encounter Care Teams Casting Room Operator Relationship Specialty Start Date End Date Radha Cowan MD [address] [place] [address] PCP - General Obstetrics Gynecology 07/26/24 documented as of this encounter
--- OUTSIDE RECORDS SUMMARY | 2024-08-03 22:06 | XMS_ITS ---
Author Organization [facility] Address [address] [place] [address] Care Team Providers Care Field Control Inspector Name Role Phone Radha Cowan MD Primary Care Provider [phone] Active Problems Problem Noted Date Diagnosed Date Malignant neoplasm of upper- outer quadrant of right breast in female, estrogen receptor positive 10/13/2020 PCOS (polycystic ovarian syndrome) 04/19/2018 Current Oncology Plans No current plan information found. Past Plans No past plan information found. Radiation Treatments * No radiation treatments are documented for this patient in [facility]. Treatments may have been administered in another system. Lifetime Dose Tracking * Chemical Lifetime Dose Automatic Entry Manual Entr y Fluoro Time 0.783 minutes 0.783 minutes 0 minutes Total Air Kerma 8.36 mGy 8.36 mGy 0 mGy Resolved Problems Problem Noted Date Diagnosed Date Resolved Date Intractable pain 07/30/2024 07/30/2024 Renal colic on right side 07/30/2024 Kidney stone 07/29/2024 07/30/2024 Calculus of kidney 07/24/2024
--- OUTSIDE RECORDS SUMMARY | 2024-08-03 22:06 | XMS_ITS | Encounter Summary ---
Author Organization [facility] Address [address], [place] [address] Care Team Providers Care Driver License Agent Name Role Phone Radha Cowan MD Primary Care Provider [phone] Reason for Visit * Auth/Cert (Routine) Specialty Diagnoses / Procedures Referred By Contac t Referred To Contact Diagnoses Kidney stone Kidney stone Referral ID Status Reason Start Date Expiration Date Visits Re quested Visits Authorized [id number] 1 1 Encounter Details Date Type Department Care Team (Late st Contact Info) Description 07/30/2024 3:55 PM CDT Anesthesia Event [facility] Operating Room [address] [facility] [place] [address] Curt Gillette MD [address] [place] [address] Severo Jorge MD [address] [place] [address] Anesthesia Record Procedure Summary Procedure Name Responsible Anesthesiologist Anesthesia Start Time Anesthesia Stop Time URETEROSCOPY WITH LASER LITHOTRIPSY AND URETERAL STENT PLACEMENT, RETROGRADE PYELOGRAM and interpretation, stone basket extraction (Right: Abdomen) Curt Gillette MD 07/30/24 1555 07/30/24 1650 Events Date Time Event Comment 07/30/2024 1554 1555 An Start 1558 An Start Data 1559 MD/ Present 1601 An Induction 1605 An Intubation 1638 / Present 1642 MD/ Present 1643 An Extubation Purposeful mov ement with spontaneous respirations and adequate air exchange. Suctioned and ETT removed. Transferred with oxygen to recovery. 1646 an stop data 1650 Care Handoff Note I discusse d with the receiving nurse and we: 1) Identified the patient, myers family member(s) or patient surrogate 2) Identified the responsible practitioner 3) Reviewed the pertinent medical history 4) Discussed the surgical/procedure course 5) Reviewed intra-op anesthesia management and issues during anesthesia 6) Set expectations for the post-procedure period 7) Allowed opportunity for questions and acknowledgement of understanding of report Electronically signed by Cameron Mcnamara APRN, CRNA 1649 An Stop Care transferre d. Meds Name Total midazolam injection 2 mg/2 mL (VERSED) 2 mg fentaNYL injection (SUBLIMAZE) 100 mcg lidocaine 1% PF injection (XYLOCAINE) 60 mg propofol 10 mg/mL IV (DIPRIVAN) 200 mg propofol 10 mg/mL IV (DIPRIVAN) 355.74 m g rocuronium injection (ZEMURON) 50 mg sugammadex injection 100mg/mL (BRIDION) 200 mg ondansetron injection (ZOFRAN) 4 mg dexamethasone 4 mg/mL injection (DECADRO N) 4 mg ceFAZolin (ANCEF) 2 g in dextrose 100 mL premade IVPB 2 g ketorolac 15 mg/mL injection (TORADOL) 1 5 mg lactated ringers infusion 400 mL * Agents Name Identified Agent Name O2 N2O Air Sevoflurane (inspired) Nitrous Oxide () * Blood No blood administrations on file. Lines, Drains, and Airways Type Details Placement Removal Peripheral IV Placement Date: 08/13; Placement Time: 2011; Pre-existing: No; Inserted by?: RN; Size (Gauge): 18 G; Orientation: Left; Site Prep: Chlorhexidine; Insertion attempts: 1; Blood draw with insertion?: yes; Patient Tolerance: Tolerated well 07/29/242011 by Gustavo Paredes RN ETT Placement Date: 07/21 ; Placement Time: 1605; Placed By: GOKUL; Induction Type: Pre-O2, IV; Masking: Easy (with #9 oral airway); ETT Type: ETT; Orientation: Right; Size (mm): 6.5; Depth Secured (cm): 22 cm; Cuffed: Cuffed; Intubation Method: DL; Cormack_Lehane Glottic Grade: Grade 1; Glottic View: Cords Open, Cords Clear; Blade: Lemon; Blade Size: 2; Insertion attempts: 1; Difficulty: Easy, Atraumatic; Adjunct Equipment: Stylet; Placement Verification: BBSE, auscultation, Positive EtCO2, capnometry; Teeth and Lips Unchanged: Unchanged; Removal Date: 07/30/24; Removal Time: 16407/30/24 1605 by Cameron Mcnamara APRN, CRNA 07/30/24 1643 by Cameron Mcnamara APRN, CRNA documented in this encounter Social History Tobacco Use Types Packs/Day Years Used Date Smoking Tobacco: Never Assessed [facility] Utilities Answer Date Recorded In the past 12 months has th e [employer], gas, oil, or water [employer] threatened to shut off services in your [...] any time in the past 12 m [facility], were you homeless or living in a group home (including now)? Patient declined 07/29/2024 Sex and Gender Information Value Date Recorded Sex Assigned at Not on file Gender Identity Not on file Sexual Orientation Not on file documented as of this encounter Miscellaneous Notes * Anesthesia Postprocedure Evaluation - Curt Gillette MD - 07/30/2024 5:35 PM CDT [facility] Anesthesia Post-op Note Patient: Atiya Maria Post-Op Diagnosis: Pre-Op Diagnosis Codes: * Kidney stone [N20.0] * Intractable pain [R52] Procedure Performed: Procedure(s): Right - URETEROSCOPY WITH LASER LITHOTRIPSY AND URETERAL STENT PLACEMENT, RETROGRADE PYELOGRAM and interpretation, stone basket extraction - Wound Class: 2 CLEAN-CONTAMINATED Anesthesia Type: General Post-op vital signs: Vitals Value Taken Time BP 104/67 07/30/24 1730 Temp 36.2 ??C (97.2 ??F) 07/30/24 1730 Pulse 60 07/30/24 1730 Resp 23 07/30/24 1730 SpO2 100 % 07/30/24 1730 Pain Score: Preferred Pain Scale: number (Numeric Rating Pain Scale) (0-10) Pain Rating: Rest: 0 (0-10) Pain Rating: Activity: 7 Post-op assessment: Patient location: PACU Airway Status: Patent Cardiovascular function: Satisfactory Hydration status: Satisfactory PONV: None Level of Consciousness: Awake Fully Participates Postop Assessment: Patient tolerated procedure well. Electronically signed by: Curt Gillette MD 07/30/2024 5:35 PM * Anesthesia Preprocedure Evaluation - Severo Jorge MD - 07/30/2024 2:39 PM CDT [facility] Anesthesia Pre-op Evaluation Procedure: URETEROSCOPY WITH LASER LITHOTRIPSY AND URETERAL STENT PLACEMENT, RETROGRADE PYELOGRAM, N/A HPI: 44 y.o. old female. Pre-Op Diagnosis Codes: * Kidney stone [N20.0] * Intractable pain [R52] Allergies Allergen Reactions Morphine Rash No past medical history on file. Patient Active Problem List Diagnosis Calculus of kidney Malignant neoplasm of upper-outer quadrant of right breast in female, estrogen receptor positive (HRC) PCOS (polycystic ovarian syndrome) (HRC) Kidney stone Intractable pain Renal colic on right side No past surgical history on file. Outpatient Medications as of 07/30/2024 Medication Sig [...] mg) by mouth daily for 30 days. Facility-Administered Medications as of 07/30/2024 Medication Dose Route Frequency acetaminophen (TYLENOL) tablet 650 mg 650 mg Oral Q6H PRN [Transfer Hold] benzocaine-menthol (Chloraseptic) lozenge 1 Lozenge 1 Lozenge Oral Q2H PRN [Transfer Hold] senna (SENOKOT) tablet 2 Tablet 2 Tablet Oral BID PRN And [Transfer Hold] polyethylene glycol (MIRALAX) oral powder 17 g 17 g Oral DAILY PRN And [Transfer Hold] bisacodyl (DULCOLAX) rectal suppository 10 mg 10 mg Rectal DAILY PRN [Transfer Hold] calcium carbonate (TUMS) chewable tablet 500 mg 500 mg Oral Q4H PRN ceFAZolin (ANCEF) 2 g in dextrose 100 mL premade IVPB 2 g Intravenous Once ceFAZolin (ANCEF) 2 g in dextrose 100 mL premade IVPB 2 g Intravenous Once [Transfer Hold] guaiFENesin (ROBITUSSIN) oral liquid 10 mL 10 mL Oral Q4H PRN [Transfer Hold] HYDROmorphone (DILAUDID) injection 0.3 mg 0.3 mg Intravenous Q30MIN PRN [Transfer Hold] HYDROmorphone (DILAUDID) injection 0.3-0.5 mg 0.3-0.5 mg Intravenous Q2H PRN [Transfer Hold] HYDROmorphone (DILAUDID) tablet 2-4 mg 2-4 mg Oral Q4H PRN [Transfer Hold] ketorolac (TORADOL) injection 15 mg 15 mg Intravenous Q6H PRN [COMPLETED] ketorolac (TORADOL) injection 15 mg 15 mg Intravenous ONCE PRN lactated ringers infusion 25 mL/hr Intravenous Continuous lactated ringers infusion [Transfer Hold] melatonin tablet 3 mg 3 mg Oral At bedtime PRN [COMPLETED] metoclopramide (REGLAN) injection 10 mg 10 mg Intravenous Once [Transfer Hold] ondansetron (ZOFRAN-ODT) disintegrating tablet 4 mg 4 mg Oral Q6H PRN And [Transfer Hold] ondansetron (ZOFRAN) injection 4 mg 4 mg Intravenous Q6H PRN And [Transfer Hold] prochlorperazine (COMPAZINE) injection 5 mg 5 mg Intravenous Q6H PRN And [Transfer Hold] metoclopramide (REGLAN) injection 5 mg 5 mg Intravenous Q6H PRN [Transfer Hold] nystatin (MYCOSTATIN) 718240 UNIT/GM topical powder Topical BID PRN [COMPLETED] ondansetron (ZOFRAN) injection 8 mg 8 mg Intravenous Once [Transfer Hold] polyethyl-propylene glycol (SYSTANE) 0.4-0.3 % ophthalmic solution 1 Drop 1 Drop Both Eyes Q1H PRN [Transfer Hold] sodium chloride (OCEAN) 0.65 % nasal solution 1 [place] 1 [place] Both Nostrils Q2H PRN [COMPLETED] sodium chloride 0.9% bolus 1,000 mL 1,000 mL Intravenous Once [Transfer Hold] sodium chloride 0.9% injection 10-60 mL 10-60 mL Intravenous BID [Transfer Hold] sodium chloride 0.9% injection 10-60 mL 10-60 mL Intravenous PRN [Transfer Hold] tamsulosin (FLOMAX) capsule 0.4 mg 0.4 mg Oral Daily Labs: Lab Results Component Value Date/Time SODIUM 138 07/30/2024 07:27 AM K 3.8 07/30/2024 07:27 AM CHLORIDE 111 (H) 07/30/2024 07:27 AM BUN 10 07/30/2024 07:27 AM CREATININE 0.86 07/30/2024 07:27 AM GLUCOSE 95 07/30/2024 07:27 AM Lab Results Component Value Date/Time WBC 4.8 07/30/2024 07:27 AM HGB 11.2 (L) 07/30/2024 07:27 AM HCT 33.1 (L) 07/30/2024 07:27 AM PLTS 187 07/30/2024 07:27 AM No results found for: INR Urine test on 07/29/2024 was Negative. Blood Bank: No results found for: ABO, ABSCR EKG: No results found for this or any previous visit. Physical Exam: BP 107/64 (BP Cuff Size: Regular) Pulse 92 Temp 37.6 ??C (99.6 ??F) (Oral) Resp 17 LMP 07/29/2024 (Exact Date) SpO2 96% Assessment/Plan: Review of Systems Patient does not have GERD. Patient is not a current smoker. The patient denies alcohol use. Patient denies any recent URI. History of PONV: Yes. History of motion sickness: No. Patient denies any personal or family history of anesthesia complications. NPO Status: Acceptable. Exam Mental Status: Alert and oriented. Mallampati score: II (Two). Mouth opening: Normal Thyromental Distance: > 3 finger breadths and Normal Neck Extension: Full Neck Circumference > 40 cm?: No Previous airway assessment: Previously EASY intubation.,. Current airway assessment:Normal Dentition: Age appropriate. Cardiac Exam: Regular rate and rhythm. Respiratory Exam: Breath sounds clear to auscultation Assessment ASA Status: 2 . Plan Anesthesia type: General and ETT Induction: Propofol and Intravenous Maintenance: TIVA Postoperative pain management: Plan for postoperative opioid use PONV Prophylaxis (planned): Ondansetron, Decadron, Scopolamine Patch and Aprepitant (D5, TIVA) Anesthetic plan, risks, benefits and alternatives discussed with the patient who agrees to the anesthesia treatment plan. Possibility of blood products discussed. Discussed risks of General Endotracheal Anesthesia with patient including but not limited to dentaldamage during ETT placement, hypoxia, cardiopulmonary complications and allergic reaction The patient and/or their packaging sales representative were notified about the potential risks of damage to the lips, teeth, dental devices, mouth and airway. H&P Reviewed and Patient examined, no change observed IV access Antibiotics per surgery Electronically signed by: Severo Jorge MD 07/30/2024 2:39 PM documented in this encounter Plan of Treatment Upcoming Encounters Date Type Department Care Team (Late st Contact Info) Description 08/07/2024 11:00 AM CDT Appointment [facility] - Urology [address] [facility]. [place], [place] [id number] Emmy Hinojosa MBBS [address] [place], [place] [id number] 09/24/2024 10:00 AM LITHOGRAPHIC ARTIST Appointment [facility] Urology [address] [place], [place] [id number] Sakshi Garrido, DIRECTORY CLERK, OIL INSPECTOR [address] [place], [place] [id number] Scheduled Procedures Name Priority Associated Diagnoses Date/Ti me CYSTOSCOPY,RETROGRADE PYELOGRAM,URETEROSCOPY,HOLMIUM LASER LITHOTRIPSY OF STONE,URETERAL STENT PLACEMENT Kidney stone Intractable pain documented as of this encounter Visit Diagnoses Not on filedocumented in this encounter Administered Medications Inactive Administered Medications - up to 3 most recent administrations Medication Order MAR Action Action Date Dose Rate Site ceFAZolin (ANCEF) 2 g in dextrose 100 mL premade IVPB 2 g, Intravenous, Administer over 30 Minutes, ONCE, On Mon07/30/24 at 0800, For 1 dose, Infuse within 60 minutes prior to incision. Re-dose 1g IV every 4 hours after initial dose until incision closed. Re-dose if more than 1.5 L of blood loss. Pharmacy may adjust for renal insufficiency., Pre-op Given 07/30/2024 4:08 PM CDT 2 g dexAMETHasone (DECADRON) injection Intravenous, Starting on Mon07/30/24 at 1602, Until Mon07/30/24 at 1651 Given 07/30/2024 4:02 PM CDT 4 mg fentaNYL (SUBLIMAZE) injection Intravenous, Starting on Mon07/30/24 at 1601, Until Mon07/30/24 at 1651 Given 07/30/2024 4:01 PM CDT 50 mcg Given 07/30/2024 3:55 PM CDT 50 mcg ketorolac (TORADOL) injection Intravenous, Starting on Mon07/30/24 at 1633, Until Mon07/30/24 at 1651 Given 07/30/2024 4:33 PM CDT 15 mg lactated ringers infusion 25 mL/hr, Intravenous, CONTINUOUS, Starting on Mon07/30/24 at 1445, Administer on all preop surgery patients, ages 12 and older, unless specified differently in the Protocol for Preop Initiation of IV fluids Order Set., Pre-op Restarted 07/30/2024 3:55 PM CDT Started 07/30/2024 2:50 PM CDT 25 mL/hr 25 mL/hr lidocaine PF (XYLOCAINE) 1 % injection Intravenous, Starting on Mon07/30/24 at 1601 Given 07/30/2024 4:01 PM CDT 60 mg midazolam (VERSED) injection Intravenous, Starting on Mon07/30/24 at 1555, Until Mon07/30/24 at 1651 Given 07/30/2024 3:55 PM CDT 2 mg ondansetron (ZOFRAN) injection Intravenous, Starting on Mon07/30/24 at 1628, Until Mon07/30/24 at 1651 Given 07/30/2024 4:28 PM CDT 4 mg propofol (DIPRIVAN) 10 mg/mL injection Intravenous, Starting on Mon07/30/24 at 1601, Until Mon07/30/24 at 1651 Given 07/30/2024 4:01 PM CDT 200 mg propofol (DIPRIVAN) 10 mg/mL injection Intravenous, Starting on Mon07/30/24 at 1601, Until Mon07/30/24 at 1651 Rate/Dose Change 07/30/2024 4:28 PM CDT 150 mcg/kg/min 55.44 mL/hr Started 07/30/2024 4:01 PM CDT 175 mcg/kg/min 64.68 mL/ hr rocuronium (ZEMURON) injection Intravenous, Starting on Mon07/30/24 at 1602, Until Mon07/30/24 at 1651 Given 07/30/2024 4:02 PM CDT 50 mg sugammadex (BRIDION) injection Intravenous, Starting on Mon07/30/24 at 1634, Until Mon07/30/24 at 1651 Given 07/30/2024 4:34 PM CDT 200 mg documented in this encounter Care Teams Driver License Agent Relationship Specialty Start Date End Date Radha Cowan MD [address] [place] [address] PCP - General Obstetrics Gynecology 07/26/24 documented as of this encounter
--- OUTSIDE RECORDS SUMMARY | 2024-08-03 22:06 | XMS_ITS | Encounter Summary ---
Author Organization [facility] Address [address] [place] [address] Care Team Providers Care Automotive Collision Estimator Name Role Phone Radha Cowan MD Primary Care Provider [phone] Reason for Visit * Auth/Cert (Routine) Specialty Diagnoses / Procedures Referred By Dara t Referred To Contact Diagnoses Calculus of kidney Procedures URETEROSCOPY WITH LASER LITHOTRIPSY AND URETERAL STENT PLACEMENT with retrograde pyelogram Referral ID Status Reason Start Date Expiration Date Visits Re quested Visits Authorized [id number] 1 1 Encounter Details Date Type Department Care Team (Late st Contact Info) Description 08/01/2024 Hospital Encounter [facility] Operating Room [address] [facility] [address] [place] [address] Bashir Calles MD [address] [place] [address] Social History Tobacco Use Types Packs/Day Years Used Date Smoking Tobacco: Never Assessed [facility] Utilities Answer Date Recorded In the past 12 months has [employer] gas, oil, or water [employer] threatened to shut off services in your [...] any time in the past 12 m [facility], were you homeless or living in a halfway (including now)? Patient declined 07/29/2024 Sex and Gender Information Value Date Recorded Sex Assigned at Not on file Gender Identity Not on file Sexual Orientation Not on file documented as of this encounter Plan of Treatment Upcoming Encounters Date Type Department Care Team (Late st Contact Info) Description 08/07/2024 11:00 AM CDT Appointment [facility] - Urology [address] [facility] [address] [place] [address] Emmy Hinojosa MBBS [address] [place] [address] 09/24/2024 10:00 AM TRAVEL INFORMATION CENTER SUPERVISOR Appointment [facility] - Urology [address] [facility] [address] [place], [place] [phone] Sakshi Garrido, SUPERVISOR PAPER TESTING, FUTURES TRADER [address] [place], [place] [address] Scheduled Procedures Name Priority Associated Diagnoses Date/Ti me CYSTOSCOPY,RETROGRADE PYELOGRAM,URETEROSCOPY,HOLMIUM LASER LITHOTRIPSY OF STONE,URETERAL STENT PLACEMENT Kidney stone Intractable pain documented as of this encounter Visit Diagnoses Not on filedocumented in this encounter Admitting Diagnoses Diagnosis Calculus of kidney documented in this encounter Care Teams Automotive Collision Estimator Relationship Specialty Start Date End Date Radha Cowan MD [address] [place] [address] PCP - General Obstetrics Gynecology 07/26/24 documented as of this encounter
--- OUTSIDE RECORDS SUMMARY | 2024-08-03 22:07 | XMS_ITS | Clinical Summary ---
Author Organization [facility] Address [address] [place] [address] Care Team Providers Care Service Department Manager Name Role Phone Radha Cowan MD Primary Care Provider [phone] Allergies No known active allergies Medications Medication Sig Dispensed Refills Start Date End Date Status ketorolac (TORADOL) 10 MG tablet Take 1 tablet (10 mg) by mouth every 6 hours as needed for moderate pain. 20 tablet 07/20/2024 Active Encounters Date Type Department Care Team Description 07/20/2024 10:59 AM CDT - 07/20/2024 12:01 PM CDT Emergency [facility] Emergency Dept [address] [place] [phone] Sridhar Franz MD Ureteral colic Discharge Disposition: [...] - 19+ 3-dose series) 2001 PAP 2003 LIPID 2022 MAMMO SCREENING 09/10/2022 09/10/2020 DTAP/TDAP/TD IMMUNIZATION (6 - Td or Tdap) 12/24/2022 12/24/2012, 10/26/1987, 12/28/1983, Additional history exists PHQ-2 (once per calendar year) 2023 COVID-19 Vaccine ( season) 2024 INFLUENZA VACCINE (#1) 2024 08/27/2018, 2013 HPV IMMUNIZATION Aged Out No longer e ligible based on patient's age to complete this topic MENINGITIS IMMUNIZATION Aged Out No l onger eligible based on patient's age to complete this topic Pneumococcal Vaccine: Pediatrics (0 to 5 Years) and At-Risk Patients (6 to 64 Years) Aged Out No longer eligible based on [...] CDT [facility] Bilirubin Urine Negative Negative 11:50 AM CDT [facility] Ketones Urine Negative Negative mg/dL 07/20/2024 11:50 AM CDT [facility] Specific [place] Urine 1.013 1.003 - 1.035 07/20/2024 11:50 [...] MD LAB - URINE ORDERABL ES LABORATORY [facility] Acute Care Lab [address] Lab (1st floor, no room number) [place] [address], [facility] from Last 3 Months Care Teams Service Department Manager Relationship Specialty Start Date End Date Radha Cowan MD [address] [place] [address] PCP - General Family Medicine 07/20/24
--- OUTSIDE RECORDS SUMMARY | 2024-08-03 22:07 | XMS_ITS | Referral Summary ---
Author Organization [facility] Address [address] [place] [address] Phone Care Team Providers Care Research Manufacturing Operator Name Role Phone Unavailable Primary Care Provider Unavailabl e Source Comments [employer] is fully rolled out on [employer]. Last update 04/24/09.[facility] Encounters Date Type Department Care Team Description 07/25/2024 Travel 07/25/2024 8:42 PM CDT - 07/25/2024 10:08 PM CDT Emergency [facility] Emergency Department [address] [facility] [address] [place] [address] Reshma Larkin MD Discharge Disposition: Discharged to home or self care from Last 3 Months Allergies Active Allergy Reactions Criticality Noted Date Comments Morphine Rash 07/25/2024 Social History Tobacco Use Types Packs/Day Years Used Date Smoking Tobacco: Never Assessed Sex and Gender Information Value Date Recorded Sex Assigned at Not on file Gender Identity Not on file Sexual Orientation Not on file Last Filed Vital Signs Vital Sign Reading Time Taken Comments Blood Pressure 127/79 07/25/2024 8:49 PM CDT Pulse 78 07/25/2024 8:49 PM CDT Temperature 36.7 ??C (98.1 ??F) 07/25/2024 8:49 PM CD T Respiratory Rate 17 07/25/2024 8:49 PM CDT Oxygen Saturation 97% 07/25/2024 8:49 PM CDT Inhaled Oxygen Concentration - - Weight - - Height - - Body Mass Index - - Plan of Treatment Not on file Procedures Procedure Name Priority Date/Time Associated Diagnosis Comments TC LAB ER STAT URINALYSIS STAT 07/25/2024 10:00 PM CDT from Last 3 Months Results * (ABNORMAL) URINALYSIS,TOTAL (07/25/2024 10:00 PM CDT) Color YELLOW YELLOW [facility] LAB Appearance CLEAR CLEAR [facility] Urine Glucose NEGATIVE NEGATIVE mg/dL [facility] Bili UA NEGATIVE NEGATIVE [facility] Ketones NEGATIVE NEGATIVE [facility] Specific [place] 1.021 1.003 - 1.030 [facility] Blood Ur MODERATE(A) Neg-Trace [facility] PH Urine 5.5 5.0 - 7.0 [facility] Protein Ur TRACE Neg-Trace [facility] Urobilinogen NORMAL NORMAL EU/dL [facility] Nitrite Ur NEGATIVE NEGATIVE [facility] Leuk Est TRACE Neg-Trace [facility] WBC Ur 6-10(A) 0 - 5 perHPF [facility] RBC Ur >20(A) 0 - 3 perHPF [facility] SQ EPITH 0-5 0 - 5 perHPF [facility] Mucus 1+ perLPF [facility] Bacteria UA PRESENT [facility] Comment:Presence of bacteria does not necessarily indicate a UTI. The presence of bacteria can indicate a non-clean catch urine specimen. Bacteria should be used in conjunction with other UA results and clinical presentation to assist in diagnosing an infection. Urinalysis Performed at: [facility] Urine 07/25/2024 10:0 0 PM CDT 07/25/2024 10:06 PM CDT Reshma Larkin MD LABORATORY [facility] [address] [place] [address] from Last 3 Months
--- OUTSIDE RECORDS SUMMARY | 2024-08-03 22:07 | XMS_ITS | Encounter Summary ---
Author Organization [facility] Address [address], [place] [address] Care Team Providers Care Government Affairs Fellow Name Role Phone Radha Cowan MD Primary Care Provider [phone] Reason for Visit * Reason Comments Request For Records Encounter Details Date Type Department Care Team (Late st Contact Info) Description 07/24/[address] [facility] - Urology [address] [place] [address] Keturah Freeman, JALOUSIES INSTALLER, [employer] ASSEMBLER [address] [place] [address] Request For Records Social History Tobacco Use Types Packs/Day Years Used Date Smoking Tobacco: Never Assessed [facility] Utilities Answer Date Recorded In the past 12 months has [facility] electric, gas, oil, or water [place] threatened to shut off services in your [...] [facility] time in the [facility] were you [facility] or living in a fci (including now)? Patient declined 07/29/2024 Sex and Gender Information Value Date Recorded Sex Assigned at Not on file Gender Identity Not on file Sexual Orientation Not on file documented as of this encounter Nursing Notes * Valentina Hernandez LPN - 07/30/2024 1:[address] images from 07/19/24 received by [facility] on 07/30/24. * Valentina Hernandez LPN - 07/29/2024 10:50 AM CDT Someone from [facility] contacted me. They said they have requested the CT ABD/Pelvis images from [facility]. Images mailed over on a CD, may take up to 2 weeks to receive. * Valentina Hernandez LPN - 07/24/2024 3:32 PM CDT Called [facility] this morning to pull images. Also Faxed an image request form to [facility] department this afternoon. documented in this encounter Plan of Treatment Upcoming Encounters Date Type Department Care Team (Late st Contact Info) Description 08/07/2024 11:00 AM CDT Appointment [facility] - Urology [address] [facility] [place], [place] [address] Emmy Hinojosa MBBS [address] [place], [place] [phone] 09/24/2024 10:00 AM PURCHASING CONTRACTING CLERK Appointment [facility] - Urology [address] [place], [place] [address] Sakshi Garrido, JALOUSIES INSTALLER, [employer] ASSEMBLER [address] [place], [place] [phone] Scheduled Procedures Name Priority Associated Diagnoses Date/Ti me CYSTOSCOPY,RETROGRADE PYELOGRAM,URETEROSCOPY,HOLMIUM LASER LITHOTRIPSY OF STONE,URETERAL STENT PLACEMENT Kidney stone Intractable pain documented as of this encounter Visit Diagnoses Not on filedocumented in this encounter Care Teams Government Affairs Fellow Relationship Specialty Start Date End Date Radha Cowan MD [address] [place], [place] [phone] PCP - General Obstetrics Gynecology 07/26/24 documented as of this encounter
--- OUTSIDE RECORDS SUMMARY | 2024-08-03 22:07 | XMS_ITS | Clinical Summary ---
Author Organization [facility] Address [address] [place] [address] Phone Care Team Providers Care Section Leader And Machine Setter Name Role Phone Unavailable Primary Care Provider Unavailabl e Source Comments [employer] is fully rolled out on [employer]. Last update 04/24/09.[employer] Allergies Active Allergy Reactions Criticality Noted Date Comments Morphine Rash 07/25/2024 Encounters Date Type Department Care Team Description 07/25/2024 8:42 PM CDT - 07/25/2024 10:08 PM CDT Emergency [facility] Emergency Department [address] [place] [address] Reshma Larkin MD Discharge Disposition: Discharged to home or self care 07/25/2024 Travel from Last 3 Months Social History [...] Mass Index - - Plan of Treatment Health Maintenance Due Date Last Done Comments Dental Oral Exam 1982 Dental Prophylaxis 1982 Dental X-Ray: Bitewings 1982 Periodontal Maintenance 1996 HIV Screening 1997 PREVENTATIVE VISIT 2000 HEALTH MAINTENANCE PROTOCOL 2001 Imm: HepB (1 of 3 - 19+ 3-dose series) 2001 Cervical Cancer Screening Age 30-65 2012 Imm: DTaP/Tdap (6 - Td or Tdap) 12/24/2022 12/24/2012, 10/26/1987, 12/28/1983, Additional history exists Imm: COVID-19 ( season) 2024 Imm: Flu (#1) 07/21/2024 08/27/2018, 02/02/2014, 12/24/2012 Lipid Screening 04/15/2026 04/15/2021 Imm: Zoster (1 of 2) 2032 Imm: HPV Aged Out No longer eligi ble based on patient's age to complete this topic Imm: HepA Aged Out No longer eligi ble based on patient's age to complete this topic Imm: Hib Aged Out No longer eligi ble based on patient's age to complete this topic Imm: Meningitis Aged Out No longer el igible based on patient's age to complete this topic Imm: Pneumonia Peds or At-Risk less than 65 years Aged Out No longer sirisha gible based on patient's age to complete this topic Procedures Procedure Name Priority Date/Time Associated Diagnosis Comments TC LAB ER STAT URINALYSIS STAT 07/25/2024 10:00 PM CDT from Last 3 Months Results * (ABNORMAL) URINALYSIS,TOTAL (07/25/2024 10:00 PM CDT) Color YELLOW YELLOW [facility] Appearance CLEAR CLEAR [facility] Urine Glucose NEGATIVE NEGATIVE mg/dL [facility] Bili UA NEGATIVE NEGATIVE [facility] Ketones NEGATIVE NEGATIVE [facility] Specific [place] 1.021 1.003 - 1.030 [facility] Blood Ur MODERATE(A) Neg-Trace [facility] PH Urine 5.5 5.0 - 7.0 [facility] Protein Ur TRACE Neg-Trace [facility] Urobilinogen NORMAL NORMAL EU/dL [facility] Nitrite Ur NEGATIVE NEGATIVE [facility] Leuk Est TRACE Neg-Trace [facility] WBC Ur 6-10(A) 0 - 5 perHPF [facility] RBC Ur >20(A) 0 - 3 perHPF [facility] SQ EPITH 0-5 0 - 5 perHPF [facility] Mucus 1+ perLPF [facility] Bacteria UA PRESENT [facility] Comment:Presence of bacteria does not necessarily indicate a UTI. The presence of bacteria can indicate a non-clean catch urine specimen. Bacteria should be used in conjunction with other UA results and clinical presentation to assist in diagnosing an infection. Urinalysis Performed at: [facility] Urine 07/25/2024 10:0 0 PM CDT 07/25/2024 10:06 PM CDT Reshma Larkin MD LABORATORY [facility] [address] [place] [address] from Last 3 Months
--- OUTSIDE RECORDS SUMMARY | 2024-08-03 22:07 | XMS_ITS | Encounter Summary ---
Author Organization [facility] Address [address] [place] [address] Phone Care Team Providers Care Director Of Student Services Name Role Phone Unavailable Primary Care Provider Unavailabl e Reason for Visit * Reason Comments Flank Pain Encounter Details Date Type Department Care Team (Late st Contact Info) Description 07/25/2024 8:42 PM CDT - 07/25/2024 10:08 PM CDT Emergency [facility] Emergency Department [address] [facility] [address] [place], [place] [address] Reshma Larkin MD [address] [facility] [address] [place] [address] Discharge Disposition: Discharged to home or self care Social History Tobacco Use Types Packs/Day Years [...] Index - - documented in this encounter ED Notes * Elvis Mathur, RN - 07/25/2024 9:03 PM CDT Pt here for right flank pain, pt has a known obstructed kidney stone that she is scheduled for lithotripsy next documented in this encounter Miscellaneous Notes * ED Triage Provider Note - Reshma Larkin MD - 07/25/2024 9:11 PM CDT Images from the original note were not included. ED Triage Faculty Provider Note Atiya Maria : 1980 Sex: female Patient Arrival Date and Time: 07/25/2024 8:42 PM HPI and Pertinent Exam 44 y.o. female presents for R flank pain. Has a known obstructed stone and is scheduled for lithotripsy next . I saw the patient and performed a medical screening evaluation upon arrival Ordered urinalysis from triage DISPOSITION Patient left prior to completion of ED management Scribed for Reshma Larkin MD by Beryl Tristan Scribe, 07/25/2024 9:11 PM IReshma MD have reviewed the initial documentation provided by the scribe and affirm that it is an accurate restatement of my dictated record of services. Signed: Reshma Larkin MD, 21:11 07/25/2024 documented in this encounter Plan of Treatment Not on file documented as of this encounter Procedures Procedure Name Priority Date/Time Associated Diagnosis Comments TC LAB ER STAT URINALYSIS STAT 07/25/2024 10:00 PM CDT documented in this encounter Results * (ABNORMAL) URINALYSIS,TOTAL (07/25/2024 10:00 PM CDT) Color YELLOW YELLOW [facility] Appearance CLEAR CLEAR [facility] Urine Glucose NEGATIVE NEGATIVE mg/dL [facility] Bili UA NEGATIVE NEGATIVE [facility] Ketones NEGATIVE NEGATIVE [facility] Specific [place] 1.021 1.003 - 1.030 [facility] Blood Ur MODERATE(A) Neg-Trace [facility] PH Urine 5.5 5.0 - 7.0 [facility] Protein Ur TRACE Neg-Trace [facility] Urobilinogen NORMAL NORMAL EU/dL [facility] Nitrite Ur NEGATIVE NEGATIVE [facility] Leuk Est TRACE Neg-Trace [facility] WBC Ur 6-10(A) 0 - 5 perHPF [facility] RBC Ur >20(A) 0 - 3 perHPF [facility] SQ EPITH 0-5 0 - 5 perHPF [facility] Mucus 1+ perLPF [facility] Bacteria UA PRESENT [facility] Comment:Presence of bacteria does not necessarily indicate a UTI. The presence of bacteria can indicate a non-clean catch urine specimen. Bacteria should be used in conjunction with other UA results and clinical presentation to assist in diagnosing an infection. Urinalysis Performed at: [facility] Urine 07/25/2024 10:0 0 PM CDT 07/25/2024 10:06 PM CDT Reshma Larkin MD LABORATORY [facility] [address] [address] documented in this encounter Visit Diagnoses Not on filedocumented in this encounter
--- OUTSIDE RECORDS SUMMARY | 2024-08-03 22:07 | XMS_ITS | Referral Summary ---
Author Organization [facility] Address [address] [place] [address] Care Team Providers Care Sales And Marketing Intern Name Role Phone Radha Cowan MD Primary Care Provider Encounters Date Type Department Care Team Description 07/20/2024 Travel 07/20/2024 10:59 AM CDT - 07/20/2024 12:[address] [facility] Emergency Dept [address] [place] [address] Sridhar Franz MD Ureteral colic Discharge Disposition: [...] mg/dL 07/20/2024 11:50 AM CDT LABORATORY Specific [place] Urine 1.013 1.003 - 1.035 07/20/2024 11:50 [...] MD LAB - URINE ORDERABL ES LABORATORY [facility] Acute Care Lab [address] [facility] Lab (1st floor, no room number) [place] [address], [facility] from Last 3 Months Care Teams Sales And Marketing Intern Relationship Specialty Start Date End Date Radha Cowan MD [address] [place] [address] PCP - General Family Medicine 07/20/24
--- OUTSIDE RECORDS SUMMARY | 2024-08-03 22:07 | XMS_ITS | Encounter Summary ---
[facility] Address [address], [place] [address] Care Team Providers Care Cloth Grader Name Role Phone Found, No Pcp MD Primary Care Provider Unavailab le Reason for Referral * Procedure/Equipment (Routine) - Incomplete Specialty Diagnoses / Procedures Referred By Dara geller Referred To Contact Diagnoses Calculus of kidney Procedures CT Abd Pelvis WO IV Cont Low Dose Stone Keturah Freeman APRN, CNP [address] [place] [address] Referral ID Status Reason Start Date Expiration Date V isits Requested Visits Authorized [id number] Incomplete 07/24/2024 10/23/2025 1 1 * Procedure/Equipment (Routine) - Incomplete Specialty Diagnoses / Procedures Referred By Dara geller Referred To Contact Diagnoses Calculus of kidney Procedures Case Request OR - Urology Surgery: URETEROSCOPY WITH LASER LITHOTRIPSY AND URETERAL STENT PLACEMENT with retrograde pyelogram Keturah Freeman APRN, CNP [address] [place] [address] Referral ID Status Reason Start Date Expiration Date V isits Requested Visits Authorized [id number] Incomplete 07/24/2024 10/23/2025 1 1 Reason for Visit * Reason Comments Follow-up, NOS Encounter Details Date Type Department Care Team (Late st Contact Info) Description 07/24/2024 2:00 PM CDT Office Visit [facility] - Urology [address] [facility] [place] [address] Keturah Freeman APRN, CNP [address] [place] [phone] Calculus of kidney (Primary Dx); Calculus of upper urinary tract; Nephrolithiasis; History of breast cancer Social History Tobacco Use Types Packs/Day Years Used Date Smoking Tobacco: Never Assessed Sex and Gender Information Value Date Recorded Sex Assigned at Not on file Gender Identity Not on file Sexual Orientation Not on file documented as of this encounter Last Filed Vital Signs Vital Sign Reading Time Taken Comments Blood Pressure - - Pulse - - Temperature - - Respiratory Rate - - Oxygen Saturation - - Inhaled Oxygen Concentration - - Weight 92.1 kg (203 lb) 07/24/2024 3:18 PM CDT Height 170.2 cm (5' 7) 07/24/2024 3:18 PM CDT Body Mass Index 31.79 07/24/2024 3:18 PM CDT documented in this encounter Progress Notes * Keturah Freeman APRN, CNP - 07/24/2024 2:00 PM CDT [facility] HPI: Atiya Maria is a 44 y.o. female with history of breast cancer here for nephrolithiasis. Atiya comes to our clinic to establish care after recent flare of her kidney stones. She states that she has had kidney stones for the last 20 years. She passes a stone on average every other month. Describes her stones as pointy like jackstones. She has had a metabolic stone workup it was told that she makes calcium oxalate stones and that she should drink more water. She states she was not given any dietary or supplement recommendations. She has had laser lithotripsy in the past a couple oftimes done [place]. She most recently went to [facility] 07/19 with complaints of right flank pain. She was found to have a nonobstructive 3 mm stone in the right distal ureter and was sent home with Flomax. She subsequently went back and forth into the emergency room 2 more times with pain and was told to continue with medical expulsion therapy. 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 She currently rates her bilateral flank pain 3 to 4/10 which is better then it was a few days ago when she was in the ER. She feels that her Toradol helps. She has waves of nausea for which she has been taking Zofran. She has been able to to tolerate a general diet. She feels diaphoretic and has chills but has not had any measured fever. She denies any urinary complaints of urinary urgency, frequency or dysuria. She does have a history of recurrent UTIs for about 10 years that was found to be 2nd to a cyst that was treated and has since resolved. She has not had any recent issues with UTIs. She is hopeful that she can have surgery done in the near future she is leaving to go to [place] in 20 days. She is hopeful that she can have laser treatment to both of her kidneys since there were bilateral smaller stones noted in both of her kidneys however the only the one 3 mm stone in the right proximal ureter. She is hopeful that she does not need a stent she has had many difficulties with urinary tract infections and renal colic with her stents. Advised that our standard protocol is with having stents placed with a ureteroscopy and laser lithotripsy, however would discuss with the surgeon who ultimately decides to take her case. Hx of intolerance to anesthesia, has done well with TIVA. DATA: Clinic UA: Nitrate: negative Leukocyte Esterase: negative Blood: moderate Outside CT scan on 07/19 showed right proximal 3 mm ureteral stone and bilateral non obstructive stones in both kidneys. Request placed to have these images pulled through, still not viewable at time of visit. Xray today does not show any evidence of any stones PE: General: NAD, WDWN Lungs: Normal effort, no audible wheezes Abdomen: Soft, non-tender Back: + CVA tenderness bilaterally Skin: no obvious rashes or lesions Neuro: Alert and responsive Psych: Normal affect Assessment: Right ureteral stone Bilateral non obstructive stones in both kidneys History of nephrolithiasis Plan: Will place surgery orders for ureteroscopy and laser lithotripsy and stent placement at this time for right side. Will reach out to surgeon who is scheduled to do this ideally in next 1-2 weeks to update on details of Atiya's medical history and wishes. Refill of flomax and toradol given to her. She states she has plenty of zofran. Cont to strain urine and let us know if she passes any stones so we can reassess with further imaging. The risks benefits and alternatives of ureteroscopy, laser lithotripsy, and stent placement were explained to the patient in detail. The risks include but are not limited to injury to the urethra, injury to the bladder, injury to the ureter, injury to the kidney, injury to the surrounding organs, infection, bleeding, pain, the risks of general anesthesia, and the possibility that we may not be able to access the stones/kidney and may have to place a stent and repeat the procedure in the future after the ureter has had an opportunity to dilate. We also discussed stent discomfort and what to expect with the stent in place including urinary frequency urgency and pain. The patient understood all of these risks and informed consent was obtained. Hx of intolerance to anesthesia, has done well with TIVA. Hx of previous laser lithotripsy. Would like to avoid stent if possible, did discuss that this is surgeon preference. Would like bilateral kidney stones potentially both treated with laser if possible. Addendum: KUB report was not back until after visit was complete. Recommend checking CT scan due to KUB not showing stones and patient having symptoms. Pt is hesitant due to hx of breast cancer and not wantingtoo much exposure to radiation. Challenging given fact that she lives 1 hour away as well. Total face to face time 60 minutes, >50% of time spent coordinating care and counseling. Follow-up in when able to have metabolic stone workup with Sakshi Garrido. Keturah Freeman APRN, CNP documented in this encounter Plan of Treatment Upcoming Encounters Date Type Department Care Team (Late st Contact Info) Description 08/07/2024 11:00 AM CDT Appointment [facility] - Urology [address] [place] [address] Emmy Hinojosa MBBS [address] [place] [address] 09/24/2024 10:00 AM HAND TAPPER Appointment [facility] - Urology [address] [facility] [place] [address] Sakshi Garrido APRN, RN TELEPHONIC [address] [place] [address] Scheduled Orders Name Type Priority Associated Diagnoses Orde r Schedule POCT Automated Urinalysis Dipstick Point of Care Routine Calculus of kidney Ordered: 07/24/2024 Basic Metabolic Panel Lab Routine Calculus of kidney Expected: 08/23/2024, Expires: 11/21/2024 Supersaturation Profile, Urine Lab Routine Calculus of kidney Expected: 08/23/2024, Expires: 10/22/2024 CT Abd Pelvis WO IV Cont Low Dose Stone Imaging New Routine Calculus of kidney Expected: 07/24/2024 (Approximate), Expires: 07/24/2025 Scheduled Procedures Name Priority Associated Diagnoses Date/Ti me CYSTOSCOPY,RETROGRADE PYELOGRAM,URETEROSCOPY,HOLMIUM LASER LITHOTRIPSY OF STONE,URETERAL STENT PLACEMENT Kidney stone Intractable pain documented as of this encounter Procedures Procedure Name Priority Date/Time Associated Diagnosis Comments AUTOMATED URINALYSIS DIPSTICK POCT Routine 07/24/2024 2:10 PM CDT documented in this encounter Results * Intact PTH (07/24/2024 3:16 PM CDT) Intact PTH 29 10 - 100 pg/mL 07/24/2024 6:23 PM CDT [facility] Blood Venipuncture / Unknown 07/24/2024 3:16 PM CDT 07/24/2024 3:16 PM CDT Keturah Freeman APRN, RN TELEPHONIC LAB_1 [facility] [address] [place] [address], [facility] * (ABNORMAL) Uric Acid (07/24/2024 3:16 PM CDT) Uric Acid 6.6(H) 2.6 - 6.0 mg/dL 07/24/2024 4:02 PM CDT [facility] [address] [facility] Blood Venipuncture / Unknown 07/24/2024 3:16 PM CDT 07/24/2024 3:16 PM CDT Keturah Freeman APRN, CNP LAB_1 [facility] [address] [facility] [address] [place] [address], [facility] * (ABNORMAL) Automated Urinalysis Dipstick POCT (07/24/2024 2:10 PM CDT) [facility] Glucose Urine Qual (mg/dL) Negative Negative 07/26/2024 8:28 AM [facility] [address] [facility] Bilirubin Urine Negative Negative 07/26/2024 8:28 AM [facility] [address] [facility] Ketones, Urine (mg/dL) Negative Negative 07/26/2024 8:28 AM [facility] [address] [facility] Specific Mozier, Urine 1.020 1.005 - 1.030 07/26/2024 8:28 AM [facility] [address] [facility] Blood, Urine Moderate(A) Neg/Trace 07/26/2024 8:28 AM [facility] [address] [facility] PH Urine 6.0 5.0 - 8.0 07/26/2024 8:28 AM [facility] [address] [facility] Protein, Urine Qual (mg/dL) Negative Neg/Trace 07/26/2024 8:28 AM [facility] [address] [facility] Urobilinogen, Urine (EU/dL) 0.2 <2.0 07/26/2024 8:28 AM [facility] [address] [facility] Nitrite Urine Negative Negative 07/26/2024 8:28 AM [facility] [address] [facility] Leukocyte Est. Negative Negative 07/26/2024 8:28 AM [facility] [address] [facility] Urine Color Yellow 07/26/2024 8:28 AM CDT [facility] Urine Clarity Clear Clear 07/26/2024 8:28 AM CDT [facility] [address] [facility] Performing Location URO OVEREDGER 07/26/2024 8:28 AM CDT [facility] [address] [facility] Urine 07/24/2024 2:10 PM CDT 07/26/2024 8:28 AM CDT Keturah Freeman APRN, CNP LAB_1 Performing Organization Address City/State/[facility] Co de Phone Number [facility] [address] [facility] [address] [place] [address] documented in this encounter Visit Diagnoses Diagnosis Calculus of kidney- Primary Calculus of upper urinary tract Nephrolithiasis Calculus of kidney History of breast cancer Personal history of malignant neoplasm of breast documented in this encounter Care Teams Cloth Grader Relationship Specialty Start Date End Date Found, No Pcp, [address] [place] [address] PCP - General 04/10/20 9 4 documented as of this encounter
--- OUTSIDE RECORDS SUMMARY | 2024-08-03 22:07 | XMS_ITS | Encounter Summary ---
Author Organization [facility] Address [address], [place] [address] Care Team Providers Care Solid Waste Analyst Name Role Phone Found, No Pcp MD Primary Care Provider Unavailab le Encounter Details Date Type Department Care Team (Late st Contact Info) Description 07/24/2024 3:20 PM CDT Lab Visit [facility] [address] [facility]. [place], [place] [id number] Calculus of kidney Social History Tobacco Use Types Packs/Day Years Used Date Smoking Tobacco: Never Assessed Sex and Gender Information Value Date Recorded Sex Assigned at Not on file Gender Identity Not on file Sexual Orientation Not on file documented as of this encounter Plan of Treatment Upcoming Encounters Date Type Department Care Team (Late st Contact Info) Description 08/07/2024 11:00 AM CDT Appointment [facility] - Urology [address] [facility] [place] [address] Emmy Hinojosa MBBS [address] [place] [address] 09/24/2024 10:00 AM BELT BUILDER HELPER Appointment [facility] - Urology [address] [facility] [place] [address] Sakshi Garrido, TREE SURGEON, FEEDER LOADER [address] [place] [address] Scheduled Procedures Name Priority Associated Diagnoses Date/Ti me CYSTOSCOPY,RETROGRADE PYELOGRAM,URETEROSCOPY,HOLMIUM LASER LITHOTRIPSY OF STONE,URETERAL STENT PLACEMENT Kidney stone Intractable pain documented as of this encounter Procedures Procedure Name Priority Date/Time Associated Diagnosis Comments INTACT PTH Routine 07/24/2024 3:16 PM CDT Calculus of kidney URIC ACID Routine 07/24/2024 3:16 PM CDT Calculus of kidney documented in this encounter Results * Intact PTH (07/24/2024 3:16 PM CDT) Intact PTH 29 10 - 100 pg/mL 07/24/2024 6:23 PM CDT [facility] Blood Venipuncture / Unknown 07/24/2024 3:16 PM CDT 07/24/2024 3:16 PM CDT Keturah Freeman APRN, CNP LAB_1 Performing Organization Address [facility] Co de Phone Number [facility] [address] [place] [address], [facility] * (ABNORMAL) Uric Acid (07/24/2024 3:16 PM CDT) Uric Acid 6.6(H) 2.6 - 6.0 mg/dL 07/24/2024 4:02 PM CDT [facility] [address] [facility] Blood Venipuncture / Unknown 07/24/2024 3:16 PM CDT 07/24/2024 3:16 PM CDT Keturah Freeman APRN, CNP LAB_1 Performing Organization Address City/[facility] de Phone Number [facility] [address] [facility] [facility] [place] [address], [facility] documented in this encounter Visit Diagnoses Diagnosis Calculus of kidney documented in this encounter Care Teams Solid Waste Analyst Relationship Specialty Start Date End Date Found, No Pcp, [address] [place] [address] PCP - General 04/10/20 9//2 4 documented as of this encounter
--- OUTSIDE RECORDS SUMMARY | 2024-08-03 22:07 | XMS_ITS | Clinical Summary ---
Author Organization [facility] Address [place], [place] [address] Care Team Providers Care Grocery Carrier Name Role Phone Yareli Oviedo MD Unavailable [phone] Radha Cowan MD Primary Care Provider Mira Coelho MD Unavailable Unavailable Juan Torres MD Unavailable [phone] Allergies Active Allergy Reactions Criticality Noted Date Comments Morphine Rash 04/19/2018 Medications Medication Sig Dispensed Refills Start Date End Date Status lisdexamfetamine (Vyvanse) 10 mg capsuleIndications:A DHD (attention deficit hyperactivity disorder), combined type Take 1 Capsule (10 mg) by mouth once daily. 30 Capsule 08/02/2024 09/01/2024 Active lisdexamfetamine (Vyvanse) 10 mg capsuleIndications:A DHD (attention deficit hyperactivity disorder), combined type Take 1 Capsule (10 mg) by mouth once daily. 30 Capsule 09/01/2024 Active lisdexamfetamine (Vyvanse) 10 mg capsuleIndications:A DHD (attention deficit hyperactivity disorder), combined type Take 1 Capsule (10 mg) by mouth once daily. 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 Scanner 1 scan: (1-Ord) [facility], CT ABDOMEN AND PELVIS W CON, 07/19/2024 07/03/2024 2:20 PM CDT Office Visit [facility] [address] [place] [address] Radha Cowan MD Medication Management (Switching medications) 07/03/2024 Travel 05/29/2024 Refill [facility] [address] [place] [address] Radha Cowan MD Refill Request; VALACYCLOVIR from Last 3 Months Immunizations Name Administration [...] Sign Reading Time Taken Comments Blood Pressure 109/71 07/25/2024 2:09 PM CDT Pulse 82 07/25/2024 2:09 PM CDT Temperature 36.9 ??C (98.4 ??F) 07/25/2024 2:09 PM CD T Respiratory Rate 16 11/01/2023 8:33 AM FAMILY SERVICES SPECIALIST Oxygen Saturation 98% 07/25/2024 2:09 PM CDT Inhaled Oxygen Concentration - - Weight 94.2 kg (207 lb 9.6 oz) 07/25/2024 2:09 P M CDT Height 171 cm (5' 7.32) 07/25/2024 2:09 PM CDT Body Mass Index 32.2 07/25/2024 2:09 PM CDT Plan of Treatment Health Maintenance Due Date Last Done Comments HIV for age 15-65 1997 Hepatitis C screening for age 18-79 2000 Pap test for age 21-65 2003 Tetanus booster 12/24/2022 12/24/2012, 02/2013 (Completed outside of [employer] COVID-19 vaccine series (2022- season) 2024 Influenza for age 9-49 07/21/2024 08/27/2018, 2013 Depression screening for age 12+ 11/22/2024 11/22/2023, 02/14/2022, 08/12/2021, Additional history exists BMI (ht and wt on same day) for age 18+ 07/25/2025 07/25/2024, 09/21/2023, 03/22/2023, Additional history exists Tdap Completed 12/24/2012, 02/2013 (Completed outside of [facility]) Pneumococcal series for age 6-64 Aged Out No longer eligible based on patient's age to complete this topic Medical Devices Implanted Type Area Shopping Inspector Device Identifier Shelf Expiration Date Model / Serial / Lot [id number] Boris Gray Md Perforated Implanted:Qty: 1 on 10/28/2020 by Juan Torres MD at [facility] Explanted:at [facility] (Quantity not on file) Left: Breast [employer] 06/19/2022 [id number] / [id number] / [id number] Boris Gray Md Perforated Implanted:Qty: 1 on 10/28/2020 by Juan Torres MD at [facility] Explanted:at [facility] (Quantity not on file) Right: Breast [employer] 06/19/2022 [id number]# / [id number] / Breast 745cc Natrelle Inspira Soft Touch Ssf - [id number] Implanted:Qty: 1 on 11/08/2021 by Misbah Coelho MD at [facility] Right: Breast [employer] - [employer] 09/08/2025 SSF-745 / [id number] / [id number] Breast 745cc Natrelle Inspira Soft Touch Ssf - [id number] Implanted:Qty: 1 on 11/08/2021 by Misbah Coelho MD at [facility] Breast [employer] - [employer] 06/23/2025 [facility] / [id number] / [id number] Explanted Type Area Shopping Inspector Device Identifier Shelf Expiration Date Model / Serial / Lot [id number] breastimplanttal [id number] 50cc Implanted:Qty: 1 on 10/28/2020 by Juan Torres MD at [facility] Explanted:at [facility] (Quantity not on file) Explanted:Qty: 1 on 11/08/2021 by Misbah Coelho MD at [facility] Left: Breast [employer] 06/20/2023 [id number] / [id number] / [id number] Description:BREAST IMPLANT T ALL HEIGHT TE SMOOTH 450CC Explanted prior to encounter 11/09/21 [id number] breastimplanttal [id number] 50cc Implanted:Qty: 1 on 10/28/2020 by Juan Torres MD at [facility] Explanted:at [facility] (Quantity not on file) Explanted:Qty: 1 on 11/08/2021 by Misbah Coelho MD at [facility] Right: Breast [employer] 01/22/2024 [id number] / [id number] Description:BREAST IMPLANT T ALL HEIGHT TE SMOOTH 450CC Explanted prior to encounter 11/09/21 [employer] [id number] 700 Cc Explanted:Qty: 2 on 11/08/2021 at [facility] Bilateral: Breast [employer] / [id number] / Procedures Procedure Name Priority Date/Time Associated Diagnosis Comments CREATININE,ISTAT Routine 07/25/2024 2:39 PM CDT Pre-op exam SCAN-CT INTERPRETATION 12:00 AM CDT from Last 3 Months Results * (ABNORMAL) CREATININE,ISTAT (07/25/2024 2:39 PM CDT) CREATININE, POCT 1.00 0.57 - 1.11 mg/dL 07/25/2024 2:41 PM CDT [facility] Comment:Caution: Patients ta bijal Hydroxyurea have falsely increased iStat Creatinine results. Verify creatinine results ordering a Creatinine (93533.2) eGFR 72(L) >90 mL/min/1.7 3m2 07/25/2024 2:41 PM CDT [facility] Comment:As of 2022, eG FR is calculated by the CKD-EPI creatinine equation without race adjustment. eGFR can be influenced by muscle mass, exercise, and diet. The reported eGFR is an estimation only and is only applicable if the renal function is stable. Blood BLOOD SPECIMEN / Unknown 07/25/2024 2:39 PM CDT 07/25/2024 2:41 PM CDT Ana GAY CHEMISTRY [facility] [address] [place] [address], * SCAN-CT INTERPRETATION (07/19/2024 12:00 AM CDT) Anatomical Region Laterality Modality Other Scanner OTHER from Last 3 Months Additional Health Concerns Infection Onset Date Last Indicated COVID History Comment:COVID+ test result dates: 08/10/21 (90 days clearance ends 11/08/21) and 11/04/21 via PCR from [facility]. Patient met COVID clearance criteria on 08/20/21. [...] 7:12 AM 04/07/2015 1:44 PM Care Teams Grocery Carrier Relationship Specialty Start Date End Date Radha Cowan MD [address] [place] [address] PCP - General Family Practice 10/03/19 Yareli Oviedo MD [address] [place] [address] Obstetrics and Gynecology 04/19/18 Mira Coelho MD [address] [place] [address] Surgery - General 10/13/20 Juan Torres MD [address] [address] Plastic and Reconstructive Surgery 10/26/20
--- OUTSIDE RECORDS SUMMARY | 2024-08-03 22:07 | XMS_ITS | Encounter Summary ---
Author Organization [facility] Address [address] [place] [id number] Care Team Providers Care Level Vial Curvature Gauger Name Role Phone Radha Cowan MD Primary Care Provider [phone] Reason for Visit * Reason Comments Flank Pain Encounter Details Date Type Department Care Team (Late st Contact Info) Description 07/20/2024 10:59 AM CDT - 07/20/2024 12:01 PM CDT Emergency [facility] Emergency Dept [address] [place] [phone] Sridhar Franz MD EMERGENCY PHYSICIAN [facility] [address] [facility] [address] [id number] Ureteral colic Discharge Disposition: Home or Self [...] sent through Care Everywhere. * Kidney Stone (Belgian) documented in this encounter Medications at Time [...] ago. She was seen at the [facility] and had a CT scan. She states [...] she was admitted. She works at a [employer] and the REGIONAL MANAGER there gave the patient 2 L of IV fluids and a dose of Toradol prior to arrival here this morning. Independent Historian None Review of External Notes None Past Medical History Medical History and Problem List Kidney stones Malignant neoplasm of right breast PCOS ADHD TBI Medications The patient is not currently taking any regular medications. Surgical History Cystoscopy Lithotripsy Uretal stents [place] teeth extraction Bilateral breast reconstruction Physical Exam [...] Bilirubin Urine Negative Ketones Urine Negative Specific Garrett Urine 1.013 Blood Urine Moderate (*) pH [...] Documentation None Medical Decision Making / Diagnosis [facility] Diagnoses: None MIPS None [facility] Atiya Maria is a 44 year old female who presents with ongoing right flank pain after being diagnosed with a kidney stone yesterday at [facility]. We attempted to obtain records from this visit to confirm the diagnosis but the patient did not want to wait. Her pain has improved since she was given IV fluids and Toradol at the [employer] that she works at. We rechecked a [...] unmanaged pain. States she was seen at [facility] ED yesterday and dx with R sided kidney stone. Pain not improving with oral oxy and zofran. Pt works at [employer] and had an REGIONAL MANAGER give her 2L IVF, toradol and decadron IV NEEDLE MAKER. Pt states this brought her pain to [...] mg/dL 07/20/2024 11:50 AM CDT LABORATORY Specific Garrett Urine 1.013 1.003 - 1.035 07/20/2024 11:50 [...] MD LAB - URINE ORDERABL ES LABORATORY [facility] [address] [facility] Lab (1st floor, no room number) [place] [address], [facility] documented in this encounter Visit Diagnoses Diagnosis Ureteral colic Renal colic documented in this encounter Care Teams Level Vial Curvature Gauger Relationship Specialty Start Date End Date Radha Cowan MD [address] [place] [address] PCP - General Family Medicine 07/20/24 documented as of this encounter
--- OUTSIDE RECORDS SUMMARY | 2024-08-03 22:07 | XMS_ITS | Encounter Summary ---
Author Organization [facility] Address [address], [place] [address] Care Team Providers Care Direct Sales Professional Name Role Phone Found, No Pcp MD Primary Care Provider Unavailab le Reason for Visit * Reason Comments Questions Encounter Details Date Type Department Care Team (Late st Contact Info) Description 07/25/2024 Telephone [facility] [address] Urology [address] [place] [address] Keturah Freeman, MARINE EQUIPMENT PRESERVATION INSPECTOR, HEALTH PRACTICE MANAGER [address] [place] [address] Questions Social History Tobacco Use Types Packs/Day Years Used Date Smoking Tobacco: Never Assessed Sex and Gender Information Value Date Recorded Sex Assigned at Not on file Gender Identity Not on file Sexual Orientation Not on file documented as of this encounter Nursing Notes * Pita Joseph RN - 07/25/2024 3:41 PM CDT Atiya calls stating pre-op MD today stated she should try to get surgery moved up, since kidney function is decreased. Routing to Dr. Calles's team to address. * Pita Joseph RN - 07/25/2024 8:54 AM CDT Atiya calls stating her kidney stones symptoms are worse again. She has shaking chills & vomiting. Advised her to go to the emergency room and explained reasoning. Pt verbalized understanding andplans to go to [facility]. documented in this encounter Plan of Treatment Upcoming Encounters Date Type Department Care Team (Late st Contact Info) Description 08/07/2024 11:00 AM CDT Appointment [facility] - Urology [address] [facility] [place], [place] [address] Emmy Hinojosa MBBS [address] [place], [place] [id number] 09/24/2024 10:00 AM TOWER CLEANER Appointment [facility] - Urology [address] [facility] [place], [place] [id number] Sakshi Garrido, MARINE EQUIPMENT PRESERVATION INSPECTOR, HEALTH PRACTICE MANAGER [address] [place], [place] [id number] Scheduled Procedures Name Priority Associated Diagnoses Date/Ti me CYSTOSCOPY,RETROGRADE PYELOGRAM,URETEROSCOPY,HOLMIUM LASER LITHOTRIPSY OF STONE,URETERAL STENT PLACEMENT Kidney stone Intractable pain documented as of this encounter Visit Diagnoses Not on filedocumented in this encounter Care Teams Direct Sales Professional Relationship Specialty Start Date End Date Found, No Pcp, [address] [place] [address] PCP - General 04/10/20 9 4 documented as of this encounter
--- OUTSIDE RECORDS SUMMARY | 2024-08-03 22:07 | XMS_ITS | Encounter Summary ---
Author Organization [facility] Address [address] [place] [address] Care Team Providers Care Bilingual Account Manager Name Role Phone Radha Cowan MD Primary Care Provider [phone] Reason for Referral * Procedure/Equipment (Routine) - Incomplete Specialty Diagnoses / Procedures Referred By Contac t Referred To Contact Procedures CT Abd Pelvis WO IV Cont Stone Pita Jj MD [address] [place] [address] Referral ID Status Reason Start Date Expiration Date V isits Requested Visits Authorized [id number] Incomplete 07/26/2024 10/25/2025 1 1 Encounter Details Date Type Department Care Team (Late st Contact Info) Description 07/26/2024 7:55 PM CDT - 07/27/2024 12:04 AM CDT Emergency [facility] [address] [place] [address]. [place], [place] [address] Pita Jj MD [address] [place] [address] Ureterolithiasis Discharge Disposition: Home Social History Tobacco Use Types Packs/Day Years Used Date Smoking Tobacco: Never Assessed Sex and Gender Information Value Date Recorded Sex Assigned at Not on file Gender Identity Not on file Sexual Orientation Not on file documented as of this encounter Last Filed Vital Signs Vital Sign Reading Time Taken Comments Blood Pressure 126/79 07/26/2024 10:00 PM CDT Pulse 92 07/26/2024 10:00 PM CDT Temperature 36.9 ??C (98.4 ??F) 07/26/2024 7:48 PM CD T Respiratory Rate 20 07/26/2024 7:48 PM CDT Oxygen Saturation 100% 07/26/2024 10:00 PM CDT Inhaled Oxygen Concentration - - Weight - - Height - - Body Mass Index - - documented in this encounter Discharge Instructions * Discharge Instructions* Pita Jj MD - 07/26/2024 10:56 PM CDT Continue your previously prescribed medications. If you change your mind or feel worse with fever, burning with urination or other concerns, please return Generally, every Emergency Department visit should have a follow-up clinic visit with either a primary or a specialty clinic/provider. Please follow-up as instructed by your emergency provider today. Return to the Emergency Department if: - pain is much worse, considered severe or if there is pain in a new area - fever (temperature greater than 101.5F) - bleeding that does not stop with holding pressure to the area - chest pain - difficulty breathing - severe nausea or vomiting - inability to tolerate food and liquids - passing out - skin becoming red around any wounds - drainage of pus or foul- smelling material from wounds - change in mental status (confusion or lethargy) - new numbness or weakness - any other worrisome symptoms * Attachments The following attachments cannot be sent through Care Everywhere. * Kidney Stone (Kuwaiti) documented in this encounter Medications at Time of Discharge Medication Sig Dispensed Refills Start Date End Date ondansetron (ZOFRAN-ODT) 4 MG disintegrating tablet Take 1 Tablet by mouth every 8 hours as needed for Nausea. 10 Tablet 04/10/2020 ketorolac (TORADOL) 10 MG tablet Take 1 Tablet (10 mg) by mouth every 6 hours as needed for Pain. 30 Tablet 07/24/2024 07/30/2024 oxyCODONE (ROXICODONE) 5 MG immediate release tablet Take 1 Tablet by mouth every 6 hours as needed (severe pain). 8 Tablet 04/10/2020 07/30/2024 tamsulosin (FLOMAX) 0.4 MG CAPS capsule Take 1 Capsule (0.4 mg) by mouth daily for 30 days. 30 Capsule 07/24/2024 07/30/2024 documented as of this encounter ED Notes * Sheryl Giordano RN - 07/26/2024 11:58 PM CDT Patient alerted this mortgage or loan underwriter that she removed her IV and was leaving. IV removed and went over discharge instructions with patient. * Pita Jj MD - 07/26/2024 8:31 PM CDT Emergency Center Note History of Present Illness Chief Complaint Flank Pain & Abdominal Pain HPI Atiya Maria is a 44 y.o. female with a history of nephrolithiasis who presents to the ED for evaluation of right flank pain and lower abdominal pain. Patient presented to [place] ED on 07/19/24 with concerns for right flank pain and underwent CT imaging that revealed a nonobstructive 3 mm stone in the right distal ureter. Since then, she has been following in [facility] as an outpatient. She has been trying to pass the stone on her own but reports worsening right flank pain, lower abdominal pain and abdominal distention. She states she has not had abdominal distention with previous stones. She tells me she has been in and out of ER is over the last week in his essentially missed a week of work. She was frustrated that it was not been removed yet. She has an extensive history of kidney stones and passes a stone on average every other month. She has been taking Tramadol, Toradol IM, Zofran and Flomax with only mild relief. Her last dose of Zofran was at 4 pm and Toradolat 6 pm. She denies dysuria. No recent fevers. Independent Historian None Review of External Notes Reviewed telephone visit with urology today. Reviewed office visit yesterday at [facility]. Reviewed 07/24/24 urology note. Past Medical History Medical History and Problem List Calculus of kidney Kidney stones PCOS (polycystic ovarian syndrome) Malignant neoplasm of upper-outer quadrant of right breast in female, estrogen receptor positive (HC) Patient's medical chart/information was supplemented through the Care Everywhere system, however information may still be limited. Medications ketorolac (TORADOL) 10 MG tablet ondansetron (ZOFRAN-ODT) 4 MG disintegrating tablet oxyCODONE (ROXICODONE) 5 MG immediate release tablet tamsulosin (FLOMAX) 0.4 MG CAPS capsule Surgical History Double mastectomy Cystoscopy Lithotripsy Patient's medical chart/information was supplemented through the [facility] Everywhere system, however information may still be limited. Physical Exam Triage Vitals [07/26/241947] Temp 36.9 ??C (98.4 ??F) Temp src Oral Pulse 87 Resp 20 BP 127/83 SpO2 99 % Physical Exam Gen - looks uncomfortable ENT - moist mucous membranes Eyes - sclera anicteric Resp - no respiratory distress, speaking in full sentences with normal work of breathing, Lungs clear to auscultation bilaterally CV - normal/symmetric chest rise, regular rate and rhythm, no murmurs, 2+ radial pulses Abd -mild diffuse abdominal tenderness, soft, normal bowel sounds Neuro - normal speech, moving all four extremities with full strength, face symmetric MSK - no edema Skin - pink, no obvious visible rashes Psych - calm, normal affect Vitals Trending Patient Vitals for the past 24 hrs: BP Temp Temp src Pulse Resp SpO2 07/26/24 2200 126/79 -- -- 92 -- 100 % 07/26/24 2145 110/63 -- -- 83 -- 100 % 07/26/24 2030 129/75 -- -- 79 -- 99 % 07/26/241947 127/83 36.9 ??C (98.4 ??F) Oral 87 20 99 % Diagnostics Lab Results Results for orders placed or performed during the hospital encounter of 07/26/24 Basic Metabolic Panel Result Value Ref Range Sodium 140 136 - 145 mmol/L Potassium 3.7 3.5 - 5.1 mmol/L Chloride 109 98 - 109 mmol/L CO2 22 20 - 29 mmol/L Anion Gap 9 6 - 16 mmol/L Calcium 9.2 8.4 - 10.4 mg/dL BUN 23 7 - 26 mg/dL Creatinine 1.23 (H) 0.55 - 1.02 mg/dL Glucose 103 (H) 70 - 100 mg/dL GFR, Estimated 56 (L) >60 mL/min/1.73m2 UPT Result Value Ref Range HCG, Urine Negative Negative UA Conditional UC: Clean Catch Specimen: Clean Catch; Urine Result Value Ref Range Urine Culture Comment Urinalysis results do not meet criteria for urine culture reflex. Urine Color Yellow Urine Clarity Clear Clear Specific Arlee, Urine 1.028 <1.030 PH Urine 5.5 5.0 - 8.0 Protein, Urine Qual (mg/dL) 20 Negative, 10 , 20 Glucose Urine Qual (mg/dL) Normal (Negative) Normal (Negative), 30 , 50 Ketones, Urine (mg/dL) Negative Negative, Trace Urobilinogen, Urine (EU/dL) 2.0 (A) Normal (Negative) Bilirubin Urine (mg/dL) Negative Negative Blood, Urine (mg/dL) 0.20 (Moderate) (A) Negative, 0.03 (Trace) Nitrite Urine Negative Negative Leukocyte Esterase, Urine (José Luis/uL) Negative Negative, 25 (Trace) Red Blood Cells 77 (H) 0 - 3 /HPF White Blood Cells 3 0 - 5 /HPF Bacteria Occasional (A) None Seen /HPF Squamous Epithelial Cells Occasional None Seen, Occasional, Few /HPF Mucus Present (A) None Seen /HPF Urine Source Clean Catch Complete Blood Count-W/Diff Result Value Ref Range WBC 7.9 3.5 - 10.5 x10(9)/L RBC 3.98 3.90 - 5.03 x10(12)/L Hemoglobin 11.3 (L) 12.0 - 15.5 g/dL HCT 33.5 (L) 34.9 - 44.5 % MCV 84.2 80.0 - 100.0 fL MCH 28.4 27.6 - 33.3 pg MCHC 33.7 31.5 - 35.2 g/dL RDW 13.2 11.9 - 15.5 % Platelets 197 150 - 450 x10(9)/L Automated NRBC 0 <=0 /100 WBC Neutrophil Absolute 4.3 1.7 - 7.0 10(9)/L Lymphocyte Absolute 2.9 1.0 - 4.8 10(9)/L Monocyte Absolute 0.5 0.2 - 0.9 10(9)/L Eosinophil Absolute 0.1 0.0 - 0.5 10(9)/L Basophil Absolute 0.0 0.0 - 0.3 10(9)/L Immature Granulocyte % 0.3 0.0 - 0.5 % Liver Panel (Hepatic Function Panel) Result Value Ref Range Alkaline Phosphatase 33 (L) 40 - 150 U/L Bilirubin, Total 0.5 0.2 - 1.2 mg/dL Bilirubin, Direct 0.2 0.0 - 0.5 mg/dL AST (SGOT) 15 10 - 40 U/L ALT (SGPT) 17 <=55 U/L Protein, Total 6.8 6.4 - 8.3 g/dL Albumin 4.0 3.5 - 5.0 g/dL Lipase Result Value Ref Range Lipase 97 (H) 8 - 78 U/L Imaging CT Abd Pelvis WO IV Cont Stone Final Result IMPRESSION COMPARISON: None. TECHNIQUE: Stone protocol CT [...] 2. Additional bilateral nonobstructing nephrolithiasis as described. Independent Interpretation None ED Course Medications Administered Medications ondansetron (ZOFRAN) injection 4 mg (4 mg Intravenous Given 07/26/242100) HYDROmorphone (DILAUDID) injection 0.5 mg (has no administration in time range) sodium chloride 0.9% bolus 1,000 mL (0 mL Intravenous Infused 07/26/242199) acetaminophen (TYLENOL) tablet 1,000 mg (1,000 mg Oral Given 07/26/242126) Procedures None Discussion of Management Urology, Dr. Osuna ED Course ED Course as of 07/26/24 232MonJul 26, [id number] Ket: Negative [OO] 2133 Paged urology [RR] 2208 Patient updated. Unsure if she was going to able to be admitted logistically due to work obligations. Asked that I check back and a bit [RR] 2258 Declines admission due to work obligations. States she will be back tomorrow. Offered additional pain medication but declines [RR] ED Course User Index [OO] Luma Burt [RR] Pita Jj MD Clinical Impressions as of 07/26/24 232 Ureterolithiasis Additional Documentation None Medical Decision Making / Diagnosis MIPS None MDM Atiya Maria is a 44 y.o. female with extensive history of ureterolithiasis who presents to the emergency department with right flank pain now more diffuse abdominal pain in the setting of known ureterolithiasis in the right for the past nearly 2 weeks. She was uncontrolled at home in terms of her nausea though has not have much vomiting and uncontrolled in terms of pain despite tramadol. She was historically been unable to tolerate other oral narcotics. Urinalysis was without evidence of infection today. She was declining narcotic pain medication here. Creatinine is slightly elevated fromyesterday, 1.2 from 1.0. I discussed with Urology and they are willing to admit with plan for stenting tomorrow. However after long risk benefit discussion and multiple re-evaluations though the patient does very much want to be admitted tells me that she was unable to stay due to work obligations and needs to go work tomorrow but will come back tomorrow evening because she was not anticipate hersymptoms will be anymore controlled at that point. Did discuss returning if she changes her mind orhas new fever or infectious symptoms. Disposition Discharged. Medications Prescribed this Visit None Diagnosis Final diagnoses: [N20.1] Ureterolithiasis Luma Solorzano, am serving as a scribe at 8:33 PM to document services personally performed by Pita Jj MD, based on my observations and the provider's statements to me. 07/26/2024 [facility] Portions of this medical record were completed by a scribe. UPON MY REVIEW AND AUTHENTICATION BY ELECTRONIC SIGNATURE, this confirms (a) I performed the applicable clinical services, and (b) the record is accurate. Pita Jj MD 07/26/24 7935 documented in this encounter Plan of Treatment Upcoming Encounters Date Type Department Care Team (Late st Contact Info) Description 08/07/2024 11:00 AM CDT Appointment [facility] - Urology [address] [facility] [place], [place] [id number] Emmy Hinojosa MBBS [address] [place], [place] [phone] 09/24/2024 10:00 AM HIM CODER Appointment [facility] - Urology [address] [place], [place] [phone] Sakshi Garrido, STAFF TECHNOLOGIST, [employer] MANAGER [address] [place], [place] [phone] Scheduled Procedures Name Priority Associated Diagnoses Date/Ti me CYSTOSCOPY,RETROGRADE PYELOGRAM,URETEROSCOPY,HOLMIUM LASER LITHOTRIPSY OF STONE,URETERAL STENT PLACEMENT Kidney stone Intractable pain documented as of this encounter Procedures Procedure Name Priority Date/Time Associated Diagnosis Comments CT ABD PELVIS WO IV CONT STONE STAT 07/26/2024 8:56 PM CDT UA CONDITIONAL UC STAT 07/26/2024 8:2 8 PM CDT TEST (URINE) STAT 07/26/2024 8:28 PM CDT CBC AND DIFFERENTIAL PANEL STAT 07/26/2024 8:15 PM CDT COMPLETE BLOOD COUNT-W/DIFF STAT 07/26/2024 8:15 PM CDT LIVER PANEL(HEPATIC FUNCTION PANEL) STAT Add-On 07/26/2024 8:15 PM CDT BASIC METABOLIC PANEL STAT 07/26/2024 8:15 PM CDT LIPASE STAT Add-On 07/26/2024 8:15 PM CDT documented in this encounter Results * CT Abd Pelvis WO IV Cont [...] Pita Jj MD RAD CT * (ABNORMAL) UA Conditional UC: Clean Catch (07/26/2024 8:28 PM CDT) Urine Culture Comment Urinalysis results do not meet criteria for urine culture reflex. 07/26/2024 8:59 PM CDT [facility] Urine Color Yellow 07/26/2024 8:59 PM CDT [facility] Urine Clarity Clear Clear 07/26/2024 8:59 PM CDT [facility] Specific Arlee, Urine 1.028 <1.030 07/26/2024 8:59 PM CDT [facility] PH Urine 5.5 5.0 - 8.0 07/26/2024 8:59 PM CDT [facility] Protein, Urine Qual (mg/dL) 20 Negative, 10 , 20 07/26/2024 8:59 PM CDT [facility] Glucose Urine Qual (mg/dL) Normal (Negative) Normal (Negative), 30 , 50 07/26/2024 8:59 PM CDT [facility] Ketones, Urine (mg/dL) Negative Negative, Trace 07/26/2024 8:59 PM CDT [facility] Urobilinogen, Urine (EU/dL) 2.0(A) Normal (Negative) 07/26/2024 8:59 PM CDT [facility] Bilirubin Urine (mg/dL) Negative Negative 07/26/2024 8:59 PM CDT [facility] Blood, Urine (mg/dL) 0.20 (Moderate)(A) Negative, 0.03 (Trace) 07/26/2024 8:59 PM CDT [facility] Nitrite Urine Negative Negative 07/26/2024 8:59 PM CDT [facility] Leukocyte Esterase, Urine (José Luis/uL) Negative Negative, 25 (Trace) 07/26/2024 8:59 PM CDT [facility] Red Blood Cells 77(H) 0 - 3 /HPF 07/26/2024 8:59 PM CDT [facility] White Blood Cells 3 0 - 5 /HPF 07/26/2024 8:59 PM CDT [facility] Bacteria Occasional(A) None Seen /HPF 07/26/2024 8:59 PM CDT [facility] Squamous Epithelial Cells Occasional None Seen, Occasional, Few /HPF 07/26/2024 8:59 PM CDT [facility] Mucus Present(A) None Seen /HPF 07/26/2024 8:59 PM CDT [facility] Urine Source Clean Catch 07/26/2024 8:59 PM CDT [facility] Urine URINE SPECIMEN COLLECTION, CLEAN CATCH / Unknown Non-blood Collection / Unknown 07/26/2024 8:28 PM CDT 07/26/2024 8:32 PM CDT Narrative [facility] - 07/26/2024 8:59 PM CDT The qualitative interpretive guidance provided (e.g., small, moderate, large) is intended to aid in quantitative result interpretation. It is not itself an FDA-cleared test result. Pita Jj MD LAB_1 [facility] [address] * UPT (07/26/2024 8:28 PM CDT) HCG, Urine Negative Negative 07/26/2024 8:43 PM CDT [facility] Urine Non-blood Collection / Unknown 07/26/2024 8:28 PM CDT 07/26/2024 8:32 PM CDT Pita Jj MD LAB_1 Performing Organization Address City/[facility]/ZIP Co de Phone Number [facility] [address] * (ABNORMAL) Lipase (07/26/2024 8:15 PM CDT) Lipase 97(H) 8 - 78 U/L 07/26/2024 9:02 PM CDT [facility] Blood Venipuncture / Unknown 07/26/2024 8:15 PM CDT 07/26/2024 8:19 PM CDT Pita Jj MD LAB_1 Performing Organization Address [facility] de Phone Number [facility] [address] [place] [address] * (ABNORMAL) Liver Panel (Hepatic Function Panel) (07/26/2024 8:15 PM CDT) Alkaline Phosphatase 33(L) 40 - 150 U/L 07/26/2024 9:02 PM CDT [facility] Bilirubin, Total 0.5 0.2 - 1.2 mg/dL 07/26/2024 9:02 PM CDT [facility] Bilirubin, Direct 0.2 0.0 - 0.5 mg/dL 07/26/2024 9:02 PM CDT [facility] AST (SGOT) 15 10 - 40 U/L 07/26/2024 9:02 PM CDT [facility] ALT (SGPT) 17 <=55 U/L 07/26/2024 9:02 PM CDT [facility] Protein, Total 6.8 6.4 - 8.3 g/dL 07/26/2024 9:02 PM CDT [facility] Albumin 4.0 3.5 - 5.0 g/dL 07/26/2024 9:02 PM CDT [facility] Blood Venipuncture / Unknown 07/26/2024 8:15 PM CDT 07/26/2024 8:19 PM CDT Pita Jj MD [facility] [address] [place] [address], [facility] * (ABNORMAL) Complete Blood Count-W/Diff (07/26/2024 8:15 PM CDT) WBC 7.9 3.5 - 10.5 x10(9)/L 07/26/2024 8:25 PM CDT [facility] RBC 3.98 3.90 - 5.03 x10(12)/L 07/26/2024 8:25 PM CDT [facility] Hemoglobin 11.3(L) 12.0 - 15.5 g/dL 07/26/2024 8:25 PM CDT [facility] HCT 33.5(L) 34.9 - 44.5 % 07/26/2024 8:25 PM CDT [facility] MCV 84.2 80.0 - 100.0 fL 07/26/2024 8:25 PM CDT [facility] MCH 28.4 27.6 - 33.3 pg 07/26/2024 8:25 PM CDT [facility] MCHC 33.7 31.5 - 35.2 g/dL 07/26/2024 8:25 PM CDT [facility] RDW 13.2 11.9 - 15.5 % 07/26/2024 8:25 PM CDT [facility] Platelets 197 150 - 450 x10(9)/L 07/26/2024 8:25 PM CDT [facility] Automated NRBC 0 <=0 /100 WBC 07/26/2024 8:25 PM CDT [facility] Neutrophil Absolute 4.3 1.7 - 7.0 10(9)/L 07/26/2024 8:25 PM CDT [facility] Lymphocyte Absolute 2.9 1.0 - 4.8 10(9)/L 07/26/2024 8:25 PM CDT [facility] Monocyte Absolute 0.5 0.2 - 0.9 10(9)/L 07/26/2024 8:25 PM CDT [facility] Eosinophil Absolute 0.1 0.0 - 0.5 10(9)/L 07/26/2024 8:25 PM CDT [facility] Basophil Absolute 0.0 0.0 - 0.3 10(9)/L 07/26/2024 8:25 PM CDT [facility] Immature Granulocyte % 0.3 0.0 - 0.5 % 07/26/2024 8:25 PM CDT [facility] Blood Venipuncture / Unknown 07/26/2024 8:15 PM CDT 07/26/2024 8:19 PM CDT Pita Jj MD [facility] [address] [place] [address], [facility] * (ABNORMAL) Basic Metabolic Panel (07/26/2024 8:15 PM CDT) Sodium 140 136 - 145 mmol/L 07/26/2024 9:02 PM CDT [facility] Potassium 3.7 3.5 - 5.1 mmol/L 07/26/2024 9:02 PM CDT [facility] Chloride 109 98 - 109 mmol/L 07/26/2024 9:02 PM CDT [facility] CO2 22 20 - 29 mmol/L 07/26/2024 9:02 PM CDT [facility] Anion Gap 9 6 - 16 mmol/L 07/26/2024 9:02 PM CDT [facility] Calcium 9.2 8.4 - 10.4 mg/dL 07/26/2024 9:02 PM CDT [facility] BUN 23 7 - 26 mg/dL 07/26/2024 9:02 PM CDT [facility] Creatinine 1.23(H) 0.55 - 1.02 mg/dL 07/26/2024 9:02 PM CDT [facility] Glucose 103(H) 70 - 100 mg/dL 07/26/2024 9:02 PM CDT [facility] Comment:The given reference range is for the fasting state. Non-fasting reference range for glucose is 70 - 180 mg/dL. GFR, Estimated 56(L) >60 mL/min/1.7 3m2 07/26/2024 9:02 PM CDT [facility] Blood Venipuncture / Unknown 07/26/2024 8:15 PM CDT 07/26/2024 8:19 PM CDT Narrative [facility] - 07/26/2024 9:02 PM CDT The National Kidney Disease Education Program suggests measuring Cystatin C in patients with eGFRcrea of 45 to 59 ml/min/1.73^2 who do not have other markers of kidney damage (i.e. elevated urine Albumin/Creatinine Ratio or a prior Cystatin C confirming the presence of chronic kidney disease). Pita Jj MD LAB[facility]1 [facility] [address] documented in this encounter Visit Diagnoses Diagnosis Ureterolithiasis Calculus of ureter * Triage Assessment Note - Storm Degroot RN - 07/26/2024 7:48 PM CDT According to patient she as been dealing with kidney stones for almost two weeks. Pt complains of right flank and lower abdominal pain. documented in this encounter Administered Medications Inactive Administered Medications - up to 3 most recent administrations Medication Order MAR Action Action Date Dose Rate Site acetaminophen (TYLENOL) tablet 1,000 mg 1,000 mg, Oral, ONCE, On Mon07/26/24 at 2145, For 1 dose Given 07/26/2024 9:27 PM CDT 1,000 mg HYDROmorphone (DILAUDID) injection 0.5 mg 0.5 mg, Intravenous, Q1H PRN, Pain, Starting on Mon07/26/24 at 2046, Until 07/27/24 at 0329, For 3 doses ondansetron (ZOFRAN) injection 4 mg 4 mg, Intravenous, Q1H PRN, Nausea, Vomiting, Starting on Mon07/26/24 at 2045, Until 07/27/24 at 0329, For 2 doses Given 07/26/2024 9:01 PM CDT 4 mg sodium chloride 0.9% bolus 1,000 mL 1,000 mL, Intravenous, Administer over 0.6 Hours, ONCE, On Mon07/26/24 at 2130, For 1 dose Started 07/26/2024 9:20 PM CDT 1,000 mL documented in this encounter Active and Recently Administered Medications Times are shown in CDT. Scheduled Medication Order 07/25/2024 07/26/2024 07/27/2024 acetaminophen (TYLENOL) tablet 1,000 mg (COMPLETED) 1,000 mg, Oral, ONCE, On Mon07/26/24 at 2145, For 1 dose 2126 (Given - Provider: Geraldine Arizmendi RN) sodium chloride 0.9% bolus 1,000 mL (COMPLETED) 1,000 mL, Intravenous, Administer over 0.6 Hours, ONCE, On Mon07/26/24 at 2130, For 1 dose 2119 (Started - Provider: Willis RN)0 (Infused - Provider: Beau Arizmendi RN) PRN Medication Order 07/25/2024 07/26/2024 07/27/2024 HYDROmorphone (DILAUDID) injection 0.5 mg 0.5 mg, Intravenous, Q1H PRN, Pain, Starting on Mon07/26/24 at 2047, Until 07/27/24 at 0329, For 3 doses ondansetron (ZOFRAN) injection 4 mg 4 mg, Intravenous, Q1H PRN, Nausea, Vomiting, Starting on Mon07/26/24 at 2046, Until 07/27/24 at 0329, For 2 doses 2100 (Given - Provider: Geraldine Arizmendi RN) documented in this encounter Care Teams Bilingual Account Manager Relationship Specialty Start Date End Date Radha Cowan MD [address] [place] [address] PCP - General Obstetrics Gynecology 07/26/24 documented as of this encounter
--- OUTSIDE RECORDS SUMMARY | 2024-08-03 22:07 | XMS_ITS | Encounter Summary ---
Author Organization [facility] Address [address] [place] [address] Care Team Providers Care Life Science Technician Name Role Phone Radha Cowan MD Primary Care Provider [phone] Encounter Details Date Type Department Care Team (Latest Contact Info) Description 07/29/2024 Orders Only HIM DEPARTMENT Provider, [place] [address] Social History Tobacco Use Types Packs/Day Years Used Date Smoking Tobacco: Never Assessed [facility] Utilities Answer Date Recorded In the past 12 months has e [employer], gas, oil, or water [employer] threatened to shut off services in your [...] any time in the past 12 m [facility], were you homeless or living in a correction (including now)? Patient declined 07/29/2024 Sex and Gender Information Value Date Recorded Sex Assigned at Not on file Gender Identity Not on file Sexual Orientation Not on file documented as of this encounter Plan of Treatment Upcoming Encounters Date Type Department Care Team (Late st Contact Info) Description 08/07/2024 11:00 AM CDT Appointment [facility] - Urology [address] [facility] [place], [place] [address] Emmy Hinojosa MBBS [address] [place], [place] [address] 09/24/2024 10:00 AM SURGICAL MANAGER Appointment [facility] - Urology [address] [facility] [place], [place] [address] Sakshi Garrido, BUILDING CONSTRUCTION FOREMAN, TANNERY GUMMER [address] [place], [place] [address] Scheduled Procedures Name Priority Associated Diagnoses Date/Ti me CYSTOSCOPY,RETROGRADE PYELOGRAM,URETEROSCOPY,HOLMIUM LASER LITHOTRIPSY OF STONE,URETERAL STENT PLACEMENT Kidney stone Intractable pain documented as of this encounter Procedures Procedure Name Priority Date/Time Associated Diagnosis Comments EKG 07/29/2024 documented in this encounter Results * EKG (07/29/2024) Interface Provider MD EKG documented in this encounter Visit Diagnoses Not on filedocumented in this encounter Care Teams Life Science Technician Relationship Specialty Start Date End Date Radha Cowan MD [address] [place] [address] PCP - General Obstetrics Gynecology 07/26/24 documented as of this encounter
--- OUTSIDE RECORDS SUMMARY | 2024-08-03 22:07 | XMS_ITS | Encounter Summary ---
Author Organization [facility] Address [address] [address] Care Team Providers Care Pinion And Wheel Truer Name Role Phone Found, No Pcp MD Primary Care Provider Unavailab le Reason for Visit * Procedure/Equipment (Routine) - Incomplete Specialty Diagnoses / Procedures Referred By Contac t Referred To Contact Procedures Foreign Image(S) CT Abdomen/Pelvis Provider, Foreign Images [address] [place] [address] Referral ID Status Reason Start Date Expiration Date V isits Requested Visits Authorized [id number] Incomplete 07/30/2024 10/29/2025 1 1 Encounter Details Date Type Department Care Team (Late st Contact Info) Description 07/19/2024 7:40 PM CDT Ancillary Procedure Radiology PACS [address] [place] [address] Social History Tobacco Use Types Packs/Day Years Used Date Smoking Tobacco: Never Assessed Sex and Gender Information Value Date Recorded Sex Assigned at Not on file Gender Identity Not on file Sexual Orientation Not on file documented as of this encounter Plan of Treatment Upcoming Encounters Date Type Department Care Team (Late Contact Info) Description 08/07/2024 11:00 AM CDT Appointment [facility] - Urology [address] [facility] [place] [address] Emmy Hinojosa MBBS [address] [place] [address] 09/24/2024 10:00 AM BRANCH SERVICE LEADER Appointment [facility] - Urology [address] [facility] [place] [address] Sakshi Garrido, LAUNDRETTE OWNER, [employer] [address] [place] [address] Scheduled Procedures Name Priority Associated Diagnoses Date/Ti me CYSTOSCOPY,RETROGRADE PYELOGRAM,URETEROSCOPY,HOLMIUM LASER LITHOTRIPSY OF STONE,URETERAL STENT PLACEMENT Kidney stone Intractable pain documented as of this encounter Procedures Procedure Name Priority Date/Time Associated Diagnosis Comments FOREIGN IMAGE(S) CT ABDOMEN/PELVIS Routine 07/19/2024 7:40 PM CDT documented in this encounter Results * Foreign Image(S) CT Abdomen/Pelvis (07/19/2024 7:40 PM CDT) Narrative EXTERNAL RESULTS - 07/30/2024 11:38 AM CDT These outside images have been uploaded into PACS. If the results were provided, they will be located in the patient's chart under the Media or Imaging tab. Foreign Images Provider RAD NON-REPORTAB LES EXTERNAL RESULTS documented in this encounter Visit Diagnoses Not on filedocumented in this encounter Care Teams Pinion And Wheel Truer Relationship Specialty Start Date End Date Found, No Pcp, [address] [place] [address] PCP - General 04/10/20 9 4 documented as of this encounter
--- OUTSIDE RECORDS SUMMARY | 2024-08-03 22:07 | XMS_ITS | Encounter Summary ---
Author [facility] Address [address], [place] [address] Care Team Providers Care Broadcast Operations Director Name Role Phone Found, No Pcp MD Primary Care Provider Unavailab le Reason for Visit * Procedure/Equipment (Routine) - Incomplete Specialty Diagnoses / Procedures Referred By Dara t Referred To Contact Diagnoses Kidney stone Procedures XR Abd Flat/KUB 1 View Keturah Freeman APRN, GRINDING AND POLISHING LABORER [address] [place] [address] Referral ID Status Reason Start Date Expiration Date V isits Requested Visits Authorized [id number] Incomplete 07/24/2024 10/23/2025 1 1 Encounter Details Date Type Department Care Team (Late Contact Info) Description 07/24/2024 1:25 PM CDT Ancillary Procedure [facility] [address] Radiology [address] [facility] [place], [place] [id number] Keturah Freeman APRN, GRINDING AND POLISHING LABORER [address] [place] [address] Kidney stone Social History Tobacco Use Types Packs/Day Years Used Date Smoking Tobacco: Never Assessed Sex and Gender Information Value Date Recorded Sex Assigned at Not on file Gender Identity Not on file Sexual Orientation Not on file documented as of this encounter Plan of Treatment Upcoming Encounters Date Type Department Care Team (Late Contact Info) Description 08/07/2024 11:00 AM CDT Appointment [facility] - Urology [address] [facility] [place], [place] [phone] Emmy Hionjosa MBBS [address] [place], [place] [phone] 09/24/2024 10:00 AM HEAT SEALING MACHINE OPERATOR Appointment [facility] - Urology [address] [facility] [place], [place] [phone] Sakshi Garrido GATE MANAGER, GRINDING AND POLISHING LABORER [address] [place], [place] [phone] Scheduled Procedures Name Priority Associated Diagnoses Date/Ti me CYSTOSCOPY,RETROGRADE PYELOGRAM,URETEROSCOPY,HOLMIUM LASER LITHOTRIPSY OF STONE,URETERAL STENT PLACEMENT Kidney stone Intractable pain documented as of this encounter Procedures Procedure Name Priority Date/Time Associated Diagnosis Comments XR ABD FLAT/KUB 1 VIEW Routine 07/24/2024 1:33 PM CDT Kidney stone documented in this encounter Results * XR Abd Flat/KUB 1 View (07/24/2024 1:33 PM CDT) Anatomical Region Laterality Modality Abdomen Digital Radiogra phy 07/24/2024 1:25 PM CDT Impressions 07/24/2024 2:28 PM CDT COMPARISON: ??None. FINDINGS: ??2 views. Abdominal gas pattern is unremarkable. ??No suspicious calcifications are identified. ??No gross free intraperitoneal gas is seen. There are no abnormal air-fluid levels. Keturah Freeman GATE MANAGER, GRINDING AND POLISHING LABORER RAD GD documented in this encounter Visit Diagnoses Diagnosis Kidney stone Calculus of kidney documented in this encounter Care Teams Broadcast Operations Director Relationship Specialty Start Date End Date Found, No Pcp, [address] [place] [address] PCP - General 04/10/20 9 4 documented as of this encounter
--- OUTSIDE RECORDS SUMMARY | 2024-08-03 22:07 | XMS_ITS | Encounter Summary ---
Author Organization [facility] Address [address] [place] [address] Phone Care Team Providers Care Night Coordinator Name Role Phone Unavailable Primary Care Provider Unavailabl e Encounter Details Date Type Department Care Team (Latest Contact Info) Description 07/25/2024 Travel Social History Tobacco Use Types Packs/Day [...]
--- OUTSIDE RECORDS SUMMARY | 2024-08-03 22:07 | XMS_ITS | Encounter Summary ---
Author Organization [facility] Address [address] [address] Care Team Providers Care Medical Physiologist Name Role Phone Found, No Pcp MD Primary Care Provider Unavailab le Reason for Referral * Procedure/Equipment (Routine) - Incomplete Specialty Diagnoses / Procedures Referred By Dara t Referred To Contact Diagnoses Kidney stone Procedures XR Abd Flat/KUB 1 View Keturah Freeman APRN, CNP [address] [place] [address] Referral ID Status Reason Start Date Expiration Date V isits Requested Visits Authorized [id number] Incomplete 07/24/2024 10/23/2025 1 1 Encounter Details Date Type Department Care Team (Late Contact Info) Description 07/24/2024 Notes/Orders [facility] - Urology [address] [facility] [place] [address] Keturah Freeman APRN, CNP [address] [place] [address] Kidney stone (Primary Dx) Social History Tobacco Use Types Packs/Day Years Used Date Smoking Tobacco: Never Assessed Sex and Gender Information Value Date Recorded Sex Assigned at Not on file Gender Identity Not on file Sexual Orientation Not on file documented as of this encounter Plan of Treatment Upcoming Encounters Date Type Department Care Team (Late Contact Info) Description 08/07/2024 11:00 AM CDT Appointment [facility] - Urology [address] [facility] [place] [address] Emmy Hinojosa MBBS [address] [place] [address] 09/24/2024 10:00 AM EDITOR NEWS Appointment [facility] - Urology [address] [facility] [place], [place] [address] Sakshi Garrido APRN, ENGINEER/CONDUCTOR [address] [place], [place] [phone] Scheduled Procedures Name Priority Associated Diagnoses Date/Ti me CYSTOSCOPY,RETROGRADE PYELOGRAM,URETEROSCOPY,HOLMIUM LASER LITHOTRIPSY OF STONE,URETERAL STENT PLACEMENT Kidney stone Intractable pain documented as of this encounter Results * XR Abd Flat/KUB 1 View (07/24/2024 1:33 PM CDT) Anatomical Region Laterality Modality Abdomen Digital Radiogra phy 07/24/2024 1:25 PM CDT Impressions 07/24/2024 2:28 PM CDT COMPARISON: ??None. FINDINGS: ??2 views. Abdominal gas pattern is unremarkable. ??No suspicious calcifications are identified. ??No gross free intraperitoneal gas is seen. There are no abnormal air-fluid levels. Keturah Freeman GAMING CAGE WORKER, ENGINEER/CONDUCTOR RAD GD documented in this encounter Visit Diagnoses Diagnosis Kidney stone- Primary Calculus of kidney Kidney stone Calculus of kidney documented in this encounter Care Teams Medical Physiologist Relationship Specialty Start Date End Date Found, No Pcp, [address] [place] [address] PCP - General 04/10/20 4 documented as of this encounter
--- OUTSIDE RECORDS SUMMARY | 2024-08-03 22:07 | XMS_ITS | Encounter Summary ---
Author Organization [facility] Address [address], [place] [address] Care Team Providers Care Generator Operator Name Role Phone Radha Cowan MD Primary Care Provider Reason for Referral * Procedure/Equipment (Routine) - Incomplete Specialty Diagnoses / Procedures Referred By Contac t Referred To Contact Diagnoses Kidney stone Procedures CT Abd Pelvis WO IV Cont Stone Keturah Freeman APRN, CNP [address] [place] [address] Referral ID Status Reason Start Date Expiration Date V isits Requested Visits Authorized [id number] Incomplete 07/26/2024 10/25/2025 1 1 Reason for Visit * Reason Comments Follow-up, NOS Called to f/u on saadia n for CT scan. No answer so LVM. [...] stone protocol to be done before surgery. Encounter Details Date Type Department Care Team (Late st Contact Info) Description 07/26/2024 Telephone [facility] - Urology [address] [place] [address] Keturah Freeman APRN, CNP [address] [place] [phone] Follow-up, NOS (Called to f/u on plan for CT scan. No answer so [facility]Trever. Advised that she is scheduled with Dr. [...] protocol to be done before surgery. ) Social History Tobacco Use Types Packs/Day Years Used Date Smoking Tobacco: Never Assessed [facility] Utilities Answer Date Recorded In the past 12 months has th e [employer], gas, oil, or water [employer] threatened to shut off services in your [...] any time in the past 12 [facility] were [facility] or living in a penitentiary (including now)? Patient declined 07/29/2024 Sex and Gender Information Value Date Recorded Sex Assigned at Not on file Gender Identity Not on file Sexual Orientation Not on file documented as of this encounter Nursing Notes * Elham Aldrich RN - 07/30/2024 9:20 AM CDT Images from the original note were not included. Bashir Calles MD You1 hour ago (8:14 AM) [place] No need for CT if she is still having pain I called Atiya, she is at the hospital. Surgery today with Dr Andrews * Elham Aldrich RN - 07/29/2024 11:15 AM CDT Atiya did have a ct on 07-26, will repeat be needed for her surgery on 08-01-24, documented in this encounter Plan of Treatment Upcoming Encounters Date Type Department Care Team (Late st Contact Info) Description 08/07/2024 11:00 AM CDT Appointment [facility] - Urology [address] [facility] [place] [address] Emmy Hinoojsa MBBS [address] [place], [place] [address] 09/24/2024 10:00 AM KEG INSPECTOR Appointment [facility] - Urology [address] [facility] [place] [address] Sakshi Garrido, CLINICAL DOCUMENTATION CONSULTANT, BINDERY PRODUCTION MANAGER [address] [place] [address] Scheduled Orders Name Type Priority Associated Diagnoses Orde r Schedule CT Abd Pelvis WO IV Cont Stone Imaging New Routine Kidney stone Expected: 07/26/2024 (Approximate), Expires: 07/26/2025 Scheduled Procedures Name Priority Associated Diagnoses Date/Ti me CYSTOSCOPY,RETROGRADE PYELOGRAM,URETEROSCOPY,HOLMIUM LASER LITHOTRIPSY OF STONE,URETERAL STENT PLACEMENT Kidney stone Intractable pain documented as of this encounter Visit Diagnoses Diagnosis Kidney stone- Primary Calculus of kidney documented in this encounter Care Teams Generator Operator Relationship Specialty Start Date End Date Radha Cowan MD [address] [place] [address] PCP - General Obstetrics Gynecology 07/26/24 documented as of this encounter
--- OUTSIDE RECORDS SUMMARY | 2024-08-03 22:07 | XMS_ITS | Encounter Summary ---
Author Organization [facility] Address [address] [place] [address] Care Team Providers Care Executive Staff Assistant Name Role Phone Radha Cowan MD Primary Care Provider [phone] Encounter Details Date Type Department Care Team [...] on filedocumented in this encounter Care Teams Executive Staff Assistant Relationship Specialty Start Date End Date Radha Cowan MD [address] [place] [address] PCP - General Family Medicine 07/20/24 documented as of this encounter
[2024-08-03] MEDS: 0.9 % SODIUM CHLORIDE 1000 ml 1,000 ML IV ×2 (22:26→23:30)
[2024-08-03] MEDS: HYOSCYAMINE SULFATE 0.125 MG TAB 0.25 MG SUBLINGUAL (22:27)
[2024-08-03 22:28] LABS: Lactate* 1.3 mmol/L (0.5-1.9)
[2024-08-03 22:34] LABS: Basophils Absolute Auto 0.01 K/uL (0.00-0.30); Basophils Percent Auto 0.1 % (0.0-3.0); Eosinophils Absolute Auto 0.17 K/uL (0.00-0.50); Eosinophils Percent Auto 2.4 % (0.0-7.0); Hematocrit 36.1 % (33.0-51.0); Hemoglobin* 12.1 gm/dL (12.0-16.0); Immature Granulocytes Abs Auto 0.01 K/uL (0.00-0.30); Immature Granulocytes Pct Auto 0.1 %; Lymphocytes Percent Auto 49.9 % (20-44); Mean Corpuscular HGB Conc 34 gm/dL (32-36); Mean Corpuscular Hemoglobin 28 pg (26-34); Mean Corpuscular Volume 83 fL (80-100); Monocytes Percent Auto 6.4 % (0.0-11.0); Neutrophils Percent Auto 41.1 % (42.0-72.0); Platelet Count* 243 K/uL (140-440); RDW Coefficient of Variation % 12.8 % (11.5-15.5); Red Blood Count 4.34 m/uL (4.00-5.20); White Blood Count* 7.05 K/uL (4.50-11.00)
[2024-08-03 22:36] LABS: Slide Review Reflex No
[2024-08-03 22:47] LABS: Appearance Urine Clear (Clear); Bilirubin Urine Negative (Negative); Blood Urine 3+ (Negative); Color Urine Yellow (Yellow); Glucose Urine Negative (Negative); Ketones Urine Negative (Negative); Leukocyte Esterase Urine 1+ (Negative); Nitrite Urine Negative (Negative); Protein Urine 2+ (Negative); Specific Gravity Urine >= 1.030 (1.000-1.030); Urobilinogen Urine 0.2 (0.2-1.0)
[2024-08-03 22:52] LABS: Chloride* 106 mmol/L (96-114); Sodium* 139 mmol/L (135-149)
[2024-08-03 22:55] LABS: Creatinine* 0.7 mg/dL (0.5-1.5); Est. Creatinine Clearance* 101.81; Estimated Glomerular Filt Rate 111 ml/min
[2024-08-03 22:56] LABS: Anion Gap 7 mEq/L (7-15); Blood Urea Nitrogen* 18 mg/dL (5-24); Calcium* 9.5 mg/dL (8.4-10.6); Carbon Dioxide* 26 mmol/L (20-32); Glucose* 103 mg/dL (60-115)
[2024-08-03 22:58] LABS: C Reactive Protein* 0.8 mg/dL (0.5-1.0)
[2024-08-03 23:00] LABS: Bacteria Urine Few; RBC Urine >100 (0-2); Squamous Epithelial Cell Urine Few (None-Few)
[2024-08-03 23:32] VITALS: BP 116/88; PULSE 72; RESP 16; O2SAT 99
== END 2024-08-04 00:36 | disposition home or self-care (01) ==
PROVIDERS: Emergency Provider Family Medicine; PCP Family Medicine
DX: R53.81 Other malaise (principal); E86.0 Dehydration
CPT/HCPCS: 36415; 80048; 81001; 83605; 85025; 86140; 87086; 87631; 99283; 99284; A9270; J7030